=== PATIENT | female | born 1945 | race Caucasian/White ===

== ENCOUNTER → 2017-09-06 08:19 | Outpatient (CLI) | payer MEDICARE, SELFPAY ==
--- NOTE | 2017-09-06 08:24 | MM_ITS ---
MM Dig screening mamm BI w/CAD CAD Screening COMPARISON: Digital mammograms 05/04/2012 INDICATION: There is no personal or family history of breast cancer TECHNIQUE: Standard CC and MLO images were obtained. R2 CAD reviewed. FINDINGS: The breasts are of low density with minimal residual fibroglandular densities in the subareolar region of the right breast. There are few benign-appearing microcalcifications in each breast as noted previously. There is no suspicious lesion and there are no suspicious microcalcifications. IMPRESSION: Fatty type breast parenchyma with no suspicious lesion seen BI-RADS Category: 2 Benign Finding(s) RECOMMENDED FOLLOW-UP: 1YR - 1 YEAR FOLLOW-UP (A letter has been sent to the patient regarding results of the study.)
--- NOTE | 2017-09-06 08:25 | XR_ITS ---
XR DEXA axial skeleton HISTORY: ITS.REASON: OSTEOPENIA ORDERING PHYSICIAN: Yariel Fernández MD PATIENT AGE: 72 years COMPARISON: 11/27/2012 FINDINGS: The BMD measured at the lumbar spine is 1.299 g/centimeters squared with a T score of 1.0. This is considered normal according to the World Health Organization criteria. Fracture risk is low. Recommend follow-up exam August 2019. Hip density was not performed due to bilateral hip replacements. IMPRESSION: Normal bone density
== END ==
PROVIDERS: Family Provider Family Medicine; PCP Family Medicine; Visit Provider Family Medicine
DX: Z12.31 Encounter for screening mammogram for malignant neoplasm of breast (principal); M85.89 Other specified disorders of bone density and structure, multiple sites
CPT/HCPCS: 77067; 77080

== ENCOUNTER → 2017-11-03 10:33 | Outpatient (CLI) | payer MEDICARE, SELFPAY ==
--- NOTE | 2017-11-03 10:36 | US_ITS ---
US kidney retroperitoneal comp HISTORY: ITS.REASON: RENAL INSUFFICIENCY ORDERING PHYSICIAN: Yarile Fernández MD PATIENT AGE: 72 years FINDINGS: RIGHT KIDNEY:Unremarkable. Normal size and echogenicity. No hydronephrosis Right kidney measures 7 x 4 x 5 cm. There is mild cortical thinning LEFT KIDNEY:Unremarkable. No hydronephrosis. Normal size and echogenicity. The left kidney measures 10 x 4.6 x 4.6 cm with cortical thinning OTHER FINDINGS: No other pertinent findings IMPRESSION: No hydronephrosis or renal mass or perinephric fluid collection. Cortical thinning bilaterally
== END ==
PROVIDERS: Family Provider Family Medicine; PCP Family Medicine; Visit Provider Family Medicine
DX: N28.9 Disorder of kidney and ureter, unspecified (principal)
CPT/HCPCS: 76770

== ENCOUNTER → 2017-12-22 08:19 | Outpatient (CLI) | payer MEDICARE, SELFPAY ==
[2017-12-22 08:23] LABS: Microscopic, Urine URINE MICROSCOPIC (MICROSCOPIC)
[2017-12-22 08:43] LABS: Bilirubin,Urine Negative (Negative); Blood, Urine 2+ (Negative); Color,Urine YELLOW (Yellow); Glucose,Urine (UA) Negative (Negative); Ketones,Urine Negative (Negative); Leukocyte Esterase,Urine 1+ (Negative); Nitrate,Urine Negative (Negative); PH,Urine 5.5 (5.0-8.5); Protein,Urine Negative (Negative); Specific Gravity, Urine 1.025 (1.005-1.030); Urobilinogen,Urine 0.2 EU/dl (0.2)
[2017-12-22 08:47] LABS: Appearance,Urine Slightly Cloudy (Clear)
[2017-12-22 08:48] LABS: Basophils % 0.7 % (0.1-2.0); Eosinophils # 0.1 K/mm3 (0.0-0.4); Eosinophils % 1.7 % (0.1-12.0); Hematocrit 44.6 % (37.0-47.0); Hemoglobin 13.6 g/dL (12.2-16.2); Lymphocytes # 1.4 K/mm3 (0.7-4.5); Lymphocytes % 23.5 K/mm3 (10-50); Mean Corpuscular HGB Conc 30.6 g/dL (31.8-35.4); Mean Corpuscular Hemoglobin 29.5 pg (27.0-31.2); Mean Corpuscular Volume 96.5 fl (81-99); Mean Platelet Volume 8.9 fl (7.4-10.4); Monocytes # 0.5 K/mm3 (0.1-1.0); Monocytes % 8.4 % (1.7-9.3); Neutrophils # 3.9 K/mm3 (1.8-7.8); Neutrophils % 65.7 % (37.0-80.0); Platelet Count 159 K/mm3 (142-424); Red Blood Count 4.62 M/mm3 (4.20-5.40); Red Cell Distribution Width 13.7 % (11.5-17.5); White Blood Count 5.9 K/mm3 (4.8-10.8)
[2017-12-22 08:50] LABS: Bacteria,Urine 1+ /lpf
[2017-12-22 08:54] LABS: Creatinine,Urine Random 171 mg/dL (20-320)
[2017-12-22 09:08] LABS: Albumin Level 3.7 gm/dL (3.4-5.0); Anion Gap 13.2 mEq/L (5-15); Blood Urea Nitrogen 30 mg/dL (7-18); Calcium 8.9 mg/dL (8.5-10.1); Carbon Dioxide 27 mmol/L (21.0-32.0); Chloride 108 mmol/L (98-107); Creatinine,Serum 1.86 mg/dL (0.55-1.02); Estimated Glomerular Filt Rate 27 ml/min (>60); GFR (African American) 32 ML/MIN (>60); Glucose 97 mg/dL (74-106); Phosphorous 2.8 mg/dL (2.4-4.9); Potassium 4.2 mmoL/L (3.5-5.1); Sodium 144 mmol/L (136-145)
[2017-12-23 15:39] LABS: Parathyroid Hormone Intact 35 pg/mL (15-65); Vitamin D 25 Hydroxy 46.9 ng/mL (30.0-100.0)
== END ==
PROVIDERS: Visit Provider Internal Medicine Nephrology
DX: N18.4 Chronic kidney disease, stage 4 (severe) (principal); R82.90 Unspecified abnormal findings in urine
CPT/HCPCS: 36415; 80069; 81001; 82570; 82652; 83970; 84155; 85025; 87086

== ENCOUNTER → 2017-12-29 14:23 | Outpatient (POV) | payer MEDICARE, SELFPAY | PROVIDERS: Family Provider Family Medicine; PCP Family Medicine; Visit Provider Internal Medicine Nephrology | DX: Z00.00 Encounter for general adult medical examination without abnormal findings (principal) ==

== ENCOUNTER → 2018-06-22 07:49 | Outpatient (CLI) | payer MEDICARE, SELFPAY ==
[2018-06-22 07:53] LABS: Microscopic, Urine URINE MICROSCOPIC (MICROSCOPIC)
[2018-06-22 08:23] LABS: Creatinine,Urine Random 183 mg/dL (20-320); Total Protein,Urine Random 17.2 mg/dL (0.0-11.9)
[2018-06-22 08:27] LABS: Appearance,Urine SL CLOUDY (Clear); Bilirubin,Urine Negative (Negative); Blood, Urine 1+ (Negative); Color,Urine YELLOW (Yellow); Glucose,Urine (UA) Negative (Negative); Ketones,Urine Negative (Negative); Leukocyte Esterase,Urine 2+ (Negative); Nitrate,Urine Negative (Negative); Protein,Urine Negative (Negative); Urobilinogen,Urine 0.2 EU/dl (0.2)
[2018-06-22 08:30] LABS: Basophils % 0.7 % (0.1-2.0); Eosinophils # 0.1 K/mm3 (0.0-0.4); Eosinophils % 2.3 % (0.1-12.0); Hematocrit 43.2 % (37.0-47.0); Hemoglobin 13.8 g/dL (12.2-16.2); Lymphocytes % 35.9 % (10-50); Mean Corpuscular HGB Conc 31.9 g/dL (31.8-35.4); Mean Corpuscular Hemoglobin 31.1 pg (27.0-31.2); Mean Corpuscular Volume 97.5 fl (81-99); Mean Platelet Volume 8.6 fl (7.4-10.4); Monocytes # 0.5 K/mm3 (0.1-1.0); Monocytes % 9.2 % (1.7-9.3); Neutrophils # 2.8 K/mm3 (1.8-7.8); Neutrophils % 51.9 % (37.0-80.0); Platelet Count 181 K/mm3 (142-424); Red Blood Count 4.43 M/mm3 (4.20-5.40); Red Cell Distribution Width 13.9 % (11.5-17.5); White Blood Count 5.5 K/mm3 (4.8-10.8)
[2018-06-22 08:44] LABS: Bacteria,Urine 1+ /lpf; WBC,Urine 20-50 #/hpf (0-3)
[2018-06-22 09:28] LABS: Albumin Level 3.6 gm/dL (3.4-5.0); Blood Urea Nitrogen 29 mg/dL (7-18); Calcium 9.2 mg/dL (8.5-10.1); Carbon Dioxide 28 mmol/L (21.0-32.0); Chloride 104 mmol/L (98-107); Creatinine,Serum 1.94 mg/dL (0.55-1.02); Estimated Glomerular Filt Rate 25 ml/min (>60); GFR (African American) 31 ML/MIN (>60); Glucose 89 mg/dL (74-106); Phosphorous 2.7 mg/dL (2.4-4.9); Sodium 143 mmol/L (136-145)
== END ==
PROVIDERS: Visit Provider Internal Medicine Nephrology
DX: N18.4 Chronic kidney disease, stage 4 (severe) (principal); R82.90 Unspecified abnormal findings in urine
CPT/HCPCS: 36415; 80069; 81001; 82570; 84155; 85025; 87086

== ENCOUNTER → 2018-06-29 12:39 | Outpatient (POV) | payer MEDICARE, SELFPAY | PROVIDERS: Visit Provider Internal Medicine Nephrology | DX: Z00.00 Encounter for general adult medical examination without abnormal findings (principal) ==

== ENCOUNTER → 2018-09-08 08:59 | Outpatient (CLI) | payer MEDICARE, SELFPAY ==
--- NOTE | 2018-09-08 09:04 | MM_ITS ---
MM Dig screening mamm BI w/CAD ORDERING PHYSICIAN : Yariel Fernández MD PATIENT AGE: 73 years GENDER: Female COMPARISON: Bilateral mammogram August 2017, April 2012. INDICATION: Routine SCREENING mammogram. No hormones no new complaints noncontributory family history. TECHNIQUE: Standard CC and MLO images were obtained. R2 CAD reviewed. Additional MLO view for inframammary fold. Patient is somewhat difficult to position FINDINGS: Moderate residual fibroglandular elements in the retroareolar region on the right more so than left. Yields mild asymmetry. However overall there is diffuse fatty replacement of throughout the deep breast bilaterally. Overall patterns are similar to previous study RIGHT BREAST:Slight asymmetric fibroglandular elements more evident at the right retroareolar region appears stable. Areas of minor nodularity here on the MLO view, seen on studies dating back to 2011. Small grouping of benign calcifications towards the inferior central breast stable since 2012 as well. LEFT BREAST :There is a cluster of calcifications labeled X seen towards upper-outer quadrant of the left breast. Although actually fairly stable since last year there are perhaps a few additional small calcifications.-Also note there is some variability in shape & morphology including some slightly pleomorphic character on a several calcifications; thus suggest magnification views CC, 90 and MLO and this case. A may require additional attempted tangent view of the calcifications if the appear fairly superficial on these follow-up views. I tend to favor they are more likely within Breast rather than Skin, but do Appear to be superficial. No associated soft tissue density. There are some scattered small linear calcifications elsewhere IMPRESSION: 1. Additional magnification views left breast suggested to further evaluate clustered calcifications. More likely benign but warrant further investigation . These are Fairly superficial but I tend to favor breast rather than derrmal calcifications at this point Would benefit from magnification CC, 90 degree and MLO magnification spot views-might consider possibly attempting tangent view today if they appear superficial on these subsequent views. BI-RADS Category: 0 Need Additional Imaging Evaluation RECOMMENDED FOLLOW-UP: IMM - IMMEDIATE FOLLOW-UP RECOMMENDED Magnification spot views left breast as above (A letter has been sent to the patient regarding results of the study.)
== END ==
PROVIDERS: PCP Family Medicine; Visit Provider Family Medicine
DX: Z12.31 Encounter for screening mammogram for malignant neoplasm of breast (principal)
CPT/HCPCS: 77067

== ENCOUNTER → 2018-09-19 14:10 | Outpatient (CLI) | payer MEDICARE, SELFPAY ==
--- NOTE | 2018-09-19 14:12 | MM_ITS ---
MM Dig mamm DX unilat LT CAD INDICATION: Follow-up abnormal mammogram ORDERING PHYSICIAN: REBECCA Avery PATIENT AGE: 73 years COMPARISON: 09/08/2018, 09/06/2017, 05/04/2012 TECHNIQUE: Magnification views are performed along with rolled views and ML view FINDINGS: There is an indeterminate cluster of microcalcifications in the outer aspect of the left breast. Some of these calcifications appear somewhat pleomorphic. Stereotactic biopsy is suggested. There are other calcifications in the left breast which have more benign appearance within the in inferior aspect of the left breast. IMPRESSION: Magnification views of left breast calcifications at 2:00 are somewhat suspicious. Stereotactic biopsy is suggested BI-RADS Category: 4 Suspicious Abnormality-Biopsy Considered RECOMMENDED FOLLOW-UP: BIO - BIOPSY RECOMMENDED (A letter has been sent to the patient regarding results of the study.)
== END ==
PROVIDERS: PCP Physician Assistant; Visit Provider Physician Assistant
DX: R92.8 Other abnormal and inconclusive findings on diagnostic imaging of breast (principal)
CPT/HCPCS: 77065

== ENCOUNTER → 2018-10-11 09:28 | Outpatient (CLI) | payer MEDICARE, SELFPAY ==
--- NOTE | 2018-10-11 10:38 | MM_ITS ---
MM stereotactic loc LT, MM clip placement LT ORDERING PHYSICIAN: REBECCA Avery PATIENT AGE: 73 years Comparison: 09/08/2018, 09/19/2018 INDICATION for exam: Abnormal mammogram with suspicious calcifications of the left breast in the upper outer aspect of the left breast. PROCEDURE: The patient was given 1 mg of Xanax, Lortab 5 mg, and analgesia and minor sedation. The patient was placed on the stereotactic table and the abnormality was localized in the most appropriate projection. The breast was prepped in the routine manner, with sterile prep and the overlying skin anesthetized. A 3 to 4 mm skin incision was performed and the 9 gauge Dynamics Expertus vacuum-assisted core biopsy needle was advanced to the region of the calcification. Pre- and post fire images were obtained. After adequate positioning relative to the calcifications was ensured, multiple biopsies were obtained in the region of the calcifications specifically. The core biopsies obtained were sent for specimen mammography. After the calcifications were indeed identified on the specimen mammogram, the procedure was terminated. The patient tolerated the procedure well without complications. A tiny titanium nonferromagnetic MicroMark was positioned through the mammotome needle into the biopsy site. Postbiopsy mammogram: Postbiopsy changes are present in the upper outer aspect of the left breast anteriorly with biopsy clip in place. The suspicious calcifications are decreased in number. Pathology: Benign breast with proliferative fibrocystic changes and fibromatoid change. Microcalcifications noted. Negative for carcinoma or atypia. IMPRESSION: Successful stereotactic directed biopsy left breast calcification showing benign findings. No immediate complications. Recommend 6 month mammographic follow-up per routine protocol SPECIMEN RADIOGRAPH: The mammographically evident calcifications from the prior study are currently evident within the Patrick dish and within the specimens obtained during mammotome procedure. This is considered an adequate specimen and the procedure was terminated. IMPRESSION: Successful removal of described breast calcifications. Left BREAST MAMMOGRAM: Compared to the prior study, the previously noted calcification have been removed. A small MicroMark clip was inserted into the region of the calcifications. There is evidence of soft tissue changes in the region of the biopsy was soft tissue gas and edema. IMPRESSION: 1. Adequate placement of the MicroMark clip postbiopsy. 2. Postbiopsy changes within the upper Outer leftbreast.
== END ==
PROVIDERS: PCP Physician Assistant; Visit Provider Physician Assistant
DX: R92.8 Other abnormal and inconclusive findings on diagnostic imaging of breast (principal); N63.21 Unspecified lump in the left breast, upper outer quadrant
CPT/HCPCS: 19081; 77065; 88305

== ENCOUNTER → 2019-01-18 08:54 | Outpatient (CLI) | payer MEDICARE, SELFPAY ==
[2019-01-18 08:57] LABS: Microscopic, Urine URINE MICROSCOPIC (MICROSCOPIC)
[2019-01-18 09:24] LABS: Creatinine,Urine Random 35 mg/dL (20-320)
[2019-01-18 09:35] LABS: Basophils # 0.1 K/mm3 (0-0.2); Basophils % 1.1 % (0.1-2.0); Eosinophils # 0.1 K/mm3 (0.0-0.4); Eosinophils % 1.4 % (0.1-12.0); Hematocrit 42.1 % (37.0-47.0); Hemoglobin 13.1 g/dL (12.2-16.2); Lymphocytes # 1.4 K/mm3 (0.7-4.5); Lymphocytes % 32.3 % (10-50); Mean Corpuscular HGB Conc 31.1 g/dL (31.8-35.4); Mean Corpuscular Hemoglobin 29.5 pg (27.0-31.2); Mean Corpuscular Volume 94.8 fl (81-99); Mean Platelet Volume 9.4 fl (7.4-10.4); Monocytes # 0.5 K/mm3 (0.1-1.0); Monocytes % 10.7 % (1.7-9.3); Neutrophils # 2.3 K/mm3 (1.8-7.8); Neutrophils % 54.5 % (37.0-80.0); Platelet Count 176 K/mm3 (142-424); Red Blood Count 4.44 M/mm3 (4.20-5.40); Red Cell Distribution Width 13.4 % (11.5-17.5); White Blood Count 4.3 K/mm3 (4.8-10.8)
[2019-01-18 10:13] LABS: Appearance,Urine CLEAR (Clear); Bilirubin,Urine Negative (Negative); Blood, Urine TRACE-I (Negative); Color,Urine YELLOW (Yellow); Glucose,Urine (UA) Negative (Negative); Ketones,Urine Negative (Negative); Leukocyte Esterase,Urine 1+ (Negative); Nitrate,Urine Negative (Negative); PH,Urine 5.5 (5.0-8.5); Protein,Urine Negative (Negative); Specific Gravity, Urine <= 1.005 (1.005-1.030); Urobilinogen,Urine 0.2 EU/dl (0.2)
[2019-01-18 10:14] LABS: Albumin Level 3.5 gm/dL (3.4-5.0); Anion Gap 14.3 mEq/L (5-15); Blood Urea Nitrogen 31 mg/dL (7-18); Calcium 9.4 mg/dL (8.5-10.1); Carbon Dioxide 26 mmol/L (21.0-32.0); Chloride 103 mmol/L (98-107); Creatinine,Serum 1.88 mg/dL (0.55-1.02); Estimated Glomerular Filt Rate 26 ml/min (>60); GFR (African American) 32 ML/MIN (>60); Glucose 89 mg/dL (74-106); Phosphorous 2.9 mg/dL (2.4-4.9); Potassium 4.3 mmoL/L (3.5-5.1); Sodium 139 mmol/L (136-145); Uric Acid 6.3 mg/dL (2.6-7.2)
[2019-01-18 10:23] LABS: Total Protein,Urine Random < 6.0 mg/dL (0.0-11.9)
[2019-01-18 10:44] LABS: Bacteria,Urine Trace /lpf; RBC,Urine Occasional #/hpf (0-3)
[2019-01-19 14:10] LABS: Calcium, Ionized 5.2 mg/dL (4.5-5.6)
[2019-01-19 15:05] LABS: Parathyroid Hormone Intact 29 pg/mL (15-65); Vitamin D 25 Hydroxy 57.6 ng/mL (30.0-100.0)
== END ==
PROVIDERS: Visit Provider Internal Medicine Nephrology
DX: N18.4 Chronic kidney disease, stage 4 (severe) (principal); R82.90 Unspecified abnormal findings in urine
CPT/HCPCS: 36415; 80069; 81001; 82330; 82570; 82652; 83970; 84155; 84550; 85025; 87086

== ENCOUNTER → 2019-01-25 12:39 | Outpatient (POV) | payer MEDICARE, SELFPAY | PROVIDERS: Visit Provider Internal Medicine Nephrology | DX: Z00.00 Encounter for general adult medical examination without abnormal findings (principal) ==

== ENCOUNTER → 2019-04-13 12:48 | Outpatient (CLI) | payer MEDICARE, SELFPAY ==
--- NOTE | 2019-04-13 12:50 | MM_ITS ---
PROCEDURE: MM DIG MAMM DX UNILAT LT CAD CLINICAL INDICATION: 6 MO FU COMPARISON: [facility] MM Dig screening mamm BI w/CAD from 09/06/2017 [facility] MM Dig screening mamm BI w/CAD from 09/08/2018 [facility] MM Dig mamm DX unilat LT CAD from 09/19/2018 [facility] MM stereotactic loc LT from 10/11/2018 TECHNIQUE: Standard images performed along with Mag views or FINDINGS: Average fibroglandular tissue. Previously noted suspicious cluster of microcalcifications in the upper outer aspect of the left breast are less numerous when compared to the previous exam. Biopsy clip is present in this area. No new lesions. Stable microcalcifications are noted in the lower aspect of the left breast. IMPRESSION: Benign findings. Recommend resuming screening mammogram August 2019 BI-RAD Category: 2 Benign Finding(s) FOLLOW-UP: 6M 6Month Follow-up (A letter has been sent to the patient regarding results of the study.) Dictated by: Tom Gates MD 04/13/2019 14:05 Electronically signed by Tom Gates MD in [place] 04/13/2019 14:05
== END ==
PROVIDERS: Visit Provider Family Medicine
DX: R92.8 Other abnormal and inconclusive findings on diagnostic imaging of breast (principal)
CPT/HCPCS: 77065

== ENCOUNTER → 2019-11-22 09:02 | Outpatient (CLI) | payer MEDICARE, SELFPAY ==
[2019-11-22 09:08] LABS: Microscopic, Urine URINE MICROSCOPIC (MICROSCOPIC)
[2019-11-22 09:23] LABS: Basophils # 0.1 K/mm3 (0-0.2); Basophils % 1.2 % (0.1-2.0); Eosinophils # 0.1 K/mm3 (0.0-0.4); Eosinophils % 1.9 % (0.1-12.0); Hematocrit 40.9 % (37.0-47.0); Hemoglobin 13.4 g/dL (12.2-16.2); Lymphocytes # 1.4 K/mm3 (0.7-4.5); Lymphocytes % 26.9 % (10-50); Mean Corpuscular HGB Conc 32.8 g/dL (31.8-35.4); Mean Corpuscular Hemoglobin 31.9 pg (27.0-31.2); Mean Corpuscular Volume 97.4 fl (81-99); Mean Platelet Volume 9.6 fl (7.4-10.4); Monocytes # 0.4 K/mm3 (0.1-1.0); Monocytes % 6.6 % (1.7-9.3); Neutrophils # 3.3 K/mm3 (1.8-7.8); Neutrophils % 63.5 % (37.0-80.0); Platelet Count 141 K/mm3 (142-424); Red Cell Distribution Width 13.7 % (11.5-17.5); White Blood Count 5.3 K/mm3 (4.8-10.8)
[2019-11-22 10:28] LABS: Appearance,Urine CLEAR (Clear); Bilirubin,Urine Negative (Negative); Blood, Urine TRACE-I (Negative); Color,Urine YELLOW (Yellow); Glucose,Urine (UA) Negative (Negative); Ketones,Urine Negative (Negative); Leukocyte Esterase,Urine 2+ (Negative); Nitrate,Urine Negative (Negative); PH,Urine 5.5 (5.0-8.5); Protein,Urine Negative (Negative); Urobilinogen,Urine 0.2 EU/dl (0.2)
[2019-11-22 10:32] LABS: Chloride 109 mmol/L (98-107)
[2019-11-22 10:33] LABS: Albumin Level 3.9 g/dl (3.5-5.0); Potassium 5.2 mmoL/L (3.5-5.1); Sodium 140 mmol/L (136-145)
[2019-11-22 10:35] LABS: Blood Urea Nitrogen 32 mg/dl (7-17); Estimated Glomerular Filt Rate 32 ml/min (>60); GFR (African American) 38 ML/MIN (>60)
[2019-11-22 10:36] LABS: Anion Gap 13.2 mEq/L (5-15); Calcium 9.5 mg/dl (8.4-10.2); Carbon Dioxide 23 mmol/L (22.0-30.0); Glucose 82 mg/dl (74-100); Phosphorous 2.8 mg/dl (2.5-4.5)
[2019-11-22 10:40] LABS: Bacteria,Urine 1+ /lpf; Creatinine,Urine Random 64 mg/dL (Not Estab.); WBC,Urine 20-50 #/hpf (0-3)
== END ==
PROVIDERS: Visit Provider Internal Medicine Nephrology
DX: N18.4 Chronic kidney disease, stage 4 (severe) (principal); R82.90 Unspecified abnormal findings in urine
CPT/HCPCS: 36415; 80069; 81001; 82570; 84155; 85025; 87086

== ENCOUNTER → 2019-12-28 09:10 | Outpatient (CLI) | payer MEDICARE, SELFPAY ==
--- NOTE | 2019-12-28 09:15 | MM_ITS ---
PROCEDURE: MM DIG SCREENING MAMM BI W/CAD Digital Breast Tomosynthesis Included CLINICAL INDICATION: ROUTINE There is no personal or family history of breast cancer. There has been a previous biopsy left breast for benign disease. COMPARISON: [facility] MM Dig screening mamm BI w/CAD from 09/08/2018 [facility] MM Dig mamm DX unilat LT CAD from 09/19/2018 [facility] MM stereotactic loc LT from 10/11/2018 MM DIG MAMM DX UNILAT LT CAD from 04/13/2019 TECHNIQUE: Standard CC and MLO images and 3D Tomosynthesis was obtained. R2 CAD reviewed. FINDINGS: The breasts are composed primarily of fat with minimal scattered fibroglandular densities in each breast. Glandular elements are slightly more prominent in the subareolar region right breast than left. There is a biopsy clip subareolar region left breast. There are few scattered benign-appearing microcalcifications in each breast. There is no suspicious lesion and no suspicious microcalcifications. IMPRESSION: Fatty type breast parenchyma with no suspicious lesions seen BI-RAD Category: 2 Benign Finding(s) FOLLOW-UP: 1YR 1 Year Follow-up (A letter has been sent to the patient regarding results of the study.) Dictated by: Dr. Tano Shabazz MD 12/30/2019 16:[address] Tano Shabazz MD in [place] 12/30/2019 16:10
== END ==
PROVIDERS: PCP Family Medicine; Visit Provider Family Medicine
DX: Z12.31 Encounter for screening mammogram for malignant neoplasm of breast (principal)
CPT/HCPCS: 77063; 77067

== ENCOUNTER → 2020-01-09 09:02 | Outpatient (CLI) | payer MEDICARE, SELFPAY ==
--- NOTE | 2020-01-09 09:08 | XR_ITS ---
PROCEDURE: XR SHOULDER LT MIN 2V CLINICAL INDICATION: ACUTE PAIN OF L SHOULDER COMPARISON: No exams were available for comparison FINDINGS: No fracture or dislocation. No lytic or blastic change. There is normal mineralization. There are mild osteoarthritic changes of the acromioclavicular and glenohumeral joint. Other findings:Atelectasis or fibrosis in the left lung base IMPRESSION: Mild osteoarthritis Dictated by: Tom Gates MD 01/09/2020 09:28 Electronically signed by Tom Gates MD in [place] 01/09/2020 09:28
== END ==
PROVIDERS: PCP Family Medicine; Visit Provider Family Medicine
DX: M25.512 Pain in left shoulder (principal)
CPT/HCPCS: 73030

== ENCOUNTER → 2020-02-06 10:23 | Outpatient (CLI) | payer MEDICARE, SELFPAY ==
--- NOTE | 2020-02-06 10:26 | XR_ITS ---
PROCEDURE: XR DEXA AXIAL SKELETON CLINICAL HISTORY: POST-MENOPAUSAL COMPARISON: No exams were available for comparison FINDINGS: The left forearm BMD is 0.578 with a t-score of -1.9. The lumbar spine BMD is 1.097 with a t-score of 0.5. IMPRESSION: This patient is considered osteopenic according to the World Health Organization criteria. Bone density is between 10 and 25 percent below young normal . Fracture risk is moderate. Treatment is advised. Based on these results of follow-up exam is recommended in 2 years Dictated b Tom Gates MD 02/07/2020 23:25 Tom Gates MD in [place] 02/08/2020 08:51
== END ==
PROVIDERS: PCP Family Medicine; Visit Provider Physician Assistant
DX: Z78.0 Asymptomatic menopausal state (principal)
CPT/HCPCS: 77080

== ENCOUNTER 2020-02-13 08:00 | Outpatient (RCR) | payer MEDICARE, SELFPAY ==
--- NOTE | 2020-02-13 08:52 | HMH.RHREAS ---
Rehab Reassessment Rehab OP Re-assessment Start: 02/13/20 08:42 Freq: Status: Active Protocol: Document 02/13/20 08:44 HARSHANIRUDH (Rec: 02/13/20 08:51 ANGELATONIE [id number]) Electronically Signed By Jennifer Ye OT 02/13/20 08:44 Rehab Re-assessment Subjective Subjective My shoulder still hurts me at night. It makes me want to bang my head against the wall. Objective Objective Notes Instructed Patient on graded therapeutic act, graded therapeutic exer and modalities to improve AROM, strengthening and decrease pain levels in L shoulder. Assessment Progress Assessment Progressing as Expected Assessment Notes Patient continues to verbalize high pain levels at worst 9/ 10 at night when sleeping. Follow up with MD on 02/15/20 re: pain levels with pain managment strategies. Patient goals met AROM L UE shoulder flex: 140 AROM L UE shoulder ER: 90 L shoulder strength of 3 to 3+ /5 throughout Able to complete in 30mins of exer daily prior to RB Goals Not Met AROM of L UE ABD: 90 and AROM of L UE IR: 60. 9/10 pain in L shld at night Revised Goals AROM L UE shld flex: 150 AROM L UE ABD: 120 AROM L UE IR: 60 5/10 pain at worst Completing 40 mins of exer prior to RB Plan Plan Follow up with MD on 02/15/20 re: pain management with L shoulder. Patient AROM with flex, ER, strengthening and endurance has improved however continues to verbalize increase pain levels. Frequency of Therapy 2 Duration of therapy 4 Time and Billing Re-Eval Time 15 Re-Eval Billing Units 1 PHYSICIAN CERTIFICATION: I certify the specified therapy services for Aleida Saldivar are required, authorized, and reviewed every 30 days.
== END 2020-02-13 09:00 | disposition home or self-care (01) ==
LOC: OT 08:00
PROVIDERS: PCP Family Medicine; Visit Provider Physician Assistant
DX: M25.512 Pain in left shoulder (principal)
CPT/HCPCS: 97014; 97033; 97035; 97110; 97164; 97165; 97530; G0283

== ENCOUNTER → 2020-02-22 08:33 | Outpatient (CLI) | payer MEDICARE, SELFPAY ==
--- NOTE | 2020-02-22 08:37 | MR_ITS ---
PROCEDURE: MR SHOULDER LT WO CON CLINICAL INDICATION: ACUTE PAIN OF LEFT SHOULDER Pt c/o left shoulder pain with limited ROM, pt denies trauma or injury. Pt very kyphotic and images are best possible. COMPARISON: CR XR SHOULDER LT MIN 2V from 01/09/2020 TECHNIQUE: Routine multiplanar multi echo sequences are performed without gadolinium enhancement. FINDINGS: There are hypertrophic/arthritic changes the acromioclavicular joint causing some impingement upon musculotendinous junction of the supraspinatus tendon. There is tendinopathy/tendinosis of the infraspinatus tendon. A complete tear involves the supraspinatus tendon distally with mild retraction of the musculotendinous fibers. There is thickening of the infraspinatus tendon with increased T2 signal with at least a partial tear distally along the line under surface. There is tendinopathy/tendinosis of the subscapularis tendon. The posterior fibers of the subscapularis tendon have a more posterior coarse lateral to the glenoid suggesting at least a partial tear of the subscapularis tendon. Teres minor tendon is intact. The bicipital tendon appears in place Osteoarthritic changes are present at the glenohumeral joint with superior elevation of the humeral head. There is suspected tear of the anterior glenoid labrum at 3 o'clock position. Subchondral cystic changes are present involving the humeral head laterally at the greater tuberosity IMPRESSION: 1. Complete tear of the supraspinatus tendon with mild retraction of the musculotendinous fibers 2. Tendinopathy/tendinosis of the infraspinatus tendon with partial tear distally along the under surface 3. Suspect at least a partial tear of the subscapularis tendon 4. Nondisplaced anterior glenoid labral tear suspected at 3 o'clock. 5. Osteoarthritic change with superior location of the humeral head Dictated by: Tom Gates MD 02/24/2020 11:25 Tom Gates MD in [place] 02/24/2020 11:25
== END ==
PROVIDERS: PCP Family Medicine; Visit Provider Physician Assistant
DX: M25.512 Pain in left shoulder (principal)
CPT/HCPCS: 73221

== ENCOUNTER → 2020-03-06 16:28 | Outpatient (CLI) | payer MEDICARE, SELFPAY ==
--- NOTE | 2020-03-06 16:32 | XR_ITS ---
PROCEDURE: XR KNEE RT 4V CLINICAL INDICATION: right knee pain COMPARISON: No exams were available for comparison FINDINGS: Status post total knee replacement with good alignment. No fracture or dislocation. Along posterior patella there is an unusual density which has concentric ring like areas which may be part of the patellar prosthesis. Please correlate with patient's surgical history. Other findings:None. IMPRESSION: Good alignment status post total knee replacement. Please see above for detail Dictated by: Tom Gates MD 03/06/2020 17:14 Tom Gates MD in [place] 03/06/2020 17:14
--- NOTE | 2020-03-06 16:32 | XR_ITS ---
PROCEDURE: XR KNEE LT 4V CLINICAL INDICATION: left knee pain Follow-up knee replacement COMPARISON: No exams were available for comparison FINDINGS: Good alignment status post total knee replacement. The joint spaces are well-preserved. No significant degenerative/arthritic changes. No erosive changes evident. Other findings:There is a calcific density along the lateral aspect of the proximal tibia measuring 11 mm. No pre operative studies are available for review to determine if this is acute or chronic. IMPRESSION: Status post total knee replacement with good alignment as described Dictated by: Tom Gates MD 03/06/2020 17:15 Tom Gates MD in [place] 03/06/2020 17:15
== END ==
PROVIDERS: PCP Family Medicine; Visit Provider Orthopaedic Surgery
DX: M25.561 Pain in right knee (principal); M25.562 Pain in left knee
CPT/HCPCS: 73564

== ENCOUNTER → 2020-04-11 13:27 | Outpatient (CLI) | payer MEDICARE, SELFPAY ==
--- NOTE | 2020-04-11 13:27 | US_ITS ---
PROCEDURE: US TRANSVAGINAL CLINICAL INDICATION: US T/V- post menopausal bleeding Postmenopausal bleeding COMPARISON: No exams were available for comparison FINDINGS: The uterus is retroverted UTERUS: 7cm x 5cmx 4cm with a combined endometrial thickness of 13.5mm LEFT OVARY: Not identified RIGHT OVARY: [id number] with a volume of 26.9ml. No ovarian cyst identified. IMPRESSION: The endometrium is thickened at 13 mm. The uterus is retroverted. The right ovary is enlarged at 4.6 x 3.7 cm. Left ovary is not visualized. Dictated by: Tom Gates MD 04/11/2020 17:40 Tom Gates MD in [place] 04/11/2020 17:40
== END ==
PROVIDERS: PCP Family Medicine; Visit Provider Obstetrics & Gynecology
DX: N95.0 Postmenopausal bleeding (principal)
CPT/HCPCS: 76830

== ENCOUNTER → 2020-04-22 15:25 | Outpatient (CLI) | payer MEDICARE, SELFPAY ==
--- NOTE | 2020-04-22 15:34 | XR_ITS ---
PROCEDURE: XR CHEST 2V CLINICAL HISTORY: PREOP, HX OF HIGH BLOOD PRESSURE COMPARISON: CR CXR CHEST(2 VIEWS-NOT PORTABLE) from 07/05/2016 CR CXR CHEST(2 VIEWS-NOT PORTABLE) from 07/14/2016 CR XR CHEST 2V from 06/05/2019 FINDINGS: The cardiomediastinal silhouette and pulmonary vascularity are within normal limits. Atelectatic or fibrotic changes are present in the lower lobes. These findings are not significantly changed. There is kyphosis of the thoracic spine not significantly changed. IMPRESSION: No change bibasilar atelectatic or fibrotic changes and thoracic kyphosis Dictated by: Tom Gates MD 04/22/2020 16:05 Tom Gates MD in [place] 04/22/2020 16:05
--- NOTE | 2020-04-22 15:57 | ECG_ITS ---
APPROVED REPORT Exam: Resting ECG HR:95 bpm ECG Measurements Heart Rate 95 AXES OR 156 P 42 QRSd 90 QRS -7 QT 346 T 3 QTc 434 Conclusion Normal sinus rhythm NDST-T Changes Abnormal ECG Electronically signed by : Hector Lim, 04/25/2020 11:25:07
== END ==
PROVIDERS: PCP Family Medicine; Visit Provider Nurse Practitioner Family
DX: Z01.818 Encounter for other preprocedural examination (principal)
CPT/HCPCS: 71046; 93005

== ENCOUNTER 2020-04-24 08:44 | Outpatient (CLI) | payer MEDICARE, SELFPAY ==
[2020-04-24 08:47] VITALS: BMI 35.7
[2020-04-24 09:10] VITALS: BP 139/99; PULSE 80; RESP 20; TEMP 36.3; O2SAT 100
[2020-04-24 09:42] LABS: INR 1.61 (0.9-1.1); Prothrombin Time 17.1 seconds (9.4-11.8)
== END 2020-04-24 09:24 | disposition home or self-care (01) ==
LOC: INF 08:45
PROVIDERS: Visit Provider Nurse Practitioner Family
DX: Z51.81 Encounter for therapeutic drug level monitoring (principal); Z79.01 Long term (current) use of anticoagulants
CPT/HCPCS: 85610; 96372

== ENCOUNTER 2020-04-25 08:20 | Outpatient (CLI) | payer MEDICARE, SELFPAY ==
[2020-04-25 08:30] VITALS: BP 156/62; PULSE 69; RESP 18; TEMP 36.2; O2SAT 98
== END 2020-04-25 08:38 | disposition home or self-care (01) ==
LOC: INF 08:25
PROVIDERS: Visit Provider Nurse Practitioner Family
DX: D68.51 Activated protein C resistance (principal)
CPT/HCPCS: 96372

== ENCOUNTER → 2020-04-26 08:12 | Outpatient (CLI) | payer MEDICARE, SELFPAY ==
[2020-04-26 08:48] VITALS: BP 133/70; PULSE 80; RESP 22; TEMP 36.4; O2SAT 98
== END ==
PROVIDERS: PCP Nurse Practitioner Family; Visit Provider Nurse Practitioner Family
DX: D68.51 Activated protein C resistance (principal)
CPT/HCPCS: 96372; G0463

== ENCOUNTER → 2020-04-27 08:05 | Outpatient (CLI) | payer MEDICARE, SELFPAY ==
[2020-04-27 08:35] VITALS: BP 129/91; PULSE 72; RESP 20; TEMP 37; O2SAT 98
== END ==
PROVIDERS: PCP Family Medicine; Visit Provider Nurse Practitioner Family
DX: D68.51 Activated protein C resistance (principal)
CPT/HCPCS: 96372; G0463

== ENCOUNTER 2020-04-28 08:15 | Outpatient (CLI) | payer MEDICARE, SELFPAY ==
[2020-04-28 08:20] VITALS: BMI 35.7
[2020-04-28 08:36] VITALS: BP 164/77; PULSE 80; RESP 18; TEMP 36.4; O2SAT 96
[2020-04-28 09:05] LABS: INR 1.17 (0.9-1.1); Prothrombin Time 12.8 seconds (9.4-11.8)
== END 2020-04-28 08:36 | disposition home or self-care (01) ==
LOC: INF 08:15
PROVIDERS: Visit Provider Nurse Practitioner Family
DX: D68.51 Activated protein C resistance (principal); Z51.81 Encounter for therapeutic drug level monitoring
CPT/HCPCS: 85610; 96372

== ENCOUNTER 2020-04-29 08:15 | Outpatient (CLI) | payer MEDICARE, SELFPAY ==
[2020-04-29 08:17] VITALS: BP 142/71; PULSE 77; RESP 18; TEMP 36.1; O2SAT 97
== END 2020-04-29 08:17 | disposition home or self-care (01) ==
LOC: INF 08:15
PROVIDERS: Visit Provider Nurse Practitioner Family
DX: D68.51 Activated protein C resistance (principal)
CPT/HCPCS: 96372

== ENCOUNTER 2020-04-30 08:13 | Outpatient (CLI) | payer MEDICARE, SELFPAY ==
[2020-04-30 08:19] VITALS: BP 141/68; PULSE 75; RESP 18; TEMP 36.1; O2SAT 98
== END 2020-04-30 08:19 | disposition home or self-care (01) ==
LOC: INF 08:15
PROVIDERS: PCP Emergency Medicine; Visit Provider Nurse Practitioner Family
DX: D68.51 Activated protein C resistance (principal)
CPT/HCPCS: 96372

== ENCOUNTER 2020-05-01 08:14 | Outpatient (CLI) | payer MEDICARE, SELFPAY ==
[2020-05-01 08:25] VITALS: BP 131/61; PULSE 70; RESP 18; TEMP 36.6; O2SAT 96
== END 2020-05-01 08:40 | disposition home or self-care (01) ==
LOC: INF 08:14
PROVIDERS: Visit Provider Nurse Practitioner Family
DX: D68.51 Activated protein C resistance (principal)
CPT/HCPCS: 96372

== ENCOUNTER 2020-05-02 08:10 | Outpatient (CLI) | payer MEDICARE, SELFPAY ==
[2020-05-02 08:25] VITALS: BP 139/66; PULSE 71; RESP 18; TEMP 36.1; O2SAT 99
== END 2020-05-02 08:40 | disposition home or self-care (01) ==
LOC: INF 08:19
PROVIDERS: Visit Provider Nurse Practitioner Family
DX: D68.51 Activated protein C resistance (principal)
CPT/HCPCS: 96372

== ENCOUNTER 2020-05-03 08:15 | Outpatient (CLI) | payer MEDICARE, SELFPAY ==
[2020-05-03 08:50] VITALS: BP 143/78; PULSE 71; RESP 19; TEMP 36.4; O2SAT 98
== END 2020-05-03 09:38 | disposition home or self-care (01) ==
LOC: INF 08:16
PROVIDERS: PCP Nurse Practitioner Family; Visit Provider Nurse Practitioner Family
DX: D68.51 Activated protein C resistance (principal)
CPT/HCPCS: 96372

== ENCOUNTER 2020-05-04 08:12 | Outpatient (CLI) | payer MEDICARE, SELFPAY ==
[2020-05-04 08:14] VITALS: BP 134/68; PULSE 77; RESP 16; TEMP 36.2; O2SAT 98; BMI 35.7
== END 2020-05-04 08:40 | disposition home or self-care (01) ==
LOC: INF 08:12
PROVIDERS: PCP Nurse Practitioner Family; Visit Provider Nurse Practitioner Family
DX: D68.51 Activated protein C resistance (principal)
CPT/HCPCS: 96372; 96374

== ENCOUNTER 2020-05-05 08:17 | Outpatient (CLI) | payer MEDICARE, SELFPAY ==
[2020-05-05 08:20] VITALS: BP 159/82; PULSE 62; RESP 20; TEMP 36.4; O2SAT 98
== END 2020-05-05 08:20 | disposition home or self-care (01) ==
LOC: INF 08:17
PROVIDERS: Visit Provider Nurse Practitioner Family
DX: D68.51 Activated protein C resistance (principal)
CPT/HCPCS: 96372

== ENCOUNTER 2020-05-06 08:12 | Outpatient (CLI) | payer MEDICARE, SELFPAY ==
[2020-05-06 08:14] VITALS: BMI 35.7
[2020-05-06 08:32] LABS: Chloride 107 mmol/L (98-107); Potassium 4.9 mmoL/L (3.5-5.1); Sodium 139 mmol/L (136-145)
[2020-05-06 08:35] LABS: Anion Gap 11.9 mEq/L (5-15); Blood Urea Nitrogen 29 mg/dl (7-17); Carbon Dioxide 25 mmol/L (22.0-30.0); Creatinine Clearance Estimated 50 mL/min (50-200); Estimated Glomerular Filt Rate 29 ml/min (>60); GFR (African American) 36 ML/MIN (>60)
[2020-05-06 08:36] LABS: Calcium 10.4 mg/dl (8.4-10.2); Glucose 95 mg/dl (74-100)
[2020-05-06 09:03] LABS: Platelet Count 170 K/mm3 (142-424)
[2020-05-06 09:17] VITALS: BP 140/67; PULSE 66; RESP 18; TEMP 36.2; O2SAT 99
== END 2020-05-06 09:17 | disposition home or self-care (01) ==
LOC: INF 08:12
PROVIDERS: Visit Provider Nurse Practitioner Family
DX: D68.51 Activated protein C resistance (principal)
CPT/HCPCS: 80048; 85049; 96372

== ENCOUNTER 2020-05-07 08:08 | Outpatient (CLI) | payer MEDICARE, SELFPAY ==
[2020-05-07 08:16] VITALS: BP 157/71; PULSE 66; RESP 18; TEMP 36.4; O2SAT 98
== END 2020-05-07 08:16 | disposition home or self-care (01) ==
LOC: INF 08:11
PROVIDERS: Visit Provider Nurse Practitioner Family
DX: D68.51 Activated protein C resistance (principal)
CPT/HCPCS: 96372

== ENCOUNTER 2020-05-08 08:20 | Outpatient (CLI) | payer MEDICARE, SELFPAY ==
[2020-05-08 08:22] VITALS: BP 131/71; PULSE 78; RESP 18; TEMP 36.4; O2SAT 96
== END 2020-05-08 08:30 | disposition home or self-care (01) ==
LOC: INF 08:20
PROVIDERS: Visit Provider Nurse Practitioner Family
DX: D68.51 Activated protein C resistance (principal)
CPT/HCPCS: 96372

== ENCOUNTER 2020-05-09 08:19 | Outpatient (CLI) | payer MEDICARE, SELFPAY ==
[2020-05-09 08:30] VITALS: BP 146/71; PULSE 75; RESP 18; TEMP 36; O2SAT 98
== END 2020-05-09 08:30 | disposition home or self-care (01) ==
LOC: INF 08:19
PROVIDERS: Visit Provider Nurse Practitioner Family
DX: D68.51 Activated protein C resistance (principal)
CPT/HCPCS: 96372

== ENCOUNTER → 2020-05-10 07:50 | Outpatient (CLI) | payer MEDICARE, SELFPAY ==
[2020-05-10 08:36] VITALS: BP 126/66; PULSE 70; RESP 20; TEMP 36.5; O2SAT 97
== END ==
PROVIDERS: PCP Family Medicine; Visit Provider Nurse Practitioner Family
DX: D68.51 Activated protein C resistance (principal)
CPT/HCPCS: 96372; G0463

== ENCOUNTER → 2020-05-11 08:30 | Outpatient (CLI) | payer MEDICARE, SELFPAY ==
[2020-05-11 08:50] VITALS: BP 109/86; PULSE 80; RESP 16; TEMP 36.4; O2SAT 94
== END ==
PROVIDERS: PCP Family Medicine; Visit Provider Nurse Practitioner Family
DX: D68.51 Activated protein C resistance (principal)
CPT/HCPCS: 96372; G0463

== ENCOUNTER 2020-05-12 08:25 | Outpatient (CLI) | payer MEDICARE, SELFPAY ==
[2020-05-12 08:29] VITALS: BP 156/75; PULSE 66; RESP 18; TEMP 36.6; O2SAT 98
== END 2020-05-12 08:40 | disposition home or self-care (01) ==
LOC: INF 08:25
PROVIDERS: Visit Provider Nurse Practitioner Family
DX: D68.51 Activated protein C resistance (principal)
CPT/HCPCS: 96372

== ENCOUNTER 2020-05-13 08:13 | Outpatient (CLI) | payer MEDICARE, SELFPAY ==
[2020-05-13 08:16] VITALS: BP 156/88; PULSE 87; RESP 18; TEMP 35.9; O2SAT 98
== END 2020-05-13 08:16 | disposition home or self-care (01) ==
LOC: INF 08:13
PROVIDERS: Visit Provider Nurse Practitioner Family
DX: D68.51 Activated protein C resistance (principal)
CPT/HCPCS: 96372

== ENCOUNTER 2020-05-14 08:12 | Outpatient (CLI) | payer MEDICARE, SELFPAY ==
[2020-05-14 08:17] VITALS: BP 138/83; PULSE 76; RESP 18; TEMP 36.4; O2SAT 98
== END 2020-05-14 08:20 | disposition home or self-care (01) ==
LOC: INF 08:13
PROVIDERS: Visit Provider Nurse Practitioner Family
DX: D68.51 Activated protein C resistance (principal)
CPT/HCPCS: 96372

== ENCOUNTER 2020-05-15 08:23 | Outpatient (CLI) | payer MEDICARE, SELFPAY ==
[2020-05-15 08:25] VITALS: BP 132/69; PULSE 65; RESP 18; TEMP 36.5; O2SAT 99
== END 2020-05-15 08:40 | disposition home or self-care (01) ==
LOC: INF 08:23
PROVIDERS: Visit Provider Nurse Practitioner Family
DX: D68.51 Activated protein C resistance (principal)
CPT/HCPCS: 96372; 96523

== ENCOUNTER 2020-05-16 08:18 | Outpatient (CLI) | payer MEDICARE, SELFPAY ==
[2020-05-16 08:35] VITALS: BP 147/75; PULSE 68; RESP 20; TEMP 36.9; O2SAT 95
[2020-05-16 08:54] VITALS: BP 147/79; PULSE 69; RESP 20; TEMP 36.1; O2SAT 95
== END 2020-05-16 08:30 | disposition home or self-care (01) ==
LOC: INF 08:18
PROVIDERS: Visit Provider Nurse Practitioner Family
DX: D68.51 Activated protein C resistance (principal)
CPT/HCPCS: 96372

== ENCOUNTER → 2020-05-17 08:18 | Outpatient (CLI) | payer MEDICARE, SELFPAY ==
[2020-05-17 08:30] VITALS: BP 115/73; PULSE 78; RESP 16; TEMP 36.6; O2SAT 98
== END ==
PROVIDERS: PCP Nurse Practitioner Family; Visit Provider Nurse Practitioner Family
DX: D68.51 Activated protein C resistance (principal)
CPT/HCPCS: 96372; G0463

== ENCOUNTER → 2020-05-18 08:17 | Outpatient (CLI) | payer MEDICARE, SELFPAY ==
[2020-05-18 09:12] LABS: Basophils % 0.8 % (0.1-2.0); Eosinophils # 0.1 K/mm3 (0.0-0.4); Eosinophils % 2.2 % (0.1-12.0); Hematocrit 45.4 % (37.0-47.0); Hemoglobin 14.4 g/dL (12.2-16.2); Lymphocytes # 1.4 K/mm3 (0.7-4.5); Mean Corpuscular HGB Conc 31.8 g/dL (31.8-35.4); Mean Corpuscular Hemoglobin 31.3 pg (27.0-31.2); Mean Corpuscular Volume 98.3 fl (81-99); Mean Platelet Volume 8.8 fl (7.4-10.4); Monocytes # 0.5 K/mm3 (0.1-1.0); Monocytes % 8.7 % (1.7-9.3); Neutrophils # 3.3 K/mm3 (1.8-7.8); Neutrophils % 62.2 % (37.0-80.0); Platelet Count 202 K/mm3 (142-424); Red Blood Count 4.62 M/mm3 (4.20-5.40); White Blood Count 5.3 K/mm3 (4.8-10.8)
[2020-05-18 09:37] LABS: Coronavirus 19 IgG Antibody Positive (Negative); Coronavirus 19 IgM Antibody Negative (Negative)
[2020-05-18 09:52] LABS: Chloride 106 mmol/L (98-107); Potassium 4.6 mmoL/L (3.5-5.1); Sodium 139 mmol/L (136-145)
[2020-05-18 09:54] LABS: Alanine Aminotransferase 27 U/L (12-78); Aspartate Amino Transferase 37 U/L (14-36); Blood Urea Nitrogen 37 mg/dl (7-17); Estimated Glomerular Filt Rate 28 ml/min (>60); GFR (African American) 33 ML/MIN (>60)
[2020-05-18 09:55] LABS: Albumin Level 4.2 g/dl (3.5-5.0); Albumin/Globulin Ratio 1.3 (1.1-1.8); Alkaline Phosphatase 71 U/L (38-126); Anion Gap 11.6 mEq/L (5-15); Bilirubin,Total 0.6 mg/dl (0.2-1.3); Calcium 10.4 mg/dl (8.4-10.2); Carbon Dioxide 26 mmol/L (22.0-30.0); Globulin 3.3 g/dL (1.3-3.2); Glucose 93 mg/dl (74-100); Total Protein,Serum 7.5 g/dl (6.3-8.2)
[2020-05-18 10:04] LABS: HCG Qualitative, Serum Negative (Negative)
[2020-05-18 10:47] LABS: Activated Partial Thrombo Time 24.1 seconds (23.6-34.0); INR 1.04 (0.9-1.1); Prothrombin Time 11.5 seconds (9.4-11.8)
== END ==
PROVIDERS: Obstetrics & Gynecology; PCP Nurse Practitioner Family; Visit Provider Nurse Practitioner Family
DX: D68.51 Activated protein C resistance (principal)
CPT/HCPCS: 36415; 80053; 84703; 85025; 85610; 85730; 86328; 96372; G0463

== ENCOUNTER 2020-05-19 08:13 | Outpatient (CLI) | payer MEDICARE, SELFPAY ==
[2020-05-19 08:15] VITALS: BP 149/77; PULSE 93; RESP 18; TEMP 36.3; O2SAT 97
== END 2020-05-19 08:25 | disposition home or self-care (01) ==
LOC: INF 08:13
PROVIDERS: Visit Provider Nurse Practitioner Family
DX: D68.51 Activated protein C resistance (principal)
CPT/HCPCS: 96372

== ENCOUNTER 2020-05-20 06:08 | Day surgery (SDC) | payer MEDICARE, SELFPAY ==
[2020-05-14 14:30] VITALS: BMI 35.7
[2020-05-20] VITALS (12 sets, daily range): BP systolic 113–148; BP diastolic 54–85; PULSE 55–95; RESP 10–19; TEMP 36.2–36.7; O2SAT 95–99
--- NOTE | 2020-05-20 07:13 | P.PN_ITS ---
[facility] Anesthesia Checklist - Patient Identification Patient Identification: Arm Band, Verbal (Name & ) - Structural Data Admitted From: Home Planned Operative Procedure/s: Hysteroscopy, D&C, Myosure Consent for Planned Operative Procedure(s) Verified: Yes Verified Documents: Surgical Consent, History and Physical - NPO Status Verified Time NPO: 00:00 - Chart Verification Results Verified: CBC, BMP, PT, PTT, INR, HCG - Additional verifications Patient : No Anesthesia Reactions: No Hx Blood Transfusions: Yes Blood Transfusion Reaction: No - Airway Assessment C-Spine Mobility Assessed: Yes TMJ Mobility Assessed: Yes Dentition: Edentulous (Denture removed) - Neurological Assessment Level of Consciousness: Awake, Alert, Appropriate, Follows Commands Hx Seizures: No Numbness or tingling in extremities: No - Anesthesia Plan Anesthesia Risk discussed: Yes Anesthesia Plan: Verified ASA Class: III Anesthesia Type: General (LMA) [facility] History I have reviewed the patient's past medical history: Yes Medical History: Reports:: Anxiety, Deep Vein Thrombosis, Hypertension Denies:: Cancer, Diabetes Mellitus Type 1, Diabetes Mellitus Type 2, MRSA, Seizures *Have you ever received a pneumonia vaccine?: Yes *Have you received a flu vaccine this season?: Yes Other Medical History: Reports: Arthritis, Hypothyroidism, Other. Denies: Blood Transfusion Reaction Comment:: Obesity, Factor 5 deficiency Anesthesia experience/problems:: None Laterality Cases: Bilateral: Total Hip Replacement, Total Knee Replacement Other Surgeries: Yes: Cardiac Catheterization, Cholecystectomy, Dilation and Curettage Amputation: No Fractures: No - *Social History Smoking Status: Former smoker Alcohol Intake: never Substance Use Type: denies use *Occupational Status:: retired Housing: house Household Members: family *Travel in the last 8 weeks: None Family Hx:: Bleeding Disorder, Cancer, Coronary Artery Disease
--- NOTE | 2020-05-20 08:51 | P.PN_ITS ---
[facility] Anesthesia Record Part I Intake, IV Amount: 500 Estimated blood loss (mL): 5 Urine output (mL): 100 Blood Products used (#): none Blood Pressure: 115/70 SaO2: 96 Pulse Rate: 70 Respiratory Rate: 10 Temperature: 97.2 F Patient is:: Awake, Stable Stable to PACU at:: 08:48
--- NOTE | 2020-05-20 09:26 | P.OP_ITS ---
Date of procedure: 05/20/20 Pre-op Diagnosis:: 1. Post-menopausal bleeding 2. Thickened endometrium 3. Uterine prolapse 4. Chronic anticoagulation Post-op Diagnosis:: Same Procedure performed:: 1. D & C Hysteroscopy with Myosure 2. Pap smear Surgeon:: Jennifer Grijalva MD RIB TRIM SEPARATOR:: Marko Galeano Anesthesia: GETA Estimated blood loss (mL): 5 Operative findings:: Uterine prolapse to the level of vaginal introitus Grossly normal appearing cervix Uterine cavity masses Operative note:: The patient was taken to the OR and general anesthesia administered without difficulty. She was prepped/draped in lithotomy position. The cervix visible at the level of vaginal introitus and vaginal retractors were not needed for visualization or access. Cervical cytology specimen (pap smear) was obtained. The cervix was easily dilated and hysteroscopic evaluation performed. Multiple cavitary masses were visualized within the endometrial cavity, as well as glandular proliferation. The Myosure was used to excise these lesions and to sample endometrial tissue throughout the cavity. Once this was completed, all instruments were removed, she was taken out of lithotomy position, awakened from anesthesia and taken to the PACU in stable condition. All sponge, needle & instrument counts correct. EBL 5cc. Condition: stable Disposition: PACU Specimens:: 1. Endometrial curettings 2. Pap smear Complications:: None
--- NOTE | 2020-05-20 17:58 | P.PN_ITS ---
[facility] Anesthesia Record Part II Discharge Time: 09:18 Destination: Surgical Day Care (OP Surgery) PACU nurse assessment reviewed?: Yes Patient Condition:: Good Anesthesia Complications:: None Swallowing reflex intact?: Yes Cyanosis?: No Blood Pressure: 127/59 Pulse Rate: 56 Temperature: 97.9 F Mental Status: Alert & Oriented Pain level:: 0 Nausea and/or vomitting:: None Intake, IV Amount: 0
== END 2020-05-20 09:57 | disposition home or self-care (01) ==
LOC: OR 06:10
PROVIDERS: PCP Family Medicine; Visit Provider Obstetrics & Gynecology
PROC: (CPT 58563; principal; 2020-05-20 08:00)
DX: N81.2 Incomplete uterovaginal prolapse (principal); N85.8 Other specified noninflammatory disorders of uterus; N95.0 Postmenopausal bleeding; R93.89 Abnormal findings on diagnostic imaging of other specified body structures; Z79.01 Long term (current) use of anticoagulants; F41.9 Anxiety disorder, unspecified; I73.9 Peripheral vascular disease, unspecified; I10 Essential (primary) hypertension; M19.90 Unspecified osteoarthritis, unspecified site; E03.9 Hypothyroidism, unspecified
CPT/HCPCS: 58563; 88305; 96374; J2405

== ENCOUNTER 2020-05-21 08:22 | Outpatient (CLI) | payer MEDICARE, SELFPAY ==
[2020-05-21 08:24] VITALS: BP 144/69; PULSE 68; RESP 18; TEMP 36.4; O2SAT 98
== END 2020-05-21 08:30 | disposition home or self-care (01) ==
LOC: INF 08:22
PROVIDERS: Visit Provider Nurse Practitioner Family
DX: D68.51 Activated protein C resistance (principal)
CPT/HCPCS: 96372

== ENCOUNTER → 2020-05-22 08:16 | Outpatient (CLI) | payer MEDICARE, SELFPAY ==
[2020-05-22 08:26] VITALS: BP 156/88; PULSE 81; RESP 17; TEMP 36.6; O2SAT 98
== END ==
PROVIDERS: PCP Family Medicine; Visit Provider Nurse Practitioner Family
DX: D68.51 Activated protein C resistance (principal)
CPT/HCPCS: 96372; G0463

== ENCOUNTER 2020-05-23 08:18 | Outpatient (CLI) | payer MEDICARE, SELFPAY ==
[2020-05-23 08:20] VITALS: BMI 36.0
--- NOTE | 2020-05-23 08:24 | PC.NURSE ---
pt to have labs drawn to check pt/inr level post procedure prior to administering lovenox injection. pt is currently back taking her coumadin. contacted lab staff to draw level.
[2020-05-23 08:55] LABS: INR 1.13 (0.9-1.1); Prothrombin Time 12.4 seconds (9.4-11.8)
[2020-05-23 08:59] VITALS: BP 144/91; PULSE 76; RESP 18; TEMP 36.4; O2SAT 100
== END 2020-05-23 09:01 | disposition home or self-care (01) ==
LOC: INF 08:18
PROVIDERS: Visit Provider Nurse Practitioner Family
DX: D68.51 Activated protein C resistance (principal)
CPT/HCPCS: 36415; 85610; 96372

== ENCOUNTER → 2020-05-24 08:16 | Outpatient (CLI) | payer MEDICARE, SELFPAY ==
[2020-05-24 08:25] VITALS: BP 122/97; PULSE 88; RESP 17; TEMP 36.7; O2SAT 98
== END ==
PROVIDERS: PCP Family Medicine; Visit Provider Nurse Practitioner Family
DX: D68.51 Activated protein C resistance (principal)
CPT/HCPCS: 96372; G0463

== ENCOUNTER → 2020-05-25 08:18 | Outpatient (CLI) | payer MEDICARE, SELFPAY ==
[2020-05-25 08:59] VITALS: BP 115/78; PULSE 88; RESP 15; O2SAT 95
[2020-05-25 09:04] LABS: INR 1.68 (0.9-1.1); Prothrombin Time 17.8 seconds (9.4-11.8)
== END ==
PROVIDERS: PCP Family Medicine; Visit Provider Nurse Practitioner Family
DX: D68.51 Activated protein C resistance (principal)
CPT/HCPCS: 36415; 85610

== ENCOUNTER 2020-05-26 08:15 | Outpatient (CLI) | payer MEDICARE, SELFPAY ==
[2020-05-26 08:19] VITALS: BP 139/70; PULSE 94; RESP 18; TEMP 36.8; O2SAT 99
== END 2020-05-26 08:19 | disposition home or self-care (01) ==
LOC: INF 09:46
PROVIDERS: Visit Provider Nurse Practitioner Family
DX: D68.51 Activated protein C resistance (principal)
CPT/HCPCS: 96372

== ENCOUNTER 2020-05-27 08:34 | Outpatient (CLI) | payer MEDICARE, SELFPAY ==
[2020-05-27 08:37] VITALS: BMI 36.1
[2020-05-27 09:21] LABS: INR 3.07 (0.9-1.1); Prothrombin Time 30.8 seconds (9.4-11.8)
[2020-05-27 09:25] VITALS: BP 116/59; PULSE 81; RESP 18; TEMP 36.3; O2SAT 97
--- NOTE | 2020-05-27 13:19 | PC.NURSE ---
05/27/20 0920-results noted from labs (pt/inr). INR results noted at 3.07-pt noted within the therapeutic range that md has requested. pt is ok to discontinue lovenox injections at this time and continue her coumadin. pt has appt with pcp in 1 week and is instructed to f/u with pcp at that time for further instructions and care. pt verbalizes understanding of instructions given.
== END 2020-05-27 09:25 | disposition home or self-care (01) ==
LOC: INF 08:35
PROVIDERS: Visit Provider Nurse Practitioner Family
DX: D68.51 Activated protein C resistance (principal)
CPT/HCPCS: 36415; 85610

== ENCOUNTER 2020-06-25 08:42 | Outpatient (CLI) | payer MEDICARE, SELFPAY ==
[2020-06-25 12:21] LABS: PHA INR Fingerstick 2.5 (0.9-1.1)
== END 2020-06-25 13:26 | disposition home or self-care (01) ==
PROVIDERS: PCP Family Medicine; Visit Provider Physician Assistant
DX: Z51.81 Encounter for therapeutic drug level monitoring (principal); Z79.01 Long term (current) use of anticoagulants
CPT/HCPCS: 85610; 99211; G0463

== ENCOUNTER 2020-07-08 08:40 | Inpatient (IN) | payer MEDICARE, SELFPAY ==
[2020-07-08] VITALS (10 sets, daily range): BP systolic 102–132; BP diastolic 40–65; PULSE 73–93; RESP 16–22; TEMP 36.8–37.6; O2SAT 87–97; BMI 34.9; BMI 34.5
--- NOTE | 2020-07-08 08:58 | HMH.EDGENADL ---
ED Disposition Clinical Impression: MARIELY (acute kidney injury), Dehydration, Supratherapeutic INR, Pneumonia due to COVID-19 virus Bilateral pneumonia Qualifiers: Pneumonia type: due to unspecified organism Lung location: unspecified part of lung Qualified Code(s): J18.9 - Pneumonia, unspecified organism Diarrhea Qualifiers: Diarrhea type: unspecified type Qualified Code(s): R19.7 - Diarrhea, unspecified Respiratory failure with hypoxia Qualifiers: Chronicity: acute Qualified Code(s): J96.01 - Acute respiratory failure with hypoxia Disposition: Admitted As Inpatient Condition on Discharge: Serious Referrals: Yariel Fernández MD [Primary Care Provider] - - Critical Care Critical Care Time: Yes Attestation: On , the high probability of a clinically significant, sudden or life threatening deterioration of the following system(s) required my full and direct attention, intervention and personal management. The time I documented below is in addition to time spent performing reported procedures but includes the following listed in this critical care notation. Total Critical Care Time: 40 Vital system(s) involved:: Respiratory Failure, Renal Failure My critical care processes included: Assessment & monitoring of V/S, Initial and Re-exams, Data Review/Interpretation, Coordinating Care, Medication Orders and management, Documentation Medical Decision Making - Medical Records Medical records reviewed: Yes: I reviewed the patient's medical records. MR Comment: Most recent creatinine 1.8 on 05/18/2020. Positive COVID-19 IgG same date. - [place] Inquiry Pt receiving controlled substance: No Vital Signs: 07/08/20 08:41 07/08/20 12:03 Temperature 98.3 F Temperature Source Oral Pulse Rate [Right Radial] 93 H 80 Respiratory Rate 18 Blood Pressure [Right Arm] 106/59 L 102/45 L Blood Pressure Mean [Right Arm] 74 64 Blood Pressure Source [Right Arm] Automatic Cuff Automatic Cuff Blood Pressure Position [Right Arm] Sitting Sitting 02 Sat by Pulse Oximetry 87 L 92 L Oxygen Delivery Method Room Air Nasal Cannula Oxygen Flow Rate (LPM) 2 - Lab Data Lab results reviewed: Yes: I reviewed the patient's lab results. Lab Results 07/08/20 08:57: WBC 4.7 L, RBC 4.61, Hgb 14.3, Hct 43.8, MCV 94.9, MCH 30.9, MCHC 32.6, RDW 13.9, Plt Count 161, MPV 9.6, Neut % (Auto) 71.9, Lymph % (Auto) 18.7, Dixon % (Auto) 8.3, Eos % (Auto) 0.2, Baso % (Auto) 0.9, Neut # (Auto) 3.4, Lymph # (Auto) 0.9, [place] # (Auto) 0.4, Eos # (Auto) 0.0, Baso # (Auto) 0.0 07/08/20 08:57: Sodium 133 L, Potassium 4.3, Chloride 101, Carbon Dioxide 20 L, Anion Gap 16.3 H, BUN 50 H, Creatinine 2.60 H, Estimated Creat Clear 32, Estimated GFR 18 L*, Est GFR ( Amer) 22 L, Glucose 104 H, Calcium 9.4, Total Bilirubin 0.4, AST 64 H, ALT 33, Alkaline Phosphatase 78, Total Protein 7.9, Albumin 4.1, Globulin 3.8 H, Albumin/Globulin Ratio 1.1 07/08/20 08:57: Lactate 1.3 07/08/20 08:57: Chlamy pneumoniae PCR Not detected, Adenovirus (PCR) Not detected, B. pertussis DNA (PCR) Not detected, Coronavirus OC43 (PCR) Not detected, Coronavirus HKU1 (PCR) Not detected, Coronavirus 229E (PCR) Not detected, SARS-CoV-2 (PCR) Detected A, Coronavirus NL63 (PCR) Not detected, Human Metapneumovir PCR Not detected, Influenza A (H1) PCR Not detected, Influ A (H1N1/09) PCR Not detected, Influenza A (H3) PCR Not detected, Influenza Type A (PCR) Not detected, Influenza Type B (PCR) Not detected, M. pneumoniae (PCR) Not detected, Parainfluenza 1 (PCR) Not detected, Parainfluenza 2 (PCR) Not detected, Parainfluenza 3 (PCR) Not detected, Parainfluenza 4 (PCR) Not detected, RSV (PCR) Not detected, Entero/Rhino (PCR) Not detected 07/08/20 08:57: Troponin I 0.02, Lipase 277, TSH 0.16 L 07/08/20 08:57: PT 56.4 H, INR 5.98 H 07/08/20 08:57: SARS-CoV-2 IgG Ab (Rapid) Positive A, SARS-CoV-2 IgM Ab (Rapid) Positive A 07/08/20 08:57: Procalcitonin 0.359 07/08/20 10:12: Urine Color Yellow, Urine Appearance Clear, U
--- NOTE | 2020-07-08 09:03 | XR_ITS ---
PROCEDURE: XR CHEST PORTABLE CLINICAL HISTORY: low oxygen level, cough COMPARISON: CR CXR CHEST(2 VIEWS-NOT PORTABLE) from 07/14/2016 CR XR CHEST 2V from 06/05/2019 CR XR CHEST 2V from 04/22/2020 FINDINGS: The cardiomediastinal silhouette and pulmonary vascularity are within normal limits. Patchy density noted in the left lower lobe and right lower lobe consistent with bilateral pneumonia. Atelectatic or fibrotic changes are present also in the left lower lobe. No acute bony abnormalities. IMPRESSION: Bilateral pneumonia Dictated by: Tom Gates MD 07/08/2020 09:20 Tom Gates MD in [place] 07/08/2020 09:20
[2020-07-08 09:14] LABS: Basophils % 0.9 % (0.1-2.0); Eosinophils % 0.2 % (0.1-12.0); Hematocrit 43.8 % (37.0-47.0); Hemoglobin 14.3 g/dL (12.2-16.2); Lymphocytes # 0.9 K/mm3 (0.7-4.5); Lymphocytes % 18.7 % (10-50); Mean Corpuscular HGB Conc 32.6 g/dL (31.8-35.4); Mean Corpuscular Hemoglobin 30.9 pg (27.0-31.2); Mean Corpuscular Volume 94.9 fl (81-99); Mean Platelet Volume 9.6 fl (7.4-10.4); Monocytes # 0.4 K/mm3 (0.1-1.0); Monocytes % 8.3 % (1.7-9.3); Neutrophils # 3.4 K/mm3 (1.8-7.8); Neutrophils % 71.9 % (37.0-80.0); Platelet Count 161 K/mm3 (142-424); Red Blood Count 4.61 M/mm3 (4.20-5.40); Red Cell Distribution Width 13.9 % (11.5-17.5); White Blood Count 4.7 K/mm3 (4.8-10.8)
[2020-07-08 09:16] LABS: Alanine Aminotransferase 33 U/L (12-78); Albumin Level 4.1 g/dl (3.5-5.0); Albumin/Globulin Ratio 1.1 (1.1-1.8); Alkaline Phosphatase 78 U/L (38-126); Anion Gap 16.3 mEq/L (5-15); Aspartate Amino Transferase 64 U/L (14-36); Bilirubin,Total 0.4 mg/dl (0.2-1.3); Blood Urea Nitrogen 50 mg/dl (7-17); Calcium 9.4 mg/dl (8.4-10.2); Carbon Dioxide 20 mmol/L (22.0-30.0); Chloride 101 mmol/L (98-107); Creatinine Clearance Estimated 32 mL/min (50-200); Estimated Glomerular Filt Rate 18 ml/min (>60); GFR (African American) 22 ML/MIN (>60); Globulin 3.8 g/dL (1.3-3.2); Glucose 104 mg/dl (74-100); Potassium 4.3 mmoL/L (3.5-5.1); Sodium 133 mmol/L (136-145); Total Protein,Serum 7.9 g/dl (6.3-8.2)
[2020-07-08 09:17] LABS: Lactic Acid 1.3 mmol/L (0.7-2.1)
[2020-07-08 09:21] LABS: Adenovirus,PCR Not Detected (NotDetected); Bordetella Pertussis Not Detected (NotDetected); Chlamydophila Pneumoniae, PCR Not Detected (NotDetected); Coronavirus 229E Not Detected (NotDetected); Coronavirus NL63 Not Detected (NotDetected); Coronavirus OC43 Not Detected (NotDetected); Coronovirus HKU1,PCR Not Detected (NotDetected); Human Metapneumovirus Not Detected (NotDetected); Influenza A, PCR Not Detected (NotDetected); Influenza AH1, 2009 Not Detected (NotDetected); Influenza AH1, PCR Not Detected (NotDetected); Influenza AH3,PCR Not Detected (NotDetected); Influenza B, PCR Not Detected (NotDetected); Mycoplasma Pneumoniae, PCR Not Detected (NotDetected); Parainfluenza 1, PCR Not Detected (NotDetected); Parainfluenza 2, PCR Not Detected (NotDetected); Parainfluenza 3, PCR Not Detected (NotDetected); Parainfluenza 4, PCR Not Detected (NotDetected); Respiratory Syncytial Virus Not Detected (NotDetected); Rhinovirus/Enterovirus Not Detected (NotDetected)
--- NOTE | 2020-07-08 09:21 | CT_ITS ---
PROCEDURE: CT ABDOMEN PELVIS WO CON CLINICAL INDICATION: abdominal pain Generalized abdominal pain COMPARISON: No exams were available for comparison TECHNIQUE: Axial images obtained with sagittal and coronal reformats. All CT scans at the facility use one or more dose reduction, viz: automated exposure control, ma/kV adjustment per patient size (including targeted exams where dose is matched to indication, i.e. head), or iterative reconstruction technique. FINDINGS: LOWER THORAX: There is multifocal patchy areas of ground-glass attenuation in both lower lobes consistent with pneumonia which may be related to Covid19 ABDOMEN & PELVIS: Prior cholecystectomy. There is mild prominence of the right hepatic lobe. No focal liver lesions are evident. Multiple splenic granulomas are noted. The adrenal glands, pancreas, and kidneys have an unremarkable appearance other than atrophic changes of the right kidney.. There is a small hiatal hernia. No evidence of appendicitis. There is diffuse colonic diverticulosis involving the entire colon. No evidence of diverticulitis. There are few scattered air-fluid levels in both large and small bowel without evidence of distension. Possibly related to enterocolitis. Considerable artifact is present from bilateral hip replacement. No obvious pelvic mass or abnormal fluid collection. There are degenerative changes in the lumbar spine IMPRESSION: 1. Bilateral lower lobe pneumonia possibly related to Covid19 2. Sifuentes colonic diverticulosis. No evidence of diverticulitis 3. Nonspecific scattered air-fluid levels in large and small bowel without distention possibly related to enterocolitis Dictated by: Tom Gates MD 07/08/2020 10:20 Tom Gates MD in [facility] 07/08/2020 10:20
--- NOTE | 2020-07-08 09:35 | PC.NURSE ---
pt to CT
[2020-07-08 09:59] LABS: Lipase 277 U/L (23-300)
[2020-07-08 10:12] LABS: Troponin I 0.02 ng/ml (0.00-0.034)
--- NOTE | 2020-07-08 10:15 | ECG_ITS ---
APPROVED REPORT Exam: Resting ECG HR:78 bpm ECG Measurements Heart Rate 78 AXES AZ 144 P 50 QRSd 92 QRS -17 QT 380 T -16 QTc 433 Conclusion Normal sinus rhythm Normal ECG Electronically signed by : Kirk Becerra, 07/10/2020 19:33:06
[2020-07-08 10:16] LABS: INR 5.98 (0.9-1.1); Prothrombin Time 56.4 seconds (9.4-11.8)
--- NOTE | 2020-07-08 10:16 | PC.NURSE ---
NOMAN VAZQUEZ notified of critical pt/inr results
[2020-07-08 10:17] LABS: Microscopic, Urine URINE MICROSCOPIC (MICROSCOPIC)
[2020-07-08 10:26] LABS: Appearance,Urine CLEAR (Clear); Bilirubin,Urine 1+ (Negative); Blood, Urine 2+ (Negative); Color,Urine YELLOW (Yellow); Glucose,Urine (UA) Negative (Negative); Ketones,Urine TRACE (Negative); Leukocyte Esterase,Urine 2+ (Negative); Nitrate,Urine Negative (Negative); Protein,Urine 1+ (Negative); Specific Gravity, Urine 1.025 (1.005-1.030); Urobilinogen,Urine 0.2 EU/dl (0.2)
[2020-07-08 10:30] LABS: Bacteria,Urine 1+ /lpf
[2020-07-08 10:31] LABS: Thyroid Stimulating Hormone 0.16 uIU/mL (0.465-4.68)
[2020-07-08 10:57] LABS: Coronavirus 19, PCR Detected (NotDetected)
--- NOTE | 2020-07-08 10:58 | PC.NURSE ---
notified ER pt covid swab is positive
--- NOTE | 2020-07-08 11:15 | PC.NURSE ---
NOMAN VAZQUEZ speaking with Dr. Fernández
[2020-07-08 11:20] LABS: Procalcitonin 0.359 ng/mL (0.0-2.0)
[2020-07-08 11:26] LABS: Coronavirus 19 IgG Antibody Positive (Negative)
[2020-07-08 11:27] LABS: Coronavirus 19 IgM Antibody Positive (Negative)
--- NOTE | 2020-07-08 12:04 | PC.NURSE ---
VS have been intermittent due to pt being up and down to the restroom.
--- NOTE | 2020-07-08 12:32 | PC.NURSE ---
Dr. Fernández at bedside
--- NOTE | 2020-07-08 13:20 | HMH.HP ---
*Chief complaint: Cough and diarrhea *History of present illness: This 74-year-old white female is admitted via the emergency room. She gives a 6-day history of being ill. She has had some cough. She has had diarrhea. She has felt achy. She tested positive for COVID-19 in the emergency room. She has a history of hypertension, hypothyroidism, and a history of deep vein thrombosis for which she takes warfarin. The following is from the emergency room narrative: History obtained from patient and family. She has been sick since last Tuesday, 6 days. She has had diarrhea without blood. Body aches. Generalized weakness. Not eating. Not drinking much. Cough with clear sputum. Intermittent abdominal pain. Denies vomiting or fever. No exposure to COVID-19. States that she had positive antibody test for COVID-19 earlier in the year. [facility] History Medical History: Reports:: Anxiety, Deep Vein Thrombosis (Takes warfarin), Hypertension Denies:: Cancer, Diabetes Mellitus Type 1, Diabetes Mellitus Type 2, MRSA, Seizures *Have you ever received a pneumonia vaccine?: No *Have you received a flu vaccine this season?: No Other Medical History: Reports: Arthritis, Hypothyroidism, Other (Gout, treated with allopurinol). Denies: Blood Transfusion Reaction Laterality Cases: Bilateral: Total Hip Replacement, Total Knee Replacement Other Surgeries: Yes: Cardiac Catheterization, Cholecystectomy, Dilation and Curettage (Dr. Grijalva May 20, 2020 polyp removed), Tubal Ligation Amputation: No Fractures: No - *Social History Smoking Status: Former smoker (Quit smoking in 2002) Alcohol Intake: never Substance Use Type: denies use *Occupational Status:: retired Housing: house Household Members: family *Travel in the last 8 weeks: None - Psychiatric History Pschychiatric History:: Reports:: Anxiety Family Hx:: Bleeding Disorder, Cancer, Coronary Artery Disease, Other (Father at 71 years of age mother at 69 years of age. 2 brothers. 2 children) Review of Systems - Constitutional Reports body ache(s), Reports weakness, Denies fever(s), Denies headache(s) - Eyes Denies change in vision - ENT Denies abnormal hearing, Denies pain with swallowing - *Cardiovascular Denies chest pain - *Respiratory Reports chest congestion, Reports cough - *Gastrointestinal Denies abdominal pain - *Genitourinary Reports abnormal vaginal bleeding (Had D&C and polyp removal in April 2020) - *Musculoskeletal Reports limited joint movement, Reports muscle weakness - Integumentary/Breasts Denies bleeding lesions - *Neurologic Reports weakness, Denies dizziness Meds Home Medications Medication Instructions Recorded Confirmed Type allopurinol 100 mg tablet 100 mg PO DAILY 09/25/18 07/08/20 History lisinopril 10 mg tablet 10 mg PO DAILY 09/25/18 07/08/20 History levothyroxine 137 mcg tablet 137 mcg PO DAILY 05/16/20 07/08/20 History Warfarin Sodium 5 mg PO DAILY 05/20/20 07/08/20 History Allergies Allergy/AdvReac Type Severity Reaction Status Date / Time Penicillins Allergy Mild Hives Verified 05/20/20 06:23 Exam Vital signs and Labs for Last 24 Hours: Temp Pulse Resp BP Pulse Ox 98.3 F 79 18 102/46 L 96 07/08/20 08:41 07/08/20 13:02 07/08/20 08:41 07/08/20 13:02 07/08/20 13:02 Laboratory Results - last 24 hr 07/08/20 08:57: WBC 4.7 L, RBC 4.61, Hgb 14.3, Hct 43.8, MCV 94.9, MCH 30.9, MCHC 32.6, RDW 13.9, Plt Count 161, MPV 9.6, Neut % (Auto) 71.9, Lymph % (Auto) 18.7, [place] % (Auto) 8.3, Eos % (Auto) 0.2, Baso % (Auto) 0.9, Neut # (Auto) 3.4, Lymph # (Auto) 0.9, [place] # (Auto) 0.4, Eos # (Auto) 0.0, Baso # (Auto) 0.0 07/08/20 08:57: Sodium 133 L, Potassium 4.3, Chloride 101, Carbon Dioxide 20 L, Anion Gap 16.3 H, BUN 50 H, Creatinine 2.60 H, Estimated Creat Clear 32, Estimated GFR 18 L*, Est GFR ( Amer) 22 L, Glucose 104 H, Calcium 9.4, Total Bilirubin 0.4, AST 64 H, ALT 33, Alkaline Phosphatase 78, T
[2020-07-08 13:36] LABS: Troponin I 0.02 ng/ml (0.00-0.034)
--- NOTE | 2020-07-08 14:00 | PC.NURSE ---
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
--- NOTE | 2020-07-08 14:17 | P.CONPHA_ITS ---
[facility] Pharmacy VTE Monitoring - Patient Demographics Admission date: 07/08/20 Report Date: 07/08/20 Time: 14:17 Allergies/Adverse Reactions: Patient Allergies Penicillins Allergy (Mild, Verified 05/20/20 06:23) Hives Height: 1.73 m Weight: 104.326 kg Patient Problems: Current Active Problems Bilateral pneumonia (Acute) MARIELY (acute kidney injury) (Acute) Dehydration (Acute) Supratherapeutic INR (Acute) Diarrhea (Acute) Pneumonia due to COVID-19 virus (Acute) Respiratory failure with hypoxia (Acute) Anticoagulated on warfarin (Acute) - VTE Risk Labs: VTE Related Lab Results Hgb 14.3 g/dL (12.2-16.2) 07/08/20 08:57 Hct 43.8 % (37.0-47.0) 07/08/20 08:57 Plt Count 161 K/mm3 (142-424) 07/08/20 08:57 PT 56.4 seconds (9.4-11.8) H 07/08/20 08:57 INR 5.98 (0.9-1.1) H 07/08/20 08:57 BUN 50 mg/dl (7-17) H 07/08/20 08:57 Creatinine 2.60 mg/dl (0.52-1.04) H 07/08/20 08:57 Estimated Creat Clear 32 mL/min (50-200) 07/08/20 08:57 - Prophylaxis Types of VTE Prophylaxis: Pharmacological Pharmacologic Type: Warfarin (SUPRATHERAPEUTIC ON WARFARIN; INR 5.98 ON ADMISSION)
--- NOTE | 2020-07-08 14:46 | HMH.PHAINT ---
MEDICATION RECONCILIATION COMPLETED ON PATIENT USING EXTERNAL FILL HISTORY FROM PHARMACY AND LIST FROM [facility] OFFICE. -MURIEL SANCHEZD
--- NOTE | 2020-07-08 15:06 | PC.NURSE ---
spoke with judy on second floor, states she will be down to get report on pt.
--- NOTE | 2020-07-08 16:04 | PC.NURSE ---
report given to dante tony at this time.
--- NOTE | 2020-07-08 16:11 | PC.NURSE ---
pt arrived to the floor at this time.
[2020-07-08 16:28] LABS: Troponin I 0.02 ng/ml (0.00-0.034)
[2020-07-09] VITALS: BP 92/56; PULSE 58; O2SAT 90
[2020-07-09 04:00] VITALS: BP 99/54; PULSE 99; RESP 19; TEMP 36.6; O2SAT 96
--- NOTE | 2020-07-09 05:00 | PC.NURSE ---
Pt is A&O x4 and has slept well through the night. Pt has been on 2L NC with sats in the low 90s. Lung sounds are diminished with crackles in the bases. Pt has ambulated to [facility] and tolerated well. no c/o pain or difficulty breathing. bowel sounds positive x4, abd soft and nontender. VSS, call light in reach, no concerns at this time.
[2020-07-09 06:09] VITALS: BMI 34.2
[2020-07-09 06:54] LABS: Basophils % 0.3 % (0.1-2.0); Eosinophils % 0.2 % (0.1-12.0); Hematocrit 37.6 % (37.0-47.0); Lymphocytes # 0.3 K/mm3 (0.7-4.5); Lymphocytes % 15.8 % (10-50); Mean Corpuscular HGB Conc 32.2 g/dL (31.8-35.4); Mean Corpuscular Volume 99.3 fl (81-99); Mean Platelet Volume 9.7 fl (7.4-10.4); Monocytes # 0.2 K/mm3 (0.1-1.0); Monocytes % 7.7 % (1.7-9.3); Neutrophils # 1.5 K/mm3 (1.8-7.8); Platelet Count 114 K/mm3 (142-424); Red Blood Count 3.79 M/mm3 (4.20-5.40); Red Cell Distribution Width 13.9 % (11.5-17.5); White Blood Count 1.9 K/mm3 (4.8-10.8)
[2020-07-09 07:26] LABS: Alanine Aminotransferase 26 U/L (12-78); Albumin Level 3.1 g/dl (3.5-5.0); Alkaline Phosphatase 55 U/L (38-126); Aspartate Amino Transferase 56 U/L (14-36); Bilirubin,Total 0.3 mg/dl (0.2-1.3); Blood Urea Nitrogen 56 mg/dl (7-17); Carbon Dioxide 17 mmol/L (22.0-30.0); Chloride 107 mmol/L (98-107); Creatinine Clearance Estimated 39 mL/min (50-200); Estimated Glomerular Filt Rate 23 ml/min (>60); GFR (African American) 28 ML/MIN (>60); Globulin 3.2 g/dL (1.3-3.2); Glucose 118 mg/dl (74-100); Sodium 134 mmol/L (136-145); Total Protein,Serum 6.3 g/dl (6.3-8.2)
[2020-07-09 07:31] LABS: Calcium 8.3 mg/dl (8.4-10.2)
[2020-07-09 07:48] LABS: INR 5.86 (0.9-1.1); Prothrombin Time 55.4 seconds (9.4-11.8)
[2020-07-09 08:00] VITALS: BP 114/55; PULSE 59; RESP 18; TEMP 36.3; O2SAT 90
--- NOTE | 2020-07-09 08:00 | PC.NURSE ---
notified Yael about PT of 55.4 and INR of 5.86. She said she would notify Dr. Fernández.
[2020-07-09 08:14] LABS: Hemoglobin 12.1 g/dL (12.2-16.2)
--- NOTE | 2020-07-09 08:49 | HMH.ACPN2 ---
Internal Medicine - PN: Subj *Date: 07/09/20 *Time: 08:49 Interval history: Patient is feeling okay today. She does have a productive cough but denies any CP or SOA. She states she was able to rest last night and ate her breakfast this am. Exam Vital signs and Labs for Last 24 Hours: Temp Pulse Resp BP Pulse Ox 97.8 F 99 H 19 99/54 L 96 07/09/20 04:00 07/09/20 04:00 07/09/20 04:00 07/09/20 04:00 07/09/20 04:00 Laboratory Results - last 24 hr 07/08/20 08:57: WBC 4.7 L, RBC 4.61, Hgb 14.3, Hct 43.8, MCV 94.9, MCH 30.9, MCHC 32.6, RDW 13.9, Plt Count 161, MPV 9.6, Neut % (Auto) 71.9, Lymph % (Auto) 18.7, [place] % (Auto) 8.3, Eos % (Auto) 0.2, Baso % (Auto) 0.9, Neut # (Auto) 3.4, Lymph # (Auto) 0.9, [place] # (Auto) 0.4, Eos # (Auto) 0.0, Baso # (Auto) 0.0 07/08/20 08:57: Sodium 133 L, Potassium 4.3, Chloride 101, Carbon Dioxide 20 L, Anion Gap 16.3 H, BUN 50 H, Creatinine 2.60 H, Estimated Creat Clear 32, Estimated GFR 18 L*, Est GFR ( Amer) 22 L, Glucose 104 H, Calcium 9.4, Total Bilirubin 0.4, AST 64 H, ALT 33, Alkaline Phosphatase 78, Total Protein 7.9, Albumin 4.1, Globulin 3.8 H, Albumin/Globulin Ratio 1.1 07/08/20 08:57: Lactate 1.3 07/08/20 08:57: Chlamy pneumoniae PCR Not detected, Adenovirus (PCR) Not detected, B. pertussis DNA (PCR) Not detected, Coronavirus OC43 (PCR) Not detected, Coronavirus HKU1 (PCR) Not detected, Coronavirus 229E (PCR) Not detected, SARS-CoV-2 (PCR) Detected A, Coronavirus NL63 (PCR) Not detected, Human Metapneumovir PCR Not detected, Influenza A (H1) PCR Not detected, Influ A (H1N1/09) PCR Not detected, Influenza A (H3) PCR Not detected, Influenza Type A (PCR) Not detected, Influenza Type B (PCR) Not detected, M. pneumoniae (PCR) Not detected, Parainfluenza 1 (PCR) Not detected, Parainfluenza 2 (PCR) Not detected, Parainfluenza 3 (PCR) Not detected, Parainfluenza 4 (PCR) Not detected, RSV (PCR) Not detected, Entero/Rhino (PCR) Not detected 07/08/20 08:57: Troponin I 0.02, Lipase 277, TSH 0.16 L 07/08/20 08:57: PT 56.4 H, INR 5.98 H 07/08/20 08:57: SARS-CoV-2 IgG Ab (Rapid) Positive A, SARS-CoV-2 IgM Ab (Rapid) Positive A 07/08/20 08:57: Procalcitonin 0.359 07/08/20 10:12: Urine Color Yellow, Urine Appearance Clear, Urine pH 5.0, Ur Specific Pinson 1.025, Urine Protein 1+, Urine Glucose (UA) Negative, Urine Ketones Trace, Urine Blood 2+, Urine Nitrate Negative, Urine Bilirubin 1+ A, Urine Urobilinogen 0.2, Ur Leukocyte Esterase 2+ A, Urine RBC 5-10, Urine WBC 5-10, Ur Squamous Epith Cells 5-10, Urine Bacteria 1+ 07/08/20 12:58: Troponin I 0.02 07/08/20 15:50: Troponin I 0.02 07/09/20 06:04: WBC 1.9 L* D, RBC 3.79 L, Hgb 12.1 L D, Hct 37.6, MCV 99.3 H, MCH 32.0 H, MCHC 32.2, RDW 13.9, Plt Count 114 L D, MPV 9.7, Neut % (Auto) 76.0, Lymph % (Auto) 15.8, [place] % (Auto) 7.7, Eos % (Auto) 0.2, Baso % (Auto) 0.3, Neut # (Auto) 1.5 L, Lymph # (Auto) 0.3 L, [place] # (Auto) 0.2, Eos # (Auto) 0.0, Baso # (Auto) 0.0 07/09/20 06:04: Sodium 134 L, Potassium 5.0, Chloride 107, Carbon Dioxide 17 L, Anion Gap 15.0, BUN 56 H, Creatinine 2.10 H, Estimated Creat Clear 39, Estimated GFR 23 L, Est GFR ( Amer) 28 L D, Glucose 118 H, Calcium 8.3 L D, Total Bilirubin 0.3, AST 56 H, ALT 26, Alkaline Phosphatase 55, Total Protein 6.3, Albumin 3.1 L D, Globulin 3.2, Albumin/Globulin Ratio 1.0 L 07/09/20 06:04: PT 55.4 H, INR 5.86 H I & O for Last 24 hours: Intake & Output 07/06/20 07/07/20 07/08/20 07/09/20 11:59 11:59 11:59 11:59 Intake Total 1660 / 1660 Balance 1660 / 1660 Weight 230 lb 226 lb 2 oz - Constitutional no acute distress - *Routine Respiratory Exam Present: crackles (bibasilar) - *Routine Cardiovascular Exam Present: RRR - *Routine Abdominal Exam Present: soft, normoactive bowel sounds. Absent: tenderness - *Routine Extremities Exam Absent: cyanosis, clubbing, edema - *Routine Skin Exam Present: warm. Absent: rash - *Routine Neurological Exam Present: alert, oriented X
[2020-07-09 11:02] VITALS: BMI 34.4
[2020-07-09 12:00] VITALS: BP 114/62; PULSE 60; RESP 18; TEMP 36.2; O2SAT 95
--- NOTE | 2020-07-09 12:02 | HMH.PULMCON ---
*Admission Date: 07/08/20 *Reason for consult:: Acute hypoxic respiratory failure, COVID-19 pneumonia *History of present illness: Ms. Saldivar 74-year-old female prior smoker last month 40 years ago no baseline respiratory complaints not on any inhalers at baseline presented to the ED complain worsening hypoxic respiratory along with abdominal's including including diarrhea. Patient admits decreased oral intake for the last couple of days owing to abdominal discomfort and diarrhea. On presentation patient found to be in hypoxic respiratory failure needing oxygen supplementation and was admitted for further management. Pulmonary was called [facility] History Medical History: Reports:: Anxiety, Deep Vein Thrombosis (Takes warfarin), Hypertension Denies:: Cancer, Diabetes Mellitus Type 1, Diabetes Mellitus Type 2, MRSA, Seizures *Have you ever received a pneumonia vaccine?: Yes *Have you received a flu vaccine this season?: Yes Other Medical History: Reports: Arthritis, Hypothyroidism, Other (Gout, treated with allopurinol). Denies: Blood Transfusion Reaction Laterality Cases: Bilateral: Total Hip Replacement, Total Knee Replacement Other Surgeries: Yes: Cardiac Catheterization, Cholecystectomy, Dilation and Curettage (Dr. Grijalva May 20, 2020 polyp removed), Tubal Ligation Amputation: No Fractures: No - *Social History Last grade of school completed: High school graduate Smoking Status: Never smoker Alcohol Intake: never Substance Use Type: denies use *Occupational Status:: retired Housing: house Household Members: family *Travel in the last 8 weeks: Inside the [place] - Psychiatric History Pschychiatric History:: Reports:: Anxiety Family Hx:: Bleeding Disorder, Cancer, Coronary Artery Disease, Other (Father at 71 years of age mother at 69 years of age. 2 brothers. 2 children) ROS - Cons Reports body ache(s), Reports chills - Card Reports shortness of breath, Reports shortness of breath with activity - Resp Respiratory: Reports chest congestion, Reports cough, Reports excessive phlegm production, Denies pain with cough - GI Gastrointestingal: Reports: diarrhea Meds Home Medications Medication Instructions Recorded Confirmed Type allopurinol 100 mg tablet 100 mg PO DAILY 09/25/18 07/08/20 History lisinopril 10 mg tablet 10 mg PO DAILY 09/25/18 07/08/20 History levothyroxine 137 mcg tablet 137 mcg PO DAILY 05/16/20 07/08/20 History Warfarin Sodium 5 mg PO DAILY 05/20/20 07/08/20 History Calcium Phosphate Dibas/Vit D3 1 each PO DAILY 07/08/20 07/08/20 History [Vitamin U5-[id number] Tablet] Hydrocodone/Acetaminophen 1 each PO BIDP PRN 07/08/20 07/08/20 History [Hydrocodone-Acetamin 5-325 mg] Multivitamin [Multivitamins] 1 each PO DAILY 07/08/20 07/08/20 History Allergies Allergy/AdvReac Type Severity Reaction Status Date / Time Penicillins Allergy Mild Hives Verified 05/20/20 06:23 Exam - Constitutional Constitutional:: no acute distress, comfortable - HENMT Exam HENMT: normocephalic, atraumatic - Eye Exam Eyes:: normal conjunctiva - Neck Exam Neck:: thyroid normal, no lymphadenopathy - Respiratory Exam Respiratory:: able to speak in complete sentences Comments: Bilateral clear except for coarse breath sounds in lower lobe lung black - Cardiovascular Exam Cardiac:: S1, S2 - GI Exam GI:: soft, no hepatosplenomegaly - Skin Exam Skin: warm, no rash - Neurological Exam Neurological: alert, awake, normal cognition - Extremities Exam Extremities: no cyanosis, no clubbing, no edema Internal Medicine - CN: Reslt - Labs CBC & Chem 7: 07/09/20 06:04 07/09/20 06:04 Labs: Short CBC 07/09/20 Range/Units 06:04 WBC 1.9 L* D (4.8-10.8) K/mm3 Hgb 12.1 L D (12.2-16.2) g/dL Hct 37.6 (37.0-47.0) % Plt Count 114 L D (142-424) K/mm3 [facility] 07/09/20 06:04 Sodium 134 L Potassium 5.0 Chloride 107 Carbon Dioxide 17 L BUN 56 H Crea
[2020-07-09 16:00] VITALS: BP 146/74; PULSE 71; RESP 18; TEMP 36.3; O2SAT 96
--- NOTE | 2020-07-09 18:13 | PC.NURSE ---
A&OX4. PT HAS TOLERATED 2L NC WELL THROUGHOUT SHIFT. RESPIRATIONS REGULAR AND UNLABORED. DIMINISHED LUNG SOUNDS NOTED THROUGHOUT. HAND JUKE BOX SERVICER EQUAL. +2 PULSES NOTED THROUGHOUT. NO EDEMA NOTED. ACTIVE BOWEL SOUNDS HEARD IN ALL 4 QUADRANTS. SOFT AND NONTENDER ABDOMEN. NO BM THUS FAR. PT VOIDS PER BSC INDEPENDENTLY. PT HAS RECEIVED SEVERAL ANTIBIOTICS THIS SHIFT AND TOLERATED ALL WELL. NO REPORTS OF PAIN OR SOB THUS FAR. PT HAS REMAINED AFEBRILE. PT IS CURRENTLY SITTING IN BED WITH CALL LIGHT WITHIN REACH. BED IN LOWEST POSITION. VSS. WILL CONTINUE TO MONITOR.
[2020-07-09 20:00] VITALS: BP 127/59; PULSE 59; RESP 18; TEMP 36.4; O2SAT 93
[2020-07-10] VITALS (7 sets, daily range): BP systolic 116–141; BP diastolic 58–82; PULSE 66–97; RESP 18–22; TEMP 36.4–36.8; O2SAT 91–96; BMI 34.5
--- NOTE | 2020-07-10 05:22 | PC.NURSE ---
Pt has been pleasant and cooperative this shift. A&O X4. No complaints of pain or SOA. Pt is receiving O2 via NC @ 2 LPM with sats. >90%. Lungs CTA. No edema noted. Pt ambulates independently in the room and uses the BSC to void clear, yellow urine without issue. No BM this shift. 20 G peripheral IV in the LT AC is patent and infusing NS @ 100 ML/HR. VSS. Call light within reach. Will continue to monitor.
[2020-07-10 07:30] LABS: Basophils % 0.6 % (0.1-2.0); Hematocrit 42.6 % (37.0-47.0); Hemoglobin 13.8 g/dL (12.2-16.2); Lymphocytes # 0.4 K/mm3 (0.7-4.5); Lymphocytes % 8.2 % (10-50); Mean Corpuscular HGB Conc 32.3 g/dL (31.8-35.4); Mean Corpuscular Hemoglobin 30.6 pg (27.0-31.2); Mean Corpuscular Volume 94.6 fl (81-99); Mean Platelet Volume 9.6 fl (7.4-10.4); Monocytes # 0.4 K/mm3 (0.1-1.0); Monocytes % 7.9 % (1.7-9.3); Neutrophils # 4.2 K/mm3 (1.8-7.8); Neutrophils % 83.2 % (37.0-80.0); Platelet Count 164 K/mm3 (142-424); Red Cell Distribution Width 13.6 % (11.5-17.5)
[2020-07-10 07:40] LABS: Alanine Aminotransferase 26 U/L (12-78); Albumin Level 3.2 g/dl (3.5-5.0); Alkaline Phosphatase 68 U/L (38-126); Anion Gap 12.6 mEq/L (5-15); Aspartate Amino Transferase 46 U/L (14-36); Bilirubin,Total 0.3 mg/dl (0.2-1.3); Blood Urea Nitrogen 49 mg/dl (7-17); Calcium 8.6 mg/dl (8.4-10.2); Carbon Dioxide 18 mmol/L (22.0-30.0); Chloride 115 mmol/L (98-107); Creatinine Clearance Estimated 55 mL/min (50-200); Estimated Glomerular Filt Rate 34 ml/min (>60); GFR (African American) 41 ML/MIN (>60); Globulin 3.3 g/dL (1.3-3.2); Glucose 131 mg/dl (74-100); Potassium 4.6 mmoL/L (3.5-5.1); Sodium 141 mmol/L (136-145); Total Protein,Serum 6.5 g/dl (6.3-8.2)
--- NOTE | 2020-07-10 08:17 | HMH.ACPN2 ---
Internal Medicine - PN: Subj *Date: 07/10/20 *Time: 08:17 Interval history: Patient states she is feeling a little bit better today. She still has shortness of breath and cough. She did not rest well last night due to coughing and urinating all night long. She is requesting her IV fluids to be turned off and she is eating and drinking much better. She denies any chest pain. Exam Vital signs and Labs for Last 24 Hours: Temp Pulse Resp BP Pulse Ox 97.6 F 69 18 126/65 92 L 07/10/20 04:00 07/10/20 04:00 07/10/20 04:00 07/10/20 04:00 07/10/20 04:00 Laboratory Results - last 24 hr 07/08/20 10:12: Urine Color Yellow, Urine Appearance Clear, Urine pH 5.0, Ur Specific [place] 1.025, Urine Protein 1+, Urine Glucose (UA) Negative, Urine Ketones Trace, Urine Blood 2+, Urine Nitrate Negative, Urine Bilirubin 1+ A, Urine Urobilinogen 0.2, Ur Leukocyte Esterase 2+ A, Urine RBC 5-10, Urine WBC 5-10, Ur Squamous Epith Cells 5-10, Urine Bacteria 1+ 07/10/20 07:00: WBC 5.0 D, RBC 4.50, Hgb 13.8, Hct 42.6, MCV 94.6, MCH 30.6, MCHC 32.3, RDW 13.6, Plt Count 164 D, MPV 9.6, Neut % (Auto) 83.2 H, Lymph % (Auto) 8.2 L, [place] % (Auto) 7.9, Eos % (Auto) 0.0 L, Baso % (Auto) 0.6, Neut # (Auto) 4.2, Lymph # (Auto) 0.4 L, [place] # (Auto) 0.4, Eos # (Auto) 0.0, Baso # (Auto) 0.0 07/10/20 07:00: Sodium 141, Potassium 4.6, Chloride 115 H, Carbon Dioxide 18 L, Anion Gap 12.6, BUN 49 H, Creatinine 1.50 H D, Estimated Creat Clear 55, Estimated GFR 34 L, Est GFR ( Amer) 41 L D, Glucose 131 H, Calcium 8.6, Total Bilirubin 0.3, AST 46 H, ALT 26, Alkaline Phosphatase 68, Total Protein 6.5, Albumin 3.2 L, Globulin 3.3 H, Albumin/Globulin Ratio 1.0 L I & O for Last 24 hours: Intake & Output 07/07/20 07/08/20 07/09/20 07/10/20 11:59 11:59 11:59 11:59 Intake Total 2140 / 2140 1952 / 1952 Output Total 500 / 500 Balance 2139 / 0 1453 / 1453 Weight 230 lb 227 lb 1.218 oz 228 lb 2 oz Microbiology Reports for the Last 24 Hours: Microbiology 07/08/20 10:12 Urine,Clean Catch Urine Culture - Final Escherichia coli - Constitutional no acute distress - *Routine Respiratory Exam Present: rales (bibasilar but good air movement) - *Routine Cardiovascular Exam Present: RRR - *Routine Abdominal Exam Present: soft, normoactive bowel sounds. Absent: tenderness - *Routine Extremities Exam Absent: cyanosis, clubbing, edema - *Routine Skin Exam Present: warm. Absent: rash - *Routine Neurological Exam Present: alert, oriented X3 Assessment and Plan (1) Pneumonia due to COVID-19 virus Status: Acute Category: Medical Code(s): U07.1 - COVID-19; J12.82 - Pneumonia due to coronavirus disease 2019 (2) Bilateral pneumonia Status: Acute Qualifiers: Pneumonia type: due to unspecified organism Lung location: unspecified part of lung Qualified Code(s): J18.9 - Pneumonia, unspecified organism Category: Medical Code(s): J18.9 - Pneumonia, unspecified organism (3) Dehydration Status: Acute Category: Medical Code(s): E86.0 - Dehydration (4) Diarrhea Status: Acute Qualifiers: Diarrhea type: unspecified type Qualified Code(s): R19.7 - Diarrhea, unspecified Category: Medical Code(s): R19.7 - Diarrhea, unspecified (5) MARIELY (acute kidney injury) Status: Acute Category: Medical Code(s): N17.9 - Acute kidney failure, unspecified (6) Supratherapeutic INR Status: Acute Category: Medical Code(s): R79.1 - Abnormal coagulation profile (7) Anticoagulated on warfarin Status: Acute Category: Medical Code(s): 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 coli UTI Status: Acute Category: Medical Code(s): N39.0 - Urinary tract infection, site not specified; B96.20 - Unspecified Escherichia coli [E. coli] as the cause of diseases classified elsewhere - Assessment and plan all Dx Assessment and Plan for all problems::
[2020-07-10 09:37] LABS: Prothrombin Time 44.9 seconds (9.4-11.8)
[2020-07-10 09:38] LABS: INR 4.65 (0.9-1.1)
--- NOTE | 2020-07-10 16:32 | P.PN_ITS ---
Internal Medicine - PN: Subj *Date: 07/10/20 *Time: 16:32 Interval history: No acute respite events overnight. Patient respiratory status remained stable on 2 L nasal cannula. Exam - Constitutional Constitutional:: no acute distress, comfortable, cooperative - HENMT Exam HENMT: normocephalic, atraumatic - Eye Exam Eyes:: eyelids normal, normal conjunctiva - Neck Exam Neck:: thyroid normal, no lymphadenopathy - Respiratory Exam Respiratory:: able to speak in complete sentences, bibailar crackels heard - Cardiovascular Exam Cardiac:: regular rhythm, S1, S2 - GI Exam GI:: soft, obese - Skin Exam Skin: warm, no rash - Neurological Exam Neurological: alert, awake, normal cognition - Extremities Exam Extremities: no cyanosis, no clubbing, edema - Psychiatric Exam Psychiatric: normal affect Assessment and Plan (1) Pneumonia due to COVID-19 virus Status: Acute Category: Medical Code(s): U07.1 - COVID-19; J12.82 - Pneumonia due to coronavirus disease 2019 (2) Bilateral pneumonia Status: Acute Qualifiers: Pneumonia type: due to unspecified organism Lung location: unspecified part of lung Qualified Code(s): J18.9 - Pneumonia, unspecified organism Category: Medical Code(s): J18.9 - Pneumonia, unspecified organism (3) Dehydration Status: Acute Category: Medical Code(s): E86.0 - Dehydration (4) Diarrhea Status: Acute Qualifiers: Diarrhea type: unspecified type Qualified Code(s): R19.7 - Diarrhea, unspecified Category: Medical Code(s): R19.7 - Diarrhea, unspecified (5) MARIELY (acute kidney injury) Status: Acute Category: Medical Code(s): N17.9 - Acute kidney failure, unspecified (6) Supratherapeutic INR Status: Acute Category: Medical Code(s): R79.1 - Abnormal coagulation profile (7) Anticoagulated on warfarin Status: Acute Category: Medical Code(s): 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 coli UTI Status: Acute Category: Medical Code(s): N39.0 - Urinary tract infection, site not specified; B96.20 - Unspecified Escherichia coli [E. coli] as the cause of diseases classified elsewhere - Assessment and plan all Dx Assessment and Plan for all problems:: #Acute hypoxic respiratory failure: #COVID-19 pneumonia: 74-year-old prior intermittent smoker smoker last smoked 40 years, admits using albuterol occasionally for severe worsening respiratory abdominal tenderness with multiple COVID-19. Chest x-ray on admission showed bilateral lower lobe infiltrate/atelectasis. Patient needing 2 L nasal-supplement to maintain O2 sats 94 and above. On warfarin for prior history of DVT, supratherapeutic INR. WBC went increased from 1.9-5.0 today. Renal function improved. More dynamically stable. Plan:- Continue ceftriaxone and azithromycin for community-acquired pneumonia Sputum Gram stain cultures Oxygen supplementation via NC to maintain saturations around 88 to 92% Continue dexamethasone on remdesivir for COVID-19 pneumonia DuoNebs every 6 hours as needed #Thank you for involving pulmonary in this patient care. We will continue to follow.
--- NOTE | 2020-07-10 21:03 | PC.NURSE ---
PATIENT A&O X4, LUNGS CLEAR, PULSES EQUAL. PATIENT UP TO CHAIR, TOLERATED WELL. PATIENT ATE MEALS AND TOLERATED WELL. NO NEW CONCERNS AT THIS TIME.
[2020-07-11] VITALS: BP 135/80; PULSE 57; RESP 20; TEMP 36.5; O2SAT 92
[2020-07-11 04:00] VITALS: BP 143/68; PULSE 59; RESP 20; TEMP 36.5; O2SAT 92
--- NOTE | 2020-07-11 04:12 | PC.NURSE ---
Pt has done well this shift. Pt has ambulated independently w/ no trouble to BSC. Gait and balance both satisfactory. Pt is urinating clear, yellow urine. Lung sounds are CTA. Pt continues to tolerate 2L NC appropriately w/ o2 sats between 92-94%. No cough noted this shift. No other acute changes or complaints at this time.
[2020-07-11 05:22] VITALS: BMI 34.9
[2020-07-11 06:27] LABS: Basophils % 0.6 % (0.1-2.0); Hematocrit 36.5 % (37.0-47.0); Lymphocytes # 0.5 K/mm3 (0.7-4.5); Lymphocytes % 9.8 % (10-50); Mean Corpuscular HGB Conc 33.9 g/dL (31.8-35.4); Mean Corpuscular Hemoglobin 31.9 pg (27.0-31.2); Mean Corpuscular Volume 94.1 fl (81-99); Mean Platelet Volume 9.3 fl (7.4-10.4); Monocytes # 0.4 K/mm3 (0.1-1.0); Monocytes % 7.4 % (1.7-9.3); Neutrophils # 4.1 K/mm3 (1.8-7.8); Neutrophils % 82.1 % (37.0-80.0); Platelet Count 172 K/mm3 (142-424); Red Blood Count 3.88 M/mm3 (4.20-5.40); Red Cell Distribution Width 13.8 % (11.5-17.5)
[2020-07-11 06:35] LABS: Alanine Aminotransferase 26 U/L (12-78); Albumin Level 2.9 g/dl (3.5-5.0); Albumin/Globulin Ratio 0.9 (1.1-1.8); Alkaline Phosphatase 59 U/L (38-126); Anion Gap 10.5 mEq/L (5-15); Aspartate Amino Transferase 43 U/L (14-36); Bilirubin,Total 0.3 mg/dl (0.2-1.3); Blood Urea Nitrogen 45 mg/dl (7-17); Calcium 8.5 mg/dl (8.4-10.2); Carbon Dioxide 18 mmol/L (22.0-30.0); Chloride 116 mmol/L (98-107); Creatinine Clearance Estimated 64 mL/min (50-200); Estimated Glomerular Filt Rate 40 ml/min (>60); GFR (African American) 49 ML/MIN (>60); Globulin 3.3 g/dL (1.3-3.2); Glucose 122 mg/dl (74-100); Potassium 4.5 mmoL/L (3.5-5.1); Sodium 140 mmol/L (136-145); Total Protein,Serum 6.2 g/dl (6.3-8.2)
--- NOTE | 2020-07-11 06:43 | XR_ITS ---
PROCEDURE: XR CHEST PORTABLE CLINICAL HISTORY: pneumonia COMPARISON: CR XR CHEST 2V from 06/05/2019 CR XR CHEST 2V from 04/22/2020 CR XR CHEST PORTABLE from 07/08/2020 FINDINGS: The cardiomediastinal silhouette and pulmonary vascularity are within normal limits. COPD. Patchy areas of infiltrate are present in right lower lobe and left mid and lower lung zones. The pneumonia may be slightly worse in the right lower lobe. No acute bony abnormalities. IMPRESSION: Bilateral pneumonia slightly worse in the right lung base Dictated by: Tom Gates MD 07/11/2020 08:38 Tom Gates MD in [facility] 07/11/2020 08:38
[2020-07-11 07:24] LABS: Hemoglobin 12.5 g/dL (12.2-16.2)
[2020-07-11 08:00] VITALS: BP 142/76; PULSE 70; RESP 18; TEMP 36.3; O2SAT 91
--- NOTE | 2020-07-11 08:31 | HMH.ACPN2 ---
Internal Medicine - PN: Subj *Date: 07/11/20 *Time: 08:31 Interval history: Patient states she is feeling well today. She still has a cough but is not as short of breath. She slept better last night and ate her breakfast this morning. She wants to go home today. Exam Vital signs and Labs for Last 24 Hours: Temp Pulse Resp BP Pulse Ox 97.7 F 59 L 20 143/68 H 92 L 07/11/20 04:00 07/11/20 04:00 07/11/20 04:00 07/11/20 04:00 07/11/20 04:00 Laboratory Results - last 24 hr 07/10/20 09:10: PT 44.9 H, INR 4.65 H 07/11/20 05:23: WBC 5.0, RBC 3.88 L, Hgb 12.5, Hct 36.5 L, MCV 94.1, MCH 31.9 H, MCHC 33.9, RDW 13.8, Plt Count 172, MPV 9.3, Neut % (Auto) 82.1 H, Lymph % (Auto) 9.8 L, [place] % (Auto) 7.4, Eos % (Auto) 0.0 L, Baso % (Auto) 0.6, Neut # (Auto) 4.1, Lymph # (Auto) 0.5 L, [place] # (Auto) 0.4, Eos # (Auto) 0.0, Baso # (Auto) 0.0 07/11/20 05:23: Sodium 140, Potassium 4.5, Chloride 116 H, Carbon Dioxide 18 L, Anion Gap 10.5, BUN 45 H, Creatinine 1.30 H, Estimated Creat Clear 64, Estimated GFR 40 L, Est GFR ( Amer) 49 L, Glucose 122 H, Calcium 8.5, Total Bilirubin 0.3, AST 43 H, ALT 26, Alkaline Phosphatase 59, Total Protein 6.2 L, Albumin 2.9 L, Globulin 3.3 H, Albumin/Globulin Ratio 0.9 L I & O for Last 24 hours: Intake & Output 07/08/20 07/09/20 07/10/20 07/11/20 11:59 11:59 11:59 11:59 Intake Total 2140 / 2140 2433 / 2433 600 / 600 Output Total 500 / 500 Balance 2140 / 2140 1933 / 1933 600 / 600 Weight 230 lb 227 lb 1.218 oz 228 lb 2 oz 230 lb 6 oz Microbiology Reports for the Last 24 Hours: Microbiology 07/08/20 20:04 Anus CRE Surveillance Culture - Final Negative 07/08/20 08:57 Blood Blood Culture - Preliminary NO GROWTH AFTER 48 HOURS 07/08/20 08:57 Blood Blood Culture - Preliminary NO GROWTH AFTER 48 HOURS 07/08/20 10:12 Urine,Clean Catch Urine Culture - Final Escherichia coli - Constitutional no acute distress - *Routine Respiratory Exam Present: crackles (faint in the bases - good air movement) - *Routine Cardiovascular Exam Present: RRR - *Routine Abdominal Exam Present: soft, normoactive bowel sounds. Absent: tenderness - *Routine Extremities Exam Absent: cyanosis, clubbing, edema - *Routine Skin Exam Present: warm. Absent: rash - *Routine Neurological Exam Present: alert, oriented X3 Assessment and Plan (1) Pneumonia due to COVID-19 virus Status: Acute Category: Medical Code(s): U07.1 - COVID-19; J12.82 - Pneumonia due to coronavirus disease 2019 (2) Bilateral pneumonia Status: Acute Qualifiers: Pneumonia type: due to unspecified organism Lung location: unspecified part of lung Qualified Code(s): J18.9 - Pneumonia, unspecified organism Category: Medical Code(s): J18.9 - Pneumonia, unspecified organism (3) Dehydration Status: Acute Category: Medical Code(s): E86.0 - Dehydration (4) Diarrhea Status: Acute Qualifiers: Diarrhea type: unspecified type Qualified Code(s): R19.7 - Diarrhea, unspecified Category: Medical Code(s): R19.7 - Diarrhea, unspecified (5) MARIELY (acute kidney injury) Status: Acute Category: Medical Code(s): N17.9 - Acute kidney failure, unspecified (6) Supratherapeutic INR Status: Acute Category: Medical Code(s): R79.1 - Abnormal coagulation profile (7) Anticoagulated on warfarin Status: Acute Category: Medical Code(s): 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 coli UTI Status: Acute Category: Medical Code(s): N39.0 - Urinary tract infection, site not specified; B96.20 - Unspecified Escherichia coli [E. coli] as the cause of diseases classified elsewhere - Assessment and plan all Dx Assessment and Plan for all problems:: Patient can likely be discharged home today as she is doing well. We will need to check an oxygen
--- NOTE | 2020-07-11 10:32 | SW/DCPLANNER ---
Addendum entered by Tatiana Raines 07/11/20 10:52: Adelia with [employer] has confirmed patient information/order has been reviewed and O2 will be delivered to [facility] today. Original Note: Patient information and order for home O2 + portable tank has been faxed to [facility]. I will follow up with [employer] once patient information is reviewed.
[2020-07-11 12:00] VITALS: BP 154/88; PULSE 61; RESP 18; TEMP 36.4; O2SAT 96
--- NOTE | 2020-07-11 13:16 | P.PN_ITS ---
Internal Medicine - PN: Subj *Date: 07/11/20 *Time: 13:16 Interval history: Patient respiratory status remained stable. On 2 L nasal cannula this morning, saturating 96%. Exam - Constitutional Constitutional:: no acute distress, comfortable - HENMT Exam HENMT: normocephalic, atraumatic - Eye Exam Eyes:: eyelids normal, normal conjunctiva - Neck Exam Neck:: thyroid normal, no lymphadenopathy - Respiratory Exam Respiratory:: able to speak in complete sentences Comments: Bilateral mild coarse breath sounds, significantly improved from yesterday - Cardiovascular Exam Cardiac:: S1, S2 - GI Exam GI:: soft - Skin Exam Skin: warm, no rash - Neurological Exam Neurological: alert, awake, normal cognition - Extremities Exam Extremities: no cyanosis, no clubbing, no edema - Psychiatric Exam Psychiatric: normal affect Assessment and Plan (1) Pneumonia due to COVID-19 virus Status: Acute Category: Medical Code(s): U07.1 - COVID-19; J12.82 - Pneumonia due to coronavirus disease 2019 (2) Bilateral pneumonia Status: Acute Qualifiers: Pneumonia type: due to unspecified organism Lung location: unspecified part of lung Qualified Code(s): J18.9 - Pneumonia, unspecified organism Category: Medical Code(s): J18.9 - Pneumonia, unspecified organism (3) Dehydration Status: Acute Category: Medical Code(s): E86.0 - Dehydration (4) Diarrhea Status: Acute Qualifiers: Diarrhea type: unspecified type Qualified Code(s): R19.7 - Diarrhea, unspecified Category: Medical Code(s): R19.7 - Diarrhea, unspecified (5) MARIELY (acute kidney injury) Status: Acute Category: Medical Code(s): N17.9 - Acute kidney failure, unspecified (6) Supratherapeutic INR Status: Acute Category: Medical Code(s): R79.1 - Abnormal coagulation profile (7) Anticoagulated on warfarin Status: Acute Category: Medical Code(s): Z79.01 - halfway (current) use of anticoagulants (8) E. coli UTI Status: Acute Category: Medical Code(s): N39.0 - Urinary tract infection, site not specified; B96.20 - Unspecified Escherichia coli [E. coli] as the cause of diseases classified elsewhere - Assessment and plan all Dx Assessment and Plan for all problems:: #Acute hypoxic respiratory failure: #COVID-19 pneumonia: 74-year-old prior intermittent smoker smoker last smoked 40 years, admits using albuterol occasionally for severe worsening respiratory abdominal tenderness with multiple COVID-19. Chest x-ray on admission showed bilateral lower lobe infiltrate/atelectasis. On warfarin for prior history of DVT, supratherapeutic INR. On 2L NC, resp status significantly improved from admission. Plan:- - Continue ceftriaxone and azithromycin for community-acquired pneumonia, can be discharged on Levoflaxacin for a total of 5 days - Oxygen supplementation via NC to maintain saturations around 88 to 92%, Can be discharged on Home O2 - Continue dexamethasone on remdesivir for COVID-19 pneumonia, Can be discontinued on discharge - DuoNebs every 6 hours as needed, can be discharged on Albuterol PRN # Will follow in clinic in 4 weeks with 6-minute walk testing to determine the further need for oxygen. #Thank you for involving pulmonary in this patient care.
--- NOTE | 2020-07-11 17:43 | PC.NURSE ---
THIS RN PLACE PATIENT ON ROOM AIR, ASSESSED O2 LEVEL ON RA WHILE SITTING, PATIENT STATS WERE 92%. THIS RN HAD PATIENT AMBULATING IN ROOM, CHECKED O2 AND PATIENT WAS 87% AFTER AMBULATING AND FEELING SHORTNESS OF AIR. THIS RN PROVIDED PATIENT WITH DISCHARGE INSTRUCTIONS, PATIENT VERBALIZED AN UNDERSTANDING. THIS RN EDUCATED PATIENT ON HOW TO USE O2 AND TO NOTIFY SORELL WHEN PATIENT ARRIVES AT HOME FOR O2 SET UP. PATIENT VERBALIZED AN UNDERSTANDING.
--- NOTE | 2020-07-14 11:32 | HMH.DCSUM ---
General - General Admission date:: 07/08/20 Discharge date: 07/11/20 HPI HPI: This 74-year-old white female is admitted via the emergency room. She gives a 6-day history of being ill. She has had some cough. She has had diarrhea. She has felt achy. She tested positive for COVID-19 in the emergency room. She has a history of hypertension, hypothyroidism, and a history of deep vein thrombosis for which she takes warfarin. The following is from the emergency room narrative: History obtained from patient and family. She has been sick since last Tuesday, 6 days. She has had diarrhea without blood. Body aches. Generalized weakness. Not eating. Not drinking much. Cough with clear sputum. Intermittent abdominal pain. Denies vomiting or fever. No exposure to COVID-19. States that she had positive antibody test for COVID-19 earlier in the year. Hospital Course Hospital Course: The patient's chest x-ray showed bilateral pneumonia. She had an abdominal/pelvic CT showing bilateral lower lobe pneumonia related to COVID-19 as well as pancolonic diverticulosis. She was admitted due to her COVID-19 pneumonia and started on Covid protocol. She continued with a productive cough but denied any chest pain or shortness of air. She was able to rest and eat. Her INR was initially elevated, but did decrease. Her white blood cell count was low, but improved. Pulmonology was consulted and recommended continuing antibiotics for her pneumonia and dexamethasone and remdesivir for her COVID-19. The patient remained relatively stable throughout her admission. Her renal function and electrolytes improved. Her urine culture came back positive for E. coli which was sensitive to Rocephin. She had a repeat chest x-ray on 07/11/2020 showing bilateral pneumonia slightly worse in the right lung base. By 07/11/2020, the patient still had a cough, but denied any shortness of breath. She wanted to go home. Her blood cultures showed no growth. It was felt she was stable to be discharged on home oxygen along with dexamethasone, zinc, and cefdinir. She will follow up with Dr. Fernández via telehealth. Objective Vital signs: Temp Pulse Resp BP Pulse Ox 97.5 F L 61 18 154/88 H 96 07/11/20 12:00 07/11/20 12:00 07/11/20 12:00 07/11/20 12:00 07/11/20 12:00 Narrative: - Constitutional mild distress - *Routine HEENT Exam Head: Present: normocephalic Eye: Present: PERRL ENT: Present: mucous membranes moist - *Routine Neck Exam Present: supple - *Routine Respiratory Exam Present: rales (Bibasilar rales but moving air well). Absent: respiratory distress - *Routine Cardiovascular Exam Present: RRR - *Routine Abdominal Exam Present: soft, normoactive bowel sounds, obese. Absent: tenderness - *Routine Extremities Exam Present: edema (Trace. Surgical scars of knees.) - Routine Back/Spine/Pelvis Exam Back/Spine: Present: kyphosis - *Routine Neurological Exam Present: alert, oriented X3 DS: Diagnosis - Discharge Diagnosis (1) Pneumonia due to COVID-19 virus Status: Acute (2) Bilateral pneumonia Status: Acute (3) Dehydration Status: Acute (4) Diarrhea Status: Acute (5) MARIELY (acute kidney injury) Status: Acute (6) Supratherapeutic INR Status: Acute (7) Anticoagulated on warfarin Status: Acute (8) E. coli UTI Status: Acute Discharge Plan - Patient Discharge Instructions ACTIVITY: Limited activity DIET: advance to your usual diet Patient Instructions: Pneumonia-Adult, Diarrhea, Dehydration, Escherichia coli Infection, High-Calorie, High-Protein Diet, DI for Dehydration -- Adult, DI for Pneumonia -- Adult, DI for Warfarin Therapy, DI for COVID-19 (Suspected or Confirmed ), How to Care for Someone with COVID-19 - Follow up Plan Follow up with: Yariel Fernández MD [Primary Care Provider] - 07/15/20 1:30 pm (TeleHealth visit) Disposition: Home, Self-[facility]
== END 2020-07-11 11:50 | disposition home or self-care (01) | DRG 177 ==
LOC: ER 11:08 → 2ND 12:40
PROVIDERS: Physician Assistant; Admitting Provider Family Medicine; Emergency Provider Emergency Medicine; PCP Family Medicine; Visit Provider Family Medicine
DX: U07.1 COVID-19 (principal); J12.82 Pneumonia due to coronavirus disease 2019; J96.01 Acute respiratory failure with hypoxia; N17.9 Acute kidney failure, unspecified; N39.0 Urinary tract infection, site not specified; I10 Essential (primary) hypertension; E86.0 Dehydration; B96.20 Unspecified Escherichia coli [E. coli] as the cause of diseases classified elsewhere; R79.1 Abnormal coagulation profile; E03.9 Hypothyroidism, unspecified; Z79.01 Long term (current) use of anticoagulants; Z79.899 Other long term (current) drug therapy
CPT/HCPCS: 36415; 71045; 74176; 80053; 81001; 83605; 83690; 84145; 84443; 84484; 85025; 85610; 86328; 87040; 87081; 87086; 87088; 87186; 87581; 87633; 87798; 93005; 94761; 96365; 96367; 96375; 99285; J0456; J2405; U0003

== ENCOUNTER 2020-07-23 08:37 | Outpatient (CLI) | payer MEDICARE, SELFPAY ==
[2020-07-23 16:46] LABS: PHA INR Fingerstick 2.1 (0.9-1.1)
== END 2020-07-23 16:48 | disposition home or self-care (01) ==
LOC: ACC 08:39
PROVIDERS: PCP Family Medicine; Visit Provider Physician Assistant
DX: Z51.81 Encounter for therapeutic drug level monitoring (principal); Z79.01 Long term (current) use of anticoagulants; R79.1 Abnormal coagulation profile
CPT/HCPCS: 85610; 99211; G0463

== ENCOUNTER 2020-08-18 08:25 | Outpatient (CLI) | payer MEDICARE, SELFPAY ==
[2020-08-18 08:35] VITALS: BP 125/69; PULSE 86; RESP 18; TEMP 36.2; O2SAT 97
[2020-08-18 10:33] LABS: PHA INR Fingerstick 2.2 (0.9-1.1)
== END 2020-08-18 08:50 | disposition home or self-care (01) ==
PROVIDERS: PCP Physician Assistant; Visit Provider Physician Assistant
DX: Z51.81 Encounter for therapeutic drug level monitoring (principal); Z79.01 Long term (current) use of anticoagulants; M85.80 Other specified disorders of bone density and structure, unspecified site
CPT/HCPCS: 85610; 96372; 99211; G0463; J0897

== ENCOUNTER → 2020-08-25 09:18 | Outpatient (CLI) | payer MEDICARE, SELFPAY ==
[2020-08-25 09:28] LABS: Microscopic, Urine URINE MICROSCOPIC (MICROSCOPIC)
[2020-08-25 09:49] LABS: Basophils # 0.1 K/mm3 (0-0.2); Basophils % 0.7 % (0.1-2.0); Eosinophils # 0.2 K/mm3 (0.0-0.4); Eosinophils % 1.7 % (0.1-12.0); Hematocrit 44.5 % (37.0-47.0); Hemoglobin 14.2 g/dL (12.2-16.2); Lymphocytes % 19.8 % (10-50); Mean Corpuscular HGB Conc 31.8 g/dL (31.8-35.4); Mean Corpuscular Hemoglobin 30.8 pg (27.0-31.2); Mean Corpuscular Volume 96.8 fl (81-99); Mean Platelet Volume 8.9 fl (7.4-10.4); Monocytes # 0.6 K/mm3 (0.1-1.0); Monocytes % 6.2 % (1.7-9.3); Neutrophils # 7.2 K/mm3 (1.8-7.8); Neutrophils % 71.7 % (37.0-80.0); Platelet Count 212 K/mm3 (142-424); White Blood Count 10.1 K/mm3 (4.8-10.8)
[2020-08-25 09:50] LABS: Appearance,Urine CLEAR (Clear); Bilirubin,Urine Negative (Negative); Blood, Urine TRACE-I (Negative); Color,Urine YELLOW (Yellow); Glucose,Urine (UA) Negative (Negative); Ketones,Urine Negative (Negative); Leukocyte Esterase,Urine 1+ (Negative); Nitrate,Urine Negative (Negative); PH,Urine 5.5 (5.0-8.5); Protein,Urine Negative (Negative); Specific Gravity, Urine 1.025 (1.005-1.030); Urobilinogen,Urine 0.2 EU/dl (0.2)
[2020-08-25 10:00] LABS: Creatinine,Urine Random 150 mg/dL (Not Estab.)
[2020-08-25 10:21] LABS: Bacteria,Urine 1+ /lpf
[2020-08-25 10:44] LABS: Albumin Level 4.4 g/dl (3.5-5.0); Anion Gap 16.6 mEq/L (5-15); Blood Urea Nitrogen 28 mg/dl (7-17); Calcium 11.1 mg/dl (8.4-10.2); Carbon Dioxide 20 mmol/L (22.0-30.0); Chloride 107 mmol/L (98-107); Estimated Glomerular Filt Rate 32 ml/min (>60); GFR (African American) 38 ML/MIN (>60); Glucose 133 mg/dl (74-100); Phosphorous 3.4 mg/dl (2.5-4.5); Potassium 4.6 mmoL/L (3.5-5.1); Sodium 139 mmol/L (136-145)
[2020-08-25 10:57] LABS: Intact Parathyroid Hormone 62.6 pg/mL (7.5-53.5)
[2020-08-25 11:01] LABS: 25-OH Vitamin D, Total 87.9 ng/mL (30-100)
[2020-08-27 14:52] LABS: Calcium, Ionized 5.8 mg/dL (4.5-5.6)
== END ==
PROVIDERS: Visit Provider Internal Medicine Nephrology
DX: N18.30 Chronic kidney disease, stage 3 unspecified (principal); R82.90 Unspecified abnormal findings in urine
CPT/HCPCS: 36415; 80069; 81001; 82306; 82330; 82570; 83970; 84155; 85025; 87086

== ENCOUNTER → 2020-09-10 11:29 | Outpatient (CLI) | payer MEDICARE, SELFPAY ==
--- NOTE | 2020-09-10 11:35 | XR_ITS ---
PROCEDURE: XR CHEST 2V CLINICAL HISTORY: COUGH Cough and difficulty breathing COMPARISON: CR XR CHEST 2V from 04/22/2020 CR XR CHEST PORTABLE from 07/08/2020 CR XR CHEST PORTABLE from 07/11/2020 FINDINGS: The cardiomediastinal silhouette and pulmonary vascularity are within normal limits. There are multiple small areas of slight increased density in both upper and lower lobes. This may be related to multi focal pneumonia. This is not significantly change in the lung bases. There is a area of increased density in the right upper lobe overlying the 2nd rib and may be due to an area infiltrate which has developed in the interval. Chest CT may provide further evaluation for the above mentioned abnormalities. IMPRESSION: Patchy bilateral parenchymal opacities which may be due to areas of atelectasis and/or infiltrate unchanged in the lung bases but has developed in the right upper lobe. Developing nodules are not excluded. Chest CT may provide further evaluation Dictated by: Tom Gates MD 09/10/2020 12:51 Tom Gates MD in [facility] 09/10/2020 12:51
[2020-09-10 12:19] LABS: Basophils # 0.1 K/mm3 (0-0.2); Basophils % 0.6 % (0.1-2.0); Eosinophils # 0.2 K/mm3 (0.0-0.4); Eosinophils % 2.5 % (0.1-12.0); Hematocrit 38.4 % (37.0-47.0); Hemoglobin 12.5 g/dL (12.2-16.2); Lymphocytes # 1.8 K/mm3 (0.7-4.5); Mean Corpuscular HGB Conc 32.5 g/dL (31.8-35.4); Mean Corpuscular Hemoglobin 30.7 pg (27.0-31.2); Mean Corpuscular Volume 94.5 fl (81-99); Mean Platelet Volume 9.2 fl (7.4-10.4); Monocytes # 0.6 K/mm3 (0.1-1.0); Monocytes % 6.5 % (1.7-9.3); Neutrophils # 7.1 K/mm3 (1.8-7.8); Neutrophils % 72.4 % (37.0-80.0); Platelet Count 297 K/mm3 (142-424); Red Blood Count 4.06 M/mm3 (4.20-5.40); Red Cell Distribution Width 14.3 % (11.5-17.5); White Blood Count 9.8 K/mm3 (4.8-10.8)
== END ==
PROVIDERS: PCP Physician Assistant; Visit Provider Family Medicine
DX: R05 Cough (principal)
CPT/HCPCS: 36415; 71046; 85025

== ENCOUNTER 2020-09-15 08:59 | Outpatient (CLI) | payer MEDICARE, SELFPAY ==
[2020-09-15 12:02] LABS: PHA INR Fingerstick 3.1 (0.9-1.1)
== END 2020-09-15 12:04 | disposition home or self-care (01) ==
LOC: ACC 09:00
PROVIDERS: PCP Physician Assistant; Visit Provider Physician Assistant
DX: Z51.81 Encounter for therapeutic drug level monitoring (principal); Z79.01 Long term (current) use of anticoagulants
CPT/HCPCS: 85610; 99211; G0463

== ENCOUNTER → 2020-09-22 08:08 | Outpatient (CLI) | payer MEDICARE, SELFPAY ==
--- NOTE | 2020-09-22 08:13 | XR_ITS ---
PROCEDURE: XR CHEST 2V CLINICAL HISTORY: PNEUMONIA COMPARISON: September 10, 2020 FINDINGS: Bilateral mid and lower zone hazy infiltrates are noted, demonstrate no significant interval change compared to prior study. Atelectasis is noted in bilateral lower lobes. Background of chronic interstitial changes are noted. The cardiac size and central pulmonary vasculature are within normal limits. Degenerative changes with kyphotic angulation of the thoracic spine noted. IMPRESSION: Bilateral mid and and lower zone hazy infiltrates versus atelectasis. No lobar consolidation or pleural effusions. Continued close follow-up is recommended. Dictated by: Samira Mazariegos 09/22/2020 14:55 Samira Mazariegos in [facility] 09/22/2020 14:55
== END ==
PROVIDERS: PCP Physician Assistant; Visit Provider Physician Assistant
DX: J18.9 Pneumonia, unspecified organism (principal)
CPT/HCPCS: 71046

== ENCOUNTER → 2020-09-26 08:16 | Outpatient (CLI) | payer MEDICARE, SELFPAY ==
[2020-09-26 09:26] LABS: Blood Urea Nitrogen 33 mg/dl (7-17); Estimated Glomerular Filt Rate 16 ml/min (>60); GFR (African American) 19 ML/MIN (>60)
== END ==
PROVIDERS: Visit Provider Physician Assistant
DX: R93.89 Abnormal findings on diagnostic imaging of other specified body structures (principal)
CPT/HCPCS: 36415; 82565; 84520; 87070; 87077; 87205

== ENCOUNTER 2020-09-29 08:52 | Outpatient (CLI) | payer MEDICARE, SELFPAY ==
[2020-09-29 11:17] LABS: PHA INR Fingerstick 3.9 (0.9-1.1)
== END 2020-09-29 11:18 | disposition home or self-care (01) ==
LOC: ACC 08:54
PROVIDERS: PCP Physician Assistant; Visit Provider Physician Assistant
DX: Z51.81 Encounter for therapeutic drug level monitoring (principal); Z79.01 Long term (current) use of anticoagulants
CPT/HCPCS: 85610; 99211; G0463

== ENCOUNTER → 2020-10-01 13:13 | Outpatient (CLI) | payer MEDICARE, SELFPAY ==
--- NOTE | 2020-10-01 13:16 | CT_ITS ---
PROCEDURE: CT CHEST WO CON CLINICAL INDICATION: ABN CXR Recent pneumonia No contrast due to labs COMPARISON: CR XR CHEST 2V from 09/22/2020 TECHNIQUE: Axial images obtained with sagittal and coronal reformats. All CT scans at the facility use one or more dose reduction, viz: automated exposure control, ma/kV adjustment per patient size (including targeted exams where dose is matched to indication, i.e. head), or iterative reconstruction technique. FINDINGS: HEART AND MEDIASTINAL STRUCTURES: There is scattered small mediastinal lymph nodes. Calcified nodes are present as well. There is some calcification of the tracheobronchial tree. LUNGS AND PLEURAL SPACES: There are bilateral lower lobe atelectatic changes with associated faint patchy bilateral areas of ground-glass attenuation in the upper and lower lobes somewhat streaky in nature.. Atelectasis noted in the right middle lobe. No dense areas of consolidation are evident. There is a 9 x 4 mm nodular opacity in the right apex and may be due to an area of scarring. No central obstructing lesions are evident. BONY STRUCTURES: There is moderate to severe upper thoracic kyphosis. No acute thoracic fracture however is evident. No lytic or blastic change. UPPER ABDOMEN: Unremarkable. ADDITIONAL FINDINGS: No other significant abnormalities. IMPRESSION: Moderate to severe thoracic kyphosis with atelectatic change and bilateral patchy areas ground-glass infiltrate in the upper and lower lobes. Atypical/viral pneumonia is a consideration. Suggest follow-up to confirm stability or resolution. Dictated by: Tom Gates MD 10/02/2020 11:23 Tom Gates MD in [facility] 10/02/2020 11:23
== END ==
PROVIDERS: PCP Physician Assistant; Visit Provider Physician Assistant
DX: R93.89 Abnormal findings on diagnostic imaging of other specified body structures (principal)
CPT/HCPCS: 71250

== ENCOUNTER 2020-10-03 09:22 | Outpatient (CLI) | payer MEDICARE, SELFPAY ==
[2020-10-03 11:36] LABS: PHA INR Fingerstick 3.9 (0.9-1.1)
== END 2020-10-03 11:48 | disposition home or self-care (01) ==
LOC: ACC 09:23
PROVIDERS: PCP Physician Assistant; Visit Provider Physician Assistant
DX: Z51.81 Encounter for therapeutic drug level monitoring (principal); Z79.01 Long term (current) use of anticoagulants
CPT/HCPCS: 85610; 99211; G0463

== ENCOUNTER → 2020-10-09 10:46 | Outpatient (CLI) | payer MEDICARE, SELFPAY ==
[2020-10-09 12:42] LABS: Chloride 95 mmol/L (98-107); Sodium 136 mmol/L (136-145)
[2020-10-09 12:45] LABS: Blood Urea Nitrogen 60 mg/dl (7-17); Carbon Dioxide 27 mmol/L (22.0-30.0); Estimated Glomerular Filt Rate 5 ml/min (>60); GFR (African American) 6 ML/MIN (>60); Glucose 99 mg/dl (74-100)
[2020-10-09 13:04] LABS: Calcium 14.1 mg/dl (8.4-10.2)
== END ==
PROVIDERS: Visit Provider Physician Assistant
DX: J98.4 Other disorders of lung (principal)
CPT/HCPCS: 36415; 80048

== ENCOUNTER 2020-10-09 15:51 | Inpatient (IN) | payer MEDICARE, SELFPAY ==
--- NOTE | 2020-10-09 16:16 | PC.NURSE ---
Pt arrived to the floor at this time
--- NOTE | 2020-10-09 16:27 | HMH.HP ---
*Admission Date: 10/09/20 <Yael Farooq - 10/09/20 16:36> *Chief complaint: Renal Failure <Yael Farooq - 10/09/20 16:36> *History of present illness: Ms. Saldivar is a 75-year-old female with a history of hypertension, factor V Leiden mutation with history of DVT, hypothyroidism, and chronic kidney disease who has been feeling poorly since the beginning of August. She had Covid back in June and was hospitalized with a Covid pneumonia. She had no complications at the time but on 09/05/2020 she had a telehealth appointment due to cough, sore throat, nasal congestion, and headache. She was started on some medication for cough and congestion and continued to feel poorly. A CBC and chest x-ray were ordered and her chest x-ray showed a basilar pneumonia and a new right upper lobe infiltrate. She was started on Levaquin and her Coumadin dose was decreased in half. She was also started on a Medrol Dosepak. She finished her antibiotics and still felt poorly. She had a repeat chest x-ray which showed no change in her pneumonia. A CT of the chest was ordered as was a sputum culture. Another round of Levaquin was ordered. Her chest CT showed groundglass attenuation in both lungs but no consolidation. Her sputum culture grew out Rhizobium radiobacter with no sensitivities. An appointment was made for her with pulmonology and she was seen in their office today. At the time of her CT, her renal function was elevated. Her BUN was 33 and her creatinine was 2.9. This was rechecked today and her creatinine has now elevated to 7.9. Her calcium is also elevated. She was contacted for direct admission for renal failure. Of note, she has seen Dr. Lopez in the past for renal failure but it has been quite a while since she has been to his office. She states the cnc manager wanted to start her on duonebs and also have her see cardiology. <Yael Farooq - 10/09/20 17:05> [facility] History I have reviewed the patient's past medical history: Yes <Yael Farooq - 10/09/20 16:36> Medical History: Reports:: Anxiety, Deep Vein Thrombosis, Hypertension Denies:: Cancer, Diabetes Mellitus Type 1, Diabetes Mellitus Type 2, MRSA, Seizures <Yael Farooq 10/09/20 16:36> *Have you ever received a pneumonia vaccine?: Yes <Yael Farooq 10/09/20 16:36> *Have you received a flu vaccine this season?: No <Yael Farooq 10/09/20 16:36> Other Medical History: Reports: Arthritis, Hypothyroidism, Other (Covid pneumonia). Denies: Blood Transfusion Reaction <Yael Farooq 10/09/20 16:36> Laterality Cases: Bilateral: Total Hip Replacement <Yael Farooq 10/09/20 16:36> Other Surgeries: Yes: Cardiac Catheterization, Cholecystectomy, Dilation and Curettage, Tubal Ligation <Yael Farooq 10/09/20 16:36> Amputation: No <Yael Farooq 10/09/20 16:36> Fractures: No <Yael Farooq 10/09/20 16:36> - *Social History Smoking Status: Former smoker <Yael Farooq 10/09/20 16:36> Alcohol Intake: never <Yael Farooq 10/09/20 16:36> Substance Use Type: denies use <Yael Farooq 10/09/20 16:36> *Occupational Status:: retired <Yael Farooq 10/09/20 16:36> Housing: house <Yael Farooq 10/09/20 16:36> Household Members: family <Yael Farooq 10/09/20 16:36> *Travel in the last 8 weeks: None <Yael Farooq 10/09/20 16:36> - Psychiatric History Pschychiatric History:: Reports:: Anxiety <Yael Farooq 10/09/20 16:36> Family Hx:: Bleeding Disorder, Cancer, Coronary Artery Disease, Other <Yael Farooq 10/09/20 16:36> Review of Systems - Constitutional Reports weakness, Reports weight loss, Denies fever(s), Denies headache(s) <Yael Farooq 10/09/20 17:05> - Eyes Reports blurry vision, Denies double vision <Yael Farooq 10/09/20 17:05> - ENT Denies nasal congestion, Denies sore throat <Yael Farooq - 10/09/20 17:05> - *Cardiovascular Reports shortness of breath, Denies chest pain, Denies leg swelling, Denies rapid, poundi
[2020-10-09 16:46] VITALS: BP 82/49; PULSE 98; RESP 18; TEMP 36.7; O2SAT 90; BMI 31.9
[2020-10-09 17:42] LABS: Basophils % 0.3 % (0.1-2.0); Eosinophils # 0.1 K/mm3 (0.0-0.4); Eosinophils % 0.7 % (0.1-12.0); Hematocrit 36.1 % (37.0-47.0); Hemoglobin 11.7 g/dL (12.2-16.2); Lymphocytes # 0.8 K/mm3 (0.7-4.5); Lymphocytes % 9.3 % (10-50); Mean Corpuscular HGB Conc 32.3 g/dL (31.8-35.4); Mean Corpuscular Hemoglobin 30.2 pg (27.0-31.2); Mean Corpuscular Volume 93.5 fl (81-99); Mean Platelet Volume 10.3 fl (7.4-10.4); Monocytes # 0.5 K/mm3 (0.1-1.0); Monocytes % 6.7 % (1.7-9.3); Neutrophils # 6.8 K/mm3 (1.8-7.8); Platelet Count 166 K/mm3 (142-424); Red Blood Count 3.86 M/mm3 (4.20-5.40); Red Cell Distribution Width 14.4 % (11.5-17.5); White Blood Count 8.1 K/mm3 (4.8-10.8)
[2020-10-09 17:52] LABS: Lactic Acid 1.1 mmol/L (0.7-2.1)
[2020-10-09 17:53] LABS: Alanine Aminotransferase 11 U/L (12-78); Albumin Level 3.3 g/dl (3.5-5.0); Albumin/Globulin Ratio 0.9 (1.1-1.8); Alkaline Phosphatase 79 U/L (38-126); Anion Gap 13.8 mEq/L (5-15); Aspartate Amino Transferase 18 U/L (14-36); Bilirubin,Total 0.4 mg/dl (0.2-1.3); Blood Urea Nitrogen 58 mg/dl (7-17); Carbon Dioxide 25 mmol/L (22.0-30.0); Chloride 98 mmol/L (98-107); Creatinine Clearance Estimated 9 mL/min (50-200); Estimated Glomerular Filt Rate 5 ml/min (>60); GFR (African American) 6 ML/MIN (>60); Globulin 3.5 g/dL (1.3-3.2); Glucose 114 mg/dl (74-100); Potassium 3.8 mmoL/L (3.5-5.1); Sodium 133 mmol/L (136-145); Total Protein,Serum 6.8 g/dl (6.3-8.2)
[2020-10-09 17:57] LABS: Calcium 13.5 mg/dl (8.4-10.2)
[2020-10-09 17:58] LABS: INR 1.49 (0.9-1.1); Prothrombin Time 17.1 seconds (10.1-12.5)
[2020-10-09 18:23] LABS: Thyroid Stimulating Hormone 4.62 uIU/mL (0.465-4.68)
[2020-10-09 20:00] VITALS: BP 107/57; PULSE 84; RESP 18; TEMP 36.4; O2SAT 92
[2020-10-10] VITALS (7 sets, daily range): BP systolic 92–116; BP diastolic 48–62; PULSE 70–100; RESP 16–24; TEMP 36.4–36.9; O2SAT 86–95; BMI 32.7
--- NOTE | 2020-10-10 06:27 | PC.NURSE ---
patient had an uneventful night with no c/o of pain or discomfort; call light within reach, bed at lowest level for safety, will continue to monitor.
--- NOTE | 2020-10-10 07:26 | P.CONPHA_ITS ---
[facility] Pharmacy VTE Monitoring - Patient Demographics Admission date: 10/09/20 Report Date: 10/10/20 Time: 07:26 Allergies/Adverse Reactions: Patient Allergies Penicillins Allergy (Mild, Verified 10/09/20 12:50) Hives Height: 1.73 m Weight: 98.033 kg Patient Problems: Current Active Problems Bilateral pneumonia (Acute) Renal failure (Acute) Reactive airway disease (Acute) Exertional dyspnea (Acute) Interstitial lung disease (Chronic) History of COVID-19 (Chronic) Hypotension due to hypovolemia (Acute) Hypothyroidism (Acute) Acute on chronic renal failure (Acute) Hypercalcemia (Acute) Anticoagulated on warfarin (Chronic) - VTE Risk Labs: VTE Related Lab Results Hgb 11.7 g/dL (12.2-16.2) L 10/09/20 17:28 Hct 36.1 % (37.0-47.0) L 10/09/20 17:28 Plt Count 166 K/mm3 (142-424) 10/09/20 17:28 PT 17.1 seconds (10.1-12.5) H 10/09/20 17:28 INR 1.49 (0.9-1.1) H 10/09/20 17:28 BUN 58 mg/dl (7-17) H 10/09/20 17:28 Creatinine 8.10 mg/dl (0.52-1.04) H 10/09/20 17:28 Estimated Creat Clear 9 mL/min (50-200) 10/09/20 17:28 VTE Risk Level: Very Low Risk - Prophylaxis VTE Prophylaxis Ordered?: Yes Types of VTE Prophylaxis: TEDS Knee High Location of Applied Device: Bilateral Lower Extremeties
--- NOTE | 2020-10-10 07:34 | US_ITS ---
PROCEDURE: US KIDNEY CLINICAL INDICATION: renal failure COMPARISON: US RETROPCM US kidney retroperitoneal comp from 11/03/2017 FINDINGS: The right kidney is [id number]. Moderate cortical thinning. No hydronephrosis The left kidney is [id number]. Moderate cortical thinning. No hydronephrosis IMPRESSION: Bilateral renal cortical thinning. No hydronephrosis mass or other significant anomaly. Dictated by: Tom Gates MD 10/10/2020 11:49 Tom Gates MD in [place] 10/10/2020 11:49
[2020-10-10 07:59] LABS: Basophils % 0.5 % (0.1-2.0); Eosinophils # 0.3 K/mm3 (0.0-0.4); Eosinophils % 4.4 % (0.1-12.0); Hematocrit 35.1 % (37.0-47.0); Lymphocytes # 1.2 K/mm3 (0.7-4.5); Lymphocytes % 16.7 % (10-50); Mean Corpuscular HGB Conc 31.4 g/dL (31.8-35.4); Mean Corpuscular Hemoglobin 29.8 pg (27.0-31.2); Mean Corpuscular Volume 94.7 fl (81-99); Mean Platelet Volume 9.4 fl (7.4-10.4); Monocytes # 0.5 K/mm3 (0.1-1.0); Monocytes % 6.6 % (1.7-9.3); Neutrophils # 5.2 K/mm3 (1.8-7.8); Neutrophils % 71.8 % (37.0-80.0); Platelet Count 149 K/mm3 (142-424); Red Blood Count 3.71 M/mm3 (4.20-5.40); Red Cell Distribution Width 14.3 % (11.5-17.5); White Blood Count 7.3 K/mm3 (4.8-10.8)
[2020-10-10 08:02] LABS: Chloride 101 mmol/L (98-107); Sodium 134 mmol/L (136-145)
[2020-10-10 08:03] LABS: Potassium 3.4 mmoL/L (3.5-5.1)
[2020-10-10 08:05] LABS: Alanine Aminotransferase 10 U/L (12-78); Albumin Level 2.7 g/dl (3.5-5.0); Albumin/Globulin Ratio 0.9 (1.1-1.8); Alkaline Phosphatase 80 U/L (38-126); Anion Gap 11.4 mEq/L (5-15); Aspartate Amino Transferase 18 U/L (14-36); Bilirubin,Total 0.6 mg/dl (0.2-1.3); Blood Urea Nitrogen 58 mg/dl (7-17); Carbon Dioxide 25 mmol/L (22.0-30.0); Creatinine Clearance Estimated 10 mL/min (50-200); Estimated Glomerular Filt Rate 5 ml/min (>60); GFR (African American) 7 ML/MIN (>60); Globulin 3.1 g/dL (1.3-3.2); Glucose 86 mg/dl (74-100); Total Protein,Serum 5.8 g/dl (6.3-8.2)
[2020-10-10 08:25] LABS: Calcium 12.3 mg/dl (8.4-10.2)
--- NOTE | 2020-10-10 08:28 | HMH.ACPN2 ---
Internal Medicine - PN: Subj *Date: 10/10/20 *Time: 08:28 Interval history: Patient states she feels a little bit better this morning. She had IV fluids throughout the night and has been drinking. She denies any pain. She states she slept off and on throughout the night. Exam Vital signs and Labs for Last 24 Hours: Temp Pulse Resp BP Pulse Ox 97.5 F L 74 16 92/56 L 86 L 10/10/20 04:00 10/10/20 06:55 10/10/20 04:00 10/10/20 04:00 10/10/20 06:55 Laboratory Results - last 24 hr 10/09/20 17:28: WBC 8.1, RBC 3.86 L, Hgb 11.7 L, Hct 36.1 L, MCV 93.5, MCH 30.2, MCHC 32.3, RDW 14.4, Plt Count 166, MPV 10.3, Neut % (Auto) 83.0 H, Lymph % (Auto) 9.3 L, [place] % (Auto) 6.7, Eos % (Auto) 0.7, Baso % (Auto) 0.3, Neut # (Auto) 6.8, Lymph # (Auto) 0.8, [place] # (Auto) 0.5, Eos # (Auto) 0.1, Baso # (Auto) 0.0 10/09/20 17:28: PT 17.1 H, INR 1.49 H 10/09/20 17:28: Sodium 133 L, Potassium 3.8, Chloride 98, Carbon Dioxide 25, Anion Gap 13.8, BUN 58 H, Creatinine 8.10 H, Estimated Creat Clear 9, Estimated GFR 5 L*, Est GFR ( Amer) 6 L*, Glucose 114 H, Calcium 13.5 H*, Total Bilirubin 0.4, AST 18, ALT 11 L, Alkaline Phosphatase 79, Total Protein 6.8, Albumin 3.3 L, Globulin 3.5 H, Albumin/Globulin Ratio 0.9 L 10/09/20 17:28: Lactate 1.1 10/09/20 17:28: PTH Intact 40.0 10/09/20 17:28: Uric Acid 11.0 H, TSH 4.62 10/10/20 07:07: WBC 7.3, RBC 3.71 L, Hgb 11.0 L, Hct 35.1 L, MCV 94.7, MCH 29.8, MCHC 31.4 L, RDW 14.3, Plt Count 149, MPV 9.4, Neut % (Auto) 71.8, Lymph % (Auto) 16.7, [place] % (Auto) 6.6, Eos % (Auto) 4.4, Baso % (Auto) 0.5, Neut # (Auto) 5.2, Lymph # (Auto) 1.2, [place] # (Auto) 0.5, Eos # (Auto) 0.3, Baso # (Auto) 0.0 10/10/20 07:07: Sodium 134 L, Potassium 3.4 L, Chloride 101, Carbon Dioxide 25, Anion Gap 11.4, BUN 58 H, Creatinine 7.30 H, Estimated Creat Clear 10, Estimated GFR 5 L*, Est GFR ( Amer) 7 L*, Glucose 86 D, Calcium 12.3 H*, Total Bilirubin 0.6, AST 18, ALT 10 L, Alkaline Phosphatase 80, Total Protein 5.8 L, Albumin 2.7 L D, Globulin 3.1, Albumin/Globulin Ratio 0.9 L I & O for Last 24 hours: Intake & Output 10/07/20 10/08/20 10/09/20 10/10/20 11:59 11:59 11:59 11:59 Intake Total 360 / 360 Balance 360 / 360 Weight 216 lb 2 oz Microbiology Reports for the Last 24 Hours: Microbiology 10/09/20 17:20 Nasopharyngeal Coronavirus COVID-19 PCR - Final - Constitutional no acute distress - *Routine Respiratory Exam Present: decreased breath sounds, rales (bibasilar) - *Routine Cardiovascular Exam Present: RRR - *Routine Abdominal Exam Present: soft, normoactive bowel sounds. Absent: tenderness - *Routine Extremities Exam Absent: cyanosis, clubbing, edema - *Routine Skin Exam Present: warm. Absent: rash - *Routine Neurological Exam Present: alert, oriented X3 Assessment and Plan (1) Acute on chronic renal failure Status: Acute Category: Medical Code(s): N17.9 - Acute kidney failure, unspecified; N18.9 - Chronic kidney disease, unspecified (2) Hypercalcemia Status: Acute Category: Medical Code(s): E83.52 - Hypercalcemia (3) Hypotension due to hypovolemia Status: Acute Category: Medical Code(s): I95.89 - Other hypotension; E86.1 - Hypovolemia (4) Renal failure Status: Acute Category: Medical Code(s): N19 - Unspecified kidney failure (5) Bilateral pneumonia Status: Acute Qualifiers: Pneumonia type: due to unspecified organism Lung location: unspecified part of lung Qualified Code(s): J18.9 - Pneumonia, unspecified organism Category: Medical Code(s): J18.9 - Pneumonia, unspecified organism (6) Reactive airway disease Status: Acute Category: Medical Code(s): J45.909 - Unspecified asthma, uncomplicated (7) Exertional dyspnea Status: Acute Category: Medical Code(s): R06.00 - Dyspnea, unspecified (8) Anticoagulated on warfarin Status: Chronic Category: Medical Code(s): Z79.01 - intermediate (current) use of
--- NOTE | 2020-10-10 09:51 | CA_ITS ---
APPROVED REPORT EXAM: Comprehensive 2D, Doppler, and color-flow Echocardiogram Swimmer: Joanie Al RT(R) Ht: 5 ft 8 in Wt: 210lbs BSA: 2.09 BP: 82/49 mmHg Indications: Renal failure, ex smoker, COVID 06/2020, SOB, obesity, HTN, hx DVT with clotting disorder 2D Dimensions LVOT 2.16 cm (M/F) 1.5-2.5 LVEF (Hernandez's) 63.90 % F: 54 - 74 LV Volume 80.80 mL F: 46 - 106 LV Volume Index 38.84 mL/m2 F: 29 - 61 M-Mode Dimensions RVDd 2.82 cm (0.9-2.6) LA Diam 4.52 cm (1.9-4.0) LVDd 4.43 cm (3.5-5.7) Ao Diam 3.11 cm (2.0-3.7) LVDs 3.38 cm (3.5-5.7) IVSd 1.09 cm (0.6-1.1) PWd 1.13 cm (0.6-1.1) EF (Teich) 47.50% FS 23.70% EDV (Teich) 89.10 mL TAPSE 1.94 (<1.7) ESV (Teich) 46.80 mL LV Diastology E Decel Time 173.00 (160-240 msec) E/A Ratio 0.7 MED E' 7.60 (< 7 cm/sec) E'/MED E' Ratio 7.95 (>14) LAT E' 10.30 (<10 cm/sec) E/LAT E' Ratio 5.86 (>14) Mitral Valve MV E Max Manuel. 60.00 (40-130 cm/s) MV A Velocity 88.00 (40-130 cm/s) E/A Ratio 0.68 MV Decel. Time 173.00 (160-240 ms) MV PHT 51.00 ms Tricuspid Valve TR P. Velocity 210.00 cm/s RAP Estimate 15.00 mmHg RVSP 32.60 mmHg Left Ventricle Left atrium is mildly enlarged, left ventricle is normal size, mild concentric left ventricular hypertrophy, visually estimated ejection fraction 55% with no regional wall motion abnormality, grade 1 diastolic dysfunction seen without tissue Doppler evidence of raise left atrial pressure. Right Ventricle Right atrium and right ventricle are mildly enlarged with normal contractility. Aortic Valve Aortic valve is minimally thickened and fibrosed, there is no aortic stenosis or aortic insufficiency. Mitral Valve Mitral valve is grossly normal, there is trace mitral regurgitation. Tricuspid Valve Tricuspid grossly normal, there is trace tricuspid regurgitation, tricuspid regurgitation jet velocity is inadequate for calculation of the right ventricular systolic pressure. Pulmonic Valve Pulmonic valve is poorly visualized. Great Vessels Aortic root is normal size. Pericardium No significant pericardial effusion noted. Conclusion 1. Mild biatrial enlargement, normal left ventricular size, mild concentric left ventricular hypertrophy, visually estimated ejection fraction 55% with no regional wall motion abnormality, grade 1 diastolic dysfunction seen without tissue Doppler evidence of raise left atrial pressure. 2. Thickened and calcified aortic valve without aortic stenosis or aortic insufficiency 3. Trace mitral and tricuspid regurgitation. 4. No significant pericardial effusion noted. Electronically signed by : Rajinder Pickett, 10/10/2020 14:42:02
--- NOTE | 2020-10-10 10:03 | HMH.PHAINT ---
MEDICATION RECONCILIATION COMPLETED USING PHYSICIAN OFFICE NOTE. NO RECENT EXTERNAL FILL HISTORY FOR ANY LISTED MEDICATIONS
--- NOTE | 2020-10-10 10:06 | HMH.CNCARD ---
History of Present Illness Consult date: 10/10/20 Requesting physician: Yariel Fernández Consult reason: shortness of breath Chief complaint: dyspnea History of present illness: 75-year-old female admitted to [facility] with exertional dyspnea. Patient states for the past few weeks she has been having increasing exertional dyspnea with minimal exertion. Patient states post Covid a few months ago, and has not felt the same since. Patient denies chest pain, tightness or pressure. Patient does complain of exertional dyspnea. Patient states the dyspnea is improving. Patient is currently on 2 L of O2 by nasal cannula. Patient denies dizziness or palpitations. Patient does have slight swelling of the lower extremities. Patient has history of chronic renal failure. Patient states she has seen Dr. Lopez in the past but has not seen him for a few years. Patient does have history of factor V Leiden mutation. History of DVT after knee surgery. Patient is currently on Coumadin for anticoagulation. This is regulated here at [facility]. Patient denies any history of coronary artery disease. States she did have a heart catheterization in [place] many years ago. Patient states at that time she was told her coronary arteries looked good. History of hypertension which is controlled. Denies diabetes. CT scan of the chest revealed groundglass attenuation with no consolidation. There is question whether patient has pulmonary fibrosis postop Covid. Creatinine on admission was 8.10 it is now trending down to 7.30 with a BUN of 58. Patient also noted to have hypercalcemia at 12.3. Albumin was noted at 3.3 downtrending to 2.7. monitor worker reveals sinus rhythm with no ectopy. Vital signs are stable. Discussed plan of care with Dr. Anthony. Will obtain echocardiogram to assess LV function and valve status. No further cardiac testing is indicated at this time due to elevated creatinine. Due to the elevated creatinine and hypercalcemia, patient may need to have work-up for multiple myeloma. This will be deferred to PCP. PCP is to notify chief hospital administrator for elevated creatinine level. Pending the results of the echocardiogram, medication and treatment therapies may be recommended. We will order a Speckpep, Upep, bone scan and PTH level to rule out multiple myeloma. Thank you for allowing cardiology to participate in the care of this patient. [facility] History I have reviewed the patient's past medical history: Yes Medical History: Reports:: Anxiety, Deep Vein Thrombosis, Hypertension Denies:: Cancer, Diabetes Mellitus Type 1, Diabetes Mellitus Type 2, MRSA, Seizures *Have you ever received a pneumonia vaccine?: Yes *Have you received a flu vaccine this season?: Yes Other Medical History: Reports: Arthritis, Hypothyroidism, Thyroid Disease, Other (Covid pneumonia). Denies: Blood Transfusion Reaction Laterality Cases: Bilateral: Total Hip Replacement Other Surgeries: Yes: Cardiac Catheterization, Cholecystectomy, Dilation and Curettage, Tubal Ligation Amputation: No Fractures: No - *Social History Last grade of school completed: High school graduate Smoking Status: Former smoker Alcohol Intake: never Substance Use Type: denies use *Occupational Status:: retired Housing: house Household Members: family *Travel in the last 8 weeks: None - Psychiatric History Pschychiatric History:: Reports:: Anxiety Family Hx:: No significant family history Meds Home Medications Medication Instructions Recorded Confirmed Type allopurinol 100 mg tablet 100 mg PO DAILY 09/25/18 10/10/20 History Warfarin Sodium 5 mg PO DAILY 05/20/20 10/10/20 History Calcium Phosphate Dibas/Vit D3 1 each PO DAILY 07/08/20 10/10/20 History [Vitamin N9-Mtxvacw-Rjcu Tablet] Multivitamin [Multivitamins] 1 each PO DAILY 07/08/20 10/10/20 History Levothyroxine Sodium [Synthroid 125 mcg PO DAILY 08/18/20 10/10/20 History 125mcg (0.125mg) tablet] albuterol
--- NOTE | 2020-10-10 11:04 | NM_ITS ---
PROCEDURE: NM BONE SCAN WHOLE BODY The CLINICAL INDICATION: possible mets COMPARISON: CR XR KNEE LT 4V from 03/06/[address] ABDOMEN PELVIS WO CON from 07/08/[address] CHEST WO CON from 10/01/2020 FINDINGS: Dose: 26.4 mCi technetium MDP There is mild thoracic scoliosis convex right. Photopenic areas are present in the hips and knees consistent with bilateral hip and knee replacement. There is some increased activity in the ankle and feet. The forearms and elbows were not able to be included on the image due to patient's body size. Increased activity present at the sternoclavicular joints and within the shoulders suggesting arthritic changes. IMPRESSION: Nonspecific findings with arthritic changes suspected in the sternoclavicular joints shoulders and ankles in feet. Photopenic areas within the hips and knees consistent with joint replacement. No evidence of metastatic disease. Dictated by: Tom Gates MD 10/10/2020 16:23 Tom Gates MD in [place] 10/10/2020 16:23
[2020-10-10 11:37] LABS: Intact Parathyroid Hormone 37.8 pg/mL (7.5-53.5)
--- NOTE | 2020-10-10 12:28 | XR_ITS ---
PROCEDURE: XR SKULL <4V CLINICAL INDICATION: Possible METS COMPARISON: No exams were available for comparison FINDINGS: No bony destructive process. No lytic or blastic lesion apparent. No fracture or dislocation. IMPRESSION: Negative skull Dictated by: Tom Gates MD 10/10/2020 17:15 Tom Gates MD in [place] 10/10/2020 17:15
--- NOTE | 2020-10-10 14:15 | HMH.PULMCON ---
*Admission Date: 10/09/20 *Reason for consult:: Chronic hypoxic respiratory failure *History of present illness: Ms. Covarrubias is a 75-year-old female no significant smoking history, history of seasonal allergies no prior respiratory complaints, factor V Leyden deficiency on chronic anticoagulation with Coumadin recently admitted to [facility]-19 pneumonia was discharged home on 2 L oxygen therapy was readmitted to the hospital for worsening renal function. Patient CT scan showed bilateral lower lobe interstitial changes and pulmonary was called for further management. [facility] History Medical History: Reports:: Anxiety, Deep Vein Thrombosis, Hypertension Denies:: Cancer, Diabetes Mellitus Type 1, Diabetes Mellitus Type 2, MRSA, Seizures *Have you ever received a pneumonia vaccine?: Yes *Have you received a flu vaccine this season?: Yes Other Medical History: Reports: Arthritis, Hypothyroidism, Thyroid Disease, Other (Covid pneumonia). Denies: Blood Transfusion Reaction Laterality Cases: Bilateral: Total Hip Replacement Other Surgeries: Yes: Cardiac Catheterization, Cholecystectomy, Dilation and Curettage, Tubal Ligation Amputation: No Fractures: No - *Social History Last grade of school completed: High school graduate Smoking Status: Former smoker Alcohol Intake: never Substance Use Type: denies use *Occupational Status:: retired Housing: house Household Members: family *Travel in the last 8 weeks: None - Psychiatric History Pschychiatric History:: Reports:: Anxiety Family Hx:: No significant family history ROS - Cons Reports body ache(s), Reports fatigue, Reports weakness - Card Reports shortness of breath, Reports shortness of breath with activity, Reports generalized swelling, Reports leg swelling - Resp Respiratory: Reports chest congestion, Reports cough, Reports dyspnea on exertion, Denies coughing up blood, Denies pain on inspiration, Denies pain with cough, Reports cough with sputum production, Denies wheezing - GI Gastrointestingal: Reports: nausea Meds Home Medications Medication Instructions Recorded Confirmed Type allopurinol 100 mg tablet 100 mg PO DAILY 09/25/18 10/10/20 History Warfarin Sodium 5 mg PO DAILY 05/20/20 10/10/20 History Calcium Phosphate Dibas/Vit D3 1 each PO DAILY 07/08/20 10/10/20 History [Vitamin Y0-Warwebs-Bnyr Tablet] Multivitamin [Multivitamins] 1 each PO DAILY 07/08/20 10/10/20 History Levothyroxine Sodium [Synthroid 125 mcg PO DAILY 08/18/20 10/10/20 History 125mcg (0.125mg) tablet] albuterol sulfate 90 mcg/actuation 1 inh INHALATION QID PRN #8.5 g 10/09/20 10/10/20 Rx aerosol inhaler ipratropium 0.5 mg-albuterol 3 mg 3 ml INHALATION Q6H PRN #720 ml 10/09/20 10/10/20 Rx (2.5 mg base)/3 mL nebulization soln Budesonide 0.25 mg INHALATION BID 10/10/20 10/10/20 History Denosumab [Denosumab 60mg/mL 1 inj SQ DIRECTED 10/10/20 10/10/20 History syringe] lisinopriL [Lisinopril] 10 mg PO DAILY 10/10/20 10/10/20 History Allergies Allergy/AdvReac Type Severity Reaction Status Date / Time Penicillins Allergy Mild Hives Verified 10/09/20 12:50 Exam - Constitutional Constitutional:: Present: no acute distress, comfortable - HENMT Exam HENMT: Present: normocephalic, atraumatic - Eye Exam Eyes:: Present: normal appearance both eyes and related structures - Neck Exam Neck:: Present: normal visual inspection - Respiratory Exam Respiratory:: Present: able to speak in complete sentences, no respiratory distress, normal respiratory effort, crackles, rales. Absent: accessory muscle use, wheezing - Cardiovascular Exam Cardiac:: Present: S1, S2 - GI Exam GI:: Present: soft - Skin Exam Skin: Present: warm, no rash - Neurological Exam Neurological: Present: alert, awake, normal cognition - Extremities Exam Extremities: Present: no cyanosis, no clubbing, edema Internal Medicine - CN: Reslt - Labs CBC & Chem 7: 10/10/20 07:07 10/10/20 07:07
[2020-10-10 15:19] LABS: C-Reactive Protein 44.7 mg/L (0-4)
--- NOTE | 2020-10-10 15:20 | HMH.PHAINT ---
BILATERAL PNEUMONIA LISTED ON PATIENT'S CURRENT HISTORY AND PROBLEMS LIST. CALLED [facility] TO ASK IF PATIENT WILL BE STARTED ON ANY ANTIBIOTICS OR IF PNA NEEDS TO BE TAKEN OFF OF PROBLEM LIST. PNA WILL REMAIN ON LIST AND NO ANTIBIOTICS WILL BE STARTED BY DR JETER/KARINA AT THIS TIME. DR CUEVAS HAS BEEN CONSULTED.
--- NOTE | 2020-10-10 15:34 | PC.NURSE ---
Pt down for nuclear med scan @ [id number]
--- NOTE | 2020-10-10 19:21 | PC.NURSE ---
No acute changes. Pt remains on 2 L O2 per nasal cannula, SPO2 ranging 92-94%. Pt has been a standby assist x1 to [facility]. Family @ bedside this shift. No complaints voiced. Call condon w/in reach.
--- NOTE | 2020-10-10 19:50 | PC.NURSE ---
RA SATS WERE 89%. RETURNED PT ON 2L NC
[2020-10-10 20:53] LABS: Appearance,Urine CLEAR (Clear); Bilirubin,Urine Negative (Negative); Blood, Urine 1+ (Negative); Color,Urine YELLOW (Yellow); Glucose,Urine (UA) Negative (Negative); Ketones,Urine Negative (Negative); Leukocyte Esterase,Urine Negative (Negative); Microscopic, Urine URINE MICROSCOPIC (MICROSCOPIC); Nitrate,Urine Negative (Negative); Protein,Urine Negative (Negative); Specific Gravity, Urine <= 1.005 (1.005-1.030); Urobilinogen,Urine 0.2 EU/dl (0.2)
[2020-10-10 21:11] LABS: Bacteria,Urine Trace /lpf; RBC,Urine Occasional #/hpf (0-3); Squamous Epithelial Cell,Urine 20-50 #/hpf (0-5)
[2020-10-11] VITALS (10 sets, daily range): BP systolic 107–135; BP diastolic 53–73; PULSE 71–120; RESP 16–21; TEMP 36.3–36.4; O2SAT 89–95; BMI 32.4
--- NOTE | 2020-10-11 05:10 | PC.NURSE ---
Pt resting comfortably with eyes closed and in no acute distress. Pt did not require pain medication, MD ordered Coumadin 7.5 mg PO X 1 and pt will get PT/INR Q day to determine efficacy. Will continue to monitor for any acute changes.
[2020-10-11 07:19] LABS: Basophils % 0.7 % (0.1-2.0); Eosinophils # 0.2 K/mm3 (0.0-0.4); Eosinophils % 4.1 % (0.1-12.0); Hematocrit 34.9 % (37.0-47.0); Lymphocytes # 1.1 K/mm3 (0.7-4.5); Lymphocytes % 19.1 % (10-50); Mean Corpuscular HGB Conc 31.6 g/dL (31.8-35.4); Mean Platelet Volume 9.2 fl (7.4-10.4); Monocytes # 0.5 K/mm3 (0.1-1.0); Monocytes % 8.6 % (1.7-9.3); Neutrophils # 3.9 K/mm3 (1.8-7.8); Neutrophils % 67.6 % (37.0-80.0); Platelet Count 135 K/mm3 (142-424); Red Blood Count 3.67 M/mm3 (4.20-5.40); Red Cell Distribution Width 14.2 % (11.5-17.5); White Blood Count 5.8 K/mm3 (4.8-10.8)
[2020-10-11 07:27] LABS: Chloride 105 mmol/L (98-107); Potassium 3.6 mmoL/L (3.5-5.1); Sodium 134 mmol/L (136-145)
[2020-10-11 07:30] LABS: Anion Gap 10.6 mEq/L (5-15); Blood Urea Nitrogen 48 mg/dl (7-17); Calcium 11.5 mg/dl (8.4-10.2); Carbon Dioxide 22 mmol/L (22.0-30.0); Creatinine Clearance Estimated 11 mL/min (50-200); Estimated Glomerular Filt Rate 6 ml/min (>60); GFR (African American) 7 ML/MIN (>60); Glucose 84 mg/dl (74-100)
[2020-10-11 07:44] LABS: Prothrombin Time 16.1 seconds (10.1-12.5)
--- NOTE | 2020-10-11 08:59 | HMH.ACPN2 ---
Internal Medicine - PN: Subj *Date: 10/11/20 *Time: 08:59 Interval history: Patient states she continues to feel weak, otherwise no new complaints. Exam Vital signs and Labs for Last 24 Hours: Temp Pulse Resp BP Pulse Ox 97.4 F L 86 16 116/59 L 89 L 10/11/20 04:00 10/11/20 06:34 10/11/20 04:00 10/11/20 04:00 10/11/20 06:34 Laboratory Results - last 24 hr 10/10/20 07:07: PTH Intact 37.8 10/10/20 14:57: C-Reactive Protein 44.7 H 10/10/20 17:15: Urine Color Yellow, Urine Appearance Clear, Urine pH 6.0, Ur Specific [place] <= 1.005, Urine Protein Negative, Urine Glucose (UA) Negative, Urine Ketones Negative, Urine Blood 1+, Urine Nitrate Negative, Urine Bilirubin Negative, Urine Urobilinogen 0.2, Ur Leukocyte Esterase Negative, Urine RBC Occasional, Urine WBC 3-5, Ur Squamous Epith Cells 20-50, Urine Bacteria Trace 10/11/20 06:48: WBC 5.8, RBC 3.67 L, Hgb 11.0 L, Hct 34.9 L, MCV 95.0, MCH 30.0, MCHC 31.6 L, RDW 14.2, Plt Count 135 L, MPV 9.2, Neut % (Auto) 67.6, Lymph % (Auto) 19.1, [place] % (Auto) 8.6, Eos % (Auto) 4.1, Baso % (Auto) 0.7, Neut # (Auto) 3.9, Lymph # (Auto) 1.1, [place] # (Auto) 0.5, Eos # (Auto) 0.2, Baso # (Auto) 0.0 10/11/20 06:48: Sodium 134 L, Potassium 3.6, Chloride 105, Carbon Dioxide 22, Anion Gap 10.6, BUN 48 H, Creatinine 6.60 H, Estimated Creat Clear 11, Estimated GFR 6 L*, Est GFR ( Amer) 7 L*, Glucose 84, Calcium 11.5 H 10/11/20 06:48: PT 16.1 H, INR 1.40 H Vital Signs - 24 hr 10/10/20 10:50 10/10/20 16:00 10/10/20 19:49 Temperature 98.5 F Pulse Rate 90 100 H 86 Pulse Rate [Left Radial] 96 H Respiratory Rate 17 Blood Pressure [Right Arm] 112/62 02 Sat by Pulse Oximetry 91 L 91 L 95 10/10/20 20:00 10/11/20 00:00 10/11/20 04:00 Temperature 97.6 F 97.4 F L Pulse Rate 70 120 H 80 Pulse Rate [Left Radial] 88 83 Respiratory Rate 24 16 Blood Pressure [Right Arm] 102/48 L 116/59 L 02 Sat by Pulse Oximetry 92 L 90 L 10/11/20 06:34 Temperature Pulse Rate 86 Pulse Rate [Left Radial] Respiratory Rate Blood Pressure [Right Arm] 02 Sat by Pulse Oximetry 89 L I & O for Last 24 hours: Intake & Output 10/08/20 10/09/20 10/10/20 10/11/20 23:59 23:59 23:59 23:59 Intake Total 360 / 360 5096 / 5196 925 / 925 Output Total 1100 / 1700 1200 / 1200 Balance 360 / 360 3996 / 3496 -275 / -275 Weight 210 lb 4 oz 216 lb 0.848 oz 214 lb 3 oz - Constitutional no acute distress - *Routine Respiratory Exam Present: crackles. Absent: wheezes - *Routine Cardiovascular Exam Present: RRR Assessment and Plan (1) Acute on chronic renal failure Status: Acute Category: Medical Code(s): N17.9 - Acute kidney failure, unspecified; N18.9 - Chronic kidney disease, unspecified (2) Hypercalcemia Status: Acute Category: Medical Code(s): E83.52 - Hypercalcemia (3) Hypotension due to hypovolemia Status: Acute Category: Medical Code(s): I95.89 - Other hypotension; E86.1 - Hypovolemia (4) Renal failure Status: Acute Category: Medical Code(s): N19 - Unspecified kidney failure (5) Bilateral pneumonia Status: Acute Qualifiers: Pneumonia type: due to unspecified organism Lung location: unspecified part of lung Qualified Code(s): J18.9 - Pneumonia, unspecified organism Category: Medical Code(s): J18.9 - Pneumonia, unspecified organism (6) Reactive airway disease Status: Acute Category: Medical Code(s): J45.909 - Unspecified asthma, uncomplicated (7) Exertional dyspnea Status: Acute Category: Medical Code(s): R06.00 - Dyspnea, unspecified (8) Anticoagulated on warfarin Status: Chronic Category: Medical Code(s): Z79.01 - lobsterman (current) use of anticoagulants (9) Interstitial lung disease Status: Chronic Category: Medical Code(s): J84.9 - Interstitial pulmonary disease, unspecified (10) History of COVID-19 Status: Chronic Category: Medical Code(s): Z86.16 - Personal history of COVID-19
--- NOTE | 2020-10-11 17:24 | PC.NURSE ---
PT HAS DONE WELL TODAY. SHE HAS BEEN UP TO THE BSC WITH STANDBY ASSIST BY STAFF. SHE DOES GET SOB, O2 IN PLACE AND RECOVERS QUICKLY. SHE C/O LEG PAIN, PAGED DR. GAINES AND HE ORDERED TYLENOL 500MG PO Q4HR PRN. PT RECEIVED ONE DOSE AND HAS NOT C/O PAIN SINCE. CALL LIGHT WITHIN REACH. VSS. WILL CONT. TO MONITOR.
[2020-10-12] VITALS (12 sets, daily range): BP systolic 121–131; BP diastolic 55–74; PULSE 76–107; RESP 18–28; TEMP 36.6–36.8; O2SAT 90–94; BMI 32.9
--- NOTE | 2020-10-12 05:46 | PC.NURSE ---
Pt currently admitted for Renal Failure and Bilateral PNA. PT wears 2 L O2 via n/c. No reports of pain or discomfort. Pt VSS. Will continue to monitor for any acute changes.
--- NOTE | 2020-10-12 08:41 | HMH.ACPN2 ---
Internal Medicine - PN: Subj *Date: 10/12/20 *Time: 08:41 Interval history: Patient with no new complaints today, slept well last night, urinating frequently. Exam Vital signs and Labs for Last 24 Hours: Temp Pulse Resp BP Pulse Ox 97.9 F 99 H 19 127/68 92 L 10/12/20 08:00 10/12/20 08:00 10/12/20 08:00 10/12/20 08:00 10/12/20 08:00 Laboratory Results - last 24 hr 10/11/20 06:48: Sodium 134 L, Potassium 3.6, Chloride 105, Carbon Dioxide 22, Anion Gap 10.6, BUN 48 H, Creatinine 6.60 H, Estimated Creat Clear 11, Estimated GFR 6 L*, Est GFR ( Amer) 7 L*, Glucose 84, Calcium 11.5 H Vital Signs - 24 hr 10/11/20 12:00 10/11/20 12:02 10/11/20 15:53 Temperature 97.5 F L 97.5 F L Pulse Rate 80 Pulse Rate [Apical] Pulse Rate [Left Radial] 95 H 100 H Respiratory Rate 20 21 Blood Pressure [Right Arm] 107/65 L 114/57 L 02 Sat by Pulse Oximetry 95 91 L 10/11/20 16:00 10/11/20 20:00 10/11/20 20:27 Temperature 97.6 F Pulse Rate 90 80 73 Pulse Rate [Apical] Pulse Rate [Left Radial] 87 Respiratory Rate 20 Blood Pressure [Right Arm] 135/73 02 Sat by Pulse Oximetry 92 L 10/12/20 00:00 10/12/20 04:00 10/12/20 06:50 Temperature 97.9 F 98.1 F Pulse Rate 100 H 80 98 H Pulse Rate [Apical] Pulse Rate [Left Radial] 107 H 89 Respiratory Rate 28 H 24 Blood Pressure [Right Arm] 131/74 124/67 02 Sat by Pulse Oximetry 90 L 92 L 10/12/20 08:00 Temperature 97.9 F Pulse Rate Pulse Rate [Apical] 99 H Pulse Rate [Left Radial] 99 H Respiratory Rate 19 Blood Pressure [Right Arm] 127/68 02 Sat by Pulse Oximetry 92 L I & O for Last 24 hours: Intake & Output 10/09/20 10/10/20 10/11/20 10/12/20 23:59 23:59 23:59 23:59 Intake Total 360 / 360 5096 / 5196 7588 / 8477 2233 / 2233 Output Total 1100 / 1700 1800 / 2200 400 / 400 Balance 360 / 360 3996 / 3496 5788 / 6277 1833 / 1833 Weight 210 lb 4 oz 216 lb 0.848 oz 214 lb 3 oz 217 lb 4 oz Microbiology Reports for the Last 24 Hours: Microbiology 10/09/20 18:26 Rectum CRE Surveillance Culture - Final Negative 10/09/20 17:28 Blood Blood Culture - Preliminary NO GROWTH AFTER 48 HOURS 10/09/20 17:28 Blood Blood Culture - Preliminary NO GROWTH AFTER 48 HOURS - Constitutional no acute distress - *Routine HEENT Exam Head: Present: normocephalic Eye: Present: EOMI ENT: Present: mucous membranes moist - *Routine Neck Exam Present: supple. Absent: lymphadenopathy - *Routine Respiratory Exam Present: crackles (bilateral). Absent: rhonchi, wheezes - *Routine Cardiovascular Exam Present: RRR - *Routine Abdominal Exam Present: soft, normoactive bowel sounds. Absent: tenderness - *Routine Extremities Exam Present: edema (both legs). Absent: cyanosis, clubbing - *Routine Skin Exam Present: warm - *Routine Neurological Exam Present: alert, oriented X3 Assessment and Plan (1) Acute on chronic renal failure Status: Acute Category: Medical Code(s): N17.9 - Acute kidney failure, unspecified; N18.9 - Chronic kidney disease, unspecified (2) Hypercalcemia Status: Acute Category: Medical Code(s): E83.52 - Hypercalcemia (3) Hypotension due to hypovolemia Status: Acute Category: Medical Code(s): I95.89 - Other hypotension; E86.1 - Hypovolemia (4) Renal failure Status: Acute Category: Medical Code(s): N19 - Unspecified kidney failure (5) Bilateral pneumonia Status: Acute Qualifiers: Pneumonia type: due to unspecified organism Lung location: unspecified part of lung Qualified Code(s): J18.9 - Pneumonia, unspecified organism Category: Medical Code(s): J18.9 - Pneumonia, unspecified organism (6) Reactive airway disease Status: Acute Category: Medical Code(s): J45.909 - Unspecified asthma, uncomplicated (7) Exertional dyspnea Status: Acute Category: Medical
[2020-10-12 09:06] LABS: Calcium, Ionized 8.2 mg/dL (4.5-5.6)
--- NOTE | 2020-10-12 16:31 | PC.NURSE ---
Pt has been pleasant and cooperative this shift. A&O X4. Pt has complained of pain X1 and received Tylenol per MAR with favorable results. Pt is currently receiving O2 via NC @ 2 LPM with sats. >90%. Lungs CTA. 1+ pitting edema noted to BLE. Skin is C/D/I. Pt ambulates independently in the room and uses the BSC to void clear, yellow urine without issue. 1 large, soft, brown BM this shift. Pt sat up in the recliner for a couple of hours this AM. 20 G peripheral IV in the LT forearm is patent and infusing NS @ 100 ML/HR. VSS. Call light within reach. Will continue to monitor.
[2020-10-13] VITALS (11 sets, daily range): BP systolic 103–142; BP diastolic 58–82; PULSE 80–104; RESP 16–24; TEMP 36.4–36.9; O2SAT 90–95; BMI 33.4
--- NOTE | 2020-10-13 05:09 | PC.NURSE ---
patient rested throughout shift with no complaints noted. Call light within reach, bed at lowest level for safety; will continue to monitor.
[2020-10-13 06:36] LABS: Basophils % 0.5 % (0.1-2.0); Eosinophils # 0.3 K/mm3 (0.0-0.4); Eosinophils % 5.3 % (0.1-12.0); Hematocrit 33.1 % (37.0-47.0); Hemoglobin 10.5 g/dL (12.2-16.2); Lymphocytes # 1.1 K/mm3 (0.7-4.5); Lymphocytes % 18.5 % (10-50); Mean Corpuscular HGB Conc 31.7 g/dL (31.8-35.4); Mean Corpuscular Hemoglobin 30.4 pg (27.0-31.2); Mean Corpuscular Volume 95.9 fl (81-99); Mean Platelet Volume 10.7 fl (7.4-10.4); Monocytes # 0.5 K/mm3 (0.1-1.0); Monocytes % 8.5 % (1.7-9.3); Neutrophils # 4.1 K/mm3 (1.8-7.8); Neutrophils % 67.2 % (37.0-80.0); Platelet Count 137 K/mm3 (142-424); Red Blood Count 3.45 M/mm3 (4.20-5.40); Red Cell Distribution Width 14.7 % (11.5-17.5); White Blood Count 6.2 K/mm3 (4.8-10.8)
[2020-10-13 07:01] LABS: Chloride 115 mmol/L (98-107)
[2020-10-13 07:02] LABS: Potassium 4.7 mmoL/L (3.5-5.1); Sodium 139 mmol/L (136-145)
[2020-10-13 07:05] LABS: Anion Gap 11.7 mEq/L (5-15); Blood Urea Nitrogen 37 mg/dl (7-17); Calcium 10.4 mg/dl (8.4-10.2); Carbon Dioxide 17 mmol/L (22.0-30.0); Creatinine Clearance Estimated 15 mL/min (50-200); Estimated Glomerular Filt Rate 8 ml/min (>60); GFR (African American) 10 ML/MIN (>60); Glucose 75 mg/dl (74-100)
[2020-10-13 07:08] LABS: INR 3.61 (0.9-1.1); Prothrombin Time 38.1 seconds (10.1-12.5)
--- NOTE | 2020-10-13 09:29 | HMH.ACPN2 ---
Internal Medicine - PN: Subj *Date: 10/13/20 *Time: 09:29 Interval history: Patient states she is slowly beginning to feel better. She denies chest pain. She has some shortness of breath. She denies any abdominal discomfort. She is eating without problems. She set up in a chair yesterday. CBC this morning shows a hemoglobin of 10.5 and hematocrit of 33.1. White blood cell count is 6200. Blood chemistries reveal sodium 139 and potassium of 4.7. BUN is 37 and creatinine has decreased to 5.2 with a GFR of 8. Calcium is decreased to 10.4. Exam Vital signs and Labs for Last 24 Hours: Temp Pulse Resp BP Pulse Ox 98.4 F 88 24 103/58 L 90 L 10/13/20 04:00 10/13/20 06:30 10/13/20 04:00 10/13/20 04:00 10/13/20 06:30 Laboratory Results - last 24 hr 10/13/20 06:25: WBC 6.2, RBC 3.45 L, Hgb 10.5 L, Hct 33.1 L, MCV 95.9, MCH 30.4, MCHC 31.7 L, RDW 14.7, Plt Count 137 L, MPV 10.7 H, Neut % (Auto) 67.2, Lymph % (Auto) 18.5, [place] % (Auto) 8.5, Eos % (Auto) 5.3, Baso % (Auto) 0.5, Neut # (Auto) 4.1, Lymph # (Auto) 1.1, [place] # (Auto) 0.5, Eos # (Auto) 0.3, Baso # (Auto) 0.0 10/13/20 06:25: PT 38.1 H, INR 3.61 H 10/13/20 06:25: Sodium 139, Potassium 4.7 D, Chloride 115 H, Carbon Dioxide 17 L D, Anion Gap 11.7, BUN 37 H, Creatinine 5.20 H D, Estimated Creat Clear 15, Estimated GFR 8 L*, Est GFR ( Amer) 10 L* D, Glucose 75, Calcium 10.4 H I & O for Last 24 hours: Intake & Output 10/10/20 10/11/20 10/12/20 10/13/20 11:59 11:59 11:59 11:59 Intake Total 360 / 360 6501 / 6501 8416 / 8416 2360 / 2360 Output Total 2300 / 2300 1000 / 1000 Balance 360 / 360 4201 / 4201 7416 / 7416 2360 / 2360 Weight 216 lb 2 oz 214 lb 3 oz 217 lb 4 oz 220 lb 6 oz Microbiology Reports for the Last 24 Hours: Microbiology 10/09/20 18:26 Rectum CRE Surveillance Culture - Final Negative - Constitutional no acute distress Comments: Sitting up in the bed and appears comfortable - *Routine Respiratory Exam Present: crackles Comments: Bilateral fibrotic crackles. - *Routine Cardiovascular Exam Present: RRR - *Routine Abdominal Exam Present: soft, normoactive bowel sounds. Absent: tenderness, distended - *Routine Extremities Exam Absent: edema, calf tenderness - *Routine Neurological Exam Present: alert, oriented X3 Assessment and Plan (1) Acute on chronic renal failure Status: Acute Category: Medical Code(s): N17.9 - Acute kidney failure, unspecified; N18.9 - Chronic kidney disease, unspecified (2) Hypercalcemia Status: Acute Category: Medical Code(s): E83.52 - Hypercalcemia (3) Hypotension due to hypovolemia Status: Acute Category: Medical Code(s): I95.89 - Other hypotension; E86.1 - Hypovolemia (4) Renal failure Status: Acute Category: Medical Code(s): N19 - Unspecified kidney failure (5) Bilateral pneumonia Status: Acute Qualifiers: Pneumonia type: due to unspecified organism Lung location: unspecified part of lung Qualified Code(s): J18.9 - Pneumonia, unspecified organism Category: Medical Code(s): J18.9 - Pneumonia, unspecified organism (6) Reactive airway disease Status: Acute Category: Medical Code(s): J45.909 - Unspecified asthma, uncomplicated (7) Exertional dyspnea Status: Acute Category: Medical Code(s): R06.00 - Dyspnea, unspecified (8) Anticoagulated on warfarin Status: Chronic Category: Medical Code(s): Z79.01 - jail (current) use of anticoagulants (9) Interstitial lung disease Status: Chronic Category: Medical Code(s): J84.9 - Interstitial pulmonary disease, unspecified (10) History of COVID-19 Status: Chronic Category: Medical Code(s): Z86.16 - Personal history of COVID-19 (11) Hypothyroidism Status: Acute Category: Medical Code(s): E03.9 - Hypothyroidism, unspecified - Assessment and plan all Dx Assessment and Plan for all problems:: Continue wi
--- NOTE | 2020-10-13 10:06 | DIET.NUTRFU ---
PO intakes 75%, weight stable. Pt with no nutritional complaints/concerns, continuing to monitor.
--- NOTE | 2020-10-13 11:09 | PC.NURSE ---
Notified Dr Fernández's nurse Mesha that Dr Lopez would not be consulting on pt today, as he cancelled his clinic.[id number]
--- NOTE | 2020-10-13 13:12 | HMH.PULMPN ---
Internal Medicine - PN: Subj *Date: 10/13/20 *Time: 13:12 Interval history: Patient respiratory status remained stable since admission. Exam - Constitutional Constitutional:: Present: no acute distress, comfortable - HENMT Exam HENMT: Present: normocephalic, atraumatic - Eye Exam Eyes:: Present: eyelids normal - Neck Exam Neck:: Present: normal visual inspection - Respiratory Exam Respiratory:: Present: able to speak in complete sentences, no respiratory distress, crackles Comments: Bilateral basilar coarse crackles heard. - Cardiovascular Exam Cardiac:: Present: S1, S2 - GI Exam GI:: Present: soft - Skin Exam Skin: Present: warm, no rash - Extremities Exam Extremities: Present: no cyanosis, no clubbing, edema - Psychiatric Exam Psychiatric: Present: normal affect Assessment and Plan (1) Acute on chronic renal failure Status: Acute Category: Medical Code(s): N17.9 - Acute kidney failure, unspecified; N18.9 - Chronic kidney disease, unspecified (2) Hypercalcemia Status: Acute Category: Medical Code(s): E83.52 - Hypercalcemia (3) Hypotension due to hypovolemia Status: Acute Category: Medical Code(s): I95.89 - Other hypotension; E86.1 - Hypovolemia (4) Renal failure Status: Acute Category: Medical Code(s): N19 - Unspecified kidney failure (5) Bilateral pneumonia Status: Acute Qualifiers: Pneumonia type: due to unspecified organism Lung location: unspecified part of lung Qualified Code(s): J18.9 - Pneumonia, unspecified organism Category: Medical Code(s): J18.9 - Pneumonia, unspecified organism (6) Reactive airway disease Status: Acute Category: Medical Code(s): J45.909 - Unspecified asthma, uncomplicated (7) Exertional dyspnea Status: Acute Category: Medical Code(s): R06.00 - Dyspnea, unspecified (8) Anticoagulated on warfarin Status: Chronic Category: Medical Code(s): Z79.01 - salvage determiner (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 No significant smoking history. No personal history or family of autoimmune disorders. ILD review of systems negative. Denies any aspiration or choking events. Positive for personal history of allergies, however denies any personal or family history of asthma Patient's recent CT chest revealed bilateral lower lobe interstitial lung disease with mild bronchiectasis and upon reviewing her chest x-rays this appears to be chronic from before with no acute change. It appears this patient is having underlying chronic lung disease and this along with a recent COVID-19 pneumonia significantly worsened respiratory status. Patient also complains of significant fatigue and weakness which might also be contributing to her symptoms. Patient does not appear to have any pulmonary infectious process at this point of time. Renal function continued to improve. Blood cultures no growth 48 hours Plan: -Continue oxygen therapy to maintain O2 saturation goal of 88 to 92% -Continue DuoNebs every 6 hours scheduled, patient can be discharged on Symbicort BID and Albuterol Q6 hrs PRN -Follow basic autoimmune work-up including JUAN, ANCA, RF, CCP and CRP - Modified Barium Swallow -Follow with cardiology recommendations #Thank you for involving pulmonary inpatient care. We will follow the patient in clinic as previously scheduled with pulmonary function testing. Will foll
[2020-10-13 14:13] LABS: Albumin 2.5 g/dL (2.9-4.4); Alpha-1-Globulin 0.3 g/dL (0.0-0.4); Alpha-2-Globulin 0.8 g/dL (0.4-1.0); Gamma Globulin 1.4 g/dL (0.4-1.8); Protein, Total 5.8 g/dL (6.0-8.5)
[2020-10-13 17:09] LABS: Cytoplasmic (C-ANCA) <1:20 titer (Neg:<1:20)
--- NOTE | 2020-10-13 20:53 | PC.NURSE ---
RA SATS WERE 89%. PLACED PT BACK ON 2L NC
--- NOTE | 2020-10-13 21:18 | HMH.ACPN2 ---
Internal Medicine - PN: Subj *Date: 10/13/20 *Time: 21:18 Interval history: Dr. Fernández spoke with Dr. Nadir Lopez, Nephrology at 12:28 PM relating the current status of Ms. Saldivar. With her gradual progress in her renal functions and her apparent clinical stability, Dr. Lopez felt that he would plan to see her in his [place] office this . Exam Vital signs and Labs for Last 24 Hours: Temp Pulse Resp BP Pulse Ox 97.5 F L 99 H 18 124/82 92 L 10/13/20 19:50 10/13/20 20:38 10/13/20 16:00 10/13/20 19:50 10/13/20 20:38 Laboratory Results - last 24 hr 10/13/20 06:25: WBC 6.2, RBC 3.45 L, Hgb 10.5 L, Hct 33.1 L, MCV 95.9, MCH 30.4, MCHC 31.7 L, RDW 14.7, Plt Count 137 L, MPV 10.7 H, Neut % (Auto) 67.2, Lymph % (Auto) 18.5, [place] % (Auto) 8.5, Eos % (Auto) 5.3, Baso % (Auto) 0.5, Neut # (Auto) 4.1, Lymph # (Auto) 1.1, [place] # (Auto) 0.5, Eos # (Auto) 0.3, Baso # (Auto) 0.0 10/13/20 06:25: PT 38.1 H, INR 3.61 H 10/13/20 06:25: Sodium 139, Potassium 4.7 D, Chloride 115 H, Carbon Dioxide 17 L D, Anion Gap 11.7, BUN 37 H, Creatinine 5.20 H D, Estimated Creat Clear 15, Estimated GFR 8 L*, Est GFR ( Amer) 10 L* D, Glucose 75, Calcium 10.4 H I & O for Last 24 hours: Intake & Output 10/11/20 10/12/20 10/13/20 10/14/20 11:59 11:59 11:59 11:59 Intake Total 6501 / 6501 8416 / 8416 2360 / 2360 600 / 600 Output Total 2300 / 2300 1000 / 1000 Balance 4201 / 4201 7416 / 7416 2360 / 2360 600 / 600 Weight 214 lb 3 oz 217 lb 4 oz 220 lb 6 oz Assessment and Plan (1) Acute on chronic renal failure Status: Acute Category: Medical Code(s): N17.9 - Acute kidney failure, unspecified; N18.9 - Chronic kidney disease, unspecified (2) Hypercalcemia Status: Acute Category: Medical Code(s): E83.52 - Hypercalcemia (3) Hypotension due to hypovolemia Status: Acute Category: Medical Code(s): I95.89 - Other hypotension; E86.1 - Hypovolemia (4) Renal failure Status: Acute Category: Medical Code(s): N19 - Unspecified kidney failure (5) Bilateral pneumonia Status: Acute Qualifiers: Pneumonia type: due to unspecified organism Lung location: unspecified part of lung Qualified Code(s): J18.9 - Pneumonia, unspecified organism Category: Medical Code(s): J18.9 - Pneumonia, unspecified organism (6) Reactive airway disease Status: Acute Category: Medical Code(s): J45.909 - Unspecified asthma, uncomplicated (7) Exertional dyspnea Status: Acute Category: Medical Code(s): R06.00 - Dyspnea, unspecified (8) Anticoagulated on warfarin Status: Chronic Category: Medical Code(s): 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
[2020-10-14] VITALS (10 sets, daily range): BP systolic 133–145; BP diastolic 61–77; PULSE 87–110; RESP 18–26; TEMP 36.4–36.8; O2SAT 87–92; BMI 33.5
--- NOTE | 2020-10-14 04:05 | PC.NURSE ---
pt has 2LNC on at this time. pt has had a cough throughout the night. ultrasound iv in place and patent and infusing per order. pt uses BSC. vss. call light in reach. will continue to monitor pt condition.
[2020-10-14 06:27] LABS: Basophils % 0.5 % (0.1-2.0); Eosinophils # 0.4 K/mm3 (0.0-0.4); Hematocrit 35.8 % (37.0-47.0); Hemoglobin 11.2 g/dL (12.2-16.2); Lymphocytes # 1.1 K/mm3 (0.7-4.5); Lymphocytes % 15.3 % (10-50); Mean Corpuscular HGB Conc 31.2 g/dL (31.8-35.4); Mean Corpuscular Hemoglobin 30.5 pg (27.0-31.2); Mean Corpuscular Volume 97.9 fl (81-99); Mean Platelet Volume 10.4 fl (7.4-10.4); Monocytes # 0.4 K/mm3 (0.1-1.0); Monocytes % 6.1 % (1.7-9.3); Neutrophils # 5.1 K/mm3 (1.8-7.8); Platelet Count 146 K/mm3 (142-424); Red Blood Count 3.65 M/mm3 (4.20-5.40); Red Cell Distribution Width 14.5 % (11.5-17.5)
[2020-10-14 06:32] LABS: Chloride 116 mmol/L (98-107); Sodium 139 mmol/L (136-145)
[2020-10-14 06:35] LABS: Blood Urea Nitrogen 31 mg/dl (7-17); Calcium 10.4 mg/dl (8.4-10.2); Carbon Dioxide 16 mmol/L (22.0-30.0); Creatinine Clearance Estimated 16 mL/min (50-200); Estimated Glomerular Filt Rate 8 ml/min (>60); GFR (African American) 10 ML/MIN (>60); Glucose 74 mg/dl (74-100)
[2020-10-14 06:43] LABS: INR 3.72 (0.9-1.1); Prothrombin Time 39.8 seconds (10.1-12.5)
--- NOTE | 2020-10-14 08:00 | FL_ITS ---
PROCEDURE: FL BARIUM SWALLOW MODIFIED CLINICAL INDICATION: Dysphagia COMPARISON: No exams were available for comparison TECHNIQUE: Patient administered varying consistencies of barium contrast, while viewed in lateral position under real-time fluoroscopy with cine recording. FLUOROSCOPY TIME:1 minutes and 49 seconds The study was performed in conjunction with speech pathologist. Please see that report & recommendations. FINDINGS: Patient was given varying consistencies of barium. No evidence of a stable penetration or tracheal aspiration. There was some residual with the patient swallowing a pill requiring 5 swallows to move the bolus from the vallecula a. IMPRESSION: No aspiration or this tibial early penetration Please see speech pathologist report and recommendations. Dictated by: Tom Gates MD 10/18/2020 09:29 Tom Gates MD in [place] 10/18/2020 09:29
--- NOTE | 2020-10-14 08:13 | HMH.ACPN2 ---
Internal Medicine - PN: Subj *Date: 10/14/20 *Time: 08:13 Interval history: Patient did sleep some during the night. She has some left leg discomfort. She denies chest pain. She has had some mild shortness of breath. She did get out of bed and sit in a chair yesterday. Her daughter said she did very well with rapid movements without difficulty. She is eating without problems. Bowels are moving daily. This a.m. labs with a CBC showing hemoglobin of 11.2 hematocrit of 35.8. White blood cell count is 7000. INR is 3.72. Blood chemistries show sodium of 139 potassium of 5 BUN has improved to 31 with a creatinine of 5 and a GFR of 8. Calcium is 10.4. To note patient is IV infiltrated yesterday and she was out without fluids from about 10 AM to [address] Lopez was canceled. Exam Vital signs and Labs for Last 24 Hours: Temp Pulse Resp BP Pulse Ox 97.6 F 99 H 26 H 134/77 91 L 10/14/20 03:53 10/14/20 06:20 10/14/20 03:53 10/14/20 03:53 10/14/20 06:20 Laboratory Results - last 24 hr 10/14/20 06:10: WBC 7.0, RBC 3.65 L, Hgb 11.2 L, Hct 35.8 L, MCV 97.9, MCH 30.5, MCHC 31.2 L, RDW 14.5, Plt Count 146, MPV 10.4, Neut % (Auto) 73.0, Lymph % (Auto) 15.3, Henry % (Auto) 6.1, Eos % (Auto) 5.0, Baso % (Auto) 0.5, Neut # (Auto) 5.1, Lymph # (Auto) 1.1, Henry # (Auto) 0.4, Eos # (Auto) 0.4, Baso # (Auto) 0.0 10/14/20 06:10: PT 39.8 H, INR 3.72 H 10/14/20 06:10: Sodium 139, Potassium 5.0, Chloride 116 H, Carbon Dioxide 16 L, Anion Gap 12.0, BUN 31 H, Creatinine 5.00 H, Estimated Creat Clear 16, Estimated GFR 8 L*, Est GFR ( Amer) 10 L*, Glucose 74, Calcium 10.4 H I & O for Last 24 hours: Intake & Output 10/11/20 10/12/20 10/13/20 10/14/20 11:59 11:59 11:59 11:59 Intake Total 6501 / 6501 8416 / 8416 2360 / 2360 1821 / 1821 Output Total 2300 / 2300 1000 / 1000 1200 / 1200 Balance 4201 / 4201 7416 / 7416 2360 / 2360 621 / 621 Weight 214 lb 3 oz 217 lb 4 oz 220 lb 6 oz 221 lb 4 oz Microbiology Reports for the Last 24 Hours: Microbiology 10/13/20 20:20 Sputum - Expectorated Sputum Gram Stain - Final - Constitutional no acute distress Comments: Sitting up in the bed awaiting breakfast - *Routine Respiratory Exam Present: crackles (Bibasilar crackles) - *Routine Cardiovascular Exam Present: RRR - *Routine Abdominal Exam Present: soft, normoactive bowel sounds. Absent: tenderness - *Routine Extremities Exam Present: edema (Left lower extremity). Absent: calf tenderness, palpable cord - *Routine Neurological Exam Present: alert, oriented X3 Assessment and Plan (1) Acute on chronic renal failure Status: Acute Category: Medical Code(s): N17.9 - Acute kidney failure, unspecified; N18.9 - Chronic kidney disease, unspecified (2) Hypercalcemia Status: Acute Category: Medical Code(s): E83.52 - Hypercalcemia (3) Hypotension due to hypovolemia Status: Acute Category: Medical Code(s): I95.89 - Other hypotension; E86.1 - Hypovolemia (4) Renal failure Status: Acute Category: Medical Code(s): N19 - Unspecified kidney failure (5) Bilateral pneumonia Status: Acute Qualifiers: Pneumonia type: due to unspecified organism Lung location: unspecified part of lung Qualified Code(s): J18.9 - Pneumonia, unspecified organism Category: Medical Code(s): J18.9 - Pneumonia, unspecified organism (6) Reactive airway disease Status: Acute Category: Medical Code(s): J45.909 - Unspecified asthma, uncomplicated (7) Exertional dyspnea Status: Acute Category: Medical Code(s): R06.00 - Dyspnea, unspecified (8) Anticoagulated on warfarin Status: Chronic Category: Medical Code(s): Z79.01 - prison (current) use of anticoagulants (9) Interstitial lung disease Status: Chronic Category: Medical Code(s): J84.9 - Interstitial pulmonary disease, unspecified (10) History of COVID-19 Status: Chronic Category: Medical
--- NOTE | 2020-10-14 10:02 | HMH.PULMPN ---
Internal Medicine - PN: Subj *Date: 10/14/20 *Time: 10:02 Interval history: No acute respiratory events overnight. Patient remains on 2 L nasal cannula saturating 92% without any respiratory distress. Exam - Constitutional Constitutional:: Present: no acute distress, comfortable - HENMT Exam HENMT: Present: normocephalic, atraumatic - Eye Exam Eyes:: Present: eyelids normal - Neck Exam Neck:: Present: thyroid normal - Respiratory Exam Respiratory:: Present: able to speak in complete sentences, crackles, rales - Cardiovascular Exam Cardiac:: Present: S1, S2 - GI Exam GI:: Present: soft - Skin Exam Skin: Present: warm, no rash - Neurological Exam Neurological: Present: alert, awake, normal cognition - Extremities Exam Extremities: Present: no cyanosis, no clubbing, edema - Psychiatric Exam Psychiatric: Present: normal affect Assessment and Plan (1) Hypotension due to hypovolemia Status: Acute Category: Medical Code(s): I95.89 - Other hypotension; E86.1 - Hypovolemia (2) Bilateral pneumonia Status: Acute Qualifiers: Pneumonia type: due to unspecified organism Lung location: unspecified part of lung Qualified Code(s): J18.9 - Pneumonia, unspecified organism Category: Medical Code(s): J18.9 - Pneumonia, unspecified organism (3) Reactive airway disease Status: Acute Category: Medical Code(s): J45.909 - Unspecified asthma, uncomplicated (4) Exertional dyspnea Status: Acute Category: Medical Code(s): R06.00 - Dyspnea, unspecified (5) Interstitial lung disease Status: Chronic Category: Medical Code(s): J84.9 - Interstitial pulmonary disease, unspecified (6) History of COVID-19 Status: Chronic Category: Medical Code(s): Z86.16 - Personal history of COVID-19 - Assessment and plan all Dx Assessment and Plan for all problems:: # Exertional dyspnea: # History of COVID-19 pneumonia: # Interstitial lung disease: #Seasonal Allergies # Kyphosis No prior respiratory complaints before Covid. No significant smoking history. No personal history or family of autoimmune disorders. ILD review of systems negative. Denies any aspiration or choking events. Positive for personal history of allergies, however denies any personal or family history of asthma Patient's recent CT chest revealed bilateral lower lobe interstitial lung disease with mild bronchiectasis and upon reviewing her chest x-rays this appears to be chronic from before with no acute change. It appears this patient is having underlying chronic lung disease and this along with a recent COVID-19 pneumonia significantly worsened respiratory status. Patient also complains of significant fatigue and weakness which might also be contributing to her symptoms. Patient does not appear to have any pulmonary infectious process at this point of time. Renal function continued to improve. Blood cultures no growth 48 hours. Patient respiratory status has been relatively stable since admission, this morning on 2 L nasal cannula saturating 92% without any respiratory distress auscultation of bilateral basilar coarse crackles heard. C-reactive protein is slightly elevated at 44.7 in the setting of MARIELY on CKD. We will closely monitor awaiting autoimmune work-up Plan: - Incentive spirometry - Continue oxygen therapy to maintain O2 saturation goal of 88 to 92% - Continue DuoNebs every 6 hours scheduled, patient can be discharged on Symbicort BID and Albuterol Q6 hrs PRN - Follow basic autoimmune work-up including JUAN, ANCA, RF, CCP - Modified Barium Swallow - scheduled for today -Follow with cardiology recommendations #Thank you for involving pulmonary inpatient care. We will follow the patient in clinic as previously scheduled with pulmonary function testing. Will follow with autoimmune work-up ordered.
[2020-10-14 12:35] LABS: Perinuclear (P-ANCA) <1:20 titer (Neg:<1:20)
[2020-10-14 12:36] LABS: Anti-Cyclic Citrullinated Pept 2 units (0-19)
--- NOTE | 2020-10-14 13:12 | SW/DCPLANNER ---
SET UP HOME 02 FOR THIS PATIENT WHO IS DISCHARGING HOME TODAY...
[2020-10-14 14:12] LABS: Albumin, U 12.7 % (.); Alpha-1-Globulin, U 3.8 % (.); Alpha-2-Globulin, U 22.3 % (.); Gamma Globulin, U 28.3 % (.)
--- NOTE | 2020-10-14 14:59 | HMH.SLMBS2 ---
Speech & Language Evaluation Speech/Language Mod Barium Swallow Start: 10/13/20 13:16 Freq: ONCE Status: Complete Protocol: Document 10/14/20 14:31 MARCO ANTONIO (Rec: 10/14/20 14:59 MARCO ANTONIO [id number]) General Information General Current Food Consistancy Regular,Chopped Meats,Thin Liquids Dentition Good Dentition Oxygen Status Nasal Cannula Facial Symmetry Symmetrical Patient Orientation Person,Place,Time,Situation Ability to Follow Directions Excellent Communication Ability No Impairment MBS Recommendations Diet Dietary Recommendations Mechanical Soft,Chopped Meats, Thin Liquids Treatment/Strategies Treatment Recommendation Compens. Strategy Educat., Vocal Cord Adduction Exer Strategy/Precaution Recommend Chin Tuck,Small Bites and Sips ,Alternate Liquids/Solids Mod Barium Swallow Impressions Summary and Impressions Oral Phase Impression No Impairment (WFL) Oral Phase Summary Ms. Saldivar was given the following consistencies: thins via straw and open cup, pudding, mechanical soft, regular, and pill with thin wash. No oral phase impairments noted. Pharyngeal Phase Impression Mild Impairment Pharyngeal Phase Summary Flash penetration with thin liquids via straw and open cup . Chin tuck did not improve swallow. Vallecular residue with pill; required 5 swallows to move bolus from valleculae . Speech/Language MBS Assessment/Goals/Plan Assessment Date of Evaluation: 10/14/20 Evaluation Type Initial Certification Assessment/Problems Dysphagia Does Patient Qualify for Service Yes Qualify/Failure Comment Patient is currently being discharged today and it is recommended that she be seen in outpatient clinic. Recommendations PHYSICIAN CERTIFICATION: The specified therapy services are required, authorized, and reviewed every 30 days. Diet Recommendations Mechanical Soft Liquid Type Recommendations Normal/Thin SL Swallow Guidelines Standard Aspiration Prec. Crush Meds Small OK/Crush large pill Dysphagia Swallow Precautions/Strategies Sitting Upright (90 deg),Chin Tuck,Small Bites and Sips, Alternate Liquids/Solids Plan Pt/Guardian v
[2020-10-14 17:06] LABS: M-Spike, % Comment: % (Not Observed)
--- NOTE | 2020-10-15 15:46 | HMH.DCSUM ---
General - General Admission date:: 10/09/20 Discharge date: 10/14/20 HPI HPI: Ms. Saldivar is a 75-year-old female with a history of hypertension, factor V Leiden mutation with history of DVT, hypothyroidism, and chronic kidney disease who has been feeling poorly since the beginning of August. She had Covid back in June and was hospitalized with a Covid pneumonia. She had no complications at the time but on 09/05/2020 she had a telehealth appointment due to cough, sore throat, nasal congestion, and headache. She was started on some medication for cough and congestion and continued to feel poorly. A CBC and chest x-ray were ordered and her chest x-ray showed a basilar pneumonia and a new right upper lobe infiltrate. She was started on Levaquin and her Coumadin dose was decreased in half. She was also started on a Medrol Dosepak. She finished her antibiotics and still felt poorly. She had a repeat chest x-ray which showed no change in her pneumonia. A CT of the chest was ordered as was a sputum culture. Another round of Levaquin was ordered. Her chest CT showed groundglass attenuation in both lungs but no consolidation. Her sputum culture grew out Rhizobium radiobacter with no sensitivities. An appointment was made for her with pulmonology and she was seen in their office today. At the time of her CT, her renal function was elevated. Her BUN was 33 and her creatinine was 2.9. This was rechecked today and her creatinine has now elevated to 7.9. Her calcium is also elevated. She was contacted for direct admission for renal failure. Of note, she has seen Dr. Lopez in the past for renal failure but it has been quite a while since she has been to his office. She states the perennial house manager wanted to start her on duonebs and also have her see cardiology. Hospital Course Hospital Course: The patient was admitted and started on IV fluids for renal failure and dehydration. She was also started on DuoNeb's and pulmonology and cardiology were both consulted. She was hypotensive on arrival to the floor and was given a 500 mL bolus of fluids. Repeat labs were ordered as her calcium and LFTs were elevated as well. A renal ultrasound was also ordered and showed bilateral renal cortical thinning but no hydronephrosis or mass. Her renal functions improved slightly with IV fluid rehydration. She began to feel a bit better. Her calcium improved as well. Dr. Fernández discussed the patient's chest x-ray with Dr. 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 She was seen in consultation by cardiology due to her exertional dyspnea and as per recommendation by pulmonology. They ordered an echo which showed an EF of 55% with grade 1 diastolic dysfunction. A bone scan was ordered due to her elevated calcium which showed no evidence of metastatic disease. A skull x-ray was ordered as well showing nothing acute. Pulmonology saw the patient and he felt she had chronic lung disease and that, along with the recent COVID-19 pneumonia, had worsened her respiratory status. He recommended continuing oxygen therapy and duo nebs and also getting an autoimmune work-up. He felt she would also benefit from pulmonary rehab on discharge. The patient continued to feel weak. Her renal functions improved only slightly with hydration. Dr. Fernández spoke with Dr. Lopez and with her gradual progress in her renal functions and apparent clinical stability, Dr. Lopez felt he would plan to see her in his [place] office on 10/16/2020. She had a modified barium swallow showing no aspiration. Her renal function continued to improve slightly. Her blood cultures showed no growth. Incentive spirometry was added by pulmonology and the patient was stable to be discharged home and will follow up with Dr. Lopez, pulmonology, and cardiology. Objective Vital signs: Temp Pulse Resp BP Pulse Ox 98.2 F 98 H 18 145/61 H 92 L 04
[2020-10-16 18:14] LABS: Antinuclear Antibodies (ANA) NEGATIVE
== END 2020-10-14 15:45 | disposition home or self-care (01) | DRG 682 ==
PROVIDERS: Family Medicine; Internal Medicine Pulmonary Disease; Nurse Practitioner Family; Physician Assistant; Urology; Admitting Provider Family Medicine; PCP Family Medicine; Visit Provider Family Medicine
DX: N17.9 Acute kidney failure, unspecified (principal); J18.9 Pneumonia, unspecified organism; D68.51 Activated protein C resistance; J96.11 Chronic respiratory failure with hypoxia; N18.9 Chronic kidney disease, unspecified; Z79.01 Long term (current) use of anticoagulants; E86.0 Dehydration; Z87.891 Personal history of nicotine dependence; Z86.718 Personal history of other venous thrombosis and embolism; Z96.643 Presence of artificial hip joint, bilateral; F41.9 Anxiety disorder, unspecified; I95.9 Hypotension, unspecified; E86.1 Hypovolemia; E03.9 Hypothyroidism, unspecified; I12.9 Hypertensive chronic kidney disease with stage 1 through stage 4 chronic kidney disease, or unspecified chronic kidney disease; M19.90 Unspecified osteoarthritis, unspecified site; J45.909 Unspecified asthma, uncomplicated; Z99.81 Dependence on supplemental oxygen; E83.52 Hypercalcemia; B94.8 Sequelae of other specified infectious and parasitic diseases; Z88.0 Allergy status to penicillin
CPT/HCPCS: 36415; 70250; 70371; 76770; 78306; 80048; 80053; 81001; 82330; 83605; 83970; 84155; 84156; 84165; 84166; 84443; 84550; 85025; 85610; 86038; 86140; 86200; 86225; 86235; 86256; 86431; 87040; 87070; 87081; 87205; 92611; 93306; 94640; 94761; U0003

== ENCOUNTER → 2020-10-21 11:29 | Outpatient (CLI) | payer MEDICARE, SELFPAY ==
--- NOTE | 2020-10-21 | ECG_ITS ---
APPROVED REPORT Exam: Resting ECG HR:106 bpm ECG Measurements Heart Rate 106 AXES AR 134 P 51 QRSd 90 QRS -40 QT 336 T -25 QTc 446 Conclusion Sinus tachycardia with premature atrial complexes Left axis deviation Minimal voltage criteria for LVH, may be normal variant Nonspecific T wave abnormality Abnormal ECG Electronically signed by : Kirk Becerra, 10/23/2020 21:24:48
== END ==
PROVIDERS: PCP Family Medicine; Visit Provider Family Medicine
DX: I49.9 Cardiac arrhythmia, unspecified (principal)
CPT/HCPCS: 93005

== ENCOUNTER → 2020-10-24 09:31 | Outpatient (CLI) | payer MEDICARE, SELFPAY ==
[2020-10-24 10:43] LABS: Albumin Level 3.2 g/dl (3.5-5.0); Chloride 104 mmol/L (98-107); Potassium 3.6 mmoL/L (3.5-5.1); Sodium 140 mmol/L (136-145)
[2020-10-24 10:43] LABS: Uric Acid 8.1 mg/dl (2.5-6.2)
[2020-10-24 10:45] LABS: Blood Urea Nitrogen 20 mg/dl (7-17); Estimated Glomerular Filt Rate 23 ml/min (>60); GFR (African American) 28 ML/MIN (>60)
[2020-10-24 10:46] LABS: Anion Gap 13.6 mEq/L (5-15); Calcium 9.6 mg/dl (8.4-10.2); Carbon Dioxide 26 mmol/L (22.0-30.0); Glucose 89 mg/dl (74-100); Phosphorous 2.8 mg/dl (2.5-4.5)
[2020-10-24 10:48] LABS: C-Reactive Protein 79.6 mg/L (0-4)
[2020-10-24 12:04] LABS: Basophils % 0.5 % (0.1-2.0); Eosinophils # 0.2 K/mm3 (0.0-0.4); Eosinophils % 3.6 % (0.1-12.0); Hematocrit 35.3 % (37.0-47.0); Hemoglobin 11.2 g/dL (12.2-16.2); Lymphocytes # 0.9 K/mm3 (0.7-4.5); Lymphocytes % 15.3 % (10-50); Mean Corpuscular HGB Conc 31.6 g/dL (31.8-35.4); Mean Corpuscular Volume 94.7 fl (81-99); Mean Platelet Volume 10.2 fl (7.4-10.4); Monocytes # 0.5 K/mm3 (0.1-1.0); Monocytes % 7.5 % (1.7-9.3); Neutrophils # 4.4 K/mm3 (1.8-7.8); Neutrophils % 73.2 % (37.0-80.0); Platelet Count 170 K/mm3 (142-424); Red Blood Count 3.72 M/mm3 (4.20-5.40); Red Cell Distribution Width 14.4 % (11.5-17.5)
[2020-10-24 12:30] LABS: Erythrocyte Sedimentation Rate > 140 mm/hr (0-30)
[2020-10-26 06:34] LABS: RA Latex Turbid. <10.0 IU/mL (0.0-13.9)
[2020-10-27 18:35] LABS: Cytoplasmic (C-ANCA) <1:20 titer (Neg:<1:20)
[2020-10-27 23:42] LABS: Perinuclear (P-ANCA) <1:20 titer (Neg:<1:20)
[2020-10-30 12:43] LABS: Anti-Cyclic Citrullinated Pept 3 units (0-19); Antinuclear Antibodies, IFA Negative (.)
[2020-11-03 20:37] LABS: Antinuclear Antibodies (ANA) NEGATIVE
== END ==
PROVIDERS: Internal Medicine Pulmonary Disease; Visit Provider Internal Medicine Nephrology
DX: J84.9 Interstitial pulmonary disease, unspecified (principal); R06.00 Dyspnea, unspecified; J98.4 Other disorders of lung
CPT/HCPCS: 36415; 80069; 84550; 85025; 85651; 86038; 86140; 86200; 86225; 86235; 86256; 86431

== ENCOUNTER → 2020-10-29 11:08 | Outpatient (POV) | payer MEDICARE, SELFPAY | PROVIDERS: Visit Provider Internal Medicine Nephrology | DX: Z00.00 Encounter for general adult medical examination without abnormal findings (principal) ==

== ENCOUNTER → 2020-10-29 12:02 | Outpatient (CLI) | payer MEDICARE, SELFPAY | PROVIDERS: PCP Family Medicine; Visit Provider Internal Medicine Pulmonary Disease | DX: R06.09 Other forms of dyspnea (principal); J45.40 Moderate persistent asthma, uncomplicated; J84.9 Interstitial pulmonary disease, unspecified; J30.2 Other seasonal allergic rhinitis; Z86.16 Personal history of COVID-19; Z87.891 Personal history of nicotine dependence | CPT/HCPCS: 94060; 94726; 94729 ==

== ENCOUNTER → 2020-10-31 12:39 | Outpatient (CLI) | payer MEDICARE, SELFPAY ==
[2020-11-01 11:34] LABS: Alpha-1-Antitrypsin 205 mg/dL (101-187)
[2020-11-02 09:08] LABS: Actin (Smooth Muscle) Antibody 14 Units (0-19)
[2020-11-02 13:07] LABS: Antiribosomal P Antibodies <0.2 AI (0.0-0.9); Antiscleroderma-70 Antibodies <0.2 AI (0.0-0.9); RNP Antibodies 0.2 AI (0.0-0.9); Sjogren's Anti-SS-A <0.2 AI (0.0-0.9); Sjogren's Anti-SS-B <0.2 AI (0.0-0.9)
[2020-11-02 15:42] LABS: Anti-Centromere B Antibodies <0.2 AI (0.0-0.9); Anti-DNA (DS) Ab Qn 1 IU/mL (0-9)
[2020-11-02 18:08] LABS: Myeloperoxidase Antibody <9.0 U/mL (0.0-9.0)
[2020-11-03 20:25] LABS: Antiproteinase 3 (PR-3) Abs <3.5 U/mL (0.0-3.5)
[2020-11-03 20:28] LABS: Aldolase 4.9 U/L (3.3-10.3)
[2020-11-04 20:30] LABS: Strongyloides IgG Antibody Negative (Negative)
[2020-11-05 11:39] LABS: Aspergillus fumigatus IgG Negative (Negative)
[2020-11-05 14:15] LABS: Pigeon Serum Abs Negative (Negative)
[2020-11-07 12:10] LABS: D001-IgE D pteronyssinus 0.48 kU/L (Class I); D002-IgE D farinae 0.11 kU/L (Class 0/I); E001-IgE Cat Dander <0.10 kU/L (Class 0); E005-IgE Dog Dander <0.10 kU/L (Class 0); G002-IgE Bermuda Grass <0.10 kU/L (Class 0); G006-IgE Timothy Grass <0.10 kU/L (Class 0); I006-IgE Cockroach, German <0.10 kU/L (Class 0); Immunoglobulin E, Total 26 IU/mL (6-495); M001-IgE Penicillium chrysogen <0.10 kU/L (Class 0); M002-IgE Cladosporium herbarum <0.10 kU/L (Class 0); M003-IgE Aspergillus fumigatus <0.10 kU/L (Class 0); M006-IgE Alternaria alternata <0.10 kU/L (Class 0); T001-IgE Maple/Box Elder <0.10 kU/L (Class 0); T003-IgE Common Silver Birch <0.10 kU/L (Class 0); T006-IgE Cedar, Mountain <0.10 kU/L (Class 0); T007-IgE Oak, White <0.10 kU/L (Class 0); T008-IgE Elm, American <0.10 kU/L (Class 0); T010-IgE Walnut <0.10 kU/L (Class 0); T011-IgE Maple Leaf Sycamore <0.10 kU/L (Class 0); T014-IgE Cottonwood <0.10 kU/L (Class 0); T015-IgE Ash, White <0.10 kU/L (Class 0); T022-IgE Pecan, Hickory <0.10 kU/L (Class 0); T070-IgE White Mulberry <0.10 kU/L (Class 0); W001-IgE Ragweed, Short <0.10 kU/L (Class 0); W011-IgE Thistle, Russian <0.10 kU/L (Class 0); W014-IgE Pigweed, Common <0.10 kU/L (Class 0); W018-IgE Sheep Sorrel <0.10 kU/L (Class 0)
[2020-11-08 19:53] LABS: Aspergillus flavus Negative (Neg:<1:1); Aspergillus fumigatus Negative (Neg:<1:1); Aspergillus niger Negative (Neg:<1:1)
[2020-11-09 10:27] LABS: E072-IgE Mouse Urine <0.10 kU/L (Class 0)
[2020-11-09 10:37] LABS: Blastomyces Antibody Negative (Neg:<1:1)
== END ==
PROVIDERS: Visit Provider Internal Medicine Pulmonary Disease
DX: R06.00 Dyspnea, unspecified; J84.9 Interstitial pulmonary disease, unspecified; D72.19 Other eosinophilia; J84.10 Pulmonary fibrosis, unspecified; Z86.16 Personal history of COVID-19; Z87.891 Personal history of nicotine dependence; J45.909 Unspecified asthma, uncomplicated
CPT/HCPCS: 36415; 82085; 82103; 82785; 83516; 83520; 86003; 86140; 86225; 86235; 86255; 86331; 86602; 86606; 86609; 86612; 86682

== ENCOUNTER 2020-11-19 14:46 | Outpatient (RCR) | payer MEDICARE, SELFPAY | END 2021-02-09 10:47 | disposition home or self-care (01) | LOC: PT 14:46 | PROVIDERS: Visit Provider Internal Medicine Pulmonary Disease | DX: Z86.16 Personal history of COVID-19 (principal); J84.9 Interstitial pulmonary disease, unspecified | CPT/HCPCS: G0237; G0238; G0239; G0424 ==

== ENCOUNTER → 2020-11-20 14:48 | Outpatient (CLI) | payer MEDICARE, SELFPAY ==
--- NOTE | 2020-11-20 14:48 | CT_ITS ---
PROCEDURE: CT HIGH RESOLUTION CHEST CLINICAL HISTORY: Pt states a hx of covid Pneumonia in 2020 Evaluate for damage Pt denies smoking hx Prior chest CT 10/01/20 COMPARISON: CT CT CHEST WO CON from 10/01/2020 TECHNIQUE: Axial images obtained with sagittal and coronal reformats. All CT scans at the facility use one or more dose reduction, viz: automated exposure control, ma/kV adjustment per patient size (including targeted exams where dose is matched to indication, i.e. head), or iterative reconstruction technique. FINDINGS: No mediastinal or hilar or adenopathy. Calcified nodes are present in the right hilum and in the subcarinal region. There is some calcification main bronchi negro. Calcified granuloma is present in the right lower lobe. There is mild bronchial thickening in the lower lobes posteriorly on both sides. Previously noted irregular opacity in the right apex medially is once again noted and appears slightly more prominent measuring approximately 11 mm by 4 mm. At least 2 other small irregular opacities are present in the right apex probably unchanged. There is mosaic attenuation present in both lungs in the upper lobes with interval improvement in the ground-glass opacification and bandlike densities. High-resolution images demonstrates mild diffuse bronchial thickening in the lower lobes with linear densities in the lower lobes posteriorly and within the inferior aspect of the lingula as well as right middle lobe inferiorly worrisome for developing pulmonary fibrotic change with some mild traction bronchiectasis in the lower lobes. No effusions are evident. No areas of consolidation. There is kyphosis of thoracic spine. Upper abdominal images are unremarkable.. IMPRESSION: There has been overall improvement in the appearance of the chest compared to 10/01/2020. However, there is residual mosaic attenuation of both lungs with linear opacities in the lower lobes, lingula, and right middle lobe inferiorly with some mild traction bronchiectasis worrisome for post Covid19 pulmonary fibrotic change. Continued follow-up suggested. There are 3 small nodular opacities in the right apex 1 which appears slightly larger. This however could be related to the technique. Continued follow-up is suggested. Dictated by: Tom Gates MD 11/26/2020 06:41 Tom Gates MD in [place] 11/26/2020 06:41
== END ==
PROVIDERS: PCP Family Medicine; Visit Provider Internal Medicine Pulmonary Disease
DX: J84.9 Interstitial pulmonary disease, unspecified (principal)
CPT/HCPCS: 71250

== ENCOUNTER 2020-11-26 08:50 | Outpatient (CLI) | payer MEDICARE, SELFPAY ==
[2020-11-26 10:47] LABS: PHA INR Fingerstick 1.8 (0.9-1.1)
== END 2020-11-26 11:27 | disposition home or self-care (01) ==
LOC: ACC 08:52
PROVIDERS: PCP Family Medicine; Visit Provider Physician Assistant
DX: Z51.81 Encounter for therapeutic drug level monitoring (principal); Z79.01 Long term (current) use of anticoagulants
CPT/HCPCS: 85610; 99211; G0463

== ENCOUNTER 2020-12-10 08:48 | Outpatient (CLI) | payer MEDICARE, SELFPAY ==
[2020-12-10 14:52] LABS: PHA INR Fingerstick 2.2 (0.9-1.1)
== END 2020-12-10 15:06 | disposition home or self-care (01) ==
LOC: ACC 08:49
PROVIDERS: PCP Family Medicine; Visit Provider Physician Assistant
DX: Z51.81 Encounter for therapeutic drug level monitoring (principal); Z79.01 Long term (current) use of anticoagulants
CPT/HCPCS: 85610; 99211; G0463

== ENCOUNTER → 2020-12-11 11:34 | Outpatient (CLI) | payer MEDICARE, SELFPAY ==
[2020-12-11 12:08] LABS: Basophils # 0.1 K/mm3 (0-0.2); Basophils % 0.8 % (0.1-2.0); Eosinophils # 0.2 K/mm3 (0.0-0.4); Eosinophils % 2.2 % (0.1-12.0); Hematocrit 38.2 % (37.0-47.0); Hemoglobin 11.5 g/dL (12.2-16.2); Lymphocytes # 2.6 K/mm3 (0.7-4.5); Mean Corpuscular HGB Conc 30.1 g/dL (31.8-35.4); Mean Corpuscular Hemoglobin 28.4 pg (27.0-31.2); Mean Corpuscular Volume 94.5 fl (81-99); Mean Platelet Volume 8.2 fl (7.4-10.4); Monocytes # 0.6 K/mm3 (0.1-1.0); Monocytes % 8.1 % (1.7-9.3); Neutrophils # 4.1 K/mm3 (1.8-7.8); Neutrophils % 54.9 % (37.0-80.0); Platelet Count 229 K/mm3 (142-424); Red Blood Count 4.04 M/mm3 (4.20-5.40); Red Cell Distribution Width 14.1 % (11.5-17.5); White Blood Count 7.5 K/mm3 (4.8-10.8)
[2020-12-11 12:54] LABS: Anion Gap 9.9 mEq/L (5-15); Blood Urea Nitrogen 24 mg/dl (7-17); Calcium 8.9 mg/dl (8.4-10.2); Carbon Dioxide 25 mmol/L (22.0-30.0); Chloride 107 mmol/L (98-107); Estimated Glomerular Filt Rate 37 ml/min (>60); GFR (African American) 44 ML/MIN (>60); Glucose 89 mg/dl (74-100); Potassium 3.9 mmoL/L (3.5-5.1); Sodium 138 mmol/L (136-145)
== END ==
PROVIDERS: Visit Provider Internal Medicine Pulmonary Disease
DX: R06.00 Dyspnea, unspecified (principal); J45.909 Unspecified asthma, uncomplicated
CPT/HCPCS: 36415; 80048; 85025; 86140

== ENCOUNTER → 2020-12-31 08:42 | Outpatient (CLI) | payer MEDICARE, SELFPAY ==
--- NOTE | 2020-12-31 08:46 | MM_ITS ---
PROCEDURE INFORMATION: Exam: MG Screening 3D Mammography Exam date and time: 12/31/2020 8:46 AM Age: 75 years old Clinical indication: Encounter for screening mammogram for malignant neoplasm of breast TECHNIQUE: Imaging protocol: Screening tomosynthesis and 2D mammography including computer-aided detection (CAD) when performed. COMPARISON: 1. MG MM DIG SCREENING MAMM BI W/CAD 12/28/2019 9:30 AM 2. MG MM DIG MAMM DX UNILAT LT CAD 04/13/2019 1:12 PM FINDINGS: MAMMOGRAPHY: Breast composition: The breast tissue is composed of scattered areas of fibroglandular density. Mass: None. Architectural distortion: None. Calcifications: No suspicious calcifications. Asymmetric density: None. Skin thickening: None. Axillary adenopathy: None. IMPRESSION: No mammographic evidence of malignancy. Annual screening is recommended unless otherwise clinically indicated. ASSESSMENT: BI-RADS Category 1: Negative
== END ==
PROVIDERS: PCP Family Medicine; Visit Provider Family Medicine
DX: Z12.31 Encounter for screening mammogram for malignant neoplasm of breast (principal)
CPT/HCPCS: 77063; 77067

== ENCOUNTER 2021-01-07 09:20 | Outpatient (CLI) | payer MEDICARE, SELFPAY ==
[2021-01-07 13:10] LABS: PHA INR Fingerstick 1.9 (0.9-1.1)
== END 2021-01-07 13:07 | disposition home or self-care (01) ==
LOC: ACC 09:21
PROVIDERS: PCP Family Medicine; Visit Provider Physician Assistant
DX: Z51.81 Encounter for therapeutic drug level monitoring (principal); Z79.01 Long term (current) use of anticoagulants
CPT/HCPCS: 85610; 99211; G0463

== ENCOUNTER → 2021-01-28 08:30 | Outpatient (CLI) | payer MEDICARE, SELFPAY ==
[2021-01-28 10:19] LABS: C-Reactive Protein 2.1 mg/L (0-4)
== END ==
PROVIDERS: Visit Provider Internal Medicine Pulmonary Disease
DX: R06.00 Dyspnea, unspecified (principal)
CPT/HCPCS: 36415; 86140

== ENCOUNTER 2021-02-16 08:34 | Outpatient (CLI) | payer MEDICARE, SELFPAY ==
[2021-02-16 08:56] VITALS: BP 151/65; PULSE 79; RESP 18; TEMP 36.6; O2SAT 96
[2021-02-16 10:15] VITALS: PULSE 83
[2021-02-16 10:34] LABS: PHA INR Fingerstick 1.6 (0.9-1.1)
== END 2021-02-16 10:41 | disposition home or self-care (01) ==
PROVIDERS: Physician Assistant; PCP Family Medicine; Visit Provider Internal Medicine Pulmonary Disease
DX: M85.80 Other specified disorders of bone density and structure, unspecified site (principal); Z51.81 Encounter for therapeutic drug level monitoring; Z79.01 Long term (current) use of anticoagulants; R06.00 Dyspnea, unspecified
CPT/HCPCS: 85610; 94060; 94618; 94640; 94726; 94729; 96372; 99211; G0463; J0897

== ENCOUNTER 2021-03-16 08:51 | Outpatient (CLI) | payer MEDICARE, SELFPAY ==
[2021-03-16 16:22] LABS: PHA INR Fingerstick 1.6 (0.9-1.1)
== END 2021-03-16 16:24 | disposition home or self-care (01) ==
LOC: ACC 08:53
PROVIDERS: PCP Family Medicine; Visit Provider Physician Assistant
DX: Z51.81 Encounter for therapeutic drug level monitoring (principal); Z79.01 Long term (current) use of anticoagulants
CPT/HCPCS: 85610; 99211; G0463

== ENCOUNTER 2021-04-01 08:21 | Outpatient (CLI) | payer MEDICARE, SELFPAY ==
[2021-04-01 08:43] LABS: PHA INR Fingerstick 1.9 (0.9-1.1)
== END 2021-04-01 08:45 | disposition home or self-care (01) ==
LOC: ACC 08:22
PROVIDERS: PCP Family Medicine; Visit Provider Family Medicine
DX: Z51.81 Encounter for therapeutic drug level monitoring (principal); Z79.01 Long term (current) use of anticoagulants
CPT/HCPCS: 85610; 99211; G0463

== ENCOUNTER → 2021-04-06 08:21 | Outpatient (CLI) | payer MEDICARE, SELFPAY | PROVIDERS: Visit Provider Ophthalmology | DX: Z01.812 Encounter for preprocedural laboratory examination (principal); Z11.52 Encounter for screening for COVID-19 | CPT/HCPCS: C9803; U0003; U0005 ==

== ENCOUNTER 2021-04-07 08:25 | Day surgery (SDC) | payer MEDICARE, SELFPAY ==
[2021-04-07] VITALS (7 sets, daily range): BP systolic 151–183; BP diastolic 70–89; PULSE 61–76; RESP 16–18; TEMP 36.1–36.4; O2SAT 95–100; BMI 33.4
== END 2021-04-07 11:34 | disposition home or self-care (01) ==
LOC: OR 08:26
PROVIDERS: PCP Family Medicine; Visit Provider Ophthalmology
DX: H25.813 Combined forms of age-related cataract, bilateral (principal); H02.831 Dermatochalasis of right upper eyelid; H02.834 Dermatochalasis of left upper eyelid; F41.9 Anxiety disorder, unspecified; M19.90 Unspecified osteoarthritis, unspecified site; J45.909 Unspecified asthma, uncomplicated; E03.9 Hypothyroidism, unspecified; Z88.0 Allergy status to penicillin; Z79.01 Long term (current) use of anticoagulants; Z79.899 Other long term (current) drug therapy
CPT/HCPCS: 66984; V2632

== ENCOUNTER 2021-04-15 08:51 | Outpatient (CLI) | payer MEDICARE, SELFPAY | END 2021-04-15 16:18 | disposition home or self-care (01) | LOC: ACC 08:51 | PROVIDERS: PCP Family Medicine; Visit Provider Physician Assistant | DX: Z51.81 Encounter for therapeutic drug level monitoring (principal); Z79.01 Long term (current) use of anticoagulants | CPT/HCPCS: 85610; 99211; G0463 ==

== ENCOUNTER → 2021-04-20 07:53 | Outpatient (CLI) | payer MEDICARE, SELFPAY | PROVIDERS: Visit Provider Ophthalmology | DX: Z01.812 Encounter for preprocedural laboratory examination (principal); Z11.52 Encounter for screening for COVID-19 | CPT/HCPCS: C9803; U0003; U0005 ==

== ENCOUNTER 2021-04-21 08:01 | Day surgery (SDC) | payer MEDICARE, SELFPAY ==
[2021-04-17 13:20] VITALS: BMI 33.4
[2021-04-21] VITALS (7 sets, daily range): BP systolic 156–219; BP diastolic 65–110; PULSE 67–81; RESP 18; TEMP 36.1–36.3; O2SAT 96–100
== END 2021-04-21 10:00 | disposition home or self-care (01) ==
LOC: OR 08:03
PROVIDERS: PCP Family Medicine; Visit Provider Ophthalmology
DX: H25.813 Combined forms of age-related cataract, bilateral (principal); H53.149 Visual discomfort, unspecified; H02.831 Dermatochalasis of right upper eyelid; H02.834 Dermatochalasis of left upper eyelid; F41.9 Anxiety disorder, unspecified; M19.90 Unspecified osteoarthritis, unspecified site; J45.909 Unspecified asthma, uncomplicated; E05.90 Thyrotoxicosis, unspecified without thyrotoxic crisis or storm; H91.90 Unspecified hearing loss, unspecified ear; Z88.0 Allergy status to penicillin; Z79.899 Other long term (current) drug therapy
CPT/HCPCS: 66984; V2632

== ENCOUNTER → 2021-05-07 09:04 | Outpatient (CLI) | payer MEDICARE, SELFPAY ==
[2021-05-07 10:38] LABS: Albumin Level 4.1 g/dl (3.5-5.0); Anion Gap 13.4 mEq/L (5-15); Blood Urea Nitrogen 20 mg/dl (7-17); Calcium 8.1 mg/dl (8.4-10.2); Carbon Dioxide 23 mmol/L (22.0-30.0); Chloride 110 mmol/L (98-107); Estimated Glomerular Filt Rate 44 ml/min (>60); GFR (African American) 53 ML/MIN (>60); Glucose 85 mg/dl (74-100); Phosphorous 2.3 mg/dl (2.5-4.5); Potassium 4.4 mmoL/L (3.5-5.1); Sodium 142 mmol/L (136-145)
[2021-05-07 10:54] LABS: 25-OH Vitamin D, Total 60.6 ng/mL (30-100)
[2021-05-07 14:47] LABS: Creatinine,Urine Random 121 mg/dL (Not Estab.); Microalbumin/Creatinine Ratio 29.5
== END ==
PROVIDERS: Visit Provider Internal Medicine Nephrology
DX: N18.30 Chronic kidney disease, stage 3 unspecified (principal)
CPT/HCPCS: 36415; 80069; 82043; 82306; 82570

== ENCOUNTER → 2021-05-11 13:06 | Outpatient (POV) | payer MEDICARE, SELFPAY | PROVIDERS: Visit Provider Internal Medicine Nephrology | DX: Z00.00 Encounter for general adult medical examination without abnormal findings (principal) ==

== ENCOUNTER → 2021-05-13 15:20 | Outpatient (CLI) | payer MEDICARE, SELFPAY ==
[2021-05-13 16:06] LABS: Adenovirus,PCR Not Detected (NotDetected); Bordetella Pertussis Not Detected (NotDetected); Chlamydophila Pneumoniae, PCR Not Detected (NotDetected); Coronavirus 19, PCR Not Detected (NotDetected); Coronavirus 229E Not Detected (NotDetected); Coronavirus NL63 Not Detected (NotDetected); Coronavirus OC43 Not Detected (NotDetected); Coronovirus HKU1,PCR Not Detected (NotDetected); Human Metapneumovirus Not Detected (NotDetected); Influenza A, PCR Not Detected (NotDetected); Influenza AH1, 2009 Not Detected (NotDetected); Influenza AH1, PCR Not Detected (NotDetected); Influenza AH3,PCR Not Detected (NotDetected); Influenza B, PCR Not Detected (NotDetected); Mycoplasma Pneumoniae, PCR Not Detected (NotDetected); Parainfluenza 1, PCR Not Detected (NotDetected); Parainfluenza 2, PCR Not Detected (NotDetected); Parainfluenza 3, PCR Not Detected (NotDetected); Parainfluenza 4, PCR Not Detected (NotDetected); Respiratory Syncytial Virus Not Detected (NotDetected); Rhinovirus/Enterovirus Not Detected (NotDetected)
[2021-05-13 16:12] LABS: Basophils # 0.1 K/mm3 (0-0.2); Basophils % 1.1 % (0.1-2.0); Eosinophils # 0.2 K/mm3 (0.0-0.4); Eosinophils % 2.5 % (0.1-12.0); Hemoglobin 13.6 g/dL (12.2-16.2); Lymphocytes % 28.7 % (10-50); Mean Corpuscular HGB Conc 32.5 g/dL (31.8-35.4); Mean Corpuscular Volume 92.4 fl (81-99); Mean Platelet Volume 9.1 fl (7.4-10.4); Monocytes # 0.5 K/mm3 (0.1-1.0); Monocytes % 7.1 % (1.7-9.3); Neutrophils # 4.2 K/mm3 (1.8-7.8); Neutrophils % 60.7 % (37.0-80.0); Platelet Count 203 K/mm3 (142-424); Red Blood Count 4.54 M/mm3 (4.20-5.40); Red Cell Distribution Width 14.1 % (11.5-17.5); White Blood Count 6.9 K/mm3 (4.8-10.8)
== END ==
PROVIDERS: PCP Physician Assistant; Visit Provider Physician Assistant
DX: Z20.822 Contact with and (suspected) exposure to COVID-19 (principal); R06.09 Other forms of dyspnea; Z86.16 Personal history of COVID-19
CPT/HCPCS: 36415; 85025; 87581; 87632; 87798; C9803; U0003; U0005

== ENCOUNTER 2021-06-02 10:47 | Outpatient (CLI) | payer MEDICARE, SELFPAY ==
[2021-06-02 14:13] LABS: PHA INR Fingerstick 3.1 (0.9-1.1)
== END 2021-06-02 15:22 | disposition home or self-care (01) ==
PROVIDERS: PCP Family Medicine; Visit Provider Physician Assistant
DX: Z79.01 Long term (current) use of anticoagulants (principal); Z51.81 Encounter for therapeutic drug level monitoring
CPT/HCPCS: 85610; 99211; G0463

== ENCOUNTER 2021-06-25 08:44 | Outpatient (CLI) | payer MEDICARE, SELFPAY ==
[2021-06-25 10:11] LABS: PHA INR Fingerstick 2.5 (0.9-1.1)
== END 2021-06-25 10:14 | disposition home or self-care (01) ==
LOC: ACC 08:46
PROVIDERS: PCP Family Medicine; Visit Provider Physician Assistant
DX: Z51.81 Encounter for therapeutic drug level monitoring (principal); Z79.01 Long term (current) use of anticoagulants
CPT/HCPCS: 85610; 99211; G0463

== ENCOUNTER 2021-08-06 08:51 | Outpatient (CLI) | payer MEDICARE, SELFPAY ==
[2021-08-06 15:59] LABS: PHA INR Fingerstick 1.3 (0.9-1.1)
== END 2021-08-06 16:28 | disposition home or self-care (01) ==
PROVIDERS: PCP Family Medicine; Visit Provider Physician Assistant
DX: Z51.81 Encounter for therapeutic drug level monitoring (principal); Z79.01 Long term (current) use of anticoagulants
CPT/HCPCS: 85610; 99211; G0463

== ENCOUNTER 2021-08-20 08:49 | Outpatient (CLI) | payer MEDICARE, SELFPAY ==
[2021-08-20 14:09] LABS: PHA INR Fingerstick 2.1 (0.9-1.1)
== END 2021-08-20 14:20 | disposition home or self-care (01) ==
LOC: ACC 08:50
PROVIDERS: PCP Family Medicine; Visit Provider Physician Assistant
DX: Z51.81 Encounter for therapeutic drug level monitoring (principal); Z79.01 Long term (current) use of anticoagulants
CPT/HCPCS: 85610; 99211; G0463

== ENCOUNTER 2021-08-24 07:59 | Outpatient (CLI) | payer MEDICARE, SELFPAY | END 2021-08-24 08:27 | disposition home or self-care (01) | LOC: INF 08:00 | PROVIDERS: PCP Family Medicine; Visit Provider Family Medicine | DX: M85.89 Other specified disorders of bone density and structure, multiple sites (principal) | CPT/HCPCS: 96372; J0897 ==

== ENCOUNTER 2021-09-30 08:43 | Outpatient (CLI) | payer MEDICARE, SELFPAY ==
[2021-09-30 13:47] LABS: PHA INR Fingerstick 1.7 (0.9-1.1)
== END 2021-09-30 13:48 | disposition home or self-care (01) ==
LOC: ACC 08:44
PROVIDERS: PCP Family Medicine; Visit Provider Physician Assistant
DX: Z79.01 Long term (current) use of anticoagulants (principal)
CPT/HCPCS: 85610; 99211; G0463

== ENCOUNTER 2021-10-21 08:43 | Outpatient (CLI) | payer MEDICARE, SELFPAY ==
[2021-10-21 14:33] LABS: PHA INR Fingerstick 2.1 (0.9-1.1)
== END 2021-10-21 14:34 | disposition home or self-care (01) ==
LOC: ACC 08:45
PROVIDERS: PCP Family Medicine; Visit Provider Physician Assistant
DX: Z51.81 Encounter for therapeutic drug level monitoring (principal); Z79.01 Long term (current) use of anticoagulants
CPT/HCPCS: 85610; 99211; G0463

== ENCOUNTER → 2021-11-23 09:22 | Outpatient (CLI) | payer MEDICARE, SELFPAY ==
[2021-11-23 10:20] LABS: Albumin Level 4.3 g/dl (3.5-5.0); Blood Urea Nitrogen 41 mg/dl (7-17); Calcium 9.8 mg/dl (8.4-10.2); Carbon Dioxide 30 mmol/L (22.0-30.0); Chloride 101 mmol/L (98-107); Estimated Glomerular Filt Rate 37 ml/min (>60); GFR (African American) 44 ML/MIN (>60); Glucose 99 mg/dl (74-100); Phosphorous 3.1 mg/dl (2.5-4.5); Sodium 140 mmol/L (136-145)
[2021-11-25 23:15] LABS: Tandem-R Ostase 13.5 ug/L (.)
[2021-11-27 23:11] LABS: C-Telopeptide Serum 220 pg/mL (.)
== END ==
PROVIDERS: PCP Family Medicine; Visit Provider Internal Medicine Nephrology
DX: N18.31 Chronic kidney disease, stage 3a (principal); M81.0 Age-related osteoporosis without current pathological fracture; N25.0 Renal osteodystrophy
CPT/HCPCS: 36415; 80069; 82523; 84080

== ENCOUNTER → 2021-11-30 12:01 | Outpatient (POV) | payer MEDICARE, SELFPAY | PROVIDERS: Visit Provider Internal Medicine Nephrology | DX: Z00.00 Encounter for general adult medical examination without abnormal findings (principal) ==

== ENCOUNTER 2021-12-02 08:46 | Outpatient (CLI) | payer MEDICARE, SELFPAY ==
[2021-12-02 14:22] LABS: PHA INR Fingerstick 1.7 (0.9-1.1)
== END 2021-12-02 14:42 | disposition home or self-care (01) ==
LOC: ACC 08:48
PROVIDERS: PCP Family Medicine; Visit Provider Physician Assistant
DX: Z51.81 Encounter for therapeutic drug level monitoring (principal); Z79.01 Long term (current) use of anticoagulants
CPT/HCPCS: 85610; 99211; G0463

== ENCOUNTER → 2021-12-31 07:51 | Outpatient (CLI) | payer MEDICARE, SELFPAY ==
--- NOTE | 2021-12-31 07:54 | MM_ITS ---
PROCEDURE INFORMATION: Exam: MG Bilateral Screening 3D Mammography Exam date and time: 12/31/2021 8:07 AM Age: 76 years old Clinical indication: Screening examination TECHNIQUE: Imaging protocol: Bilateral Screening tomosynthesis and 2D mammography including computer-aided detection (CAD) when performed. COMPARISON: 1. MG MM DIG SCREENING MAMM BI W/CAD 12/31/2020 8:53 AM 2. MG MM DIG SCREENING MAMM BI W/CAD 12/28/2019 9:30 AM 3. MG MM DIG MAMM DX UNILAT LT CAD 04/13/2019 1:12 PM 4. MG STLT MM stereotactic loc LT 10/11/2018 11:26 AM FINDINGS: MAMMOGRAPHY: Breast composition: There are scattered areas of fibroglandular density. Mass: None. Architectural distortion: No new or suspicious architectural distortion. Calcifications: Stable benign-appearing calcifications are present. No new or suspicious cluster of microcalcifications have developed. Asymmetric density: No new or suspicious asymmetric density is present Skin thickening: None. Axillary adenopathy: None. IMPRESSION: No mammographic evidence of malignancy. Recommend annual screening mammography unless otherwise clinically indicated. ASSESSMENT: BI-RADS category 2: Benign
== END ==
PROVIDERS: PCP Family Medicine; Visit Provider Family Medicine
DX: Z12.31 Encounter for screening mammogram for malignant neoplasm of breast (principal)
CPT/HCPCS: 77063; 77067

== ENCOUNTER 2022-01-06 08:43 | Outpatient (CLI) | payer MEDICARE, SELFPAY ==
[2022-01-06 15:50] LABS: PHA INR Fingerstick 1.8 (0.9-1.1)
== END 2022-01-06 15:53 | disposition home or self-care (01) ==
LOC: ACC 08:44
PROVIDERS: PCP Family Medicine; Visit Provider Physician Assistant
DX: Z51.81 Encounter for therapeutic drug level monitoring (principal); Z79.01 Long term (current) use of anticoagulants
CPT/HCPCS: 85610; 99211; G0463

== ENCOUNTER → 2022-01-25 07:48 | Outpatient (CLI) | payer MEDICARE, SELFPAY ==
[2022-01-25 08:30] VITALS: PULSE 67; PULSE 70
== END ==
PROVIDERS: PCP Family Medicine; Visit Provider Internal Medicine Pulmonary Disease
DX: R06.00 Dyspnea, unspecified (principal)
CPT/HCPCS: 94060; 94618; 94640; 94727; 94729

== ENCOUNTER 2022-02-02 08:45 | Outpatient (CLI) | payer MEDICARE, SELFPAY ==
[2022-02-02 13:25] LABS: PHA INR Fingerstick 1.9 (0.9-1.1)
== END 2022-02-02 13:49 | disposition home or self-care (01) ==
LOC: ACC 08:46
PROVIDERS: PCP Family Medicine; Visit Provider Physician Assistant
DX: Z51.81 Encounter for therapeutic drug level monitoring (principal); Z79.01 Long term (current) use of anticoagulants
CPT/HCPCS: 85610; 99211; G0463

== ENCOUNTER 2022-02-23 08:41 | Outpatient (CLI) | payer MEDICARE, SELFPAY ==
[2022-02-23 11:13] LABS: PHA INR Fingerstick 2.6 (0.9-1.1)
== END 2022-02-23 11:17 | disposition home or self-care (01) ==
LOC: ACC 08:42
PROVIDERS: PCP Family Medicine; Visit Provider Physician Assistant
DX: Z51.81 Encounter for therapeutic drug level monitoring (principal); Z79.01 Long term (current) use of anticoagulants
CPT/HCPCS: 85610; 99211; G0463

== ENCOUNTER 2022-03-02 08:08 | Outpatient (CLI) | payer MEDICARE, SELFPAY ==
[2022-03-02 08:13] VITALS: BP 144/75; PULSE 64; RESP 18; O2SAT 98
== END 2022-03-02 08:31 | disposition home or self-care (01) ==
LOC: INF 08:09
PROVIDERS: PCP Family Medicine; Visit Provider Family Medicine
DX: M85.89 Other specified disorders of bone density and structure, multiple sites (principal)
CPT/HCPCS: 96372; J0897

== ENCOUNTER 2022-04-06 08:38 | Outpatient (CLI) | payer MEDICARE, SELFPAY ==
[2022-04-06 12:00] LABS: PHA INR Fingerstick 1.9 (0.9-1.1)
== END 2022-04-06 13:12 ==
LOC: ACC 08:39
PROVIDERS: PCP Family Medicine; Visit Provider Physician Assistant
DX: Z51.81 Encounter for therapeutic drug level monitoring (principal); Z79.01 Long term (current) use of anticoagulants
CPT/HCPCS: 85610; 99211; G0463

== ENCOUNTER → 2022-05-07 10:05 | Outpatient (CLI) | payer MEDICARE, SELFPAY | PROVIDERS: PCP Family Medicine; Visit Provider Internal Medicine Pulmonary Disease | DX: R06.09 Other forms of dyspnea (principal); J84.89 Other specified interstitial pulmonary diseases | CPT/HCPCS: 94060 ==

== ENCOUNTER 2022-05-14 09:31 | Outpatient (CLI) | payer MEDICARE, SELFPAY ==
[2022-05-14 14:05] LABS: PHA INR Fingerstick 2.5 (0.9-1.1)
== END 2022-05-14 15:00 ==
LOC: ACC 09:32
PROVIDERS: Physician Assistant; PCP Family Medicine; Visit Provider Family Medicine
DX: Z51.81 Encounter for therapeutic drug level monitoring (principal); Z79.01 Long term (current) use of anticoagulants; D68.2 Hereditary deficiency of other clotting factors
CPT/HCPCS: 85610; 99211; G0463

== ENCOUNTER → 2022-06-18 09:50 | Outpatient (CLI) | payer MEDICARE, SELFPAY ==
[2022-06-18 10:24] LABS: INR 2.02 (0.9-1.1)
== END ==
PROVIDERS: PCP Family Medicine; Visit Provider Physician Assistant
DX: Z51.81 Encounter for therapeutic drug level monitoring (principal); Z79.01 Long term (current) use of anticoagulants; Z86.718 Personal history of other venous thrombosis and embolism; Z86.2 Personal history of diseases of the blood and blood-forming organs and certain disorders involving the immune mechanism
CPT/HCPCS: 36415; 85610

== ENCOUNTER 2022-06-24 08:22 | Outpatient (CLI) | payer MEDICARE, SELFPAY ==
[2022-06-24 12:26] LABS: PHA INR Fingerstick 2.9 (0.9-1.1)
== END 2022-06-24 12:28 | disposition home or self-care (01) ==
LOC: ACC 08:24
PROVIDERS: PCP Family Medicine; Visit Provider Family Medicine
DX: Z51.81 Encounter for therapeutic drug level monitoring (principal); Z79.01 Long term (current) use of anticoagulants; D68.51 Activated protein C resistance
CPT/HCPCS: 85610; 99211; G0463

== ENCOUNTER 2022-07-22 08:33 | Outpatient (CLI) | payer MEDICARE, SELFPAY ==
[2022-07-22 09:53] LABS: PHA INR Fingerstick 3.7 (0.9-1.1)
== END 2022-07-22 14:30 ==
LOC: ACC 08:34
PROVIDERS: PCP Family Medicine; Visit Provider Physician Assistant
DX: Z51.81 Encounter for therapeutic drug level monitoring (principal); Z79.01 Long term (current) use of anticoagulants
CPT/HCPCS: 85610; 99211; G0463

== ENCOUNTER → 2022-07-27 12:49 | Outpatient (CLI) | payer MEDICARE, SELFPAY ==
--- NOTE | 2022-07-27 13:15 | PC.NURSE ---
PFT completed without incident. Albuterol 0.083% given via HHN, per protocol, Pt tolerated tx well.
--- NOTE | 2022-07-27 13:29 | CT_ITS ---
FINAL REPORT TECHNIQUE: Thin section axial supine CT using high resolution technique. Routine imaging was also supplemented with the high-resolution images. Axial images were obtained from the lung apex to the mid abdomen by computed tomography. Coronal reformatted images were obtained. This study was performed with techniques to keep radiation doses as low as reasonably achievable, (ALARA). Individualized dose reduction techniques using automated exposure control or adjustment of mA and/or kV according to the patient's size were employed. CLINICAL HISTORY: Shortness of breath COMPARISON: 11/20/2020 FINDINGS: There is no axillary adenopathy. There is no hilar or mediastinal adenopathy. Heart size is normal. There is no pericardial or pleural effusion. Limited images of the upper abdomen are unremarkable. There is mild scarring in the lung bases. The mild ground-glass opacity seen on the prior study have improved. There is no evidence of bronchiectasis or emphysema. No significant interstitial fibrosis. There is moderate diffuse thoracic kyphosis with degenerative changes. IMPRESSION: Mild bibasilar scarring with no significant interstitial fibrosis. Improved ground-glass opacities. Reviewed, Interpreted and Dictated by Wayne Morales III, MD Transcribed by Danielle Lopez Authenticated and [facility]
== END ==
PROVIDERS: PCP Family Medicine; Visit Provider Internal Medicine Pulmonary Disease
DX: J84.9 Interstitial pulmonary disease, unspecified (principal)
CPT/HCPCS: 71250; 94060; 94726; 94729

== ENCOUNTER 2022-08-12 08:32 | Outpatient (CLI) | payer MEDICARE, SELFPAY ==
[2022-08-12 09:57] LABS: PHA INR Fingerstick 1.8 (0.9-1.1)
== END 2022-08-12 09:59 ==
LOC: ACC 08:33
PROVIDERS: PCP Family Medicine; Visit Provider Physician Assistant
DX: Z51.81 Encounter for therapeutic drug level monitoring (principal); Z79.01 Long term (current) use of anticoagulants; D68.51 Activated protein C resistance
CPT/HCPCS: 85610; 99211; G0463

== ENCOUNTER 2022-08-30 07:58 | Outpatient (CLI) | payer MEDICARE, SELFPAY ==
[2022-08-30 08:16] VITALS: BP 128/66; PULSE 74; RESP 18; O2SAT 98
== END 2022-08-30 08:16 | disposition home or self-care (01) ==
LOC: INF 07:58
PROVIDERS: PCP Family Medicine; Visit Provider Family Medicine
DX: M85.89 Other specified disorders of bone density and structure, multiple sites (principal)
CPT/HCPCS: 96372; J0897

== ENCOUNTER 2022-09-09 08:41 | Outpatient (CLI) | payer MEDICARE, SELFPAY | END 2022-09-09 10:23 | PROVIDERS: PCP Family Medicine; Visit Provider Physician Assistant | DX: Z51.81 Encounter for therapeutic drug level monitoring (principal); Z79.01 Long term (current) use of anticoagulants | CPT/HCPCS: 85610; 99211; G0463 ==

== ENCOUNTER 2022-10-21 08:46 | Outpatient (CLI) | payer MEDICARE, SELFPAY ==
[2022-10-21 11:59] LABS: PHA INR Fingerstick 2.3 (0.9-1.1)
== END 2022-10-21 12:03 ==
LOC: ACC 08:46
PROVIDERS: PCP Family Medicine; Visit Provider Physician Assistant
DX: Z51.81 Encounter for therapeutic drug level monitoring (principal); Z79.01 Long term (current) use of anticoagulants
CPT/HCPCS: 85610; 99211; G0463

== ENCOUNTER 2022-12-02 08:40 | Outpatient (CLI) | payer MEDICARE, SELFPAY ==
[2022-12-02 11:41] LABS: PHA INR Fingerstick 1.5 (0.9-1.1)
== END 2022-12-02 11:46 ==
LOC: ACC 08:41
PROVIDERS: PCP Family Medicine; Visit Provider Physician Assistant
DX: Z51.81 Encounter for therapeutic drug level monitoring (principal); Z79.01 Long term (current) use of anticoagulants
CPT/HCPCS: 85610; 99211; G0463

== ENCOUNTER 2022-12-30 08:33 | Outpatient (CLI) | payer MEDICARE, SELFPAY ==
[2022-12-30 11:37] LABS: PHA INR Fingerstick 2.4 (0.9-1.1)
== END 2022-12-30 12:08 ==
LOC: ACC 08:34
PROVIDERS: PCP Family Medicine; Visit Provider Physician Assistant
DX: Z79.01 Long term (current) use of anticoagulants (principal); Z51.81 Encounter for therapeutic drug level monitoring
CPT/HCPCS: 85610; 99211; G0463

== ENCOUNTER → 2023-01-25 08:09 | Outpatient (CLI) | payer MEDICARE, SELFPAY ==
--- NOTE | 2023-01-25 08:11 | XR_ITS ---
FINAL REPORT TECHNIQUE: Bone densitometry calculations of the lumbar spine and left hip were obtained. CLINICAL HISTORY: . post menopausal screening FINDINGS: Using L1-4, the bone mineral density of the spine is 1.161 g/cm2, corresponding to T-score of 1.0. Using the 1/3 radius, the bone mineral density of the radius is 0.644 g/cm2, corresponding to a T-score of -0.8. NOTE: T-score: Standard deviation compared with peak bone mass of young adult mean. *Following the recommendations of the International Society of Bone densitometry, classification of hip BMD is based on the lower of two T-scores; total hip or femoral neck. IMPRESSION: Normal bone mineral density of the lumbar spine and radius. Reviewed, Interpreted and Dictated by Wayne Morales III, MD Transcribed by Darlene Delvalle Authenticated and [facility]
--- NOTE | 2023-01-25 08:12 | MM_ITS ---
PROCEDURE INFORMATION: Exam: MG Bilateral Screening 3D Mammography Exam date and time: 01/25/2023 8:13 AM Age: 77 years old Clinical indication: Screening examination; Family history of breast cancer in daughter; Daughter's age: 45 years TECHNIQUE: Imaging protocol: Bilateral Screening tomosynthesis and 2D mammography including computer-aided detection (CAD) when performed. Limited positioning related to mobility impairment, exam performed with patient in chair. COMPARISON: 1. MG MM DIG SCREENING MAMM BI W/CAD 12/31/2021 8:07 AM 2. MG MM DIG SCREENING MAMM BI W/CAD 12/31/2020 8:53 AM 3. MG MM DIG SCREENING MAMM BI W/CAD 12/28/2019 9:30 AM 4. MG MM DIG MAMM DX UNILAT LT CAD 04/13/2019 1:12 PM FINDINGS: MAMMOGRAPHY: Breast composition: There are scattered areas of fibroglandular density. Mass: None. Architectural distortion: None. Calcifications: No suspicious calcifications. Asymmetric density: Questionable irregular asymmetry in the left outer breast middle 3rd, CC projection. Skin thickening: None. Axillary adenopathy: None. Other: Left biopsy clip. IMPRESSION: Patient will be recalled for left diagnostic mammography with spot compression in the CC projection and full field lateral as well as left sonography for further evaluation of questionable left breast irregular asymmetry. ASSESSMENT: BI-RADS Category 0: Incomplete- Need Additional Imaging Evaluation and/or Prior Mammograms for Comparison
== END ==
PROVIDERS: PCP Family Medicine; Visit Provider Physician Assistant
DX: Z78.0 Asymptomatic menopausal state (principal); Z12.31 Encounter for screening mammogram for malignant neoplasm of breast
CPT/HCPCS: 77063; 77067; 77080

== ENCOUNTER 2023-02-10 08:27 | Outpatient (CLI) | payer MEDICARE, SELFPAY ==
[2023-02-10 11:03] LABS: PHA INR Fingerstick 2.6 (0.9-1.1)
== END 2023-02-10 11:25 ==
LOC: ACC 08:28
PROVIDERS: PCP Family Medicine; Visit Provider Physician Assistant
DX: Z79.01 Long term (current) use of anticoagulants (principal); Z51.81 Encounter for therapeutic drug level monitoring
CPT/HCPCS: 85610; 99211; G0463

== ENCOUNTER → 2023-02-15 13:25 | Outpatient (CLI) | payer MEDICARE, SELFPAY ==
--- NOTE | 2023-02-15 13:28 | MM_ITS ---
PROCEDURE INFORMATION: Exam: US Left Breast, Complete MG Left Diagnostic Breast Tomosynthesis Exam date and time: 02/15/2023 2:39 PM Age: 77 years old Clinical indication: Patient recalled on the basis of a screening mammogram for further evaluation; Left breast; asymmetry TECHNIQUE: Imaging protocol: Complete ultrasound of all four quadrants of the left breast and the retroareolar regions, including ultrasound of the axilla when performed. Left Diagnostic tomosynthesis and 2D mammography including computer-aided detection (CAD) when performed. Unilateral or bilateral exam. COMPARISON: MG MM DIG MAMM DX UNILAT LT CAD 02/15/2023 1:50 PM FINDINGS: MAMMOGRAPHY: Digital diagnostic spot compression view of the left breast and 90 degree lateral view of the left breast demonstrate normal overlapping fibroglandular structures . No definite persistent mass or asymmetry identified in 2 orthogonal projections. ULTRASOUND: Sonographic images of the left breast including the retroareolar region, all 4 quadrants and the axilla do not demonstrate any solid or cystic masses. No architectural distortion or acoustical shadowing. No skin thickening or axillary adenopathy. IMPRESSION: No definite persistent asymmetry in the left breast. A precautionary six-month follow-up diagnostic left mammogram is recommended to ensure stability of the pattern identified ASSESSMENT: BI-RADS Category 3: Probably benign
== END ==
PROVIDERS: PCP Family Medicine; Visit Provider Physician Assistant
DX: R92.8 Other abnormal and inconclusive findings on diagnostic imaging of breast (principal)
CPT/HCPCS: 76641; 77061; 77065; G0279

== ENCOUNTER 2023-03-02 07:44 | Outpatient (CLI) | payer MEDICARE, SELFPAY ==
[2023-03-02 08:12] VITALS: BP 143/85; PULSE 88; RESP 18; TEMP 36.8; O2SAT 96
== END 2023-03-02 08:32 | disposition home or self-care (01) ==
LOC: INF 07:45
PROVIDERS: PCP Family Medicine; Visit Provider Family Medicine
DX: M85.89 Other specified disorders of bone density and structure, multiple sites (principal)
CPT/HCPCS: 96372; J0897

== ENCOUNTER 2023-03-24 08:35 | Outpatient (CLI) | payer MEDICARE, SELFPAY ==
[2023-03-24 09:04] LABS: PHA INR Fingerstick 2.5 (0.9-1.1)
== END 2023-03-24 09:08 ==
LOC: ACC 08:36
PROVIDERS: PCP Family Medicine; Visit Provider Physician Assistant
DX: Z79.01 Long term (current) use of anticoagulants (principal); Z51.81 Encounter for therapeutic drug level monitoring
CPT/HCPCS: 85610; 99211; G0463

== ENCOUNTER → 2023-03-30 09:07 | Outpatient (CLI) | payer MEDICARE, SELFPAY ==
--- NOTE | 2023-03-30 10:09 | PC.NURSE ---
PFT completed without incident. Albuterol 0.083% given via HHN, per written protocol, Pt tolerated tx well. 6 Minute Walk test refused by Pt.
== END ==
PROVIDERS: PCP Family Medicine; Visit Provider Internal Medicine Pulmonary Disease
DX: R06.09 Other forms of dyspnea (principal)
CPT/HCPCS: 94060; 94726; 94729

== ENCOUNTER 2023-05-05 08:06 | Outpatient (CLI) | payer MEDICARE, SELFPAY ==
[2023-05-05 14:58] LABS: PHA INR Fingerstick 2.3 (0.9-1.1)
== END 2023-05-05 15:15 ==
LOC: ACC 08:08
PROVIDERS: PCP Family Medicine; Visit Provider Physician Assistant
DX: Z79.01 Long term (current) use of anticoagulants (principal); Z51.81 Encounter for therapeutic drug level monitoring
CPT/HCPCS: 85610; 99211; G0463

== ENCOUNTER 2023-06-30 09:24 | Outpatient (CLI) | payer MEDICARE, SELFPAY ==
[2023-06-30 16:10] LABS: PHA INR Fingerstick 3.3 (0.9-1.1)
== END 2023-06-30 16:12 ==
PROVIDERS: PCP Physician Assistant; Visit Provider Physician Assistant
DX: Z79.01 Long term (current) use of anticoagulants (principal); Z51.81 Encounter for therapeutic drug level monitoring; D68.51 Activated protein C resistance
CPT/HCPCS: 85610; 99211; G0463

== ENCOUNTER 2023-07-28 08:28 | Outpatient (CLI) | payer MEDICARE, SELFPAY ==
[2023-07-28 10:58] LABS: PHA INR Fingerstick 2.5 (0.9-1.1)
== END 2023-07-28 11:03 ==
LOC: ACC 08:29
PROVIDERS: PCP Family Medicine; Visit Provider Physician Assistant
DX: Z79.01 Long term (current) use of anticoagulants (principal); Z51.81 Encounter for therapeutic drug level monitoring
CPT/HCPCS: 85610; 99211; G0463

== ENCOUNTER 2023-08-29 09:54 | Outpatient (CLI) | payer MEDICARE, SELFPAY ==
--- NOTE | 2023-08-29 09:58 | MM_ITS ---
PROCEDURE INFORMATION: Exam: MG Bilateral Screening 3D Mammography Exam date and time: 08/29/2023 9:58 AM Age: 78 years old Clinical indication: Screening examination . Family history of premenopausal breast carcinoma. History of benign left breast biopsy. TECHNIQUE: Imaging protocol: Bilateral Screening tomosynthesis and 2D mammography including computer-aided detection (CAD) when performed. COMPARISON: 1. MG MM DIG MAMM DX UNILAT LT CAD 02/15/2023 1:50 PM 2. MG MM DIG SCREENING MAMM BI W/CAD 01/25/2023 8:13 AM 3. MG MM DIG SCREENING MAMM BI W/CAD 12/31/2021 8:07 AM FINDINGS: MAMMOGRAPHY: Breast composition: There are scattered areas of fibroglandular density. Mass: No suspicious masses. Architectural distortion: No suspicious distortion. Calcifications: No suspicious calcifications. Asymmetric density: None. Skin thickening: None. Axillary adenopathy: None. IMPRESSION: 1. No mammographic evidence of malignancy. Annual screening is recommended unless otherwise clinically indicated. 2. Given the reported risk factors for this patient, a breast cancer risk assessment may prove useful for further evaluation. ASSESSMENT: BI-RADS Category 1: Negative
== END 2023-08-29 23:59 ==
PROVIDERS: PCP Family Medicine; Visit Provider Family Medicine
DX: Z12.31 Encounter for screening mammogram for malignant neoplasm of breast (principal)
CPT/HCPCS: 77063; 77067

== ENCOUNTER 2023-08-31 07:54 | Outpatient (CLI) | payer MEDICARE, SELFPAY ==
[2023-08-31] MEDS: DENOSUMAB 60 MG/ML SYRINGE SQ (08:24)
[2023-08-31 08:27] VITALS: BP 132/72; PULSE 86; RESP 18; O2SAT 96
== END 2023-08-31 08:27 | disposition home or self-care (01) ==
LOC: INF 07:55
PROVIDERS: PCP Family Medicine; Visit Provider Family Medicine
DX: M85.89 Other specified disorders of bone density and structure, multiple sites (principal)
CPT/HCPCS: 96372; J0897

== ENCOUNTER 2023-09-15 08:35 | Outpatient (CLI) | payer MEDICARE, SELFPAY ==
[2023-09-15 10:07] LABS: PHA INR Fingerstick 3.5 (0.9-1.1)
== END 2023-09-15 10:09 ==
LOC: ACC 08:35
PROVIDERS: PCP Family Medicine; Visit Provider Physician Assistant
DX: Z79.01 Long term (current) use of anticoagulants (principal); Z51.81 Encounter for therapeutic drug level monitoring; Z86.711 Personal history of pulmonary embolism
CPT/HCPCS: 85610; 99211; G0463

== ENCOUNTER 2023-10-20 08:13 | Outpatient (CLI) | payer MEDICARE, SELFPAY ==
[2023-10-20 09:47] LABS: PHA INR Fingerstick 3.6 (0.9-1.1)
== END 2023-10-20 09:49 ==
LOC: ACC 08:14
PROVIDERS: PCP Family Medicine; Visit Provider Physician Assistant
DX: Z79.01 Long term (current) use of anticoagulants (principal); Z51.81 Encounter for therapeutic drug level monitoring; Z86.718 Personal history of other venous thrombosis and embolism
CPT/HCPCS: 85610; 99211; G0463

== ENCOUNTER 2023-11-10 08:25 | Outpatient (CLI) | payer MEDICARE, SELFPAY | END 2023-11-10 14:06 | LOC: ACC 08:26 | PROVIDERS: PCP Family Medicine; Visit Provider Physician Assistant | DX: Z79.01 Long term (current) use of anticoagulants (principal); Z51.81 Encounter for therapeutic drug level monitoring; Z86.718 Personal history of other venous thrombosis and embolism | CPT/HCPCS: 85610; 99211; G0463 ==

== ENCOUNTER 2023-12-22 08:42 | Outpatient (CLI) | payer MEDICARE, SELFPAY ==
[2023-12-22 10:18] LABS: PHA INR Fingerstick 2.7 (0.9-1.1)
== END 2023-12-22 10:57 ==
LOC: ACC 08:44
PROVIDERS: PCP Family Medicine; Visit Provider Physician Assistant
DX: D68.51 Activated protein C resistance (principal); Z79.01 Long term (current) use of anticoagulants; Z86.718 Personal history of other venous thrombosis and embolism
CPT/HCPCS: 85610; 99211; G0463

== ENCOUNTER 2024-02-02 08:44 | Outpatient (CLI) | payer MEDICARE, SELFPAY ==
[2024-02-02 09:41] LABS: PHA INR Fingerstick 2.1 (0.9-1.1)
== END 2024-02-02 09:42 ==
LOC: ACC 08:45
PROVIDERS: PCP Family Medicine; Visit Provider Physician Assistant
DX: Z79.01 Long term (current) use of anticoagulants (principal); Z86.718 Personal history of other venous thrombosis and embolism; D68.51 Activated protein C resistance
CPT/HCPCS: 85610; 99211; G0463

== ENCOUNTER 2024-03-02 07:58 | Outpatient (CLI) | payer MEDICARE, SELFPAY ==
[2024-03-02 08:15] VITALS: BP 130/76; PULSE 108; RESP 16; O2SAT 96
[2024-03-02] MEDS: DENOSUMAB 60 MG/ML SYRINGE SQ (08:15)
== END 2024-03-02 08:30 | disposition home or self-care (01) ==
LOC: INF 07:59
PROVIDERS: PCP Psychiatry & Neurology Sleep Medicine; Visit Provider Family Medicine
DX: M85.80 Other specified disorders of bone density and structure, unspecified site (principal)
CPT/HCPCS: 96372; J0897

== ENCOUNTER 2024-03-15 08:56 | Outpatient (CLI) | payer MEDICARE, SELFPAY ==
[2024-03-15 14:00] LABS: PHA INR Fingerstick 2.9 (0.9-1.1)
== END 2024-03-15 14:16 ==
LOC: ACC 08:58
PROVIDERS: PCP Psychiatry & Neurology Sleep Medicine; Visit Provider Physician Assistant
DX: Z79.01 Long term (current) use of anticoagulants (principal); D68.51 Activated protein C resistance
CPT/HCPCS: 85610; 99211; G0463

== ENCOUNTER 2024-04-23 17:00 | Outpatient (CLI) | payer MEDICARE, SELFPAY ==
--- OUTSIDE RECORDS SUMMARY | 2024-04-23 17:03 | XMS_ITS ---
Author Organization [facility] Address [address] [facility] 36 [facility] [address] [place] [id number] Care Team Providers Care Parts Cataloguer Name Role Phone Domi Fernández Primary Care Provider Bryan Cornelius [phone] REASON FOR VISIT Controlled Rx MEDICATIONS Medication SIG (Take, Route, Frequency, Duration) Notes Start Date End Date Status HYDROcodone-Acetaminophen 5-325 MG 1 tab(s) orally Two times a day as needed 03/15/2024 Active Encounters Encounter Location Date Provider Diagnosis [facility] [address] [place] [id number] 03/15/2024 Bryan Cornelius Other chronic pain G89.29 ASSESSMENTS Encounter Date Diagnosis Assessment Notes Treatment Notes Treatment Clinical Notes 03/15/2024 Other chronic pain (ICD-10 - G89.29) PLAN OF TREATMENT Medication Medication Name Sig Start Date Stop Date Notes HYDROcodone-Acetaminophen 5- 325 MG 1 tab(s) orally Two times a day as needed 03/15/2024 Next Appt Details Provider Name:Domi Watters er, 07/23/2024 10:45:00 AM, [address] [place], [facility] [address], [place], [phone],
--- OUTSIDE RECORDS SUMMARY | 2024-04-23 17:03 | XMS_ITS ---
Author Organization [facility] Address [address] [facility] [address] [phone] Care Team Providers Care Ecommerce Project Manager Name Role Phone Domi Fernández Primary Care Provider ALLERGIES Allergen (clinical drug ingredient) Drug/Non Drug Allergy documented on EMR Reaction Allergy Type Onset Date Status Penicillin hives Drug Allergy Active REASON FOR VISIT checkup, Needs labs, colon cancer screening, & flu vaccine MEDICATIONS Medication SIG (Take, Route, Frequency, Duration) Notes Start Date End Date Status Albuterol Sulfate HFA 108 (90 Base) MCG/ACT 2 puff(s) inhaled every 6 hours for 30 day(s) 10/14/2020 Active LORazepam 0.5 MG 1 tab orally 2 times a day as needed for 30 days 02/10/2023 Active Claritin 10 MG 1 tablet Orally Once a day for 30 day(s) 07/11/2023 Active Fluticasone Propionate 50 MCG/ACT 1 spray(s) in each nostril once a day Active Prolia 60 MG/ML as directed subcutaneously every 6 months 06/11/2020 Active ADVAIR 100/50 1 INHALATION BID *Please review for potential replacement for e-prescription and drug interaction check* Active Multivitamin 1 TAB ONCE A DAY *Please review and pick correct strength-formula tion from [employer] options. If intended option is not shown, discontinue and re-order from Quick Search* Active Levothyroxine Sodium 125 MCG 1 tab(s) orally once a day for 90 days Active Zithromax Z-Blane 250 MG 2 pills first day then one daily for 4 days orally as directed for 5 days 06/10/2021 Not-Taking Mucinex DM 30-600 MG 1 tab(s) orally every 12 hours 06/10/2021 Not-Taking traZODone HCl 150 MG TAKE 1 TABLET BY MOUTH ONCE DAILY AT BEDTIME for 90 Active Sertraline HCl 50 MG Take 1 tablet by mouth once daily for 90 days Active metOLazone 2.5 MG 1 tab(s) orally every other day prn for 30 day(s) Not-Taking predniSONE 20 MG 1 tab(s) orally once a day as directed Not-Taking Benzonatate 100 MG 1 cap(s) orally 3 times a day 05/13/2021 Not-Taking Warfarin Sodium 5 MG Take 1 tablet by mouth once daily for 90 Active HYDROcodone-Acetami nophen 5-325 MG 1 tab(s) orally Two times a day as needed 04/23/2024 Active Allopurinol 100 MG 1 tab(s) orally once a day for 90 days Active amLODIPine Besylate 5 MG 1 tab(s) orally once a day for 90 days Active VITAL SIGNS Weight 230.6 lbs 04/23/2024 Blood pressure systolic 122 mm Hg 04/23/20 24 Blood pressure diastolic 70 mm Hg 024 Heart Rate 62 /min 04/23/2024 Height 00 in 04/23/2024 Encounters Encounter Location Date [facility] [address] [place] [address] [id number] 04/23/2024 Domi Fernández Cardiac dysrhythmia, unspecified I49.9 ; Primary hypertension I10 ; Interstitial lung disease J84.9 ; Renal insufficiency N28.9 ; Acquired hypothyroidism E03.9 ; History of DVT (deep vein thrombosis) Z86.718 ; History of factor V Leiden mutation Z86.2 ; FDC (current) use of anticoagulants Z79.01 ; Hyperuricemia E79.0 and Other chronic pain G89.29 ASSESSMENTS Encounter Date Diagnosis Assessment Notes Treatment Notes Treatment Clinical Notes 04/23/2024 Cardiac dysrhythmia, unspecified (ICD-10 - I49.9) 04/23/2024 Primary hypertension (ICD-10 - I10) 04/23/2024 Interstitial lung disease (ICD-10 - J84.9) 04/23/2024 Renal insufficiency (ICD-10 - N28.9) 04/23/2024 Acquired hypothyroidism (ICD-10 - E03.9) 04/23/2024 History of DVT (deep vein thrombosis) (ICD-10 - Z86.718) 04/23/2024 History of factor V Leiden mutation (ICD-10 - Z86.2) 04/23/2024 bed bug exterminator (current) use of anticoagulants (ICD-10 - Z79.01) 04/23/2024 Hyperuricemia (ICD-1 0 - E79.0) 04/23/2024 Other chronic pain (ICD-10 - G89.29) PLAN OF TREATMENT Medication Medication Name Sig Start Date Stop Date Notes Levothyroxine Sodium 125 MCG 1 tab(s) or ally once a day for 90 days HYDROcodone-Acetaminophen 5- 325 MG 1 tab(s) orally Two times a day as needed 04/23/2024 Allopurinol 100 MG 1 tab(s) orally once a day for 90 days Pending Test Test Name Order Date EKG 04/23/2024 P-CBC with Diff plus Absolute Counts P-Comprehensive Metabolic Panel (CMP) P-TSH 04/23/2024 Next Appt Details Follow Up: 3 Months, Reason: Provider Name:Domi sanchez, 07/23/2024 10:45:00 AM, [address] [facility], [address], [place], [place], [phone], Progress Notes * Examination Category Sub-Category Detail Notes General Examination HEENT: unremarkable Heart: irregular rhythm [...] erythema Chest: normal shape and exp ansion History and Physical Notes * HPI (History of Present Illness) Category Sub-Category Detail Notes Cardiology Short of Breath Chest Pain Palpitations Dizziness
--- OUTSIDE RECORDS SUMMARY | 2024-04-23 17:04 | XMS_ITS ---
Author Organization [facility] Address [address] [facility] [address] [facility] [address] [place] [phone] Care Team Providers Care Application Support Engineer Name Role Phone Domi Fernández Primary Care Provider REASON FOR VISIT Controlled Rx MEDICATIONS Medication SIG (Take, Route, Frequency, Duration) Notes Start Date End Date Status HYDROcodone-Acetaminophen 5-325 MG 1 tab(s) orally Two times a day as needed 12/29/2023 Active Encounters Encounter Location Date Provider Diagnosis [place] [address] [facility] [address] [facility] [address] [place] [phone] 12/28/2023 Domi Fernández Other chronic pain G89.29 ASSESSMENTS Encounter Date Diagnosis Assessment Notes Treatment Notes Treatment Clinical Notes 12/28/2023 Other chronic pain (ICD-10 - G89.29) PLAN OF TREATMENT Medication Medication Name Sig Start Date Stop Date Notes HYDROcodone-Acetaminophen 5- 325 MG 1 tab(s) orally Two times a day as needed 12/29/2023 Next Appt Details Provider Name:Domi Watters er, 07/23/2024 10:45:00 AM, [address] [facility], [address], [place], [phone],
--- OUTSIDE RECORDS SUMMARY | 2024-04-23 17:04 | XMS_ITS | Patient Health Record ---
[facility] [address] [place] [id number] Care Team Providers Care Scientific Programmer Analyst Name Role Phone Domi Fernández Primary Care Provider [phone] Bryan Cornelius Unavailable [phone] Tracy Cano Unavailable [phone] ALLERGIES Allergen (clinical drug ingredient) Drug/Non Drug Allergy documented on EMR Reaction Allergy Type Onset Date Status Penicillin hives Drug Allergy Active RESULTS Component Value Reference Range Notes Opiates, Urine, Quantitative Reviewed date:06/21/2023 08:48:26 AM Interpretation:Hydrocodone, Urn Quant 511.8, Hydromorphone Urn Quant 362.2, Nohydrocodone Urn Quant >1000 Performing Lab: Notes/Report: Test performed by [facility] [address] [place] [address] , [address], [place] [address] Russell Hahn MD, Locker Operator CLIA: [id number] 6-acetylmorphine, Urn, Quant <10 <10 ng/mL This test was developed and its performance characteristics were determined by [facility]. It has not been cleared or approved by the FDA. The laboratory is regulated under CLIA as qualified to perform high-complexity testing. This test is used for clinical purposes and should not be regarded as investigational or for research. Methodology: Quantitative Liquid Chromatography-MS/MS Codeine, Urn, Quant <50 <50 ng/mL This test was developed and its performance characteristics were determined by [facility]. It has not been cleared or approved by the FDA. The laboratory is regulated under CLIA as qualified to perform high-complexity testing. This test is used for clinical purposes and should not be regarded as investigational or for research. Methodology: Quantitative Liquid Chromatography-MS/MS Hydrocodone, Urn, Quant 511.8 <50 ng/mL Consistent with use of a drug containing hydrocodone. Hydrocodone presence may also reflect codeine metabolism. Low concentrations may reflect impurity of another drug such as oxycodone or hydromorphone. This test was developed and its performance characteristics were determined by [facility]. It has not been cleared or approved by the FDA. The laboratory is regulated under CLIA as qualified to perform high-complexity testing. This test is used for clinical purposes and should not be regarded as investigational or for research. Methodology: Quantitative Liquid Chromatography-MS/MS Hydromorphone, Urn, Quant 362.2 <100 ng/mL Presence of hydromorphone may reflect metabolism of hydrocodone and/or morphine and may also represent independent use of a drug containing hydromorphone. Low concentrations may reflect impurity of another drug such as oxymorphone. This test was developed and its performance characteristics were determined by [facility]. It has not been cleared or approved by the FDA. The laboratory is regulated under CLIA as qualified to perform high-complexity testing. This test is used for clinical purposes and should not be regarded as investigational or for research. Methodology: Quantitative Liquid Chromatography-MS/MS Morphine, Urn, Quant <50 <50 ng/mL This test was developed and its performance characteristics were determined by [facility]. It has not been cleared or approved by the FDA. The laboratory is regulated under CLIA as qualified to perform high-complexity testing. This test is used for clinical purposes and should not be regarded as investigational or for research. Methodology: Quantitative Liquid Chromatography-MS/MS Norhydrocodone, Urn, Quant >1000 <50 ng/mL Norhydrocodone is a metabolite of hydrocodone; consistent with use of a drug containing or metabolized to hydrocodone. Hydrocodone may also be a metabolite of codeine, or an impurity of oxycodone. This test was developed and its performance characteristics were determined by [facility]. It has not been cleared or approved by the FDA. The laboratory is regulated under CLIA as qualified to perform high-complexity testing. This test is used for clinical purposes and should not be regarded as investigational or for research. Methodology: Quantitative Liquid Chromatography-MS/MS Noroxycodone, Urn, Quant <50 <50 ng/mL This test was developed and its performance characteristics were determined by [facility]. It has not been cleared or approved by the FDA. The laboratory is regulated under CLIA as qualified to perform high-complexity testing. This test is used for clinical purposes and should not be regarded as investigational or for research. Methodology: Quantitative Liquid Chromatography-MS/MS Oxycodone, Urn, Quant <50 <50 ng/mL This test was developed and its performance characteristics were determined by [facility]. It has not been cleared or approved by the FDA. The laboratory is regulated under CLIA as qualified to perform high-complexity testing. This test is used for clinical purposes and should not be regarded as investigational or for research. Methodology: Quantitative Liquid Chromatography-MS/MS Oxymorphone, Urn, Quant <100 <100 ng/mL For medical purposes only; not valid for forensic use. Identification of specific drug(s) taken by specimen donor is problematic due to common metabolites, some of which are prescription drugs themselves. The absence of expected drug(s) and/or drug metabolite(s) may indicate non-compliance, inappropriate timing of specimen collection relative to drug administration, poor drug absorption, diluted/adulterated urine, or limitations of testing. All drug analytes covered are in the non-glucuronidated (free) forms. A positive result is only reported when the drug/metabolite concentration is greater than or equal to the cutoff. A small amount of an unexpected drug analyte in the presence of a large amount of an expected drug analyte may reflect pharmaceutical impurity. Interpretive questions should be directed to the laboratory. This test was developed and its performance characteristics were determined by [facility]. It has not been cleared or approved by the FDA. The laboratory is regulated under CLIA as qualified to perform high-complexity testing. This test is used for clinical purposes and should not be regarded as investigational or for research. Methodology: Quantitative Liquid Chromatography-MS/MS P-Urine Drug Screen with Ref maxine to Confirmation Reviewed date:06/21/2023 08:48:26 AM Interpretation:Opiates Positive A Performing Lab: Notes/Report: Test performed by [facility], [facility] [address] [place] [address] , [address], [place] [address] Russell Hahn MD, Locker Operator CLIA: [id number] Amphetamines, Urine NEGATIVE NEGATIVE Barbiturates, Urine NEGATIVE NEGATIVE Benzodiazepines, Urine NEGATIVE NEGATIVE Cocaine Metabolites, Urine NEGATIVE NEGATIVE Methadone, Urine NEGATIVE NEGATIVE Opiates, Urine POSITIVE NEGATIVE Oxycodone, Urine Qualitative NEGATIVE NEGATIVE Phencyclidine, Urine NEGATIVE NEGATIVE Cannabinoids, Urine NEGATIVE NEGATIVE Propoxyphene, Urine NEGATIVE NEGATIVE Immunoassay Drug Screen Davis Values See Below AMPHETAMINES 300 ng/ml BARBITURATES 200 ng/ml BENZODIAZEPINES 200 ng/ml COCAINE 150 ng/ml METHADONE 150 ng/ml OPIATES 300 ng/ml OXYCODONE 100 ng/ml PHENCYCLIDINE 25 ng/ml THC 20 ng/ml PROPOXYPHENE 300 ng/ml Urine drug screen results are for medical decision making and are not to be used for medical/legal evaluation. Urine drug screen is not without cross-reactivities and requires GC-MS or LC-MS/MS analysis for definitive confirmation. H-INR Reviewed date:07/28/2023 01:36:46 PM Interpretation: Performing Lab: Notes/Report: POCINRFS 2.5 0.9-1.1 Results sent to: Yael Farooq Pharmacist recommendation for Warfarin therapy is: PATIENT INR 2.5 TODAY VIA FINGERSTICK. RECOMMENDED PATIENT CONTINUE WITH WARFARIN 5 MG DAILY AT THIS TIME. FOR DETAILED INFORMATION-PLEASE REVIEW PROGRESS NOTE IN THE ASSESSMENTS AND ANTICOAGULATION CLINIC SECTION ANTICOAGULATION CLINIC IN PCI/CLINICAL REVIEW INDICATION INR RANGE THERAPY FOR DVT, PE, ATRIAL FIB; 2.0 - 3.0 PROPHYLAXIS FOR VTE THERAPY FOR MECHANICAL HEART 2.5 - 3.5 VALVE; PREVENTION OF SYSTEMIC EMBOLISM SECONDARY TO AMI CBC Venipuncture (in house) Reviewed date:06/14/2023 08:54:32 AM Interpretation: Performing Lab: Notes/Report: wbc 5.5 3.5 - 10 lymph 37.7% 15 - 50 mid 7.4% 2 - 15 gran 54.9% 35 - 80 rbc 4.76 3.5 - 5.5 hgb 14.3 11.5 - 16.5 hct 44.4 35 - 55 mcv 93.2 75 - 100 mch 30.1 25 - 35 mchc 32.3 31 - 38 platlet 212 100 - 400 H-INR Reviewed date:05/05/2023 03:23:55 PM Interpretation: Performing Lab: Notes/Report: POCINRFS 2.3 0.9-1.1 Results sent to: Yael Farooq Pharmacist recommendation for Warfarin therapy is: PATIENT INR 2.3 TODAY VIA FINGERSTICK. RECOMMENDED PATIENT CONTINUE WITH WARFARIN 5 MG DAILY. FOR DETAILED INFORMATION-PLEASE REVIEW PROGRESS NOTE IN THE ASSESSMENTS AND ANTICOAGULATION CLINIC SECTION ANTICOAGULATION CLINIC IN PCI/CLINICAL REVIEW INDICATION INR RANGE THERAPY FOR DVT, PE, ATRIAL FIB; 2.0 - 3.0 PROPHYLAXIS FOR VTE THERAPY FOR MECHANICAL HEART 2.5 - 3.5 VALVE; PREVENTION OF SYSTEMIC EMBOLISM SECONDARY TO AMI DON Reviewed date:05/13/2023 02:31:07 PM Interpretation: Performing Lab: Notes/Report: Mammogram Reviewed date:08/31/2023 01:58:33 PM Interpretation:negative annual f/u Performing Lab: Notes/Report: negative annual f/u result H-INR Reviewed date:10/20/2023 09:51:33 AM Interpretation: Performing Lab: Notes/Report: POCINRFS 3.6 0.9-1.1 Results sent to: Yael Farooq Pharmacist recommendation for Warfarin therapy is: PATIENT INR 3.6 TODAY VIA FINGERSTICK. INR REMAINS ELEVATED FROM LAST VISIT WITH INR OF 3.5 AND A DOSE REDUCTION. DISCUSSED WITH PATIENT. PATIENT INDICATED SHE HAS LOST 14 LBS OVER THE LAST 6 MONTHS. SUSPECT DIETARY INTAKE IS DOWN WELL VITAMIN K INTAKE. HAVING PATIENT TAKE WARFARIN 2.5 MG X3 DAYS, THEN FURTHER REDUCE WEEKLY DOSE BY 2.5 MG TO 2.5 MG ON MON/FRI; 5 MG ON TUE/TUE/TUE/TUE/SAT. FOR DETAILED INFORMATION-PLEASE REVIEW PROGRESS NOTE IN THE ASSESSMENTS AND ANTICOAGULATION CLINIC SECTION ANTICOAGULATION CLINIC IN PCI/CLINICAL REVIEW INDICATION INR RANGE THERAPY FOR DVT, PE, ATRIAL FIB; 2.0 - 3.0 PROPHYLAXIS FOR VTE THERAPY FOR MECHANICAL HEART 2.5 - 3.5 VALVE; PREVENTION OF SYSTEMIC EMBOLISM SECONDARY TO AMI H-INR Reviewed date:07/04/2023 08:45:50 AM Interpretation: Performing Lab: Notes/Report: POCINRFS 3.3 0.9-1.1 Results sent to: Yael Farooq Pharmacist recommendation for Warfarin therapy is: PATIENT INR 3.3 TODAY VIA FINGERSTICK. RECOMMENDED PATIENT TAKE 2.5 MG X2 DAYS THEN RESUME 5 MG DAILY THEREAFTER. FOR DETAILED INFORMATION-PLEASE REVIEW PROGRESS NOTE IN THE ASSESSMENTS AND ANTICOAGULATION CLINIC SECTION ANTICOAGULATION CLINIC IN PCI/CLINICAL REVIEW INDICATION INR RANGE THERAPY FOR DVT, PE, ATRIAL FIB; 2.0 - 3.0 PROPHYLAXIS FOR VTE THERAPY FOR MECHANICAL HEART 2.5 - 3.5 VALVE; PREVENTION OF SYSTEMIC EMBOLISM SECONDARY TO AMI H-INR Reviewed date:09/15/2023 04:53:25 PM Interpretation: Performing Lab: Notes/Report: POCINRFS 3.5 0.9-1.1 Results sent to: Yael Farooq Pharmacist recommendation for Warfarin therapy is: PATIENT INR 3.5 TODAY VIA FINGERSTICK. RECOMMENDED PATIENT TAKE WARFARIN 2.5 MG X2 DAYS, THEN REDUCE WEEKLY DOSE BY 2.5 MG TO WARFARIN 2.5 MG ON MON; 5 MG ON TUE/TUE/TUE/TUE/TUE/SAT. PATIENT INDICATED SHE HAS NOT BEEN EATING MUCH LATELY. FOR DETAILED INFORMATION-PLEASE REVIEW PROGRESS NOTE IN THE ASSESSMENTS AND ANTICOAGULATION CLINIC SECTION ANTICOAGULATION CLINIC IN PCI/CLINICAL REVIEW INDICATION INR RANGE THERAPY FOR DVT, PE, ATRIAL FIB; 2.0 - 3.0 PROPHYLAXIS FOR VTE THERAPY FOR MECHANICAL HEART 2.5 - 3.5 VALVE; PREVENTION OF SYSTEMIC EMBOLISM SECONDARY TO AMI H-INR Reviewed date:11/11/2023 09:56:34 AM Interpretation: Performing Lab: Notes/Report: POCINRFS 3.0 0.9-1.1 Results sent to: Yael Farooq Pharmacist recommendation for Warfarin therapy is: PATIENT INR WAS 3.0 TODAY VIA FINGERSTICK. RECOMMENDED PATIENT CONTINUE WITH WARFARIN 2.5 MG ON MON/FRI; 5 MG ON TUE/TUE/TUE/CARMEN/SAT. FOR DETAILED INFORMATION-PLEASE REVIEW PROGRESS NOTE IN THE ASSESSMENTS AND ANTICOAGULATION CLINIC SECTION ANTICOAGULATION CLINIC IN PCI/CLINICAL REVIEW INDICATION INR RANGE THERAPY FOR DVT, PE, ATRIAL FIB; 2.0 - 3.0 PROPHYLAXIS FOR VTE THERAPY FOR MECHANICAL HEART 2.5 - 3.5 VALVE; PREVENTION OF SYSTEMIC EMBOLISM SECONDARY TO AMI H-INR Reviewed date:12/22/2023 04:32:52 PM Interpretation: Performing Lab: Notes/Report: POCINRFS 2.7 0.9-1.1 Results sent to: Yael Farooq Pharmacist recommendation for Warfarin therapy is: [] FOR DETAILED INFORMATION-PLEASE REVIEW PROGRESS NOTE IN THE ASSESSMENTS AND ANTICOAGULATION CLINIC SECTION ANTICOAGULATION CLINIC IN PCI/CLINICAL REVIEW INDICATION INR RANGE THERAPY FOR DVT, PE, ATRIAL FIB; 2.0 - 3.0 PROPHYLAXIS FOR VTE THERAPY FOR MECHANICAL HEART 2.5 - 3.5 VALVE; PREVENTION OF SYSTEMIC EMBOLISM SECONDARY TO AMI H-INR Reviewed date:02/03/2024 09:31:33 AM Interpretation: Performing Lab: Notes/Report: POCINRFS 2.1 0.9-1.1 Results sent to: Yael Farooq Pharmacist recommendation for Warfarin therapy is: PATIENT INR 2.1 TODAY VIA FINGERSTICK. RECOMMENDED PATIENT CONTINUE WITH WARFARIN 2.5 MG ON MON/FRI; 5 MG ON SUN/TUE/TUE/CARMEN/SAT. FOR DETAILED INFORMATION-PLEASE REVIEW PROGRESS NOTE IN THE ASSESSMENTS AND ANTICOAGULATION CLINIC SECTION ANTICOAGULATION CLINIC IN PCI/CLINICAL REVIEW INDICATION INR RANGE THERAPY FOR DVT, PE, ATRIAL FIB; 2.0 - 3.0 PROPHYLAXIS FOR VTE THERAPY FOR MECHANICAL HEART 2.5 - 3.5 VALVE; PREVENTION OF SYSTEMIC EMBOLISM SECONDARY TO AMI H-INR Reviewed date:03/16/2024 12:21:39 AM Interpretation: Performing Lab: Notes/Report: POCINRFS 2.9 0.9-1.1 Results sent to: Yael Farooq Pharmacist recommendation for Warfarin therapy is: PATIENT INR 2.9 TODAY VIA FINGERSTICK. RECOMMENDED PATIENT CONTINUE WITH WARFARIN 2.5 MG ON MON/FRI; 5 MG ON SUN/TUE/TUE/CARMEN/SAT. FOR DETAILED INFORMATION-PLEASE REVIEW PROGRESS NOTE IN THE ASSESSMENTS AND ANTICOAGULATION CLINIC SECTION ANTICOAGULATION CLINIC IN PCI/CLINICAL REVIEW INDICATION INR RANGE THERAPY FOR DVT, PE, ATRIAL FIB; 2.0 - 3.0 PROPHYLAXIS FOR VTE THERAPY FOR MECHANICAL HEART 2.5 - 3.5 VALVE; PREVENTION OF SYSTEMIC EMBOLISM SECONDARY TO AMI MEDICATIONS Medication SIG (Take, Route, Frequency, Duration) Notes Start Date End Date Status HYDROcodone-Acetami nophen 5-325 MG 1 tab(s) orally Two times a day as needed 04/23/2024 Active Allopurinol 100 MG 1 tab(s) orally once a day for 90 days Active ADVAIR 100/50 1 INHALATION BID *Please review for potential replacement for e-prescription and drug interaction check* Active Multivitamin 1 TAB ONCE A DAY *Please review and pick correct strength-formula tion from [facility] options. If intended option is not shown, discontinue and re-order from Quick Search* Active traZODone HCl 150 MG TAKE 1 TABLET BY MOUTH ONCE DAILY AT BEDTIME for 90 Active Levothyroxine Sodium 125 MCG 1 tab(s) orally once a day for 90 days Active Albuterol Sulfate HFA 108 (90 Base) MCG/ACT 2 puff(s) inhaled every 6 hours for 30 day(s) 10/14/2020 Active Sertraline HCl 50 MG Take 1 tablet by mouth once daily for 90 days Active LORazepam 0.5 MG 1 tab orally 2 times a day as needed for 30 days 02/10/2023 Active metOLazone 2.5 MG 1 tab(s) orally every other day prn for 30 day(s) Not-Taking Claritin 10 MG 1 tablet Orally Once a day for 30 day(s) 07/11/2023 Active predniSONE 20 MG 1 tab(s) orally once a day as directed Not-Taking Fluticasone Propionate 50 MCG/ACT 1 spray(s) in each nostril once a day Active Benzonatate 100 MG 1 cap(s) orally 3 times a day 05/13/2021 Not-Taking Prolia 60 MG/ML as directed subcutaneously every 6 months 06/11/2020 Active Zithromax Z-Blane 250 MG 2 pills first day then one daily for 4 days orally as directed for 5 days 06/10/2021 Not-Taking Mucinex DM 30-600 MG 1 tab(s) orally every 12 hours 06/10/2021 Not-Taking amLODIPine Besylate 5 MG 1 tab(s) orally once a day for 90 days Active Warfarin Sodium 5 MG Take 1 tablet by mouth once daily for 90 Active IMMUNIZATIONS Vaccine Route Administration Date Status Comme nts COVID 19 Moderna Unknown 11/03/2020 Administered COVID 19 Moderna Unknown 12/01/2020 Administered COVID 19 Moderna Unknown 06/08/2021 Administered Fluzone High Dose (65yr and older) IM Intramuscular 03/21/2013 Administered Fluzone High Dose (65yr and older) IM Intramuscular 03/15/2014 Administered Fluzone High Dose (65yr and older) IM Intramuscular 03/28/2015 Administered Fluzone High Dose (65yr and older) IM Intramuscular 03/09/2016 Administered Fluzone High Dose (65yr and older) IM Intramuscular 02/16/2017 Administered Fluzone High Dose (65yr and older) IM Intramuscular 04/19/2018 Administered Fluzone High Dose (65yr and older) IM Intramuscular 03/20/2019 Administered Fluzone High Dose (65yr and older) IM Intramuscular 03/04/2020 Administered Fluzone High Dose (65yr and older) IM Intramuscular 03/25/2021 Administered Fluzone High Dose (65yr and older) IM Intramuscular 03/10/2022 Administered Fluzone High Dose (65yr and older) IM Intramuscular 04/05/2023 Administered PNEUMOVAX 23 VACCINE IM Intramuscular 09/27/2016 Administe red Prevnar (PCV13) IM Intramuscular 09/04/2014 Administered Prevnar (PCV20) IM Intramuscular 06/16/2022 Administered Tetanus Tdap-Adacel (over 7yrs) IM Intramuscular 08/24/2017 Administered xFlu shot-36 months and older IM Intramuscular 05/13/2011 Administered vFnzeohy-ireeatszj-xiisybl e pts. IM Intramuscular 03/31/2012 Administered SOCIAL HISTORY Sex Assigned At : Social History Observation Description Sex Assigned At Unknown PROBLEMS Problem Type ICD Code Onset Dates Problem Status W/U Status Risk SNOMED Code Notes Problem Vitamin D deficiency (E55.9) Active confirmed 56007181 Problem History of DVT (deep vein thrombosis) (Z86.718) Active confirmed History of DVT (deep vein thrombosis) (671621105) Problem Essential hypertension (I10) Active confirmed 47557082 Problem Hyperuricemia (E79.0) Active confirmed 64697677 Problem Chronic kidney disease, stage 3 (N18.3) Active confirmed 593871873 Problem Generalized anxiety disorder (F41.1) Active confirmed 78078721 Problem Other chronic pain (G89.29) Active confirmed 73953518 Problem Other secondary kyphosis, 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) Active confirmed 557263099 Problem [facility] (current) use of anticoagulants (Z79.01) Active confirmed 905686424 Problem Acquired hypothyroidism (E03.9) Active confirmed 713324867 Problem Renal insufficiency (N28.9) Active confirmed Renal insufficiency (219940126) Problem Depression (F32.9) Active confirmed Dep ression (258064652) Problem Allergic rhinitis (J30.9) Active confirmed Allergic rhinitis (51538359) Problem Vaginal bleeding (N93.9) Active confirmed Vaginal bleedin g (997057937) Problem BMI 37.0-37.9, adult (Z68.37) Active confirmed Obese class I I (019428593530646 ) Problem Cardiac dysrhythmia, unspecified (I49.9) Active confirmed 152711801 Problem Interstitial lung disease (J84.9) Active confirmed Interstitial lung disease (723465429) Problem History of factor V Leiden mutation (Z86.2) Active confirmed Factor V Leiden mutation (disorder) (573801625) Problem Non-seasonal allergic rhinitis, unspecified allergic rhinitis trigger (J30.89) Active confirmed 42500130 Problem Seasonal allergic rhinitis, unspecified trigger (J30.2) Active confirmed 626407170 Problem Abnormal CXR (R93.89) Active confirmed Problem 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) Active confirmed 0541812538 Problem Primary hypertension (I10) Active confirmed 30676904 VITAL SIGNS Heart Rate 62 /min 04/23/2024 Blood pressure diastolic 70 mm Hg 04/23/2024 Height 00 in 04/23/2024 Blood pressure systolic 122 mm Hg 04/23/2024 Weight 230.6 lbs 04/23/2024 Encounters Encounter Location Date Provider Diagnosis [facility] [facility] [address] [place] [id number] 06/13/2023 Domi Fernández [facility] current us e of opiate analgesic Z79.891 ; Generalized anxiety disorder F41.1 ; Acquired hypothyroidism E03.9 ; 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 (current) use of anticoagulants Z79.01 ; Depression, unspecified depression type F32.A ; Other chronic pain G89.29 and Renal insufficiency N28.9 [facility] [facility] [address] [place], [place] [id number] 07/11/2023 Tracyray Cano Allergic rhinitis J3 0.9 ; History of DVT (deep vein thrombosis) Z86.718 ; Generalized anxiety disorder F41.1 ; Essential hypertension I10 ; Depression F32.9 and Sleep disorder 780.50 [facility] [address] [place], [place] [id number] 04/23/2024 Domi Fernández Cardiac dysrhythmia, unspecified I49.9 ; Primary hypertension I10 ; Interstitial lung disease J84.9 ; Renal insufficiency N28.9 ; Acquired hypothyroidism E03.9 ; History of DVT (deep vein thrombosis) Z86.718 ; History of factor V Leiden mutation Z86.2 ; [facility] (current) use of anticoagulants Z79.01 ; Hyperuricemia E79.0 and Other chronic pain G89.29 [facility] [address] [place], [place] [id number] 05/03/2023 Domi Fernández Other chronic pain G89.29 [facility] [address] [place], [place] [id number] 05/11/2023 Domi Fernández [facility] [address] [place] [id number] 06/21/2023 Domi Fernández [facility] [address] [place], [place] [id number] 07/19/2023 Domi Fernández Other chronic pain G89.29 [facility] [address] [place], [place] [id number] 08/24/2023 Domi Fernández Osteopenia, unspecif ied location M85.80 [facility] [address] [place] [id number] 08/26/2023 Domi Fernández Other chronic pain G89.29 [facility] [address] [place] [id number] 09/29/2023 Domi Fernández Other chronic pain G89.29 [facility] [address] [place], [place] [id number] 11/02/2023 Domi Fernández Other chronic pain G89.29 [facility] [address] [place], [place] [id number] 12/28/2023 Domi Fernández Other chronic pain G89.29 [facility] [address] [place], [place] [id number] 03/15/2024 Bryan Sukhwinder Cornelius Other chronic pain G89.29 ASSESSMENTS Encounter Date Diagnosis Assessment Notes Treatment Notes Treatment Clinical Notes 07/11/2023 History of DVT (deep vein thrombosis) (ICD-10 - Z86.718) 07/11/2023 Allergic rhinitis (ICD-10 - J30.9) reviewed how to administer nasal spray 07/19/2023 Other chronic pain (ICD-10 - G89.29) 08/24/2023 Osteopenia, unspecified location (ICD-10 - M85.80) 08/26/2023 Other chronic pain (ICD-10 - G89.29) 11/02/2023 Other chronic pain (ICD-10 - G89.29) 03/15/2024 Other chronic pain (ICD-10 - G89.29) 04/23/2024 Cardiac dysrhythmia, unspecified (ICD-10 - I49.9) 04/23/2024 Primary hypertension (ICD-10 - I10) 09/29/2023 Other chronic pain (ICD-10 - G89.29) 12/28/2023 Other chronic pain (ICD-10 - G89.29) 06/13/2023 Generalized anxiety disorder (ICD-10 - F41.1) 06/13/2023 [facility] current us e of opiate analgesic (ICD-10 - Z79.891) 05/03/2023 Other chronic pain (ICD-10 - G89.29) 06/13/2023 Acquired hypothyroidism (ICD-10 - E03.9) 04/23/2024 Interstitial lung disease (ICD-10 - J84.9) 07/11/2023 Generalized anxiety disorder (ICD-10 - F41.1) 07/11/2023 Essential hypertension (ICD-10 - I10) 04/23/2024 Renal insufficiency (ICD-10 - N28.9) 06/13/2023 [facility] (current) use of anticoagulants (ICD-10 - Z79.01) 06/13/2023 Depression, unspecified depression type (ICD-10 - F32.A) 04/23/2024 Acquired hypothyroidism (ICD-10 - E03.9) 07/11/2023 Depression (ICD-10 - F32.9) 07/11/2023 Sleep disorder (ICD-10 - 780.50) will increase Trazodone to 150mg from 100mg; reviewed sleep hygiene 04/23/2024 History of DVT (deep vein thrombosis) (ICD-10 - Z86.718) 06/13/2023 Other chronic pain (ICD-10 - G89.29) 06/13/2023 Renal insufficiency (ICD-10 - N28.9) 04/23/2024 History of factor V Leiden mutation (ICD-10 - Z86.2) 04/23/2024 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 (current) use of anticoagulants (ICD-10 - Z79.01) 04/23/2024 Hyperuricemia (ICD-1 0 - E79.0) 04/23/2024 Other chronic pain (ICD-10 - G89.29) PLAN OF TREATMENT Pending Test Test Name Order Date EKG 04/23/2024 Cologuard 01/13/2023 P-CBC with Diff plus Absolute Counts P-Comprehensive Metabolic Panel (CMP) P-TSH 04/23/2024 Next Appt Details Provider Name:Domi Tylerjohnson Watters er, 07/23/2024 10:45:00 AM, [address], [address], [place], [place], [id number], Insurance Providers Payer Name Payer Address Payer Phone Subscriber Number Group Number Insured Name Patient Relationship to Insured Coverage Start Date Coverage End Date MEDICARE PART B [address] [address] [place] [id number] KRISTOPHER PAYAN Self - patient is the insured MEDICATIONS ADMINISTERED Medication Instructions Date of Administration Dosage Notes celestone 12/04/2007 1 cm3 Depo- Medrol 40 mg/ml 10/26/2008 1.5 mL Dexamethasone 11/15/2006 1 cm3 MEDICAL (GENERAL) HISTORY Medical History History ICD Code HBP Hypothyroidism Fibrous SGV DVT Anemia O.A. Gout back pain Anxiety disorder Leiden F5 disorder normal mammogram and PAP 04/2012 Covid - Jul 08, 2020 - Covid Pneumonia Moderna Covid Vaccine x1 Flu and COVID 19 Booster February 2024 Surgical History Surgery Date(Month/Year) bilateral knee replacement 2001 left hip replacement 2003 tubal ligation hip replacement 2006 Gallbladder removed 12/27/11 D&C, Dr. Grijalva, polyp removal May 20 Hospitalization History Reason Date(Month/Year) hip replacement 2006 [facility] Diverticulitis 12-04-11 [facility] ER-dehydration, pneumonia 12/28/11 [facility] ER-pneumonia 07/05-07/16/16 [facility] - Covid Pneumonia Jun 2020 [facility] - Hypotension with Hyovolemia, Pneum onia 10/09-
--- NOTE | 2024-04-23 17:11 | ECG_ITS ---
APPROVED REPORT Exam: Resting ECG HR:104 bpm ECG Measurements Heart Rate 104 AXES QRSd 117 QRS -2 QT 369 T -5 QTc 430 Conclusion ATRIAL FIBRILLATION WITH RAPID VENTRICULAR RESPONSE POSSIBLE LATERAL MYOCARDIAL INFARCTION , PROBABLY OLD [30 ms Q WAVE IN I/aVL/V5/V6] ABNORMAL RHYTHM ECG UNCONFIRMED REPORT Electronically signed by : Kirk Becerra MD 04/24/2024 15:53:23
== END 2024-04-23 23:59 | disposition home or self-care (01) ==
LOC: RT 17:02
PROVIDERS: PCP Family Medicine; Visit Provider Family Medicine
DX: I49.9 Cardiac arrhythmia, unspecified (principal)
CPT/HCPCS: 93005

== ENCOUNTER 2024-04-26 08:57 | Outpatient (CLI) | payer MEDICARE, SELFPAY ==
[2024-04-26 14:28] LABS: PHA INR Fingerstick 2.7 (0.9-1.1)
== END 2024-04-26 14:31 ==
LOC: ACC 08:58
PROVIDERS: PCP Family Medicine; Visit Provider Physician Assistant
DX: Z79.01 Long term (current) use of anticoagulants (principal); I48.91 Unspecified atrial fibrillation
CPT/HCPCS: 85610; 99211; G0463

== ENCOUNTER 2024-05-10 06:42 | Outpatient (CLI) | payer MEDICARE, SELFPAY ==
[2024-05-10] MEDS: REGADENOSON 0.4MG/5ML SYRINGE 0.4 MG IV (09:30)
[2024-05-10] MEDS: ISOTOPE MYOVIEW (PER STUDY) 1 DOSE IV (09:30)
[2024-05-10] MEDS: SODIUM CHLORIDE 0.9% 10ML SYR (RAD ONLY) 10 ML IV ×2 (09:30)
== END 2024-05-10 23:59 | disposition home or self-care (01) ==
LOC: RAD 06:43
PROVIDERS: PCP Family Medicine; Visit Provider Nurse Practitioner Family
DX: R94.31 Abnormal electrocardiogram [ECG] [EKG] (principal); R06.00 Dyspnea, unspecified; I48.91 Unspecified atrial fibrillation
CPT/HCPCS: 78452; 93017; 93018; 93306; A9502; J2785

== ENCOUNTER 2024-05-22 10:43 | Outpatient (CLI) | payer MEDICARE, SELFPAY ==
[2024-05-22 11:18] LABS: Basophils % 0.5 % (0.1-2.0); Eosinophils # 0.1 K/mm3 (0.0-0.4); Eosinophils % 1.2 % (0.1-12.0); Hematocrit 39.5 % (37.0-47.0); Hemoglobin 13.3 g/dL (12.2-16.2); Lymphocytes # 1.7 K/mm3 (0.7-4.5); Lymphocytes % 23.9 % (10-50); Mean Corpuscular HGB Conc 33.7 g/dL (31.8-35.4); Mean Corpuscular Hemoglobin 31.5 pg (27.0-31.2); Mean Corpuscular Volume 93.5 fl (81-99); Mean Platelet Volume 8.7 fl (7.4-10.4); Monocytes # 0.6 K/mm3 (0.1-1.0); Monocytes % 8.5 % (1.7-9.3); Neutrophils # 4.6 K/mm3 (1.8-7.8); Neutrophils % 65.8 % (37.0-80.0); Platelet Count 186 K/mm3 (142-424); Red Blood Count 4.22 M/mm3 (4.20-5.40); Red Cell Distribution Width 14.6 % (11.5-17.5)
[2024-05-22 11:44] LABS: Alanine Aminotransferase 12 U/L (12-78); Albumin Level 3.8 g/dl (3.5-5.0); Alkaline Phosphatase 62 U/L (38-126); Anion Gap 11.5 mEq/L (5-15); Aspartate Amino Transferase 19 U/L (14-36); Bilirubin,Direct 0.4 mg/dl (0.0-0.4); Bilirubin,Indirect 0.3 mg/dL (0.0-0.9); Bilirubin,Total 0.7 mg/dl (0.2-1.3); Bilirubin,Unconjugated 0.3 mg/dL (0.0-1.1); Blood Urea Nitrogen 27 mg/dl (7-17); Calcium 9.4 mg/dl (8.4-10.2); Carbon Dioxide 28 mmol/L (22.0-30.0); Chloride 105 mmol/L (98-107); Chol/HDL Ratio 3.5 (1-3.5); Cholesterol 185 mg/dl (140-200); Estimated Glomerular Filt Rate 26 ml/min (>60); GFR (African American) 31 ML/MIN (>60); Glucose 92 mg/dl (74-100); HDL Cholesterol 53 mg/dl (40-60); Potassium 4.5 mmoL/L (3.5-5.1); Sodium 140 mmol/L (136-145); Total Protein,Serum 6.3 g/dl (6.3-8.2); Triglycerides 91 mg/dl (30-150); VLDL Cholesterol 18 mg/dL (0-40)
[2024-05-22 11:56] LABS: Direct LDL Cholesterol 95.05 mg/dL (100-129)
[2024-05-22 12:14] LABS: Thyroid Stimulating Hormone < 0.02 uIU/mL (0.465-4.68)
== END 2024-05-22 23:59 | disposition home or self-care (01) ==
LOC: LAB 10:45
PROVIDERS: PCP Family Medicine; Visit Provider Nurse Practitioner Family
DX: I10 Essential (primary) hypertension (principal); R94.39 Abnormal result of other cardiovascular function study; R53.83 Other fatigue; R94.31 Abnormal electrocardiogram [ECG] [EKG]; E03.9 Hypothyroidism, unspecified; R06.00 Dyspnea, unspecified
CPT/HCPCS: 36415; 80048; 80061; 80076; 84439; 84443; 85025

== ENCOUNTER 2024-05-28 08:06 | Day surgery (SDC) | payer MEDICARE, SELFPAY ==
[2024-05-28] VITALS (10 sets, daily range): BP systolic 121–158; BP diastolic 63–90; PULSE 65–107; RESP 16–20; O2SAT 91–97; BMI 35.4
--- NOTE | 2024-05-28 07:20 | IR_ITS ---
APPROVED REPORT Patient Location: Outpatient Medical Lab Tech Instructor: Mil Acosta, RT (R) PROCEDURES Left heart catheterization Selective coronary angiogram INDICATION Abnormal Myoview Informed consent was obtained prior to the procedure. COMPLICATIONS NONE Estimated Blood Loss: LESS THAN 10 ML TECHNIQUE One percent lidocaine used to anesthetize the right anterior aspect of the wrist. The right radial artery was accessed via the Seldinger technique. A 6 Lebanese sheath was placed in the right radial artery. 2.5 mg of Verapamil, 800 mcg of nitroglycerin, 1mg Lidocaine and 5000 U Heparin were given through the arterial sheath. The 6 Lebanese JL 3 catheter was also used to perform left heart catheterization and selective coronary angiogram. At the end of the procedure the sheath was removed good hemostasis was achieved using Traclet band, patient was transferred to the postop holding area in stable condition. ANGIOGRAPHIC RESULTS The left main artery Normal The left anterior descending artery Normal The circumflex artery Dominant normal The right coronary artery Vestigial normal The DRISCOLL ventriculogram reveals Not performed due to renal failure The left ventricular end-diastolic pressure 22 mmHg IMPRESSION Normal coronary arteries Elevated LVEDP Renal dysfunction PLAN 1. Consider cardiac MRI looking for other etiologies of cardiac abnormalities such as amyloidosis Electronically signed by : Ramakrishna Anhtony MD 05/28/2024 10:41:08
[2024-05-28 08:47] LABS: Basophils # 0.1 K/mm3 (0-0.2); Basophils % 1.2 % (0.1-2.0); Eosinophils # 0.1 K/mm3 (0.0-0.4); Eosinophils % 0.9 % (0.1-12.0); Hematocrit 43.2 % (37.0-47.0); Hemoglobin 14.3 g/dL (12.2-16.2); Lymphocytes # 1.9 K/mm3 (0.7-4.5); Lymphocytes % 31.9 % (10-50); Mean Corpuscular HGB Conc 33.1 g/dL (31.8-35.4); Mean Corpuscular Hemoglobin 31.3 pg (27.0-31.2); Mean Corpuscular Volume 94.4 fl (81-99); Mean Platelet Volume 9.3 fl (7.4-10.4); Monocytes # 0.4 K/mm3 (0.1-1.0); Monocytes % 6.4 % (1.7-9.3); Neutrophils # 3.6 K/mm3 (1.8-7.8); Neutrophils % 59.7 % (37.0-80.0); Platelet Count 205 K/mm3 (142-424); Red Blood Count 4.58 M/mm3 (4.20-5.40); Red Cell Distribution Width 14.6 % (11.5-17.5); White Blood Count 6.1 K/mm3 (4.8-10.8)
[2024-05-28 08:49] LABS: Chloride 107 mmol/L (98-107)
[2024-05-28 08:50] LABS: Potassium 3.5 mmoL/L (3.5-5.1); Sodium 141 mmol/L (136-145)
[2024-05-28 08:52] LABS: Blood Urea Nitrogen 26 mg/dl (7-17); Creatinine Clearance Estimated 41 mL/min (50-200); Estimated Glomerular Filt Rate 26 ml/min (>60); GFR (African American) 31 ML/MIN (>60)
[2024-05-28 08:53] LABS: Anion Gap 12.5 mEq/L (5-15); Calcium 8.8 mg/dl (8.4-10.2); Carbon Dioxide 25 mmol/L (22.0-30.0); Glucose 95 mg/dl (74-100); INR 1.74 (0.9-1.1); Prothrombin Time 18.4 seconds (10.1-12.5)
[2024-05-28] MEDS: VERAPAMIL 2.5MG/ML 2ML VIAL 2.5 MG IV (10:07)
[2024-05-28] MEDS: NITROGLYCERIN 800MCG/8ML SYR (CATH LAB) 800 MCG IA (10:07)
[2024-05-28] MEDS: diphenhydrAMINE 50MG/ML VIAL 50 MG IV (10:07)
[2024-05-28] MEDS: HEPARIN 1,000 UNITS/ML 10ML VIAL (CATH LAB) 10000 UNIT IV (10:07)
[2024-05-28] MEDS: MIDAZOLAM HCL 1MG/ML 5ML VIAL 1 MG IV (10:08)
[2024-05-28] MEDS: HEPARIN 1,000 UNITS/500ML NS (CATH LAB) 3000 UNIT IV (10:08)
[2024-05-28] MEDS: 0.9 % SODIUM CHLORIDE 500 ML 25 ML IV (10:08)
[2024-05-28] MEDS: FENTANYL 100MCG/2ML VIAL 50 MCG IV (10:08)
== END 2024-05-28 13:22 | disposition home or self-care (01) ==
PROVIDERS: PCP Family Medicine; Visit Provider Internal Medicine
DX: I20.89 Other forms of angina pectoris (principal); I10 Essential (primary) hypertension; R94.39 Abnormal result of other cardiovascular function study; I48.91 Unspecified atrial fibrillation; R53.83 Other fatigue; R94.31 Abnormal electrocardiogram [ECG] [EKG]; E03.9 Hypothyroidism, unspecified; R06.00 Dyspnea, unspecified; Z79.899 Other long term (current) drug therapy; Z79.01 Long term (current) use of anticoagulants; Z86.718 Personal history of other venous thrombosis and embolism
CPT/HCPCS: 80048; 85025; 85610; 93458; 99152; C1725; C1769; J1200; J1644; J2250; J3010

== ENCOUNTER 2024-06-05 09:44 | Outpatient (CLI) | payer MEDICARE, SELFPAY ==
[2024-06-05 10:30] VITALS: PULSE 72; PULSE 76
[2024-06-05] MEDS: ALBUTEROL 0.083% 2.5 MG/3 ML NEB IH (10:30)
== END 2024-06-05 23:59 | disposition home or self-care (01) ==
LOC: RT 09:45
PROVIDERS: PCP Family Medicine; Visit Provider Internal Medicine Pulmonary Disease
DX: R06.09 Other forms of dyspnea (principal); J44.9 Chronic obstructive pulmonary disease, unspecified
CPT/HCPCS: 94060; 94640; 94726; 94729; J7613

== ENCOUNTER 2024-06-07 08:42 | Outpatient (CLI) | payer MEDICARE, SELFPAY ==
[2024-06-07 12:44] LABS: PHA INR Fingerstick 3.3 (0.9-1.1)
== END 2024-06-07 12:47 ==
LOC: ACC 08:43
PROVIDERS: PCP Family Medicine; Visit Provider Physician Assistant
DX: Z79.01 Long term (current) use of anticoagulants (principal); Z86.718 Personal history of other venous thrombosis and embolism; D68.51 Activated protein C resistance
CPT/HCPCS: 85610; 99211; G0463

== ENCOUNTER 2024-07-05 08:35 | Outpatient (CLI) | payer MEDICARE, SELFPAY ==
[2024-07-05 08:53] LABS: Microscopic, Urine URINE MICROSCOPIC (MICROSCOPIC)
[2024-07-05 09:19] LABS: Hematocrit 40.2 % (37.0-47.0); Hemoglobin 13.1 g/dL (12.2-16.2); Mean Corpuscular HGB Conc 32.6 g/dL (31.8-35.4); Mean Corpuscular Hemoglobin 30.5 pg (27.0-31.2); Mean Corpuscular Volume 93.7 fl (81-99); Platelet Count 153 K/mm3 (142-424); Red Blood Count 4.29 M/mm3 (4.20-5.40); White Blood Count 6.4 K/mm3 (4.8-10.8)
[2024-07-05 10:15] LABS: Albumin Level 4.2 g/dl (3.5-5.0); Anion Gap 13.5 mEq/L (5-15); Blood Urea Nitrogen 30 mg/dl (7-17); Calcium 9.6 mg/dl (8.4-10.2); Carbon Dioxide 25 mmol/L (22.0-30.0); Chloride 105 mmol/L (98-107); Estimated Glomerular Filt Rate 27 ml/min (>60); GFR (African American) 33 ML/MIN (>60); Glucose 90 mg/dl (74-100); Phosphorous 2.7 mg/dl (2.5-4.5); Potassium 4.5 mmoL/L (3.5-5.1); Sodium 139 mmol/L (136-145)
[2024-07-05 10:28] LABS: Intact Parathyroid Hormone 46.2 pg/mL (7.5-53.5)
[2024-07-05 10:32] LABS: 25-OH Vitamin D, Total 60.4 ng/mL (30-100)
[2024-07-05 11:45] LABS: Appearance,Urine CLEAR (Clear); Bilirubin,Urine Negative (Negative); Blood, Urine 2+ (Negative); Color,Urine YELLOW (Yellow); Glucose,Urine (UA) Negative (Negative); Ketones,Urine Negative (Negative); Leukocyte Esterase,Urine 2+ (Negative); Nitrate,Urine Negative (Negative); Protein,Urine TRACE (Negative); Specific Gravity, Urine 1.025 (1.005-1.030); Urobilinogen,Urine 0.2 EU/dl (0.2)
[2024-07-05 11:50] LABS: PHA INR Fingerstick 1.8 (0.9-1.1)
[2024-07-05 12:07] LABS: Creatinine,Urine Random 123 mg/dL (Not Estab.)
[2024-07-05 12:31] LABS: Bacteria,Urine 3+ /lpf
[2024-07-10 19:23] LABS: Osteocalcin 5.8 ng/mL (5.0-29.5)
[2024-07-12 17:47] LABS: C-Telopeptide Serum 126 pg/mL (.)
== END 2024-07-05 12:09 ==
LOC: ACC 08:36
PROVIDERS: Nurse Practitioner; PCP Family Medicine; Visit Provider Physician Assistant
DX: N18.32 Chronic kidney disease, stage 3b (principal); M81.0 Age-related osteoporosis without current pathological fracture; Z79.01 Long term (current) use of anticoagulants; Z86.718 Personal history of other venous thrombosis and embolism
CPT/HCPCS: 36415; 80069; 81001; 82306; 82523; 82570; 83937; 83970; 84156; 85027; 85610; 87086; 87088; 87186; 99211; G0463

== ENCOUNTER 2024-08-23 08:22 | Outpatient (CLI) | payer MEDICARE, SELFPAY ==
[2024-08-23 11:56] LABS: PHA INR Fingerstick 1.5 (0.9-1.1)
== END 2024-08-23 12:03 ==
LOC: ACC 08:23
PROVIDERS: PCP Family Medicine; Visit Provider Physician Assistant
DX: Z79.01 Long term (current) use of anticoagulants (principal); I48.91 Unspecified atrial fibrillation
CPT/HCPCS: 85610; 99211; G0463

== ENCOUNTER 2024-08-30 12:32 | Outpatient (CLI) | payer MEDICARE, SELFPAY ==
[2024-08-30] MEDS: ALBUTEROL 0.083% 2.5 MG/3 ML NEB IH (13:03)
== END 2024-08-30 23:59 | disposition home or self-care (01) ==
LOC: RT 12:32
PROVIDERS: PCP Family Medicine; Visit Provider Internal Medicine Pulmonary Disease
DX: R06.09 Other forms of dyspnea (principal); J98.4 Other disorders of lung; J45.40 Moderate persistent asthma, uncomplicated; J84.9 Interstitial pulmonary disease, unspecified; T17.908S Unspecified foreign body in respiratory tract, part unspecified causing other injury, sequela
CPT/HCPCS: 94010; 94618; J7613

== ENCOUNTER 2024-09-20 08:45 | Outpatient (CLI) | payer MEDICARE, SELFPAY | END 2024-09-20 13:18 | LOC: ACC 08:46 | PROVIDERS: PCP Family Medicine; Visit Provider Physician Assistant | DX: Z79.01 Long term (current) use of anticoagulants (principal); Z86.718 Personal history of other venous thrombosis and embolism | CPT/HCPCS: 85610; 99211; G0463 ==

== ENCOUNTER 2024-11-08 08:41 | Outpatient (CLI) | payer MEDICARE, SELFPAY ==
--- OUTSIDE RECORDS SUMMARY | 2024-11-08 08:44 | XMS_ITS ---
Author Organization Unknown [facility]MENT [facility] Start Date Provider Encounter for Check-up [id number] [facility]
[2024-11-08 09:04] LABS: PHA INR Fingerstick 2.8 (0.9-1.1)
== END 2024-11-08 09:06 ==
LOC: ACC 08:42
PROVIDERS: PCP Family Medicine; Visit Provider Physician Assistant
DX: Z79.01 Long term (current) use of anticoagulants (principal); Z86.718 Personal history of other venous thrombosis and embolism
CPT/HCPCS: 85610; 99211; G0463

== ENCOUNTER 2024-12-14 08:52 | Outpatient (CLI) | payer MEDICARE, SELFPAY ==
--- OUTSIDE RECORDS SUMMARY | 2024-07-23 06:45 | XMS_ITS ---
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 Name Role Phone Domi Fernández Primary Care [...] orally once a day for 90 days Not-Taking traZODone HCl 150 MG TAKE 1 TABLET BY MOUTH ONCE DAILY AT BEDTIME for 90 Active predniSONE 20 MG 1 tab(s) orally once a day as directed Not-Taking metOLazone 2.5 MG 1 tab(s) orally every other day prn for 30 day(s) Not-Taking Warfarin Sodium 5 MG Take 1 tablet by mouth once daily for 90 2.5 Mon and Fri.5 mg aod Active Allopurinol 100 MG 1 tab(s) orally once a day for 90 days Active Sertraline HCl 50 MG Take 1 tablet by mouth once daily for 90 days Active HYDROcodone-Acetamin ophen 5-325 MG 1 tab(s) orally Two times a day as needed 07/09/2024 Active Levothyroxine Sodium 100 MCG 1 tab(s) Orally once a day for 30 day(s) Active Fluticasone Propionate 50 MCG/ACT 1 spray(s) in each nostril once a day Active Multivitamin 1 TAB ONCE A DAY *Please review and pick correct strength-formulat ion from [employer] options. If intended option is not shown, discontinue and re-order from Quick Search* Active ADVAIR 100/50 1 INHALATION BID *Please review for potential replacement for e-prescription and drug interaction check* Active Claritin 10 MG 1 tablet Orally Once a day for 30 day(s) 07/11/2023 Active Albuterol Sulfate HFA 108 (90 Base) MCG/ACT 2 puff(s) inhaled every 6 hours for 30 day(s) 10/14/2020 Active Vitamin D3 25 MCG (1000 UT) 1 capsule Orally Once a day for 30 day(s) Active Cartia XT 240 MG 1 capsule Orally Once a day for 30 day(s) Active Fish Oil 1000 MG 1 capsule Orally once a day Active Problems Problem Type SNOMED Code ICD Code Onset Dates Problem Status W/U Status Risk Notes Problem [id number] Chronic atrial fibrillation (I48.20) Active confirmed Problem [id number] Chronic kidney disease, unspecified CKD stage (N18.9) Active confirmed Vital Signs Blood pressure systolic 130 mm Hg 07/23/19 25 Blood pressure diastolic 76 mm Hg 025 Heart Rate 63 /min 07/23/2024 Height 00 in 07/23/2024 Weight 225.2 lbs 07/23/2024 Encounters Encounter Location Date Provider Diagnosis [facility] [address] [facility] [address] [place], [place] [id number] 07/23/2024 Domi Fernández Atrial fibrillation, unspecified type [...] 3 Months, Reason: Provider Name:Domi Watters er, 12/17/2024 10:45:00 AM, [address] [facility], [address] , [place], [place], [id number], Progress Notes * HILDA PAYANEDOB: [birth year] (79 yo F)Acc No.[id number]:07/23/2024 Progress Notes Patient: KRISTOPHER GONZALES Provider: Domi Fernández M.D. :1945 A ge:78 Y S ex:Female Date:07/23/2024 Address:[address] [place] [id number] Subjective: * Chief Complaints: * 1 . [...] Diagno stic Procedure: h ip replacement 2006, [facility] ER Diverticulitis 12-04-11, [facility] ER-dehydration, pneumonia 12/28/11, [facility] ER-pneumonia 07/05-07/16/16, [facility] ER - Covid Pneumonia Jun 2020, [facility] - Hypotension with Hyovolemia, Pneumonia [...] *Please review and pick correct strength-formulation from [employer] options. If intended option is [...] weight loss over past year (was 260#). HEENT: u nremarkable. Oral cavity: n o lesions, mucosa moist and WNL, no erythema. Neck: s upple, no lymphadenopathy. Chest: n ormal shape and expansion. Heart: i rregular rhythm, rate 96. Lungs: c lear to auscultation. Abdomen: obese, soft and nontender, no organomegaly or masses. Neurologic Exam: N o change in exam, walks using cane. Skin: n ormal, no rash. Extremities: M inimal leg edema. Assessment: * Assessment: [...] G 2211 Complex e/[place] [address] CBC WITH AUTO DIFF, 08839 VENIPUNCT, ROUTINE* * Follow Up: 3 Months * Billing Information: * Visit Code: 89705 Office Visit, Est Pt., Level 4. * Procedure Codes: G2211 Complex e/[place]. [address] CBC WITH AUTO DIFF. 58428 VENIPUNCT, ROUTINE*. * Electronic signature of Domi Fernández MD on 12/14/2024 at 08:56 AM EDT Sign off status: Pending * Provider: Domi Fernández M.D. Date: 0 07/23/2024 Generated for Sravan venegas/Anel/Lissetteitting on: 0 12/14/2024 08:56 AM EDT History and Physical Notes [...]
--- OUTSIDE RECORDS SUMMARY | 2024-10-22 07:45 | XMS_ITS ---
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 Name Role Phone Domi Fernández Primary Care Provider [phone] Allergies Allergen (clinical drug ingredient) Drug/Non Drug Allergy documented on EMR Reaction Allergy Type Onset Date Status Penicillin hives Drug Allergy Active Results Component Value Reference Range Notes P-Comprehensive Metabolic Pa federico (CMP) Reviewed date:10/31/2024 08:09:43 AM Interpretation:gluc 100, bun 28, Cr 1.99, gfr 25 Performing Lab: Notes/Report: Test performed by [email or web address] [address] [place] [address] , [address], [place] [address] Russell Hahn MD, Perch Machine Inspector CLIA: [id number] Sodium 142 135-145 mmol/L Potassium 4.0 3.5-5.3 [...] Interpretation:21.4 Performing Lab: Notes/Report: Test performed by [facility] [address] [place] [address] , [address], [place] [address] Russell Hahn MD, Perch Machine Inspector CLIA: [id number] TSH 21.40 0.43-5.25 mU/L REASON FOR VISIT 3 month ckup, Needs labs & mammogram Medications Medication SIG (Take, Route, Frequency, Duration) Notes Start Date End Date Status amLODIPine Besylate 5 MG 1 tab(s) orally once a day for 90 days Not-Taking Warfarin Sodium 5 MG Take 1 tablet by mouth once daily for 90 Active predniSONE 20 MG 1 tab(s) orally once a day as directed Not-Taking metOLazone 2.5 MG 1 tab(s) orally every other day prn for 30 day(s) Not-Taking HYDROcodone-Acetamin ophen 5-325 MG 1 tab(s) orally three times a day as needed for 30 days 10/22/2024 Active Sertraline HCl 50 MG Take 1 tablet by mouth once daily for 90 Active Fluticasone Propionate 50 MCG/ACT 1 spray(s) in each nostril once a day Active Levothyroxine Sodium 100 MCG Take 1 tablet by mouth once daily for 30 Active Allopurinol 100 MG Take 1 tablet by mouth once daily for 90 Active traZODone HCl 150 MG TAKE 1 TABLET BY MOUTH ONCE DAILY AT BEDTIME FOR 90 DAYS for 90 Active ADVAIR 100/50 1 INHALATION BID *Please review for potential replacement for e-prescription and drug interaction check* Active Cartia XT 240 MG 1 capsule Orally Once a day for 30 day(s) Active Albuterol Sulfate HFA 108 (90 Base) MCG/ACT 2 puff(s) inhaled every 6 hours for 30 day(s) 10/14/2020 Active Multivitamin 1 TAB ONCE A DAY *Please review and pick correct strength-formulat ion from [employer] options. If intended option is not shown, discontinue and re-order from Quick Search* Active Claritin 10 MG 1 tablet Orally Once a day for 30 day(s) 07/11/2023 Active Vitamin D3 25 MCG (1000 UT) 1 capsule Orally Once a day for 30 day(s) Active Fish Oil 1000 MG 1 capsule Orally once a day Active Problems Problem Type SNOMED Code ICD Code Onset Dates Problem Status W/U Status Risk Notes Problem [id number] Chronic pain syndrome (G89.4) Active confirmed Vital Signs Blood pressure systolic 110 mm Hg 10/23/19 25 Blood pressure diastolic 70 mm Hg 025 Heart Rate 106 /min 10/22/2024 Height 00 in 10/22/2024 Weight 220.0 lbs 10/22/2024 Encounters Encounter Location Date Provider Diagnosis [facility] [address] [facility] 36 [facility] [address] [place] [id number] 10/22/2024 Domi Fernández Acquired hypothyroid ism E03.9 ; half-way (current) use of anticoagulants Z79.01 ; Essential hypertension I10 ; Chronic atrial fibrillation I48.20 ; Chronic kidney disease, unspecified CKD stage N18.9 and Chronic pain syndrome G89.4 Assessments Encounter Date Diagnosis (ICD Code) Assessment Notes Treatment Notes Treatment Clinical Notes Section Notes 10/22/2024 Acquired hypothyroidism (ICD-10 - E03.9) 10/22/2024 half-way (current) use of anticoagulants (ICD-10 - Z79.01) 10/22/2024 Essential hypertension (ICD-10 - I10) 10/22/2024 Chronic atrial fibrillation (ICD-10 - I48.20) 10/22/2024 Chronic kidney disease, unspecified CKD stage (ICD-10 - N18.9) 10/22/2024 Chronic pain syndrome (ICD-10 - G89.4) Plan Of Treatment Medication Medication Name Sig Start Date Stop Date Notes HYDROcodone-Acetaminophen 5- 325 MG 1 tab(s) orally three times a day as needed for 30 days 10/22/2024 Next Appt Details Follow Up: 2 Months, Reason: Provider Name:Domi Watters er, 12/17/2024 10:45:00 AM, [address] [facility] 36 [facility], [address], [place], [id number], Progress Notes * JAVI PAYANOB: [birth year] (79 yo F)Acc No.[id number]:10/22/2024 Progress Notes Patient: S KRISTOPHER GRULLON Provider: Domi Fernández M.D. :1945 A ge:79 Y S ex:Female Date:10/22/2024 Address:[address] [place], [place] [id number] Subjective: * Chief Complaints: * 3 month ckupNeeds labs & mammogram * HPI: L ower back: The pt is here for a [...] Hospitalization/Major Diagno stic Procedure: h ip replacement 2006[facility] ER Diverticulitis 12-03-[facility] ER-dehydration, pneumonia 12/28/11[facility] ER-pneumonia 07/05-07/16/16[facility] ER - Covid Pneumonia Jun 2020[facility] - Hypotension with Hyovolemia, Pneumonia 10/09- * [...] *Please review and pick correct strength-formulation from [employer] options. If intended option is not shown, [...] *Please review and pick correct strength-formulation from [employer] options. If intended option is not shown, [...] Codes: G 2211 Complex e/m visit add [id number] SYST BP LT 130 MM [id number] DIAST BP < 80 MM HG * Follow Up: 2 Months * Images: Billing Information: * Visit Code: 92578 Office Visit, Est Pt., Level 3. * Procedure Codes: G2211 Complex e/m visit add on. 3074F SYST BP LT 130 MM HG. 3078F DIAST BP < 80 MM HG. * Sign off status: Completed Addendum: * true * Provider: Domi Fernández M.D. Date: 0 10/22/2024 Generated for Printi ng/Facristig/eTransmitting on: 0 12/14/2024 08:56 AM EDT History [...]
--- OUTSIDE RECORDS SUMMARY | 2024-12-14 08:56 | XMS_ITS | Clinical Summary ---
Author Organization [facility] Address [address] [place] [address] Care Team Providers Care Signal Tester Name Role Phone Fareed Fernández MD Primary Care Provider [phone] Allergies Active Allergy Reactions Criticality Noted Date Comments Penicillins Hives Medium 12/22/2017 Medications IPRATROPIUM BROMIDE IN 1 Active albuterol (2.5 MG/3ML) 0.083% nebulizer solution 1 Active levothyroxine (Synthroid, Levoxyl) 137 MCG tablet Take 100 mcg by mouth 1 (one) time each day. 8 Active denosumab (Prolia) 60 MG/ML injection 1 Active LORazepam (Ativan) 0.5 MG tablet TAKE TABLET PRN 1 Active allopurinol (Zyloprim) 100 MG tablet Take 1 tablet (100 mg) by mouth 1 (one) time each day. 2 Active HYDROcodone-mayte taminophen (Winlock) 5-325 MG tablet Take 1 tablet (5 mg of hydrocodone) by mouth 2 (two) times a day if needed. 2 Active loratadine (Claritin) 10 MG tablet 1 tablet (10 mg). 4 Active sertraline (Zoloft) 50 MG tablet 1 tablet (50 mg). 4 Active traZODone (Desyrel) 150 MG tablet 1 tablet (150 mg). 4 Active warfarin (Coumadin) 5 MG tablet Take 1 tablet (5 mg) by mouth 1 (one) time each day. Take as directed per After Visit Summary. Active Fluticasone Furoate-Vilante rol (Breo Ellipta) 100-25 MCG/ACT aerosol powder Inhale 1 puff 1 (one) time each day. Active dilTIAZem HCl ER 240 MG tablet sustained-relea se 24 hour Take 240 mg by mouth 1 (one) time each day. Active azelastine (Astelin) 0.1 % nasal spray Administer 1 spray into each nostril 2 (two) times a day. Use in each nostril as directed Active Active Problems Problem Noted Date Diagnosed Date MARIELY (acute kidney injury) 10/16/2020 Hypercalcemia 09/01/2020 CKD (chronic kidney disease) stage 3, GFR 30-59 ml/min 01/31/2018 Gout 01/31/2018 Hypertension 12/22/2017 Immunizations Immunization Administration Dates Next Due Influenza, High-dose, Split Virus, Trivalent, Injectable, preservative free 03/15/2024,03/04/2020,03/20/2019,04/19,02/16/2017 Influenza, high-dose, quadrivalent 03/10/2022, Pneumococcal 20-javi Conj Vaccine 06/16/2022 Pneumococcal Polysaccharide PPV23 09/27/2016 Tdap 08/24/2017 Family History Medical History Relation Name Comments Cardiac disorder Father Osteoporosis Father Diabetes Mother Osteoporosis Mother Relation Name Status Comments Father Mother Social History Tobacco Use Types Packs/Day Years Used Date Smoking Tobacco: Former Smokeless Tobacco: Never Tobacco Cessation:Counseling Given: Not Answered Alcohol Use Standard Drinks/Week Comments Yes 0 (1 standard drink = 0.6 oz pure alcohol) Alcoholic Drinks/day: Occasional alcohol use Comments Unknown Sex and Gender Information Value Date Recorded Sex Assigned at Not on file Legal Sex Female 6:52 PM EDT Gender Identity Not on file Sexual Orientation Not on file Last Filed Vital Signs Vital Sign Reading Time Taken Comments Blood Pressure 147/81 07/20/2024 11:01 AM EST Pulse 88 07/20/2024 11:01 AM EST Temperature - - Respiratory Rate 18 07/20/2024 11:01 AM EST Oxygen Saturation 96% 07/20/2024 11:01 AM EST Inhaled Oxygen Concentration - - Weight 102 kg (225 lb) 07/20/2024 11:01 AM EST Height 172.7 cm (5' 8 ) 07/20/2024 11:01 AM EST Body Mass Index 34.21 07/20/2024 11:01 AM EST Plan of Treatment Upcoming Encounters Date Type Department Care Team (Late st Contact Info) Description 12/21/2024 12:00 PM EDT Office Visit [facility] [address] [place] [id number] Lynn Harrington, VISCOSE CELLAR WORKER [address] [address] Health Maintenance Due Date Last Done Comments [facility]-Bone Density Scan 1945 [facility]-Depression Screening 1945 [facility]-Medicare Annual Wellness (AWV) 1945 [facility]-/Child/Adol SDOH Screenings 1945 [facility]- SDOH Screenings 1964 [facility]-Adult SDOH Screenings 1964 [facility]-Zoster Vaccines (1 of 2) 1996 [facility]-RSV Vaccine: 60+ Years or (1 - 1-dose 75+ series) 2021 [id number] Vaccine (2023- season) 2024 03/15/2024, 05/03/2023, 06/02/2022, Additional history exists [facility]-DTaP,Tdap,and Td Vaccines (2 - Td or Tdap) 08/24/2027 08/24/2017 [facility]-Hepatitis C Screening Completed 10/16/2020 [facility]-Pneumococcal Vaccine: 50+ Years Completed 06/16/2022, 09/27/2016 [facility]-Influenza Vaccine Completed 03/15/2024 , 03/10/2022, 03/25/2021, Additional history exists [facility]-Obesity Intervention Completed 07/20/2024 HPV Vaccines Aged Out No longer eligi ble based on patient's age to complete this topic [facility]-HIB Vaccines Aged Out No longer e ligible based on patient's age to complete this topic [facility]-Hepatitis A Vaccines Aged Out No longer eligible based on patient's age to complete this topic [facility]-IPV Vaccines Aged Out No longer e ligible based on patient's age to complete this topic [facility]-Rotavirus Vaccines Aged Out No lo nger eligible based on patient's age to complete this topic Procedures Procedure Name Priority Date/Time Associated Diagnosis Comments ACUTE HEPATITIS PANEL Routine 10/16/2020 11:35 AM EDT from Last 3 Months or Most Recently Relevant to Health Maintenance Results * Acute Hepatitis Panel (10/16/2020 11:35 AM EDT) Hepatitis B Surf Antigen NEGATIVE Reference Value: Negative [facility] Hepatitis C Antibody NEGATIVE Reference Range: Negative [facility] Hepatitis A Antibody IgM NEGATIVE Reference Value: Negative [facility] External Hepatitis B Core IgM (HBCM) NEGATIVE Reference Value: Negative [facility] 10/16/2020 11:3 5 AM EDT 10/16/2020 2:38 PM EDT us Nadir Lopez MD LAB BLOOD ORDERABLES Final Re sult [facility]QUEST from Last 3 Months or Most Recently Relevant to Health Maintenance Insurance MEDICARE Care Teams Signal Tester Relationship Specialty Start Date End Date Fareed Fernández MD [address] [place] [address] PCP - General 11/07/20
--- OUTSIDE RECORDS SUMMARY | 2024-12-14 08:56 | XMS_ITS | Patient Health Record ---
[facility] Address [address] [place] [id number] Care Team Providers Care Inclusion Specialist Name Role Phone Domi Fernández Primary Care Provider [phone] Bryan Cornelius [phone] Allergies Allergen (clinical drug ingredient) Drug/Non Drug Allergy documented on EMR Reaction Allergy Type Onset Date Status Penicillin hives Drug Allergy Active Results Component Value Reference Range Notes H-INR Reviewed date:06/07/2024 04:31:39 PM Interpretation: Performing Lab: Notes/Report: POCINRFS 3.3 0.9-1.1 Results sent to: Yael Farooq Pharmacist recommendation for Warfarin therapy is: PATIENT INR 3.3 TODAY VIA FINGERSTICK. RECOMMENDED PATIENT TAKE WARFARIN 2.5 MG X2 DAYS, THEN REDUCED WEEKLY DOSE BY 2.5 MG TO WARFARIN 2.5 MG ON MON/WED/TUE; 5 MG ON TUE/TUE/TUE/TUE. FOR DETAILED INFORMATION-PLEASE REVIEW PROGRESS NOTE IN THE ASSESSMENTS AND ANTICOAGULATION CLINIC SECTION ANTICOAGULATION CLINIC IN PCI/CLINICAL REVIEW INDICATION INR RANGE THERAPY FOR DVT, PE, ATRIAL FIB; 2.0 - 3.0 PROPHYLAXIS FOR VTE THERAPY FOR MECHANICAL HEART 2.5 - 3.5 VALVE; PREVENTION OF SYSTEMIC EMBOLISM SECONDARY TO AMI CBC Venipuncture (in house) Reviewed date:07/23/2024 12:07:33 [...] - 38 platlet 218 100 - 400 H-INR Reviewed date:11/09/2024 12:45:05 PM Interpretation: Performing Lab: Notes/Report: POCINRFS 2.8 0.9-1.1 ANTICOAGULATION CLINIC IN PCI/CLINICAL REVIEW INDICATION INR RANGE THERAPY FOR DVT, PE, ATRIAL FIB; 2.0 - 3.0 PROPHYLAXIS FOR VTE THERAPY FOR MECHANICAL HEART 2.5 - 3.5 VALVE; PREVENTION OF SYSTEMIC EMBOLISM SECONDARY TO AMI Results sent to: Yael Farooq Pharmacist recommendation for Warfarin therapy is: INR TODAY VIA FINGERSTICK IS 2.8. RECOMMEND PATIENT CONTINUE WEEKLY DOSE OF WARFARIN AT 2.5MG TUESDAY/TUESDAY AND 5MG ALL OTHER DAYS. PATIENT WILL F/U IN 6 WEEKS. FOR DETAILED INFORMATION-PLEASE REVIEW PROGRESS NOTE IN THE ASSESSMENTS AND ANTICOAGULATION CLINIC SECTION P-Comprehensive Metabolic Pa federico (CMP) Reviewed date:10/31/2024 08:09:43 AM Interpretation:gluc 100, bun 28, Cr 1.99, gfr 25 Performing Lab: Notes/Report: Test performed by [facility] [address] [place] [address] , [address], [place] [address] Russell Hahn MD, Tile Grinder CLIA: [id number] Sodium 142 135-145 mmol/L Potassium 4.0 3.5-5.3 [...] Interpretation:21.4 Performing Lab: Notes/Report: Test performed by [facility] [address] [place] [address] , [address], [place] [address] Russell Hahn MD, Tile Grinder CLIA: [id number] TSH 21.40 0.43-5.25 mU/L P-TSH Reviewed date:04/26/2024 10:19:34 AM Interpretation:Normal Performing Lab: Notes/Report: Test performed by [facility] [address] [place] [address] , [address], [place] [address] Russell Hahn MD, Tile Grinder CLIA: [id number] TSH 0.84 0.43-5.25 mU/L P-Comprehensive Metabolic Pa federico (CMP) Reviewed date:04/26/2024 10:19:34 AM Interpretation:co2- 20, bun 33, Cr 2.01, gfr 25 Performing Lab: Notes/Report: Test performed by [facility] [address] [place] [address] , [address], [place] [address] Russell Hahn MD, Tile Grinder CLIA: [id number] Sodium 142 135-145 mmol/L Potassium 4.3 3.5-5.3 [...] 0.3 <0.2-1.2 mg/dL A/G Ratio 1.7 1.1-2.5 P-CBC with Diff plus Absolut e Counts Reviewed date:04/26/2024 10:19:34 AM Interpretation:Normal Performing Lab: Notes/Report: Test performed by [facility] [facility] , [address], [place] [address] Russell Hahn MD, Tile Grinder IA: [id number] WBC 6.9 3.8-11.5 K/uL Red Blood Cell [...] Absolute Immature Granulocyte 0.02 0.00-0.03 K /uL EKG Reviewed date:04/26/2024 10:19:16 AM Interpretation: Performing Lab: Notes/Report: H-INR Reviewed date:03/16/2024 12:21:39 AM Interpretation: Performing [...] SYSTEMIC EMBOLISM SECONDARY TO AMI H-INR Reviewed date:04/26/2024 03:33:44 PM Interpretation: Performing Lab: Notes/Report: POCINRFS 2.7 0.9-1.1 Results sent to: Yael Farooq Pharmacist recommendation for Warfarin therapy is: PATIENT INR 2.7 TODAY VIA FINGERSTICK. RECOMMENDED PATIENT CONTINUE WITH WARFARIN 2.5 MG ON MON/FRI; 5 MG ON SUN/E/TUE/CARMEN/SAT FOR DETAILED INFORMATION-PLEASE REVIEW PROGRESS NOTE IN THE ASSESSMENTS AND ANTICOAGULATION CLINIC SECTION ANTICOAGULATION CLINIC IN PCI/CLINICAL REVIEW INDICATION INR RANGE THERAPY FOR DVT, PE, ATRIAL FIB; 2.0 - 3.0 PROPHYLAXIS FOR VTE THERAPY FOR MECHANICAL HEART 2.5 - 3.5 VALVE; PREVENTION OF SYSTEMIC EMBOLISM SECONDARY TO AMI H-INR Reviewed date:08/23/2024 01:19:52 PM Interpretation: Performing Lab: Notes/Report: POCINRFS 1.5 0.9-1.1 Results sent to: Yael Farooq Pharmacist recommendation for Warfarin therapy is: PATIENT INR 1.5 TODAY VIA FINGERSTICK. RECOMMENDED PATIENT TAKE EXTRA 2.5 MG TODAY AND TOMORROW. THEN RESUME 2.5 MG ON MON/FRI; 5 MG ON SUN/TUE/TUE/CARMEN/SAT. FOR DETAILED INFORMATION-PLEASE REVIEW PROGRESS NOTE IN THE ASSESSMENTS AND ANTICOAGULATION CLINIC SECTION ANTICOAGULATION CLINIC IN PCI/CLINICAL REVIEW INDICATION INR RANGE THERAPY FOR DVT, PE, ATRIAL FIB; 2.0 - 3.0 PROPHYLAXIS FOR VTE THERAPY FOR MECHANICAL HEART 2.5 - 3.5 VALVE; PREVENTION OF SYSTEMIC EMBOLISM SECONDARY TO AMI H-INR Reviewed date:07/05/2024 12:20:13 PM Interpretation: Performing Lab: Notes/Report: POCINRFS 1.8 0.9-1.1 Results sent to: Yael Farooq Pharmacist recommendation for Warfarin therapy is: PATIENT INR 1.8 TODAY VIA FINGERSTICK. RECOMMENDED INCREASING WEEKLY DOSE OF WARFARIN BY 2.5 MG TO WARFARIN 2.5 MG ON MON/FRI; 5 MG ON SUN/TUE/WED/CARMEN/SAT. FOR DETAILED INFORMATION-PLEASE REVIEW PROGRESS NOTE IN [...] 2.5 MG ON MON/FRI; 5 MG ON SUN/TUE/WED/CARMEN/SAT. FOR DETAILED INFORMATION-PLEASE REVIEW PROGRESS NOTE IN THE ASSESSMENTS AND ANTICOAGULATION CLINIC SECTION ANTICOAGULATION CLINIC IN PCI/CLINICAL REVIEW INDICATION INR RANGE THERAPY FOR DVT, PE, ATRIAL FIB; 2.0 - 3.0 PROPHYLAXIS FOR VTE THERAPY FOR MECHANICAL HEART 2.5 - 3.5 VALVE; PREVENTION OF SYSTEMIC EMBOLISM SECONDARY TO AMI H-INR Reviewed date:09/21/2024 01:51:04 PM Interpretation: Performing Lab: Notes/Report: POCINRFS 2.0 0.9-1.1 Results sent to: Yael Farooq Pharmacist recommendation for Warfarin therapy is: PATIENT INR 2.0 TODAY VIA FINGERSTICK. RECOMMENDED PATIENT CONTINUE WITH WARFARIN 2.5 MG ON MON/FRI; 5 MG ON SUN/TUE/WED/CARMEN/SAT. FOR DETAILED INFORMATION-PLEASE REVIEW PROGRESS NOTE IN [...] PREVENTION OF SYSTEMIC EMBOLISM SECONDARY TO AMI Medications Medication SIG (Take, Route, Frequency, Duration) Notes Start Date End Date Status HYDROcodone-Acetamin ophen 5-325 MG 1 tab(s) orally three times a day as needed for 30 days 11/27/2024 Active Sertraline HCl 50 MG Take 1 tablet by mouth once daily for 90 Active ADVAIR 100/50 1 INHALATION BID *Please review for potential replacement for e-prescription and drug interaction check* Active amLODIPine Besylate 5 MG 1 tab(s) orally once a day for 90 days Not-Taking Cartia XT 240 MG 1 capsule Orally Once a day for 30 day(s) Active Warfarin Sodium 5 MG Take 1 tablet by mouth once daily for 90 Active Albuterol Sulfate HFA 108 (90 Base) MCG/ACT 2 puff(s) inhaled every 6 hours for 30 day(s) 10/14/2020 Active predniSONE 20 MG 1 tab(s) orally once a day as directed Not-Taking Multivitamin 1 TAB ONCE A DAY *Please review and pick correct strength-formulat ion from [employer] options. If intended option is not shown, discontinue and re-order from Quick Search* Active metOLazone 2.5 MG 1 tab(s) orally every other day prn for 30 day(s) Not-Taking Fluticasone Propionate 50 MCG/ACT 1 spray(s) in each nostril once a day Active Claritin 10 MG 1 tablet Orally Once a day for 30 day(s) 07/11/2023 Active Levothyroxine Sodium 150 MCG 1 tablet in the morning on an empty stomach Orally Once a day for 30 days 10/31/2024 Active Vitamin D3 25 MCG (1000 UT) 1 capsule Orally Once a day for 30 day(s) Active Allopurinol 100 MG Take 1 tablet by mouth once daily for 90 Active traZODone HCl 150 MG TAKE 1 TABLET BY MOUTH ONCE DAILY AT BEDTIME FOR 90 DAYS for 90 Active Fish Oil 1000 MG 1 capsule Orally once a day Active Immunizations Vaccine Route Administration Date Status Comme nts [id number]-[id number] e pts. IM Intramuscular 03/31/2012 Administered xFlu shot-36 months and older IM Intramuscular 05/13/2011 Administered Tetanus Tdap-Adacel (over 7yrs) IM Intramuscular 08/24/2017 Administered Prevnar (PCV20) IM Intramuscular 06/16/2022 Administered Prevnar (PCV13) IM Intramuscular 09/04/2014 Administered PNEUMOVAX 23 VACCINE IM Intramuscular 09/27/2016 Administe red Fluzone High Dose (65yr and older) IM [...] (65yr and older) IM Intramuscular 04/05/2023 Administered COVID 19 Moderna Unknown 11/03/2020 Administered COVID 19 Moderna Unknown 12/01/2020 Administered COVID 19 Moderna Unknown 06/08/2021 Administered Problems Problem Type SNOMED Code ICD Code Onset Dates Problem Status W/U Status Risk Notes Problem 45387617 Vitamin D deficiency (E55.9) Active confirmed Problem History of DVT (deep vein thrombosis) (197042819) History of DVT (deep vein thrombosis) (Z86.718) Active confirmed Problem 60865698 Essential hypertension (I10) Active confirmed Problem 73225243 Hyperuricemia (E79.0) Active confirmed Problem 242710890 Chronic kidney disease, stage 3 (N18.3) Active confirmed Problem 71660564 Generalized anxiety disorder (F41.1) Active confirmed Problem 85844998 Other chronic pain (G89.29) Active confirmed Problem 144532549 Chronic pain syndrome (G89.4) Active confirmed Problem 869345720 Other secondary kyphosis, 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) Active confirmed Problem 646888295 longterm (current) use of anticoagulants (Z79.01) Active confirmed Problem 624571486 Acquired hypothyroidism (E03.9) Active confirmed Problem Renal insufficiency (984787503) Renal insufficiency (N28.9) Active confirmed Problem Depression (489273227) Depression (F32.9) Active confirmed Problem Allergic rhinitis (93416987) Allergic rhinitis (J30.9) Active confirmed Problem 49838380 Atrial fibrillation, unspecified type (I48.91) Active confirmed Problem Vaginal bleeding (615909027) Vaginal bleeding (N93.9) Active confirmed Problem Obese class II (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) BMI 37.0-37.9, adult (Z68.37) Active confirmed Problem 744747719 Cardiac dysrhythmia, unspecified (I49.9) Active confirmed Problem Interstitial lung disease (317472911) Interstitial lung disease (J84.9) Active confirmed Problem Factor V Leiden mutation (disorder) (525701120) History of factor V Leiden mutation (Z86.2) Active confirmed Problem 51647138 Non-seasonal allergic rhinitis, unspecified allergic rhinitis trigger (J30.89) Active confirmed Problem 363144122 Chronic kidney disease, unspecified CKD stage (N18.9) Active confirmed Problem 881699723 Seasonal allergi c rhinitis, unspecified trigger (J30.2) Active confirmed Problem Abnormal CXR (R93.89) Active confirmed Problem 172380401 Chronic atrial fibrillation (I48.20) Active confirmed Problem 7399192414 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) Active confirmed Problem 68401124 Primary hypertension (I10) Active confirmed Vital Signs Heart Rate 106 /min 10/22/2024 Blood pressure diastolic 70 mm Hg 10/22/2024 Height 00 in 10/22/2024 Blood pressure systolic 110 mm Hg 10/22/2024 Weight 220.0 lbs 10/22/2024 Encounters Encounter Location Date Provider Diagnosis [facility] [address] [place] [id number] 04/23/2024 Domi Fernández Cardiac dysrhythmia, unspecified I49.9 ; Atrial fibrillation, unspecified type I48.91 ; Primary hypertension I10 ; Interstitial lung disease J84.9 ; Renal insufficiency N28.9 ; Acquired hypothyroidism E03.9 ; History of DVT (deep vein thrombosis) Z86.718 ; History of factor V Leiden mutation Z86.2 ; 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20 ; Chronic kidney disease, unspecified CKD stage N18.9 and Chronic pain syndrome G89.4 [facility] [address] [facility] [address] [place], [place] [id number] 12/28/2023 Domi Fernández Other chronic pain G89.29 [facility] [address] [place], [place] [id number] 03/15/2024 Bryan Cornelius Other chronic pain G89.29 [facility] [address] [facility] [address] [place], [place] [id number] 04/26/2024 Domi Fernández Abnormal EKG R94.31 [facility] [address] [place], [place] [id number] 05/23/2024 Domi Fernández Acquired hypothyroid ism E03.9 [facility] [address] [place], [place] [id number] 05/30/2024 Domi Fernández Other chronic pain G89.29 [facility] [address] [facility] [address] [place], [place] [id number] 07/09/2024 Domi Fernández Other chronic pain G89.29 [facility] [address] [place] [id number] 08/13/2024 Domi Fernández Other chronic pain G89.29 [facility] [address] [place], [place] [id number] 09/10/2024 Domi Fernández Other chronic pain G89.29 [facility] [address] [facility] [address] [place], [place] [id number] 10/31/2024 Domi Fernández [facility] [address] [facility] [address] [place], [place] [id number] 11/26/2024 Domi Fernández Chronic pain syndrom e G89.4 Assessments Encounter Date Diagnosis (ICD Code) Assessment Notes Treatment Notes Treatment Clinical Notes Section Notes 12/28/2023 Other chronic pain (ICD-10 - G89.29) 03/15/2024 Other chronic pain (ICD-10 - G89.29) 04/23/2024 Atrial fibrillation, unspecified type (ICD-10 - I48.91) 04/23/2024 Cardiac dysrhythmia, unspecified (ICD-10 - I49.9) 04/26/2024 Abnormal EKG (ICD-10 - R94.31) 05/23/2024 Acquired hypothyroidism (ICD-10 - E03.9) 05/30/2024 Other chronic pain (ICD-10 - G89.29) 07/09/2024 Other chronic pain (ICD-10 - G89.29) 07/23/2024 Chronic kidney disease, stage 3 (ICD-10 - N18.3) 07/23/2024 Atrial fibrillation, unspecified type (ICD-10 - I48.91) 08/13/2024 Other chronic pain (ICD-10 - G89.29) 09/10/2024 Other chronic pain (ICD-10 - G89.29) 11/26/2024 Chronic pain syndrome (ICD-10 - G89.4) 10/22/2024 longterm (current) use of anticoagulants (ICD-10 - Z79.01) 10/22/2024 Acquired hypothyroidism (ICD-10 - E03.9) 10/22/2024 Essential hypertension (ICD-10 - I10) 04/23/2024 Primary hypertension (ICD-10 - I10) 07/23/2024 Chronic atrial fibrillation (ICD-10 - I48.20) 04/23/2024 Interstitial lung disease (ICD-10 - J84.9) 07/23/2024 Chronic kidney disease, unspecified CKD stage (ICD-10 - N18.9) 10/22/2024 Chronic atrial fibrillation (ICD-10 - I48.20) 10/22/2024 Chronic kidney disease, unspecified CKD stage (ICD-10 - N18.9) 04/23/2024 Renal insufficiency (ICD-10 - N28.9) 04/23/2024 Acquired hypothyroidism (ICD-10 - E03.9) 10/22/2024 Chronic pain syndrome (ICD-10 - G89.4) 04/23/2024 History of DVT (deep vein thrombosis) (ICD-10 - Z86.718) 04/23/2024 History of factor V Leiden mutation (ICD-10 - Z86.2) 04/23/2024 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 (ICD-10 - Z79.01) 04/23/2024 Hyperuricemia (ICD-10 - E79.0) 04/23/2024 Other chronic pain (ICD-10 - G89.29) Plan Of Treatment Pending Test Test Name Order Date Cologuard 01/13/2023 Next Appt Details Provider Name:Domi Watters , 12/17/2024 10:45:00 AM, [address] [facility], [address], [place], [place], [id number], Insurance Providers Payer Name Payer Address Payer Phone Subscriber Number Group Number Insured Name Patient Relationship to Insured Coverage Start Date Coverage End Date MEDICARE PART B [address] [address] [id number] KRISTOPHER PAYAN Self - patient is the insured Medications Administered Medication Instructions Date of Administration Dosage Notes celestone 12/04/2007 1 mL Depo- Medrol 40 mg/ml 10/26/2008 1.5 mL Dexamethasone 11/15/2006 1 mL Medical (General) History Medical History History ICD Code HBP Hypothyroidism [...] removal May 20 Hospitalization History Reason Date(Month/Year) [facility] - Hypotension with Hyovolemia, Pneum onia 10/09- [facility] ER - Covid Pneumonia Jun 2020 [facility] ER-pneumonia 07/05-07/16/16 [facility] ER-dehydration, pneumonia 12/28/11 [facility] ER Diverticulitis 12-04-11 hip replacement 2006
[2024-12-14 09:02] LABS: Microscopic, Urine URINE MICROSCOPIC (MICROSCOPIC)
[2024-12-14 09:28] LABS: Hematocrit 40.8 % (37.0-47.0); Hemoglobin 13.5 g/dL (12.2-16.2); Mean Corpuscular HGB Conc 33.1 g/dL (31.8-35.4); Mean Corpuscular Hemoglobin 31.3 pg (27.0-31.2); Mean Corpuscular Volume 94.4 fl (81-99); Nucleated Red Blood Cells # 0 10^3/uL; Nucleated Red Blood Cells % 0 %; Platelet Count 170 K/mm3 (142-424); Red Blood Count 4.32 M/mm3 (4.20-5.40); Red Cell Distribution Width 13.2 % (11.5-17.5); Red Cell Distribution Width-SD 45.8 fL; White Blood Count 8.4 K/mm3 (4.8-10.8)
[2024-12-14 09:35] LABS: Appearance,Urine CLEAR (Clear); Bilirubin,Urine Negative (Negative); Blood, Urine 3+ (Negative); Color,Urine YELLOW (Yellow); Glucose,Urine (UA) Negative (Negative); Ketones,Urine Negative (Negative); Leukocyte Esterase,Urine TRACE (Negative); Nitrate,Urine Negative (Negative); PH,Urine 5.5 (5.0-8.5); Protein,Urine Negative (Negative); Urobilinogen,Urine 0.2 EU/dl (0.2)
[2024-12-14 09:53] LABS: Creatinine,Urine Random 72 mg/dL (Not Estab.)
[2024-12-14 10:22] LABS: Albumin Level 4.1 g/dl (3.5-5.0); Anion Gap 17.8 mEq/L (5-15); Blood Urea Nitrogen 27 mg/dl (7-17); Carbon Dioxide 24 mmol/L (22.0-30.0); Chloride 101 mmol/L (98-107); Estimated Glomerular Filt Rate 27 ml/min (>60); GFR (African American) 33 ML/MIN (>60); Glucose 99 mg/dl (74-100); Phosphorous 3.2 mg/dl (2.5-4.5); Potassium 3.8 mmoL/L (3.5-5.1); Sodium 139 mmol/L (136-145)
[2024-12-14 10:35] LABS: Intact Parathyroid Hormone 36.1 pg/mL (7.5-53.5)
[2024-12-14 10:42] LABS: 25-OH Vitamin D, Total 64.9 ng/mL (30-100)
[2024-12-14 11:04] LABS: Bacteria,Urine 2+ /lpf
== END 2024-12-14 23:59 | disposition home or self-care (01) ==
LOC: LAB 08:53
PROVIDERS: PCP Family Medicine; Visit Provider Nurse Practitioner
DX: N18.32 Chronic kidney disease, stage 3b (principal); M89.9 Disorder of bone, unspecified; E83.9 Disorder of mineral metabolism, unspecified
CPT/HCPCS: 36415; 80069; 81001; 82306; 82523; 82570; 83970; 84080; 84156; 85027; 87086

== ENCOUNTER 2024-12-20 08:41 | Outpatient (CLI) | payer MEDICARE, SELFPAY ==
--- OUTSIDE RECORDS SUMMARY | 2024-07-23 06:45 | XMS_ITS ---
Author Organization [facility] Address [address] [facility] [address] [id number] Care Team Providers Care [employer] Name Role Phone Domi Fernández Primary Care [...] review and pick correct strength-formulat ion from Cortica options. If intended option is not shown, [...] Status Risk Notes Problem Chronic atrial fibrillation (961668707) Chronic atrial fibrillation (I48.20) Active confirmed Problem Chronic kidney disease, unspecified CKD stage (N18.9) Active confirmed Vital Signs Blood pressure systolic 130 mm Hg 07/23/19 25 Blood pressure diastolic 76 mm Hg 025 Heart Rate 63 /min 07/23/2024 Height 00 in 07/23/2024 Weight 225.2 lbs 07/23/2024 Encounters Encounter Location Date Provider Diagnosis [place] [address] [facility] [address] [place] [id number] 07/23/2024 Domi Fernández Atrial fibrillation, unspecified type [...] 3 Months, Reason: Provider Name:Domi Watters er, 02/18/2025 11:00:00 AM, [address] [facility], [address] , [place], [place], [id number], Progress Notes * HILDA PAYANEDOB: [birth year] (79 yo F)Acc No.[id number]:07/23/2024 Progress Notes Patient: KRISTOPHER GONZALES Provider: Domi Fernández M.D. :1945 A ge:78 Y S ex:Female Date:07/23/2024 Address:[address] [place] [phone] Subjective: * Chief Complaints: * 1 . [...] Diagno stic Procedure: h ip replacement 2006, [facility] Diverticulitis 12-04-11, [facility] ER-dehydration, pneumonia 12/28/11, [facility] ER-pneumonia 07/05-07/16/16, [facility] - Covid Pneumonia Jun 2020, [facility] - Hypotension with Hyovolemia, Pneumonia 10/09-. * [...] *Please review and pick correct strength-formulation from Waremakersspan options. If intended option is not shown, [...] G 2211 Complex e/[place], [address] CBC WITH AUTO DIFF, 45041 VENIPUNCT, ROUTINE* * Follow Up: 3 Months * Images: Billing Information: * Visit Code: 16197 Office Visit, Est Pt., Level 4. * Procedure Codes: G2211 Complex e/[place]. [address] CBC WITH AUTO DIFF. 67451 VENIPUNCT, ROUTINE*. * Electronic signature of Domi Fernández MD on 12/20/2024 at 08:56 AM EDT Sign off status: Pending * Provider: Domi Fernández M.D. Date: 0 07/23/2024 Generated for Diannai theo/Anel/eTransmitting on: 0 12/20/2024 08:56 AM EDT History and Physical Notes * HPI (History [...]
--- OUTSIDE RECORDS SUMMARY | 2024-10-22 07:45 | XMS_ITS ---
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 Name Role Phone Domi Fernández Primary Care Provider Allergies Allergen (clinical drug ingredient) Drug/Non Drug Allergy documented on EMR Reaction Allergy Type Onset Date Status Penicillin hives Drug Allergy Active Results Component Value Reference Range Notes P-Comprehensive Metabolic Pa federico (CMP) Reviewed date:10/31/2024 08:09:43 AM Interpretation:gluc 100, bun 28, Cr 1.99, gfr 25 Performing Lab: Notes/Report: Test performed by [facility] [address] [place] [address] , [address], [place] [address] Russell Hahn MD, Equipment Service Technician CLIA: [id number] Sodium 142 135-145 mmol/L Potassium 4.0 3.5-5.3 mmol/L Chloride 102 97-108 mmol/L CO2 26 22-32 mmol/L Glucose 100 65-99 mg/dL BUN 28 8-23 mg/dL Creatinine 1.99 0.50-1.00 mg/dL Calcium 10.3 8.6-10.4 mg/dL eGFR by Creatinine 25 >59 mL/min/1.73m2 Protein 7.2 6.0-8.3 g/dL Albumin 4.1 3.5-5.3 g/dL Alkaline Phosphatase 86 35-121 IU/L ALT (SGPT) 9 <5-47 IU/L AST (SGOT) 17 <5-40 IU/L Bilirubin, Total 0.2 <0.2-1.2 mg/dL A/G Ratio 1.3 1.1-2.5 P-TSH Reviewed date:10/31/2024 08:09:43 AM Interpretation:21.4 Performing Lab: Notes/Report: Test performed by [facility] [address] [place] [address] , [address], [place] [address] Russell Hahn MD, Equipment Service Technician CLIA: [id number] TSH 21.40 0.43-5.25 mU/L REASON FOR VISIT 3 month ckup, Needs labs & mammogram Medications Medication SIG (Take, Route, Frequency, Duration) Notes Start Date End Date Status amLODIPine Besylate 5 MG 1 tab(s) orally once a day; Duration: 90 days Not-Taking Warfarin Sodium 5 MG Take 1 tablet by mouth once daily; Duration: 90 Active predniSONE 20 MG 1 tab(s) orally once a day as directed Not-Taking metOLazone 2.5 MG 1 tab(s) orally every other day prn; Duration: 30 day(s) Not-Taking HYDROcodone-Acetamin ophen 5-325 MG 1 tab(s) orally three times a day as needed; Duration: 30 days 10/22/2024 Active Sertraline HCl 50 MG Take 1 tablet by mouth once daily; Duration: 90 Active Fluticasone Propionate 50 MCG/ACT 1 spray(s) in each nostril once a day Active Levothyroxine Sodium 100 MCG Take 1 tablet by mouth once daily; Duration: 30 Active Allopurinol 100 MG Take 1 tablet by mouth once daily; Duration: 90 Active traZODone HCl 150 MG TAKE 1 TABLET BY MOUTH ONCE DAILY AT BEDTIME FOR 90 DAYS; Duration: 90 Active ADVAIR 100/50 1 INHALATION BID *Please review for potential replacement for e-prescription and drug interaction check* Active Cartia XT 240 MG 1 capsule Orally Once a day; Duration: 30 day(s) Active Albuterol Sulfate HFA 108 (90 Base) MCG/ACT 2 puff(s) inhaled every 6 hours; Duration: 30 day(s) 10/14/2020 Active Multivitamin 1 TAB ONCE A DAY *Please review and pick correct strength-formulat ion from [employer] options. If intended option is not shown, discontinue and re-order from Quick Search* Active Claritin 10 MG 1 tablet Orally Once a day; Duration: 30 day(s) 07/11/2023 Active Vitamin D3 25 MCG (1000 UT) 1 capsule Orally Once a day; Duration: 30 day(s) Active Fish Oil 1000 MG 1 capsule Orally once a day Active Problems Problem Type SNOMED Code ICD Code Onset Dates Problem Status W/U Status Risk Notes Problem Chronic pain syndrome ([id number]) Chronic pain syndrome (G89.4) Active confirmed Vital Signs Blood pressure systolic 110 mm Hg 10/23/19 25 Blood pressure diastolic 70 mm Hg 025 Heart Rate 106 /min 10/22/2024 Height 00 in 10/22/2024 Weight 220.0 lbs 10/22/2024 Encounters Encounter Location Date Provider Diagnosis [facility] [address] [facility] [address] [facility] [address] [place] [id number] 10/22/2024 Domi Fernández Acquired hypothyroid ism E03.9 ; 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 Z79.01 ; Essential hypertension I10 ; Chronic atrial fibrillation I48.20 ; Chronic kidney disease, unspecified CKD stage N18.9 and Chronic pain syndrome G89.4 Assessments Encounter Date Diagnosis (ICD Code) Assessment Notes Treatment Notes Treatment Clinical Notes Section Notes 10/22/2024 Acquired hypothyroidism (ICD-10 - E03.9) 10/22/2024 [facility] (current) use of anticoagulants (ICD-10 - Z79.01) 10/22/2024 Essential hypertension (ICD-10 - I10) 10/22/2024 Chronic atrial fibrillation (ICD-10 - I48.20) 10/22/2024 Chronic kidney disease, unspecified CKD stage (ICD-10 - N18.9) 10/22/2024 Chronic pain syndrome (ICD-10 - G89.4) Plan Of Treatment Medication Medication Name Sig Start Date Stop Date Notes HYDROcodone-Acetaminophen 5- 325 MG 1 tab(s) orally three times a day as needed; Duration: 30 days 10/22/2024 Next Appt Details Follow Up: 2 Months, Reason: Provider Name:Domi Watters er, 02/18/2025 11:00:00 AM, [address] [facility] 36 [facility], [address], [place], [phone], Progress Notes * JAVI PAYANOB: [birth year] (79 yo F)Acc No.[id number]:10/22/2024 Progress Notes Patient: KRISTOPHER GONZALES Provider: Domi Fernádnez M.D. :1945 A ge:79 Y S ex:Female Date:10/22/2024 Address:[address] [place] [address] [id number] Subjective: * Chief Complaints: * 3 month ckupNeeds labs & mammogram * HPI: Bradley britt back: The pt is here for a check up on low back and hip pain. Pt states she is needing a refill for Hydrocodone sent to [facility]. Pt states she would also like to get her Levothyroxine sent for 90 day supply instead of the 30 days. We DID NOT CHECK TSH IN JUNE. Still takes 100mcg. * ROS: D ERMATOLOGY: no R fernando. n o H burt. G ASTROENTEROLOGY: no N ausea. n o V omiting. n o D iarrhea.? U ROLOGY: no D ifficulty urinating. n o B lood in urine. * Medical History: * Surgical History: b ilateral knee replacement 2001left hip replacement 2003tubal ligation hip replacement 2006Gallbladder removed 12/27/11D&C, Dr. Grijalva, polyp removal May 20, 2020 * Hospitalization/Major Diagno stic Procedure: h ip replacement 2006[facility] ER Diverticulitis 12-03- ER-dehydration, pneumonia 12/28/11 ER-pneumonia 07/05-07/16/16[facility] - Covid Pneumonia Jun 2020[facility] - Hypotension with Hyovolemia, Pneumonia 10/09- * Family History: F ather: 72 yrs. [...] New since last visit: none. Occupation: yes. no Past smoking status, Smoking status: Does not smoke, Former Smoker: Yes, Quit smokin. Occup. exposure: none. no Recreational drug use. no Alcohol. Sexually active: no.. no Travel ouside [place]. * Medications: T akingVitamin D3 25 MCG (1000 UT) Capsule 1 capsule Orally Once a dayFish Oil 1000 MG Capsule Delayed Release 1 capsule Orally once a dayCartia XT 240 MG Capsule Extended Release 24 Hour 1 capsule Orally Once a dayADVAIR 100/50 1 INHALATION BID, Notes: *Please review for potential replacement for e-prescription and drug interaction check*Multivitamin 1 TAB ONCE A DAY, Notes: *Please review and pick correct strength-formulation from [employer] options. If intended option is not shown, discontinue and re-order from Quick Search*Albuterol Sulfate HFA 108 (90 Base) MCG/ACT Aerosol Solution 2 puff(s) inhaled every 6 hoursClaritin 10 MG Tablet 1 tablet Orally Once a dayFluticasone Propionate 50 MCG/ACT Suspension 1 spray(s) in each nostril once a dayHYDROcodone-Acetaminophen 5-325 MG Tablet 1 tab(s) orally Two times a day as neededLevothyroxine Sodium 100 MCG Tablet Take 1 tablet by mouth once daily traZODone HCl 150 MG Tablet TAKE 1 TABLET BY MOUTH ONCE DAILY AT BEDTIME FOR 90 DAYS Allopurinol 100 MG Tablet Take 1 tablet by mouth once daily Sertraline HCl 50 MG Tablet Take 1 tablet by mouth once daily Warfarin Sodium 5 MG Tablet Take 1 tablet by mouth once daily Taking Vitamin D3 25 MCG (1000 UT) Capsule 1 capsule Orally Once a dayTaking Fish Oil 1000 MG Capsule Delayed Release 1 capsule Orally once a dayTaking Cartia XT 240 MG Capsule Extended Release 24 Hour 1 capsule Orally Once a dayTaking ADVAIR 100/50 1 INHALATION BID, Notes: *Please review for potential replacement for e-prescription and drug interaction check*Taking Multivitamin 1 TAB ONCE A DAY, Notes: *Please review and pick correct strength-formulation from [employer] options. If intended option is not shown, discontinue and re-order from Quick Search*Taking Albuterol Sulfate HFA 108 (90 Base) MCG/ACT Aerosol Solution 2 puff(s) inhaled every 6 hoursTaking Claritin 10 MG Tablet 1 tablet Orally Once a dayTaking Fluticasone Propionate 50 MCG/ACT Suspension 1 spray(s) in each nostril once a dayTaking HYDROcodone-Acetaminophen 5-325 MG Tablet 1 tab(s) orally Two times a day as neededTaking Levothyroxine Sodium 100 MCG Tablet Take 1 tablet by mouth once daily Taking traZODone HCl 150 MG Tablet TAKE 1 TABLET BY MOUTH ONCE DAILY AT BEDTIME FOR 90 DAYS Taking Allopurinol 100 MG Tablet Take 1 tablet by mouth once daily Taking Sertraline HCl 50 MG Tablet Take 1 tablet by mouth once daily Taking Warfarin Sodium 5 MG Tablet Take 1 tablet by mouth once daily Not-TakingamLODIPine Besylate 5 MG Tablet 1 tab(s) orally once a daymetOLazone 2.5 MG Tablet 1 tab(s) orally every other day prnpredniSONE 20 MG Tablet 1 tab(s) orally once a day as directedMedication List reviewed and reconciled with the patientNot-Taking amLODIPine Besylate 5 MG Tablet 1 tab(s) orally once a dayNot-Taking metOLazone 2.5 MG Tablet 1 tab(s) orally every other day prnNot-Taking predniSONE 20 MG Tablet 1 tab(s) orally once a day as directedMedication List reviewed and reconciled with the patient * Allergies: P enicillin: hivesno[Allergies Verified] Objective: * Vitals: W t:220.0, Temp:97.7, BP:110/70, HR:106, Nurse:THERESA, Ht: 00. * Examination: G eneral [...] leg edema. Assessment: * Assessment: 1. A cquired hypothyroidism - E03.9 (Primary) 2 . L sudarshan term (current) use of anticoagulants - Z79.01 3 . E ssential hypertension - I10 4 . C hronic atrial fibrillation - I48.20 5 . C hronic kidney disease, unspecified CKD stage - N18.9 6 . C hronic pain syndrome - G89.4 Plan: * Treatment: Value Reference Range T SH 21.40 H 0.43-5.25 - mU/L 2.?Essential hypertension?LAB: P-Comprehensive Metabolic Panel (CMP)?gluc 100, bun 28, Cr 1.99, gfr 25* Value Reference Range A /G Ratio 1.3 1.1-2.5 - * A lbumin 4.1 3.5-5.3 - g/dL * A lkaline Phosphatase 86 35-121 - IU/L * A LT (SGPT) 9 <5-47 - IU/L * A ST (SGOT) 17 <5-40 - IU/L * B ilirubin, Total 0.2 <0.2-1.2 - mg/dL * B UN 28 H 8-23 - mg/dL * C alcium 10.3 8.6-10.4 - mg/dL * C hloride 102 97-108 - mmol/L * C O2 26 22-32 - mmol/L * C reatinine 1.99 H 0.50-1.00 - mg/dL * G lucose 100 H 65-99 - mg/dL * P otassium 4.0 3.5-5.3 - mmol/L * S odium 142 135-145 - mmol/L * P rotein 7.2 6.0-8.3 - g/dL * e GFR by Creatinine 25 L >59 - mL/min/1.73m2 3.?Chronic pain syndrome? Refill HYDROcodone-Acetaminophen Tablet, 5-325 MG, 1 tab(s), orally, three times a day as needed, 30 days, 90, Refills 0.?? * Procedure Codes: G 2211 Complex e/m visit add [id number] SYST BP LT 130 MM [id number] DIAST BP < 80 MM HG * Follow Up: 2 Months * Images: Billing Information: * Visit Code: 34290 Office Visit, Est Pt., Level 3. * Procedure Codes: G2211 Complex e/m [place] on. 3074F SYST BP LT 130 MM HG. 3078F DIAST BP < 80 MM HG. * Sign off status: Completed Addendum: * true * Provider: Domi Fernández M.D. Date: 0 10/22/2024 Generated for Sravan venegas/Anel/Yovanismitting on: 0 12/20/2024 08:56 AM EDT History and Physical Notes * Examination Category Sub-Category Detail Notes Category Not [...]
--- OUTSIDE RECORDS SUMMARY | 2024-12-17 06:45 | XMS_ITS ---
Author Organization [facility] Address 1210 [facility] [address] [phone] Care Team Providers Care Gas Mask Assembler Name Role Phone Domi Fernández Primary Care Provider [phone] Allergies Allergen (clinical drug ingredient) Drug/Non Drug Allergy documented on EMR Reaction Allergy Type Onset Date Status Penicillin hives Drug Allergy Active Results Component Value Reference Range Notes Urinalysis - Inhouse (Not ye t reviewed by provider) Interpretation: Performing Lab: Notes/Report: Color/Clarity yellow/clear Leuk Trace Nitrite Neg Urobili 3.2 Protein Neg pH 5.5 Blood 2+ Sp. Gr. 1.015 Ketone Neg Bili Neg Gluc Neg P-Culture, Urine (Not yet re viewed by provider) Interpretation: Performing Lab: Notes/Report: Test performed by [facility] [address] [place] [address] , [facility], [place] [address] Russell Hahn MD, Supervisor Painting Department CLIA: [id number] Specimen Source Urine - Void Culture, Urine See Below Final Report : No Significant Growth P-TSH (Not yet reviewed by ever clark) Interpretation: Performing Lab: Notes/Report: Test performed by [facility] [address] [place], [place] [address] [address], [address], [place] [address] Russell Hahn MD, Supervisor Painting Department CLIA: [id number] TSH 3.79 0.43-5.25 mU/L REASON FOR VISIT [...] review and pick correct strength-formulat ion from [employer] options. 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 :1945 A ge:79 Y S ex:Female Date:12/17/2024 Address:[address] [place] [id number] Subjective: * Chief Complaints: * 1 . 2 months. 2. Needs labs. * HPI: L ower back: The pt [...] Procedure: h ip replacement 2006, [facility] Diverticulitis 12-04-11, [facility]-dehydration, pneumonia 12/28/11, [facility]-pneumonia 07/05-07/16/16, [facility] - Covid Pneumonia Jun 2020, H [...] *Please review and pick correct strength-formulation from [employer] options. If intended option is not shown, [...] Range T SH 3.79 0.43-5.25 - mU/L 2.?Microscopic hematuria? Start Ciprofloxacin HCl Tablet, 500 MG, 1 tablet, Orally, every 12 hrs, 3 day(s), 6.?LAB: P-Culture, Urine (Collection Date & Time - 12/17/2024 11:30 AM)* Value Reference Range C ulture, Urine See Below - * S pecimen Source Urine - Void - 3.?Acute otitis externa of left ear, unspecified [...] while patient in office. * Procedure Codes: 8 1002 Urinalysis, no micro * Follow Up: 2 Months * Images: Billing Information: * Visit Code: 54944 Office Visit, Est Pt., Level 4. * Procedure Codes: 99426 Urinalysis, no micro. * Electronic signature of Domi Fernández MD on 12/20/2024 at 08:56 AM EDT Sign off status: Pending * Provider: Domi Fernández M.D. Date: 0 12/17/2024 Generated for Printi ng/Faxing/eTransmitting on: 0 12/20/2024 08:56 AM EDT History [...]
--- OUTSIDE RECORDS SUMMARY | 2024-12-20 08:56 | XMS_ITS | Clinical Summary ---
Author Organization [facility] Address [address] [place] [address] Care Team Providers Care Men'S Custom Hair Piece Consultant Name Role Phone Fareed Fernández MD Primary Care Provider [phone] Allergies Active Allergy Reactions Criticality Noted Date [...] time each day. 2 Active HYDROcodone-mayte taminophen ([place]) 5-325 MG tablet Take 1 tablet (5 [...] Description 12/21/2024 12:00 PM EDT Office Visit [facility] [address] [place] [phone] Lynn Harrington, JAVA SPRING DEVELOPER [address] [address] Health Maintenance Due Date Last Done Comments [facility]-Bone Density Scan 1945 [facility]-Depression Screening 1945 [facility]-Medicare Annual Wellness (AWV) 1945 [facility]-/Child/Adol SDOH Screenings 1945 [facility]- SDOH Screenings 1964 [facility]-Adult SDOH Screenings 1964 [facility]-Zoster Vaccines (1 of 2) 1996 [facility]-RSV Vaccine: 60+ Years or (1 - 1-dose 75+ series) 2021 [id number] Vaccine (7 - Moderna risk 2023- season) 2024 03/15/2024, 05/03/2023, 06/02/2022, Additional history [...] 5 AM EDT 10/16/2020 2:38 PM EDT Nadir Lopez MD LAB BLOOD ORDERABLES Final Re sult SUNQUEST from Last 3 Months or Most Recently Relevant to Health Maintenance Insurance MEDICARE Member Subscriber Plan / Payer (Ef fective 2011-Present) Name:Aleida Saldivar Member ID:[id number] Relation to Subscriber:Self Name:Aleida Saldivar Subscriber ID:[id number] Payer ID:MEDICARE Group ID:Not on file Type:Medicare Address: [place] [phone] Care Teams Men'S Custom Hair Piece Consultant Relationship Specialty Start Date End Date Fareed Fernández MD [address] [place] [address] PCP - General 11/07/20
--- OUTSIDE RECORDS SUMMARY | 2024-12-20 08:57 | XMS_ITS | Patient Health Record ---
Author Organization [facility] Address [address] [phone] Care Team Providers Care Skirt Clipper Name Role Phone Domi Fernández Primary Care Provider Bryan Cornelius [phone] Allergies Allergen (clinical drug ingredient) Drug/Non Drug [...] - 38 platlet 218 100 - 400 Urinalysis - Inhouse (Not ye t reviewed by provider) Interpretation: Performing Lab: Notes/Report: Color/Clarity yellow/clear Leuk Trace Nitrite Neg Urobili 3.2 Protein Neg pH 5.5 Blood 2+ Sp. Gr. 1.015 Ketone Neg Bili Neg Gluc Neg P-Culture, Urine (Not yet re viewed by provider) Interpretation: Performing Lab: Notes/Report: Test performed by [employer] [facility] , [address], [address] Russell Hahn MD, Cloth Cutting Machine Operator CLIA: [id number] Specimen Source Urine - Void Culture, Urine See Below Final Report : No Significant Growth P-TSH (Not yet reviewed by ever clark) Interpretation: Performing Lab: Notes/Report: Test performed by [employer] [address] [place] [address] , [address], [address] Russell Hahn MD, Cloth Cutting Machine Operator CLIA: [id number] TSH 3.79 0.43-5.25 mU/L P-Comprehensive Metabolic Pa federico (CMP) Reviewed date:04/26/2024 10:19:34 AM Interpretation:co2- 20, bun 33, Cr 2.01, gfr 25 Performing Lab: Notes/Report: Test performed by [employer] [address] [place] [address] , [address], [address] Russell Hahn MD, Cloth Cutting Machine Operator CLIA: [id number] Sodium 142 135-145 mmol/L Potassium 4.3 3.5-5.3 [...] Interpretation:Normal Performing Lab: Notes/Report: Test performed by [employer] [address] [place] [address] , [address], [address] Russell Hahn MD, Cloth Cutting Machine Operator CLIA: [id number] WBC 6.9 3.8-11.5 K/uL Red Blood Cell [...] 0.0-0.1 K/uL Absolute Immature Granulocyte 0.02 0.00-0.03 K/uL P-TSH Reviewed date:04/26/2024 10:19:34 AM Interpretation:Normal Performing Lab: Notes/Report: Test performed by [employer], [address] , [address] , [place] [address] Russell Hahn MD, Cloth Cutting Machine Operator CLIA: [id number] TSH 0.84 0.43-5.25 mU/L EKG Reviewed date:04/26/2024 10:19:16 AM Interpretation: Performing Lab: Notes/Report: H-INR Reviewed date:09/21/2024 01:51:04 PM Interpretation: Performing [...] PREVENTION OF SYSTEMIC EMBOLISM SECONDARY TO AMI P-Comprehensive Metabolic Pa federico (CMP) Reviewed date:10/31/2024 08:09:43 AM Interpretation:gluc 100, bun 28, Cr 1.99, gfr 25 Performing Lab: Notes/Report: Test performed by [employer] [address] [place] [address] , [address], [place] [address] Russell Hahn MD, Cloth Cutting Machine Operator CLIA: [id number] Sodium 142 135-145 mmol/L Potassium 4.0 3.5-5.3 [...] Interpretation:21.4 Performing Lab: Notes/Report: Test performed by [employer] [address] [place] [address] , [address], [place] [address] Russell Hahn MD, Cloth Cutting Machine Operator CLIA: [id number] TSH 21.40 0.43-5.25 mU/L H-INR Reviewed date:12/22/2023 04:32:52 PM Interpretation: Performing [...] 2.5 MG ON MON/FRI; 5 MG ON SUN/TUE/WED/CARMEN/SAT FOR DETAILED INFORMATION-PLEASE REVIEW PROGRESS NOTE IN THE ASSESSMENTS AND ANTICOAGULATION CLINIC SECTION ANTICOAGULATION CLINIC IN PCI/CLINICAL REVIEW INDICATION INR RANGE THERAPY FOR DVT, PE, ATRIAL FIB; 2.0 - 3.0 PROPHYLAXIS FOR VTE THERAPY FOR MECHANICAL HEART 2.5 - 3.5 VALVE; PREVENTION OF SYSTEMIC EMBOLISM SECONDARY TO AMI H-INR Reviewed date:06/07/2024 04:31:39 PM Interpretation: Performing Lab: Notes/Report: POCINRFS 3.3 0.9-1.1 Results sent to: Yael Farooq Pharmacist recommendation for Warfarin therapy is: PATIENT INR 3.3 TODAY VIA FINGERSTICK. RECOMMENDED PATIENT TAKE WARFARIN 2.5 MG X2 DAYS, THEN REDUCED WEEKLY DOSE BY 2.5 MG TO WARFARIN 2.5 MG ON MON/WED/FRI; 5 MG ON SUN/TUE/CARMEN/SAT. FOR DETAILED INFORMATION-PLEASE REVIEW PROGRESS NOTE IN [...] 2.5 MG ON MON/FRI; 5 MG ON SUN/E/TUE/CARMEN/SAT. FOR DETAILED INFORMATION-PLEASE REVIEW PROGRESS NOTE IN [...] AND TOMORROW. THEN RESUME 2.5 MG ON TUE/TUE; 5 MG ON TUE/TUE/TUE/TUE/SAT. FOR DETAILED INFORMATION-PLEASE REVIEW PROGRESS NOTE IN THE ASSESSMENTS AND ANTICOAGULATION CLINIC SECTION ANTICOAGULATION CLINIC IN PCI/CLINICAL REVIEW INDICATION INR RANGE THERAPY FOR DVT, PE, ATRIAL FIB; 2.0 - 3.0 PROPHYLAXIS FOR VTE THERAPY FOR MECHANICAL HEART 2.5 - 3.5 VALVE; PREVENTION OF SYSTEMIC EMBOLISM SECONDARY TO AMI H-INR Reviewed date:11/09/2024 12:45:05 PM Interpretation: Performing [...] IN THE ASSESSMENTS AND ANTICOAGULATION CLINIC SECTION Medications Medication SIG (Take, Route, Frequency, Duration) Notes Start Date End Date Status Hydrocortisone-Aceti c Acid 1-2 % 5 drops into affected ear Otic Three times a day; Duration: 10 days 12/17/2024 Active Fluticasone Propionate 50 MCG/ACT 1 spray(s) in each nostril once a day Active Albuterol Sulfate HFA 108 (90 Base) MCG/ACT 2 puff(s) inhaled every 6 hours; Duration: 30 day(s) 10/14/2020 Active predniSONE 20 MG 1 tab(s) orally once a day as directed Not-Taking Claritin 10 MG 1 tablet Orally Once a day; Duration: 30 day(s) 07/11/2023 Active ADVAIR 100/50 1 INHALATION BID *Please review for potential replacement for e-prescription and drug interaction check* Active amLODIPine Besylate 5 MG 1 tab(s) orally once a day; Duration: 90 days Not-Taking Multivitamin 1 TAB ONCE A DAY *Please review and pick correct strength-formulat ion from Medispan options. If intended option is not shown, discontinue and re-order from Quick Search* Active metOLazone 2.5 MG 1 tab(s) orally every other day prn; Duration: 30 day(s) Not-Taking Fish Oil 1000 MG 1 capsule Orally once a day Active Levothyroxine Sodium 150 MCG 1 tablet in the morning on an empty stomach Orally Once a day; Duration: 30 days 10/31/2024 Active Cartia XT 240 MG 1 capsule Orally Once a day; Duration: 30 day(s) Active HYDROcodone-Acetamin ophen 5-325 MG 1 tab(s) orally three times a day as needed; Duration: 30 days 11/27/2024 Active Sertraline HCl 50 MG Take 1 tablet by mouth once daily; Duration: 90 Active Vitamin D3 25 MCG (1000 UT) 1 capsule Orally Once a day; Duration: 30 day(s) Active Warfarin Sodium 5 MG Take 1 tablet by mouth once daily; Duration: 90 Active traZODone HCl 150 MG TAKE 1 TABLET BY MOUTH ONCE DAILY AT BEDTIME FOR 90 DAYS; Duration: 90 Active Allopurinol 100 MG Take 1 tablet by mouth once daily; Duration: 90 Active Immunizations Vaccine Route Administration Date Status [...] months and older IM Intramuscular 05/13/2011 Administered xFiydrzu-uuhwgzbdc-jlqbkij e pts. IM Intramuscular 03/31/2012 Administered Problems Problem Type SNOMED Code ICD Code Onset Dates Problem Status W/U Status Risk Notes Problem Vitamin D deficiency (97467950) Vitamin D deficiency (E55.9) Active confirmed Problem History of DVT (deep vein thrombosis) (949909587) History of DVT (deep vein thrombosis) (Z86.718) Active confirmed Problem Essential hypertension (53397803) Essential hypertension (I10) Active confirmed Problem Hyperuricemia (79438557) Hyperuricemia (E79.0) Active confirmed Problem Chronic kidney disease stage 3 (disorder) (820862051) Chronic kidney disease, stage 3 (N18.3) Active confirmed Problem Generalized anxiety disorder (37346957) Generalized anxiety disorder (F41.1) Active confirmed Problem Chronic pain (60276931) Other chronic pain (G89.29) Active confirmed Problem Chronic pain syndrome (572535062) Chronic pain syndrome (G89.4) Active confirmed Problem Kyphosis deformity of thoracic spine (171479708) Other secondary kyphosis, 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) Active confirmed Problem Long-term current use of anticoagulant (415725729) 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 (Z79.01) Active confirmed Problem Acquired hypothyroidism (537871896) Acquired hypothyroidism (E03.9) Active confirmed Problem Renal insufficiency (665867927) Renal insufficiency (N28.9) Active confirmed Problem Depression (179534412) Depression (F32.9) Active confirmed Problem Allergic rhinitis (99061097) Allergic rhinitis (J30.9) Active confirmed Problem Atrial fibrillation (08652859) Atrial fibrillation, unspecified type (I48.91) Active confirmed Problem Vaginal bleeding (780889011) Vaginal bleeding (N93.9) Active confirmed Problem 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) BMI 37.0-37.9, adult (Z68.37) Active confirmed Problem Cardiac dysrhythmia (397547003) Cardiac dysrhythmia, unspecified (I49.9) Active confirmed Problem Interstitial lung disease (274931170) Interstitial lung disease (J84.9) Active confirmed Problem Factor V Leiden mutation (disorder) (327660514) History of factor V Leiden mutation (Z86.2) Active confirmed Problem Allergic rhinitis (20615075) Non-seasonal allergic rhinitis, unspecified allergic rhinitis trigger (J30.89) Active confirmed Problem Chronic renal failure syndrome (60656682) Chronic kidney disease, unspecified CKD stage (N18.9) Active confirmed Problem Seasonal allergic rhinitis (278307110) Seasonal allergic rhinitis, unspecified trigger (J30.2) Active confirmed Problem Abnormal CXR (R93.89) Active confirmed Problem Chronic atrial fibrillation (363675214) Chronic atrial fibrillation (I48.20) Active confirmed Problem 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) (4826825016) 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) Active confirmed Problem Primary hypertension (80603516) Primary hypertension (I10) Active confirmed Vital Signs Heart Rate 91 /min 12/17/2024 Blood pressure diastolic 72 mm Hg 12/17/2024 Height 00 in 12/17/2024 Blood pressure systolic 120 mm Hg 12/17/2024 Weight 218.8 lbs 12/17/2024 Encounters Encounter Location Date Provider [facility] [address] [place] [id number] 04/23/2024 Domi Fernández Cardiac dysrhythmia, unspecified I49.9 ; Atrial fibrillation, unspecified type I48.91 ; Primary hypertension I10 ; Interstitial lung disease J84.9 ; Renal insufficiency N28.9 ; Acquired hypothyroidism E03.9 ; History of DVT (deep vein thrombosis) Z86.718 ; History of factor V Leiden mutation Z86.2 ; 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 Z79.01 ; Hyperuricemia E79.0 and Other chronic pain G89.29 [facility] [address] [place] [id number] 07/23/2024 Domi Fernández Atrial fibrillation, unspecified type I48.91 ; Chronic kidney disease, stage 3 N18.3 ; Chronic atrial fibrillation I48.20 and Chronic kidney disease, unspecified CKD stage N18.9 [facility] [address] [facility] [address] [place] [id number] 12/17/2024 Domi Fernández Essential hypertensi on I10 ; 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 Z79.01 ; History of DVT (deep vein thrombosis) Z86.718 ; History of factor V Leiden mutation Z86.2 ; Acquired hypothyroidism E03.9 ; Dysuria R30.0 ; Microscopic hematuria R31.29 and Acute otitis externa of left ear, unspecified type H60.502 [facility] [address] [facility] [address] [place] [id number] 10/22/2024 Domi Fernández Acquired hypothyroid ism E03.9 ; 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 Z79.01 ; Essential hypertension I10 ; Chronic atrial fibrillation I48.20 ; Chronic kidney disease, unspecified CKD stage N18.9 and Chronic pain syndrome G89.4 [facility] [address] [facility] [address] [place] [id number] 12/28/2023 Domi Fernández Other chronic pain G89.29 [facility] [address] [facility] [address] [place] [id number] 03/15/2024 Bryan Cornelius Other chronic pain G89.29 [facility] [address] [facility] [address] [place] [id number] 04/26/2024 Domi Fernández Abnormal EKG R94.31 [facility] [address] [facility] [address] [place] [id number] 05/23/2024 Domi Fernández Acquired hypothyroid ism E03.9 [facility] [address] [facility] [address] [place] [id number] 05/30/2024 Domi Fernández Other chronic pain G89.29 [facility] [address] [facility] [address] [place] [id number] 07/09/2024 Domi Fernández Other chronic pain G89.29 [facility] [address] [facility] [address] [place] [id number] 08/13/2024 Domi Fernández Other chronic pain G89.29 [facility] [address] [place] [id number] 09/10/2024 Domi Fernández Other chronic pain G89.29 [facility] [address] [place] [id number] 10/31/2024 Domi Fernández [facility] [address] [place] [id number] 11/26/2024 Domi Fernández Chronic pain syndrom e G89.4 [facility] [address] [place] [id number] 12/17/2024 Domi Fernández Assessments Encounter Date Diagnosis (ICD Code) Assessment [...] 09/10/2024 Other chronic pain (ICD-10 - G89.29) 10/22/2024 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 (ICD-10 - Z79.01) 10/22/2024 Acquired hypothyroidism (ICD-10 - E03.9) 11/26/2024 Chronic pain syndrome (ICD-10 - G89.4) 12/17/2024 Essential hypertension (ICD-10 - I10) 12/17/2024 detention (current) use of anticoagulants (ICD-10 - Z79.01) 12/17/2024 History of DVT (deep vein thrombosis) (ICD-10 - Z86.718) 07/23/2024 Chronic atrial fibrillation (ICD-10 - I48.20) 04/23/2024 Primary hypertension (ICD-10 - I10) 10/22/2024 Essential hypertension (ICD-10 - I10) 04/23/2024 Interstitial lung disease (ICD-10 - J84.9) 07/23/2024 Chronic kidney disease, unspecified CKD stage (ICD-10 - N18.9) 10/22/2024 Chronic atrial fibrillation (ICD-10 - I48.20) 12/17/2024 History of factor V Leiden mutation (ICD-10 - Z86.2) 12/17/2024 Acquired hypothyroidism (ICD-10 - E03.9) 04/23/2024 Renal insufficiency (ICD-10 - N28.9) 10/22/2024 Chronic kidney disease, unspecified CKD stage (ICD-10 - N18.9) 04/23/2024 Acquired hypothyroidism (ICD-10 - E03.9) 10/22/2024 Chronic pain syndrome (ICD-10 - G89.4) 12/17/2024 Dysuria (ICD-10 - R30.0) 12/17/2024 Microscopic hematuria (ICD-10 - R31.29) 04/23/2024 History of DVT (deep vein thrombosis) (ICD-10 - Z86.718) 12/17/2024 Acute otitis externa of left ear, unspecified type (ICD-10 - H60.502) 04/23/2024 History of factor V Leiden mutation (ICD-10 - Z86.2) 04/23/2024 detention (current) use of anticoagulants (ICD-10 - Z79.01) 04/23/2024 Hyperuricemia (ICD-10 - E79.0) 04/23/2024 Other chronic pain (ICD-10 - G89.29) Plan Of Treatment Pending Test Test Name Order Date Urinalysis - Inhouse 12/17/2024 Cologuard 01/13/2023 P-Culture, Urine 12/17/2024 P-TSH 12/17/2024 Next Appt Details Provider Name:Domi Cobiantyler er, 02/18/2025 11:00:00 AM, [address], [place], [phone], Insurance Providers Payer Name Payer Address Payer Phone Subscriber Number Group Number Insured Name Patient Relationship to Insured Coverage Start Date Coverage End Date MEDICARE PART B [address] [address] [place] [id number] KRISTOPHER PAYAN Self - patient is the [...] removal May 20 Hospitalization History Reason Date(Month/Year) [facility] - Hypotension with Hyovolemia, Pneum onia 10/09- [facility] - Covid Pneumonia Jun [address] [facility] ER-pneumonia 07/05-07/16/[address] [facility] ER-dehydration, pneumonia 12/28/[address] [facility] ER Diverticulitis 12-04-11 hip replacement 2006
[2024-12-20 09:07] LABS: PHA INR Fingerstick 4.1 (0.9-1.1)
[2024-12-20 10:00] LABS: INR 3.25 (0.9-1.1); Prothrombin Time 33.1 seconds (10.1-12.5)
== END 2024-12-20 23:59 | disposition home or self-care (01) ==
LOC: ACC 08:42
PROVIDERS: PCP Physician Assistant; Visit Provider Physician Assistant
DX: D68.51 Activated protein C resistance (principal); Z79.01 Long term (current) use of anticoagulants; Z86.718 Personal history of other venous thrombosis and embolism
CPT/HCPCS: 36415; 85610; 99211; G0463

== ENCOUNTER 2025-01-17 08:36 | Outpatient (CLI) | payer MEDICARE, SELFPAY ==
--- OUTSIDE RECORDS SUMMARY | 2024-07-23 06:45 | XMS_ITS ---
Author Organization [facility] Address [address] [facility] [address] [id number] Care Team Providers Care Pbx Wire Chief Name Role Phone Domi Fernández Primary Care [...] review and pick correct strength-formulat ion from [employer] options. If intended option is not shown, [...] Status Risk Notes Problem Chronic atrial fibrillation (819647843) Chronic atrial fibrillation (I48.20) Active confirmed Problem Chronic kidney disease, unspecified CKD stage (N18.9) Active confirmed Vital Signs Weight 225.2 lbs 07/23/2024 Blood pressure systolic 130 mm Hg 07/23/19 25 Blood pressure diastolic 76 mm Hg 025 Heart Rate 63 /min 07/23/2024 Height 00 in 07/23/2024 Encounters Encounter Location Date Provider Diagnosis [place] [address] [facility] [address] [place] [id number] 07/23/2024 Domi eFrnández Atrial fibrillation, unspecified type I48.91 ; Chronic [...] 02/18/2025 11:00:00 AM, [address] [facility], [address] , [place], [place], [address], Progress Notes * HILDA PAYANEDOB: [birth year] (79 yo F)Acc No.[id number]:07/23/2024 Progress Notes Patient: KRISTOPHER GONZALES Provider: Domi Fernández M.D. :1945 A ge:78 Y S ex:Female Date:07/23/2024 Address:[address] [place] [phone] Subjective: * Chief Complaints: * 1 . [...] Diagno stic Procedure: h ip replacement 2006, [facility] Diverticulitis 12-04-11, [facility] ER-dehydration, pneumonia 12/28/11, [facility] ER-pneumonia 07/05-07/16/16, [facility] - Covid Pneumonia Jun 2020, [facility] - Hypotension with Hyovolemia, Pneumonia 10/09-. [...] *Please review and pick correct strength-formulation from TeleDNAspan options. If intended option is not shown, [...] G 2211 Complex e/[place], [address] CBC WITH AUTO DIFF, 21536 VENIPUNCT, ROUTINE* * Follow Up: 3 Months * Images: Billing Information: * Visit Code: 56296 Office Visit, Est Pt., Level 4. * Procedure Codes: G2211 Complex e/[place]. [address] CBC WITH AUTO DIFF. 14142 VENIPUNCT, ROUTINE*. * Electronic signature of Domi Fernández MD on 01/17/2025 at 08:39 AM EDT Sign off status: Pending * Provider: Domi Fernández M.D. Date: 0 07/23/2024 Generated for Diannai theo/Anel/eTransmitting on: 0 01/17/2025 08:39 AM EDT History and Physical Notes * [...]
--- OUTSIDE RECORDS SUMMARY | 2024-12-17 06:45 | XMS_ITS ---
Author Organization [facility] Address 1210 [facility] [address] [phone] Care Team Providers Care U.S. Revenue Officer Name Role Phone Domi Fernández Primary Care [...] Interpretation:Normal Performing Lab: Notes/Report: Test performed by [employer] [address] [place], [place] [address] [employer] [place] , [address], [place] [address] Russell Hahn MD, Roller Coaster Operator CLIA: [id number] Specimen Source Urine - Void Culture, Urine See Below Final Report : No Significant Growth P-TSH Reviewed date:12/25/2024 03:01:08 PM Interpretation:Normal Performing Lab: Notes/Report: Test performed by [employer] [address] [place], [place] [address] [employer] [place] , [address], [place] [address] Russell Hahn MD, Roller Coaster Operator CLIA: [id number] TSH 3.79 0.43-5.25 mU/L REASON FOR VISIT [...] review and pick correct strength-formulat ion from Single Digits options. 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 :1945 A ge:79 Y S ex:Female Date:12/17/2024 Address:[address] [place] [address], [id number] Subjective: * Chief Complaints: * 1 . [...] Diagno stic Procedure: h ip replacement 2006, [facility] Diverticulitis 12-04-11, [facility]-dehydration, pneumonia 12/28/11, [facility]-pneumonia 07/05-07/16/16, [facility] - Covid Pneumonia Jun [...] *Please review and pick correct strength-formulation from Single Digits options. If intended option is not shown, [...] G 2211 Complex e/[place], [address] Urinalysis, no micro, 1036F TOBACCO NON- USER, G8950 PREHTN/HTN BP DOC INDCD F/U DOC, G8752 MOST RECENT SYSTOLIC BP < 140MM HG, G8754 MOST RECENT DIASTOLIC BP < 90MM HG * Follow Up: 2 Months * Images: Billing Information: * Visit Code: 00311 Office Visit, Est Pt., Level 4. * Procedure Codes: G2211 Complex e/[place]. [address] Urinalysis, no micro. 1036F TOBACCO NON-USER. G8950 PREHTN/HTN BP DOC INDCD F/U DOC. G8752 MOST RECENT SYSTOLIC BP < 140MM HG. G8754 MOST RECENT DIASTOLIC BP < 90MM HG. * Electronic signature of oDmi Fernández MD on 01/17/2025 at 08:38 AM EDT Sign off status: Pending * Provider: Domi Fernández M.D. Date: 0 12/17/2024 Generated for Diannai ng/Faxing/eTransmitting on: 0 01/17/2025 08:38 AM EDT History and Physical Notes * [...]
--- OUTSIDE RECORDS SUMMARY | 2024-12-21 12:00 | XMS_ITS | Encounter Summary ---
Author Organization [facility] Address [address] [place] [address] Care Team Providers Care Motion Graphics Designer Name Role Phone Fareed Fernández MD Primary Care Provider [phone] Reason for Referral * Consultation (Routine) - Authorized Specialty Diagnoses / Procedures Referred By Contac t Referred To Contact Diagnoses Stage 3b chronic kidney disease (CMS/HCC) Lynn Harrington APRN [address] [address] Phone: tel: fax: Referral ID Status Reason Start Date Expiration Date V isits Requested Visits Authorized [id number] Authorized 12/21/2024 06/22/2026 1 1 Reason for [...] Description 12/21/2024 12:00 PM EDT Office Visit [facility] [address] [place] [phone] Lynn Harrington APRN [address] [address] Stage 3b chronic kidney disease [...] Description 07/05/2025 12:40 PM EST Office Visit [facility] [address] [place] [phone] Lynn Harrington APRN [address] [address] Scheduled Orders Name Type Priority [...] documented as of this encounter Care Teams Motion Graphics Designer Relationship Specialty Start Date End Date Fareed Fernández MD [address] [place] [address] PCP - General 11/07/20 documented as of this encounter
--- OUTSIDE RECORDS SUMMARY | 2025-01-17 08:38 | XMS_ITS | Clinical Summary ---
Author Organization [facility] Address [address] [place] [address] Care Team Providers Care Circulation Librarian Name Role Phone Fareed Fernández MD Primary Care Provider [phone] Allergies Active Allergy Reactions Criticality Noted Date [...] time each day. 2 Active HYDROcodone-mayte taminophen ([place]) 5-325 MG tablet Take 1 tablet (5 [...] 30-59 ml/min 01/31/2018 Gout 01/31/2018 Hypertension 12/22/2017 Encounters Date Type Department Care Team Description 12/21/2024 12:00 PM EDT Office Visit [place] [address] [facility] [address] [place] [address] Lynn Harrington APRN Stage 3b chronic kidney disease (CMS/HCC) (Primary Dx); Primary hypertension; Chronic kidney disease-mineral and bone disorder; Benign essential microscopic hematuria 12/21/2024 Travel from Last 3 Months Immunizations Immunization Administration Dates Next Due Influenza, [...] Mass Index 32.99 12/21/2024 12:18 PM EDT Plan of Treatment Upcoming Encounters Date Type Department Care Team (Late st Contact Info) Description 07/05/2025 12:40 PM EST Office Visit [facility] [address] [place] [phone] Lynn Harrington, CINDER BLOCK MAKER [address] [address] Health Maintenance Due Date Last Done Comments [facility]-Bone Density Scan 1945 [facility]-Depression Screening 1945 [facility]-Medicare Annual Wellness (AWV) 1945 [facility]-/Child/Adol SDOH Screenings 1945 [facility]- SDOH Screenings 1964 [facility]-Adult SDOH Screenings 1964 [facility]-Zoster Vaccines (1 of 2) 1996 [facility]-RSV Vaccine: 60+ Years or (1 - 1-dose 75+ series) 2021 [id number] Vaccine (7 - Moderna risk 2023- season) 2024 03/15/2024, 05/03/2023, 06/02/2022, Additional history exists [facility]-Influenza Vaccine (#1) 02/25/202503/15, 03/10/2022, 03/25/2021, Additional history exists [facility]-DTaP,Tdap,and Td Vaccines (2 - Td or Tdap) 08/24/2027 08/24/2017 [facility]-Hepatitis C Screening Completed 10/16/2020 [facility]-Pneumococcal Vaccine: 50+ Years Completed 06/16/2022, 09/27/2016, 09/04/2014 [facility]-Obesity Intervention Completed 12/21/2024, 06/28 HPV Vaccines Aged Out No longer eligi [...] to Health Maintenance Insurance MEDICARE Care Teams Circulation Librarian Relationship Specialty Start Date End Date Fareed Fernández MD [address] [place] [address] PCP - General 11/07/20
--- OUTSIDE RECORDS SUMMARY | 2025-01-17 08:40 | XMS_ITS | Encounter Summary ---
Author Organization [facility] Address [address] [place] [address] Care Team Providers Care Astronomy Instructor Name Role Phone Fareed Fernández MD Primary Care Provider [phone] Encounter Details Date Type Department Care Team (Latest Contact Info) Description 12/21/2024 Travel Social History Tobacco Use Types Packs/Day Years Used Date Smoking Tobacco: Former Smokeless Tobacco: Never Alcohol Use Standard Drinks/Week Comments Yes 0 (1 standard drink = 0.6 oz pure alcohol) Alcoholic Drinks/day: Occasional alcohol use Comments No Sex and Gender Information Value Date Recorded Sex Assigned at Not on file Legal Sex Female 6:52 PM EDT Gender Identity Not on file Sexual Orientation Not on file documented as of this encounter Plan of Treatment Upcoming Encounters Date Type Department Care Team (Late st Contact Info) Description 07/05/2025 12:40 PM EST Office Visit [facility] [address] [place] [address] Lynn Harrington, ADVERTISING PRODUCTION MANAGER [address] [address] documented as of this encounter Visit Diagnoses Not on filedocumented in this encounter Additional Health Concerns Assessment Noted Time A Body Mass Index follow-up plan has been documented for the patient 12/21/2024 12:50 PM EDT documented as of this encounter Care Teams Astronomy Instructor Relationship Specialty Start Date End Date Fareed Fernández MD [address] [place] [address] PCP - General 11/07/20 documented as of this encounter
--- OUTSIDE RECORDS SUMMARY | 2025-01-17 08:40 | XMS_ITS | Patient Health Record ---
Author Organization [facility] Address [address] [place] [id number] Care Team Providers Care Coke Drawer Hand Name Role Phone Domi Fernández Primary Care Provider Bryan Cornelius [phone] Allergies Allergen (clinical drug ingredient) Drug/Non Drug [...] Interpretation:Normal Performing Lab: Notes/Report: Test performed by [facility] [address] [place] [address] , [facility], [place] [address] Russell Hahn MD, [employer] CLIA: [id number] Specimen Source Urine - Void Culture, Urine See Below Final Report : No Significant Growth P-TSH Reviewed date:12/25/2024 03:01:08 PM Interpretation:Normal Performing Lab: Notes/Report: Test performed by [facility] [address] [place], [place] [id number] [employer] [address], [address], [place] [address] Russell Hahn MD, [employer] CLIA: [id number] TSH 3.79 0.43-5.25 mU/L EKG Reviewed date:04/26/2024 10:19:16 AM Interpretation: Performing Lab: Notes/Report: P-TSH Reviewed date:04/26/2024 10:19:34 AM Interpretation:Normal Performing Lab: Notes/Report: Test performed by [facility] [address] [place] [address] , [address], [place] [address] Russell Hahn MD, [employer] CLIA: [id number] TSH 0.84 0.43-5.25 mU/L P-Comprehensive Metabolic Pa federico (CMP) Reviewed date:04/26/2024 10:19:34 AM Interpretation:co2- 20, bun 33, Cr 2.01, gfr 25 Performing Lab: Notes/Report: Test performed by [facility] [address] [place] [address] , [address], [place] [address] Russell Hahn MD, [employer] CLIA: [id number] Sodium 142 135-145 mmol/L Potassium 4.3 3.5-5.3 [...] Interpretation:Normal Performing Lab: Notes/Report: Test performed by [facility] [address] [place] [address] , [place] [address] Russell Hahn MD, [employer] CLIA: [id number] WBC 6.9 3.8-11.5 K/uL Red Blood Cell Count (RBC) 4.54 3.60-5.30 M/mm3 Hemoglobin (Hgb) 13.9 11.5-15.5 gm/dL Hematocrit (HCT) [...] K/uL Absolute Immature Granulocyte 0.02 0.00-0.03 K/uL H-INR Reviewed date:09/21/2024 01:51:04 PM Interpretation: Performing [...] PREVENTION OF SYSTEMIC EMBOLISM SECONDARY TO AMI H-PT/INR Reviewed date:12/20/2024 03:22:12 PM Interpretation: Performing Lab: Notes/Report: PT 33.1 10.1-12.5 seconds INR 3.25 0.9-1.1 INDICATION INR RANGE Therapy for DVT, PE, Atrial Fib, 2.0-3.0 Prophylaxis for VTE. 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 H-INR Reviewed date:12/20/2024 09:16:11 AM Interpretation: Performing Lab: Notes/Report: POCINRFS 4.1 0.9-1.1 Results sent to: Yael Farooq Pharmacist recommendation for Warfarin therapy is: INR TODAY VIA FINGERSTICK IS 4.1. RECOMMEND PATIENT HOLD WARFARIN DOSE TODAY AND THEN DECREASE WEEKLY DOSE TO 2.5MG MO/WE/FR AND 5MG ALL OTHER DAYS. PATIENT WILL F/U IN 4 WEEKS. PATIENT STATED THAT SHE HAS NOT BEEN EATING MUCH THE PAST FEW DAYS DUE TO AN EAR INFECTION, WHICH COULD BE CONTRIBUTING TO SUPRATHERAPEUTIC INR. FOR DETAILED INFORMATION-PLEASE REVIEW PROGRESS NOTE IN [...] AND TOMORROW. THEN RESUME 2.5 MG ON TUE/FRI; 5 MG ON TUE/TUE/TUE/CARMEN/SAT. FOR DETAILED INFORMATION-PLEASE [...] 25 Performing Lab: Notes/Report: Test performed by [facility] [address] [place], [place] [id number] [employer] , [address], [place] [address] Russell Hahn MD, [employer] CLIA: [id number] Sodium 142 135-145 mmol/L Potassium 4.0 3.5-5.3 [...] Interpretation:21.4 Performing Lab: Notes/Report: Test performed by [facility] [address] [place], [place] [id number] [employer] , [address], [place] [address] Russell Hahn MD, [employer] CLIA: [id number] TSH 21.40 0.43-5.25 mU/L H-INR Reviewed date:04/26/2024 03:33:44 PM Interpretation: Performing Lab: Notes/Report: POCINRFS 2.7 0.9-1.1 Results sent to: Yael Farooq Pharmacist recommendation for Warfarin therapy is: PATIENT INR 2.7 TODAY VIA FINGERSTICK. RECOMMENDED PATIENT CONTINUE WITH WARFARIN 2.5 MG ON TUE/TUE; 5 MG ON TUE/TUE/TUE/CARMEN/SAT FOR DETAILED INFORMATION-PLEASE REVIEW PROGRESS NOTE IN [...] 2.5 MG TO WARFARIN 2.5 MG ON TUE/TUE/TUE; 5 MG ON TUE/TUE/CARMEN/SAT. FOR DETAILED INFORMATION-PLEASE REVIEW PROGRESS NOTE IN [...] platlet 218 100 - 400 H-INR Reviewed date:03/16/2024 12:21:39 AM Interpretation: Performing Lab: Notes/Report: POCINRFS 2.9 0.9-1.1 Results sent to: Yael Farooq Pharmacist recommendation for Warfarin therapy is: PATIENT INR 2.9 TODAY VIA FINGERSTICK. RECOMMENDED PATIENT CONTINUE WITH WARFARIN 2.5 MG ON TUE/TUE; 5 MG ON TUE/TUE/TUE/CARMEN/SAT. FOR DETAILED INFORMATION-PLEASE [...] 2.5 MG TO WARFARIN 2.5 MG ON TUE/TUE; 5 MG ON [...] Duration) Notes Start Date End Date Status Allopurinol 100 MG 1 tablet Orally Once a day; Duration: 90 days Active Sertraline HCl 50 MG 1 tablet Orally Once a day; Duration: 90 days Active Warfarin Sodium 5 MG 1 tablet Orally Once a day; Duration: 90 days Active Hydrocortisone-Aceti c Acid 1-2 % 5 drops into affected ear Otic Three times a day; Duration: 10 days 12/17/2024 Active traZODone HCl 150 MG 1 tablet at bedtime Orally Once a day; Duration: 90 days Active Fluticasone Propionate 50 MCG/ACT 1 spray(s) [...] review and pick correct strength-formulat ion from TOTEMS (formerly Nitrogram) options. If intended option is not shown, discontinue and re-order from Quick Search* Active metOLazone 2.5 MG 1 tab(s) orally every other day prn; Duration: 30 day(s) Not-Taking HYDROcodone-Acetamin ophen 5-325 MG 1 tab(s) orally three times a day as needed; Duration: 30 days 01/08/2025 Active Fish Oil 1000 MG 1 capsule [...] Once a day; Duration: 30 day(s) Active Immunizations Vaccine Route Administration Date Status Comme nts [id number]-lyfgorv e pts. IM Intramuscular 03/31/2012 Administered xFlu [...] Status Risk Notes Problem Vitamin D deficiency (03020276) Vitamin D deficiency (E55.9) Active confirmed Problem History of DVT (deep vein thrombosis) (859189461) History of DVT (deep vein thrombosis) (Z86.718) Active confirmed Problem Essential hypertension (89819600) Essential hypertension (I10) Active confirmed Problem Hyperuricemia (04164477) Hyperuricemia (E79.0) Active confirmed Problem Chronic kidney disease stage 3 (disorder) (296487767) Chronic kidney disease, stage 3 (N18.3) Active confirmed Problem Generalized anxiety disorder (17337360) Generalized anxiety disorder (F41.1) Active confirmed Problem Chronic pain (59560624) Other chronic pain (G89.29) Active confirmed Problem Chronic pain syndrome (719282118) Chronic pain syndrome (G89.4) Active confirmed Problem Kyphosis deformity of thoracic spine (419396584) Other secondary kyphosis, 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) Active confirmed Problem Long-term current use of anticoagulant (431735869) assisted (current) use of anticoagulants (Z79.01) Active confirmed Problem Acquired hypothyroidism (133725177) Acquired hypothyroidism (E03.9) Active confirmed Problem Renal insufficiency (938608645) Renal insufficiency (N28.9) Active confirmed Problem Depression (995811769) Depression (F32.9) Active confirmed Problem Allergic rhinitis (23716088) Allergic rhinitis (J30.9) Active confirmed Problem Atrial fibrillation (10472633) Atrial fibrillation, unspecified type (I48.91) Active confirmed Problem Vaginal bleeding (244283421) Vaginal bleeding (N93.9) Active confirmed Problem Obese class II (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) BMI 37.0-37.9, adult (Z68.37) Active confirmed Problem Cardiac dysrhythmia (808807555) Cardiac dysrhythmia, unspecified (I49.9) Active confirmed Problem Interstitial lung disease (622401977) Interstitial lung disease (J84.9) Active confirmed Problem Factor V Leiden mutation (disorder) (037306991) History of factor V Leiden mutation (Z86.2) Active confirmed Problem Allergic rhinitis (71799928) Non-seasonal allergic rhinitis, unspecified allergic rhinitis trigger (J30.89) Active confirmed Problem Chronic renal failure syndrome (44194321) Chronic kidney disease, unspecified CKD stage (N18.9) Active confirmed Problem Seasonal allergic rhinitis (106673408) Seasonal allergic rhinitis, unspecified trigger (J30.2) Active confirmed Problem Abnormal CXR (R93.89) Active confirmed Problem Chronic atrial fibrillation (373649698) Chronic atrial fibrillation (I48.20) Active confirmed Problem 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) (7379455927) 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) Active confirmed Problem Primary hypertension (35573858) Primary hypertension (I10) Active confirmed Vital Signs Heart Rate 91 /min 12/17/2024 Blood pressure diastolic 72 mm Hg 12/17/2024 Height 00 in 12/17/2024 Blood pressure systolic 120 mm Hg 12/17/2024 Weight 218.8 lbs 12/17/2024 Encounters Encounter Location Date Provider [facility] [address] [place] [id number] 04/23/2024 Domi Fernández Cardiac dysrhythmia, unspecified I49.9 ; Atrial fibrillation, unspecified type I48.91 ; Primary hypertension I10 ; Interstitial lung disease J84.9 ; Renal insufficiency N28.9 ; Acquired hypothyroidism E03.9 ; History of DVT (deep vein thrombosis) Z86.718 ; History of factor V Leiden mutation Z86.2 ; assisted (current) use of anticoagulants Z79.01 ; Hyperuricemia E79.0 and Other chronic pain G89.29 [facility] [address] [place] [id number] 07/23/2024 Domi Fernández Atrial fibrillation, unspecified type I48.91 ; Chronic kidney disease, stage 3 N18.3 ; Chronic atrial fibrillation I48.20 and Chronic kidney disease, unspecified CKD stage N18.9 [facility] [address] [place] [id number] 12/17/2024 Domi Fernández Essential hypertensi on I10 ; assisted (current) use of anticoagulants Z79.01 ; History of DVT (deep vein thrombosis) Z86.718 ; History of factor V Leiden mutation Z86.2 ; Acquired hypothyroidism E03.9 ; Dysuria R30.0 ; Microscopic hematuria R31.29 and Acute otitis externa of left ear, unspecified type H60.502 [facility] [address] [place] [id number] 10/22/2024 Domi Fernández Acquired hypothyroid ism E03.9 ; assisted (current) use of anticoagulants Z79.01 ; Essential hypertension I10 ; Chronic atrial fibrillation I48.20 ; Chronic kidney disease, unspecified CKD stage N18.9 and Chronic pain syndrome G89.4 [facility] [address] [place] [id number] 01/07/2025 Domi Fernández [facility] [address] [place] [id number] 03/15/2024 Bryan Cornelius Other chronic pain G89.29 [facility] [address] [place], [place] [id number] 04/26/2024 Domi Fernández Abnormal EKG R94.31 [facility] [address] [place], [place] [id number] 05/23/2024 Domi Fernández Acquired hypothyroid ism E03.9 [facility] [address] [place], [place] [id number] 05/30/2024 Domi Fernández Other chronic pain G89.29 [facility] [address] [place], [place] [id number] 07/09/2024 Domi Fernández Other chronic pain G89.29 [facility] [address] [place], [place] [id number] 08/13/2024 Domi Fernández Other chronic pain G89.29 [facility] [address] [place], [place] [id number] 09/10/2024 Domi Fernández Other chronic pain G89.29 [facility] [address] [place], [place] [id number] 10/31/2024 Domi Fernández [facility] [address] [place], [place] [id number] 11/26/2024 Domi Fernández Chronic pain syndrom e G89.4 [facility] [address] [place], [place] [id number] 12/17/2024 Domi Fernández [facility] [address] [place], [place] [id number] 01/07/2025 Domi Fernández Chronic pain syndrom e G89.4 Assessments Encounter Date Diagnosis (ICD Code) Assessment Notes Treatment Notes Treatment Clinical Notes Section Notes 03/15/2024 Other chronic pain (ICD-10 - [...] Other chronic pain (ICD-10 - G89.29) 10/22/2024 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 (ICD-10 - Z79.01) 10/22/2024 Acquired hypothyroidism (ICD-10 - E03.9) 11/26/2024 Chronic pain syndrome (ICD-10 - G89.4) 12/17/2024 Essential hypertension (ICD-10 - I10) 12/17/2024 assisted (current) use of anticoagulants (ICD-10 - Z79.01) 01/07/2025 Chronic pain syndrome (ICD-10 - G89.4) 12/17/2024 History of DVT (deep vein thrombosis) [...] V Leiden mutation (ICD-10 - Z86.2) 04/23/2024 assisted (current) use of anticoagulants (ICD-10 - Z79.01) 04/23/2024 Hyperuricemia (ICD-10 - E79.0) 04/23/2024 Other chronic pain (ICD-10 - G89.29) Plan Of Treatment Pending Test Test Name Order Date Cologuard 01/13/2023 Next Appt Details Provider Name:Domi Watters er, 02/18/2025 11:00:00 AM, [address] [facility], [address], [place], [place], [id number], Insurance Providers Payer Name Payer Address Payer Phone Subscriber Number Group Number Insured Name Patient Relationship to Insured Coverage Start Date Coverage End Date MEDICARE PART B [address] [id number] [place] [id number] KRISTOPHER PAYAN Self - patient is the [...] removed 12/27/11 D&C, Dr. Grijalva, polyp removal Nov 24, 20 20 Hospitalization History Reason Date(Month/Year) [facility] - Hypotension with Hyovolemia, Pneum onia 10/09- [facility] - Covid Pneumonia Jun 2020 [facility] ER-pneumonia 07/05-07/16/16 [facility] ER-dehydration, pneumonia 12/28/11 [facility] ER Diverticulitis 12-04-11 hip replacement 2006
[2025-01-17 10:18] LABS: INR 4.45 (0.9-1.1); Prothrombin Time 44.2 seconds (10.1-12.5)
[2025-01-17 12:52] LABS: PHA INR Fingerstick 5.1 (0.9-1.1)
== END 2025-01-17 13:11 ==
PROVIDERS: PCP Family Medicine; Visit Provider Physician Assistant
DX: D68.2 Hereditary deficiency of other clotting factors (principal); Z79.01 Long term (current) use of anticoagulants; Z86.718 Personal history of other venous thrombosis and embolism
CPT/HCPCS: 36415; 85610; 99211; G0463

== ENCOUNTER 2025-01-31 08:37 | Outpatient (CLI) | payer MEDICARE, SELFPAY ==
--- OUTSIDE RECORDS SUMMARY | 2024-12-17 06:45 | XMS_ITS ---
Author Organization [facility] Address [address] [facility] [address] [id number] Care Team Providers Care Hammerer Name Role Phone Domi Fernández Primary Care [...] Interpretation:Normal Performing Lab: Notes/Report: Test performed by [email or web address] [address] [place], [place] [address] [place] , [address], [place] [address] Russell Hahn MD, Freight Representative CLIA: [id number] Specimen Source Urine - Void Culture, Urine See Below Final Report : No Significant Growth P-TSH Reviewed date:12/25/2024 03:01:08 PM Interpretation:Normal Performing Lab: Notes/Report: Test performed by [email or web address] [address] [place], [place] [address] [place] , [address], [place] [address] Russell Hahn MD, Freight Representative CLIA: [id number] TSH 3.79 0.43-5.25 mU/L REASON FOR VISIT [...] review and pick correct strength-formulat ion from [employer] options. 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 :1945 A ge:79 Y S ex:Female Date:12/17/2024 Address:[address] [place] [address], [id number] Subjective: * Chief Complaints: * 1 . [...] Diagno stic Procedure: h ip replacement 2006, [facility] Diverticulitis 12-04-11, [facility]-dehydration, pneumonia 12/28/11, [facility]-pneumonia 07/05-07/16/16, [facility] - Covid Pneumonia Jun 2020, H [...] *Please review and pick correct strength-formulation from [employer] options. If intended option is not shown, [...] 1.015 * K etone Neg * B hsaron Neg * G delicia Neg * Mehnaz Wong 12/17/2024 11 :35:16 AM EDT > Provider reviewed results while patient in office. * Procedure Codes: G 2211 Complex e/[place], [address] Urinalysis, no micro, 1036F TOBACCO NON- USER, G8950 PREHTN/HTN BP DOC INDCD F/U DOC, G8752 MOST RECENT SYSTOLIC BP < 140MM HG, G8754 MOST RECENT DIASTOLIC BP < 90MM HG * Follow Up: 2 Months * Images: Billing Information: * Visit Code: 91483 Office Visit, Est Pt., Level 4. * Procedure Codes: G2211 Complex e/[place]. [address] Urinalysis, no micro. 1036F TOBACCO NON-USER. G8950 PREHTN/HTN BP DOC INDCD F/U DOC. G8752 MOST RECENT SYSTOLIC BP < 140MM HG. G8754 MOST RECENT DIASTOLIC BP < 90MM HG. * Electronic signature of Domi Fernández MD on 01/31/2025 at 08:40 AM EDT Sign off status: Pending * Provider: Domi Fernández M.D. Date: 0 12/17/2024 Generated for Diannai ng/Facristig/eTransmitting on: 0 01/31/2025 08:40 AM EDT History and Physical Notes * [...]
--- OUTSIDE RECORDS SUMMARY | 2024-12-21 12:00 | XMS_ITS | Encounter Summary ---
Author Organization [facility] Address [address] [place] [address] Care Team Providers Care Jewelry Casting Model Maker Name Role Phone Fareed Fernández MD Primary Care Provider [phone] Reason for Referral * Consultation (Routine) - Authorized Specialty Diagnoses / Procedures Referred By Contac t Referred To Contact Diagnoses Stage 3b chronic kidney disease (CMS/HCC) Lynn Harrington APRN [address] [address] Phone: tel: fax: Referral ID Status Reason Start Date Expiration Date V isits Requested Visits Authorized [id number] Authorized 12/21/2024 06/22/2026 1 1 Reason for [...] [facility] [address] [place] [phone] Lynn Harrington APRN [address] [address] Stage 3b chronic kidney disease [...] [place] [address] Lynn Harrington APRN [address] [address] Scheduled Orders Name Type Priority [...] documented as of this encounter Care Teams Jewelry Casting Model Maker Relationship Specialty Start Date End Date Fareed Fernández MD [address] [place] [address] PCP - General 11/07/20 documented as of this encounter
--- OUTSIDE RECORDS SUMMARY | 2025-01-07 06:05 | XMS_ITS ---
Author Organization [facility] Address [address] [place], [place] [id number] Care Team Providers Care Burr Mill Operator Name Role Phone Domi Fernández Primary Care Provider REASON FOR VISIT due bone density Encounters Encounter Location Date Provider Diagnosis [facility] [address] [facility] [address] [facility] [address] [place], [place] [id number] 01/07/2025 Domi Fernández Screening for osteoporosis Z13.820 Assessments Encounter Date Diagnosis (ICD Code) Assessment Notes Treatment Notes Treatment Clinical Notes Section Notes 01/07/2025 Screening for osteoporosis (ICD-10 - Z13.820) Plan Of Treatment Pending Test Test Name Order Date Bone density 01/07/2025 Next Appt Details Provider Name:Domi Watters er, 02/18/2025 11:00:00 AM, [address] [facility] [address] [facility], [address], [place], [place], [id number], Progress Notes * ORA DEBCHARLIOB: [birth year] (79 yo F)Acc No.[id number]:01/07/2025 Patient: KRISTOPHER GONZALES :1945 A ge:79 Y S ex:Female Address:[address] [place], [place] [address] [address] Subjective: * Chief Complaints: * D ue bone density * Medical History: * Surgical History: * Hospitalization/Major Diagno stic Procedure: * Medications: Objective: * Vitals: * Physical Examination: Assessment: * Assessment: 1. S creening for osteoporosis - Z13.820 (Primary) Plan: * Treatment: * Procedure Codes: * true * Date: Generated for Sravan venegas/Anel/Luan on: 0 01/31/2025 08:39 AM EDT
--- OUTSIDE RECORDS SUMMARY | 2025-01-31 08:40 | XMS_ITS | Patient Health Record ---
Author Organization [facility] Address [address] [id number] Care Team Providers Care Desk Top Publisher Name Role Phone Domi Fernández Primary Care Provider Bryan Cornelius [phone] Allergies Allergen (clinical drug ingredient) Drug/Non Drug [...] - 38 platlet 218 100 - 400 EKG Reviewed date:04/26/2024 10:19:16 AM Interpretation: Performing Lab: Notes/Report: P-TSH Reviewed date:04/26/2024 10:19:34 AM Interpretation:Normal Performing Lab: Notes/Report: Test performed by [employer] [facility] , [address], [place] [address] Russell Hahn MD, School Counsellor CLIA: [id number] TSH 0.84 0.43-5.25 mU/L P-Comprehensive Metabolic Pa federico (CMP) Reviewed date:04/26/2024 10:19:34 AM Interpretation:co2- 20, bun 33, Cr 2.01, gfr 25 Performing Lab: Notes/Report: Test performed by [facility] [address] [place] [address] , [address], [place] [address] Russell Hahn MD, School Counsellor CLIA: [id number] Sodium 142 135-145 mmol/L Potassium 4.3 3.5-5.3 [...] Interpretation:Normal Performing Lab: Notes/Report: Test performed by [facility] [address] [place] [address] , [address], [place] [address] Russell Hahn MD, School Counsellor CLIA: [id number] WBC 6.9 3.8-11.5 K/uL Red Blood Cell [...] K/uL Absolute Immature Granulocyte 0.02 0.00-0.03 K/uL P-Culture, Urine Reviewed date:12/25/2024 03:01:08 PM Interpretation:Normal Performing Lab: Notes/Report: Test performed by [facility] [address] [place] [address] , [address], [place] [address] Russell Hahn MD, School Counsellor CLIA: [id number] Specimen Source Urine - Void Culture, Urine See Below Final Report : No Significant Growth Urinalysis - Inhouse Reviewed date:12/24/2024 06:30:27 PM Interpretation: Performing Lab: Notes/Report: Color/Clarity yellow/clear Leuk Trace Nitrite Neg Urobili 3.2 Protein Neg pH 5.5 Blood 2+ Sp. Gr. 1.015 Ketone Neg Bili Neg Gluc Neg P-TSH Reviewed date:12/25/2024 03:01:08 PM Interpretation:Normal Performing Lab: Notes/Report: Test performed by [facility] [address] [place] [address] , [address], [place] [id number] Russell Hahn MD, School Counsellor CLIA: [id number] TSH 3.79 0.43-5.25 mU/L P-Comprehensive Metabolic Pa federico (CMP) Reviewed date:10/31/2024 08:09:43 AM Interpretation:gluc 100, bun 28, Cr 1.99, gfr 25 Performing Lab: Notes/Report: Test performed by [facility] [address] [place] [address] , [address], [place] [address] Russell Hahn MD, School Counsellor CLIA: [id number] Sodium 142 135-145 mmol/L Potassium 4.0 3.5-5.3 [...] Interpretation:21.4 Performing Lab: Notes/Report: Test performed by [facility] [address] [place] [address] , [address], [place] [address] Russell Hahn MD, School Counsellor CLIA: [id number] TSH 21.40 0.43-5.25 mU/L H-INR Reviewed date:12/20/2024 09:16:11 AM Interpretation: Performing [...] SYSTEMIC EMBOLISM SECONDARY TO AMI H-INR Reviewed date:01/17/2025 03:47:23 PM Interpretation: Performing Lab: Notes/Report: POCINRFS 5.1 0.9-1.1 Results sent to: Yael Farooq Pharmacist recommendation for Warfarin therapy is: PATIENT INR 5.1 TODAY VIA FINGERSTICK. RECOMMENDED PATIENT HOLD DOSE X2 DAYS, THEN REDUCE WARFARIN DOSE TO 2.5 MG ON SUN/TUE/CARMEN/SAT; 5 MG ON MON/WED/FRI. PATIENT IS CURRENTLY EATING LESS THAN PREVIOUSLY. 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 H-INR Reviewed date:03/16/2024 12:21:39 AM Interpretation: Performing [...] SYSTEMIC EMBOLISM SECONDARY TO AMI H-PT/INR Reviewed date:01/17/2025 03:47:45 PM Interpretation: Performing Lab: Notes/Report: PT 44.2 10.1-12.5 seconds INR 4.45 0.9-1.1 INDICATION INR RANGE Therapy for DVT, PE, Atrial Fib, 2.0-3.0 Prophylaxis for VTE. 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 H-INR Reviewed date:08/23/2024 01:19:52 PM Interpretation: Performing Lab: Notes/Report: POCINRFS 1.5 0.9-1.1 Results sent to: Yael Farooq Pharmacist recommendation for Warfarin therapy is: PATIENT INR 1.5 TODAY VIA FINGERSTICK. RECOMMENDED PATIENT TAKE EXTRA 2.5 MG TODAY AND TOMORROW. THEN RESUME 2.5 MG ON MON/TUE; 5 MG ON TUE/TUE/TUE/CARMEN/SAT. FOR DETAILED INFORMATION-PLEASE [...] 2.5 MG ON MON/WED/TUE; 5 MG ON SUN/TUE/CARMEN/SAT. FOR DETAILED INFORMATION-PLEASE [...] review and pick correct strength-formulat ion from InhibOx options. If intended option is not shown, [...] Vaccine Route Administration Date Status Comme nts tUisutkv-glstlvcve-fyxlbak e pts. IM Intramuscular 03/31/2012 Administered xFlu [...] Status Risk Notes Problem Vitamin D deficiency (30135963) Vitamin D deficiency (E55.9) Active confirmed Problem History of DVT (deep vein thrombosis) (106005061) History of DVT (deep vein thrombosis) (Z86.718) Active confirmed Problem Essential hypertension (10374387) Essential hypertension (I10) Active confirmed Problem Hyperuricemia (09273758) Hyperuricemia (E79.0) Active confirmed Problem Chronic kidney disease stage 3 (disorder) (566650907) Chronic kidney disease, stage 3 (N18.3) Active confirmed Problem Generalized anxiety disorder (24518363) Generalized anxiety disorder (F41.1) Active confirmed Problem Chronic pain (70249309) Other chronic pain (G89.29) Active confirmed Problem Chronic pain syndrome (798490473) Chronic pain syndrome (G89.4) Active confirmed Problem Kyphosis deformity of thoracic spine (612459216) Other secondary kyphosis, 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) Active confirmed Problem Long-term current use of anticoagulant (823314768) senior living (current) use of anticoagulants (Z79.01) Active confirmed Problem Acquired hypothyroidism (179972641) Acquired hypothyroidism (E03.9) Active confirmed Problem Renal insufficiency (249471953) Renal insufficiency (N28.9) Active confirmed Problem Depression (602935224) Depression (F32.9) Active confirmed Problem Allergic rhinitis (03757790) Allergic rhinitis (J30.9) Active confirmed Problem Atrial fibrillation (70527348) Atrial fibrillation, unspecified type (I48.91) Active confirmed Problem Vaginal bleeding (571042986) Vaginal bleeding (N93.9) Active confirmed Problem 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) BMI 37.0-37.9, adult (Z68.37) Active confirmed Problem Cardiac dysrhythmia (623003705) Cardiac dysrhythmia, unspecified (I49.9) Active confirmed Problem Interstitial lung disease (999940075) Interstitial lung disease (J84.9) Active confirmed Problem Factor V Leiden mutation (disorder) (347289029) History of factor V Leiden mutation (Z86.2) Active confirmed Problem Allergic rhinitis (18380168) Non-seasonal allergic rhinitis, unspecified allergic rhinitis trigger (J30.89) Active confirmed Problem Chronic renal failure syndrome (43620779) Chronic kidney disease, unspecified CKD stage (N18.9) Active confirmed Problem Seasonal allergic rhinitis (361481638) Seasonal allergic rhinitis, unspecified trigger (J30.2) Active confirmed Problem Plain X-ray of chest abnormal (finding) (0086470725) Abnormal CXR (R93.89) Active confirmed Problem Chronic atrial fibrillation (233292777) Chronic atrial fibrillation (I48.20) Active confirmed Problem 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) (8035362323) 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) Active confirmed Problem Primary hypertension (97199955) Primary hypertension (I10) Active confirmed Vital Signs Heart Rate 91 /min 12/17/2024 Blood pressure diastolic 72 mm Hg 12/17/2024 Height 00 in 12/17/2024 Blood pressure systolic 120 mm Hg 12/17/2024 Weight 218.8 lbs 12/17/2024 Encounters Encounter Location Date Provider Diagnosis [facility] [address] [place] [id number] 04/23/2024 Domi Fernández Cardiac dysrhythmia, unspecified I49.9 ; Atrial fibrillation, unspecified type I48.91 ; Primary hypertension I10 ; Interstitial lung disease J84.9 ; Renal insufficiency N28.9 ; Acquired hypothyroidism E03.9 ; History of DVT (deep vein thrombosis) Z86.718 ; History of factor V Leiden mutation Z86.2 ; senior living (current) use of anticoagulants Z79.01 ; Hyperuricemia E79.0 and Other chronic pain G89.29 [facility] [address] [facility] [address] [place] [id number] 07/23/2024 Domi Fernández Atrial fibrillation, unspecified type I48.91 ; Chronic kidney disease, stage 3 N18.3 ; Chronic atrial fibrillation I48.20 and Chronic kidney disease, unspecified CKD stage N18.9 [facility] [address] [facility] [address] [place], [place] [id number] 12/17/2024 Domi Fernández Essential hypertensi on I10 ; senior living (current) use of anticoagulants Z79.01 ; History of DVT (deep vein thrombosis) Z86.718 ; History of factor V Leiden mutation Z86.2 ; Acquired hypothyroidism E03.9 ; Dysuria R30.0 ; Microscopic hematuria R31.29 and Acute otitis externa of left ear, unspecified type H60.502 [facility] [address] [facility] [address] [place] [id number] 10/22/2024 Domi Fernández Acquired hypothyroid ism E03.9 ; senior living (current) use of anticoagulants Z79.01 ; Essential hypertension I10 ; Chronic atrial fibrillation I48.20 ; Chronic kidney disease, unspecified CKD stage N18.9 and Chronic pain syndrome G89.4 [facility] [address] [facility] [address] [place] [id number] 03/15/2024 Bryan Cornelius Other chronic pain G89.29 [facility] [address] [facility] [address] [place] [id number] 04/26/2024 Domi Fernández Abnormal EKG R94.31 [facility] [address] [facility] [address] [place] [id number] 05/23/2024 Domi Fernández Acquired hypothyroid ism E03.9 [facility] [address] [facility] [address] [place] [id number] 05/30/2024 Domi Fernández Other chronic pain G89.29 [facility] [address] [facility] [address] [place] [id number] 07/09/2024 Domi Fernández Other chronic pain G89.29 [facility] [address] [facility] [address] [place] [id number] 08/13/2024 Domi Fernández Other chronic pain G89.29 [facility] [address] [facility] [address] [place] [id number] 09/10/2024 Domi Fernández Other chronic pain G89.29 [facility] [address] [place] [id number] 10/31/2024 Domi Fernández [facility] [address] [place] [id number] 11/26/2024 Domi Fernández Chronic pain syndrom e G89.4 [facility] [address] [place] [id number] 12/17/2024 Domi Fernández [facility] [address] [place] [id number] 01/07/2025 Dmoi Fernández Chronic pain syndrom e G89.4 [facility] [address] [place] [id number] 01/07/2025 Domi Fernández Screening for osteoporosis Z13.820 [...] Other chronic pain (ICD-10 - G89.29) 10/22/2024 senior living (current) use of anticoagulants (ICD-10 - Z79.01) 10/22/2024 Acquired hypothyroidism (ICD-10 - E03.9) 11/26/2024 Chronic pain syndrome (ICD-10 - G89.4) 12/17/2024 Essential hypertension (ICD-10 - I10) 12/17/2024 senior living (current) use of anticoagulants (ICD-10 - Z79.01) 01/07/2025 Chronic pain syndrome (ICD-10 - G89.4) 01/07/2025 Screening for osteoporosis (ICD-10 - Z13.820) 07/23/2024 Chronic atrial fibrillation (ICD-10 - I48.20) 12/17/2024 History of DVT (deep vein thrombosis) (ICD-10 - Z86.718) 04/23/2024 Primary hypertension (ICD-10 - I10) 10/22/2024 [...] V Leiden mutation (ICD-10 - Z86.2) 04/23/2024 senior living (current) use of anticoagulants (ICD-10 - Z79.01) 04/23/2024 Hyperuricemia (ICD-10 - E79.0) 04/23/2024 Other chronic pain (ICD-10 - G89.29) Plan Of Treatment Pending Test Test Name Order Date Bone density 01/07/2025 Cologuard 01/13/2023 Next Appt Details Provider Name:Domi Watters er, 02/18/2025 11:00:00 AM, [address], [place], [id number], Insurance Providers Payer Name Payer Address Payer Phone Subscriber Number Group Number Insured Name Patient Relationship to Insured Coverage Start Date Coverage End Date MEDICARE PART B [address] [address] [place] [id number] [phone] [id number] KRISTOPHER PAYAN Self - patient is the [...] removal May 20 Hospitalization History Reason Date(Month/Year) [facility] - Hypotension with Hyovolemia, Pneum onia 10/09- [facility] - Covid Pneumonia Jun [address] [facility] ER-pneumonia 07/05-07/16/[address] [facility] ER-dehydration, pneumonia 12/28/[address] [facility] Diverticulitis 12-04-11 hip replacement 2006
--- OUTSIDE RECORDS SUMMARY | 2025-01-31 08:40 | XMS_ITS | Clinical Summary ---
Author Organization [facility] Address [address] [place] [address] Care Team Providers Care Packaging Coordinator Name Role Phone Fareed Fernández MD Primary Care Provider [phone] Allergies Active Allergy Reactions Criticality Noted Date [...] time each day. 2 Active HYDROcodone-mayte taminophen ([place]) 5-325 MG tablet Take 1 tablet (5 [...] Description 12/21/2024 12:00 PM EDT [facility] [place] [id number] [facility] [address] [place] [address] Lynn Harrington APRN [...] Description 07/05/2025 12:40 PM EST Office Visit [facility] [address] [place] [address] Lynn Harrington, HONEY PROCESSOR [address] [address] Health Maintenance Due Date Last Done Comments [facility]-Bone Density Scan 1946 [facility]-Depression Screening 1946 [facility]-Medicare Annual Wellness (AWV) 1945 [facility]-/Child/Adol SDOH Screenings 1945 [facility]- SDOH Screenings 1964 [facility]-Adult SDOH Screenings 1964 [facility]-Zoster Vaccines (1 of 2) 1996 [facility]-RSV Vaccine: 60+ Years or (1 - 1-dose 75+ series) 2021 [id number]-10 Vaccine (7 - Moderna risk 2023- season) [...] to Health Maintenance Insurance MEDICARE Care Teams Packaging Coordinator Relationship Specialty Start Date End Date Fareed Fernández MD [address] [place] [address] PCP - General 11/07/20
--- OUTSIDE RECORDS SUMMARY | 2025-01-31 08:41 | XMS_ITS | Encounter Summary ---
Author Organization [facility] Address [address] [place] [address] Care Team Providers Care Rotary Lithographic Press Operator Name Role Phone Fareed Fernández MD Primary Care Provider [phone] Encounter Details Date Type Department Care Team [...] Description 07/05/2025 12:40 PM EST Office Visit [facility] [address] [place] [address] Lynn Harrington, ELECTRIC SCREW DRIVER OPERATOR [address] [address] documented as of this encounter Visit Diagnoses Not on filedocumented in this encounter Additional Health Concerns Assessment Noted Time A Body Mass Index follow-up plan has been documented for the patient 12/21/2024 12:50 PM EDT documented as of this encounter Care Teams Rotary Lithographic Press Operator Relationship Specialty Start Date End Date Fareed Fernández MD [address] [place] [address] PCP - General 11/07/20 documented as of this encounter
[2025-01-31 09:12] LABS: PHA INR Fingerstick 2.8 (0.9-1.1)
== END 2025-01-31 09:13 ==
LOC: ACC 08:37
PROVIDERS: PCP Family Medicine; Visit Provider Physician Assistant
DX: D68.51 Activated protein C resistance (principal); Z86.718 Personal history of other venous thrombosis and embolism; Z79.01 Long term (current) use of anticoagulants
CPT/HCPCS: 85610; 99211; G0463

== ENCOUNTER 2025-02-04 08:54 | Outpatient (CLI) | payer MEDICARE, SELFPAY ==
--- OUTSIDE RECORDS SUMMARY | 2024-12-17 06:45 | XMS_ITS ---
Author Organization [facility] Address [address] [facility] [address] [id number] Care Team Providers Care Business Practices Officer Name Role Phone Doim Fernández Primary Care Provider Allergies Allergen (clinical [...] Interpretation:Normal Performing Lab: Notes/Report: Test performed by [employer] [address] [place], [place] [address] [place] , [address], [place] [address] Russell Hahn MD, Slurry Man CLIA: [id number] Specimen Source Urine - Void Culture, Urine See Below Final Report : No Significant Growth P-TSH Reviewed date:12/25/2024 03:01:08 PM Interpretation:Normal Performing Lab: Notes/Report: Test performed by [employer] [address] [place], [place] [address] [place] , [address], [place] [address] Russell Hahn MD, Slurry Man CLIA: [id number] TSH 3.79 0.43-5.25 mU/L REASON FOR VISIT [...] review and pick correct strength-formulat ion from [employer] options. 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 :1945 A ge:79 Y S ex:Female Date:12/17/2024 Address:[address] [place] [address], [id number] Subjective: * Chief Complaints: * 1 . [...] Diagno stic Procedure: h ip replacement 2006, [facility] Diverticulitis 12-04-11, [facility]-dehydration, pneumonia 12/28/11, [facility]-pneumonia 07/05-07/16/16, [facility] - Covid Pneumonia Jun 2020, H [...] *Please review and pick correct strength-formulation from [employer] options. If intended option is not shown, [...] G 2211 Complex e/[place] [address] Urinalysis, no micro, 1036F TOBACCO NON- USER, G8950 PREHTN/HTN BP DOC INDCD F/U DOC, G8752 MOST RECENT SYSTOLIC BP < 140MM HG, G8754 MOST RECENT DIASTOLIC BP < 90MM HG * Follow Up: 2 Months * Images: Billing Information: * Visit Code: 75421 Office Visit, Est Pt., Level 4. * Procedure Codes: G2211 Complex e/[place]. [address] Urinalysis, no micro. 1036F TOBACCO NON-USER. G8950 PREHTN/HTN BP DOC INDCD F/U DOC. G8752 MOST RECENT SYSTOLIC BP < 140MM HG. G8754 MOST RECENT DIASTOLIC BP < 90MM HG. * Electronic signature of Domi Fernández MD on 02/04/2025 at 08:59 AM EDT Sign off status: Pending * Provider: Domi Fernández M.D. Date: 0 12/17/2024 Generated for [employer] ng/Facristig/eTransmitting on: 0 02/04/2025 08:59 AM EDT History and Physical Notes * [...]
--- OUTSIDE RECORDS SUMMARY | 2024-12-21 12:00 | XMS_ITS | Encounter Summary ---
Author Organization [facility] Address [address] [place] [address] Care Team Providers Care Larder Cook Name Role Phone Fareed Fernández MD Primary Care Provider [phone] Reason for Referral * Consultation (Routine) - Authorized Specialty Diagnoses / Procedures Referred By Contac t Referred To Contact Diagnoses Stage 3b chronic kidney disease (CMS/HCC) Lynn Harrington APRN [address] [address] Phone: tel: fax: Referral ID Status Reason Start Date Expiration Date V isits Requested Visits Authorized [id number] Authorized 12/21/2024 06/22/2026 1 1 Reason for Visit * Reason Comments Follow-up Pt is a 79 year old female that presents to the clinic on this date for a follow up for MARIELY. Pt states she is having multiple aches and pain, but none she relates to her kidneys. Encounter Details Date Type Department Care Team (Late st Contact Info) Description 12/21/2024 12:00 PM EDT [facility] [address] [place] [phone] Lynn Harrington APRN [address] [address] Stage 3b chronic kidney disease (CMS/HCC) (Primary Dx); Primary hypertension; Chronic kidney disease-mineral and bone disorder; Benign essential microscopic hematuria Social History Tobacco Use Types Packs/Day Years Used Date Smoking Tobacco: Former Smokeless Tobacco: Never Tobacco Cessation:Counseling Given: Not Answered Alcohol Use Standard Drinks/Week Comments Yes 0 (1 standard drink = 0.6 oz pure alcohol) Alcoholic Drinks/day: Occasional alcohol use Comments No Sex and Gender Information Value Date Recorded Sex Assigned at Not on file Legal Sex Female 6:52 PM EDT Gender Identity Not on file Sexual Orientation Not on file documented as of this encounter Last Filed Vital Signs Vital Sign Reading Time Taken Comments Blood Pressure 120/72 12/21/2024 12:18 PM EDT Pulse 76 12/21/2024 12:18 PM EDT Temperature - - Respiratory Rate 18 12/21/2024 12:18 PM EDT Oxygen Saturation 98% 12/21/2024 12:18 PM EDT Inhaled Oxygen Concentration - - Weight 98.4 kg (217 lb) 12/21/2024 12:18 PM EDT Height 172.7 cm (5' 8 ) 12/21/2024 12:18 PM EDT Body Mass Index 32.99 12/21/2024 12:18 PM EDT documented in this encounter Miscellaneous Notes * Progress Notes - Lynn Harrington APRN - 12/21/2024 12:00 PM EDT SUBJECTIVE Aleida Saldivar is a 79 y.o. female who presents for follow-up. Ms Saldivar here for follow up regarding recent acute kidney injury. Dx with COVID 07/17, admitted for a few days, ongoing respiratory issues since this time; required two courses of antibiotics and steroids, seen by pulmonary, evidence of pulmonary fibrosis but felt sequela of COVID responsible forcurrent symptoms; baseline creatinine about 1.6, declined to 2.9 in 09/14, then during evaluation for worsened respiratory symptoms, found to have creatinine of 8 and severe hypercalcemia, supported with IVF and some resolution of renal function; had taken lisinopril, calcium, and vitamind supplements post hospital stay, some swelling after IVF, breathing appears labored, using 2 liters NC, newly onoxygen since hospital; daughter with support, living together, has home BP, needs pulse ox; she notes good uop, has good appetite, no N/V/D 10/29/20 doing much better, still on oxygen but home sats are good, >90 edema has resolved, only used one dose of lasix? appetite good question about timing of vaccine, will touch base with Dr. Fernández 05/11/21 Feels well, still off multi meds Will discuss BP regimen with Dr. Fernández office On Prolia, every 6 mo, next due 08/18 Off calcium supplements 11/30/21 Tolerating amlodipine Using advair, dyspnea stable No edema Prolia 08/18 BP at home good, typically anxious in clinics 07/20/24 Patient monitored by PCP in interim from this clinic Creatinine relatively stable ~1.6 until April 2024 Patient now with Afib, significant event in 05/20 Now rate controlled per Cardiology Creatinine pk 2.01 05/20, now 1.8 egfr 27 12/21/24 Feeling well. No new concerns noted Creatinine stable at 1.8 OBJECTIVE Vitals: 12/21/24 1218 BP: 120/72 Pulse: 76 Resp: 18 SpO2: 98% PHYSICAL EXAMINATION CONSTITUTIONAL: Conversant, well developed, NAD. EYES: No proptosis or lid-lag. EARS: Normal hearing. RESPIRATORY: Normal respiratory effort. CARDIOVASCULAR: No peripheral edema. EXTREMITIES: No edema. No cyanosis. SKIN: No rash. No lesions. No ulcers. MUSCULOSKELETAL: Normal gait and station. No digital cyanosis. NEURO: Cranial nerves II-XII grossly intact. LAB RESULTS ASSESSMENT/PLAN 1. MARIELY on CKD vs disease progression CKD3b, creatinine Baseline ~1.6 Elevated to 2.01 05/20 (afib rvr), now 1.8 egfr 27 RBC on UA, chronic workup completed and negative 2021 2. HTN 3. Pulmonary fibrosis 4. s/p COVID 2020with sig MARIELY 5. Renal osteodystrophy 6. Afib- rate controlled per Cardiology -- CKD related to vascular disease, MARIELY vs disease progression r/t inadequate circulating BV with Afib. -- amlodipine switched to diltiazem per cardiology, BP slightly elevated from goal today, however patient notes 120s at home. -- on Prolia every six months per PCP since 2019, continue holding and reevaluating bone markers rtc 6mo documented in this encounter Plan of Treatment Upcoming Encounters Date Type Department Care Team (Late st Contact Info) Description 07/05/2025 12:40 PM EST [facility] [address] [place] [phone] Lynn Harrington APRN [address] [address] Scheduled Orders Name Type Priority Associated Diagnoses Orde r Schedule CBC W/O Differential Lab Routine Stage 3b chronic kidney disease (CMS/HCC) Expected: 12/21/2024 (Approximate), Expires: 06/22/2026 Protein, Random, Urine with Creatinine Lab Routine Stage 3b chronic kidney disease (CMS/HCC) Expected: 12/21/2024 (Approximate), Expires: 06/22/2026 Renal Function Panel, Plasma Lab Routine Stage 3b chronic kidney disease (CMS/HCC) Expected: 12/21/2024 (Approximate), Expires: 06/22/2026 PTH Intact Total Lab Routine Stage 3b chronic kidney disease (CMS/HCC) Expected: 12/21/2024 (Approximate), Expires: 06/22/2026 Urinalysis with reflex microscopic (Culture NOT Included) Lab Routine Stage 3b chronic kidney disease (CMS/HCC) Expected: 12/21/2024 (Approximate), Expires: 06/22/2026 Vitamin D 25 Hydroxy Lab Routine Stage 3b chronic kidney disease (CMS/HCC) Expected: 12/21/2024 (Approximate), Expires: 06/22/2026 Scheduled Referrals Name Type Priority Associated Diagnoses Order Schedule Follow Up Nephrology Outpatient Referral Routine Stage 3b chronic kidney disease (CMS/HCC) Expected: 06/22/2025 (Approximate), Expires: 01/20/2026 documented as of this encounter Visit Diagnoses Diagnosis Stage 3b chronic kidney disease (CMS/HCC)- Primary Primary hypertension Unspecified essential hypertension 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
--- OUTSIDE RECORDS SUMMARY | 2025-01-07 06:05 | XMS_ITS ---
Author Organization [facility] Address [address] [place], [place] [id number] Care Team Providers Care Delivery Helper Name Role Phone Domi Fernández Primary Care Provider REASON FOR VISIT due bone density Encounters Encounter Location Date Provider Diagnosis [facility] [address] [facility] [address] [facility] [address] [place], [place] [id number] 01/07/2025 Domi Fernández Screening for osteoporosis Z13.820 Assessments Encounter Date Diagnosis (ICD Code) Assessment Notes Treatment Notes Treatment Clinical Notes Section Notes 01/07/2025 Screening for osteoporosis (ICD-10 - Z13.820) Plan Of Treatment Pending Test Test Name Order Date Bone density 01/07/2025 Next Appt Details Provider Name:Domi Watters er, 02/18/2025 11:00:00 AM, 12[address] [facility] [address] [facility], [address], [place], [place], [id number], Progress Notes * ORA DEBCHARLIOB: 947 (79 yo F)Acc No.[id number]:01/07/2025 Patient: KRISTOPHER GONZALES :1945 A ge:79 Y S ex:Female Address:[address] [place], [place] [address] [address] Subjective: * Chief Complaints: * D ue bone density * Medical History: * Surgical History: * Hospitalization/Major Diagno stic Procedure: * Medications: Objective: * Vitals: * Physical Examination: Assessment: * Assessment: 1. S creening for osteoporosis - Z13.820 (Primary) Plan: * Treatment: * Procedure Codes: * true * Date: Generated for Sravan venegas/Anel/Luan on: 0 02/04/2025 08:58 AM EDT
--- NOTE | 2025-02-04 08:58 | XR_ITS ---
FINAL REPORT CLINICAL HISTORY: SCREENING COMPARISON: None FINDINGS: Using L1-4, the bone mineral density of the spine is 1.079 g/cm2, corresponding to T-score of 0.3, within normal limits. Using left forearm, the bone mineral density of 1/3 is 0.630 g/cm2, corresponding to a T-score of -1.1, compatible with osteopenia. Using the right forearm, the bone mineral density of 1/3 neck is 0.630 g/cm2, corresponding to a T-score of -1.1, compatible with osteopenia. NOTE: T-score: Standard deviation compared with peak bone mass of young adult mean. *Following the recommendations of the International Society of Bone densitometry, classification of hip BMD is based on the lower of two T-scores; total hip or femoral neck. IMPRESSION: Normal bone mineral density of the lumbar spine, with diminished bone mineral density in the bilateral forearms consistent with osteopenia. Reviewed, Interpreted and Dictated by Yariel Erwin MD Transcribed by Danielle Lopez Authenticated and . [facility]
--- OUTSIDE RECORDS SUMMARY | 2025-02-04 08:58 | XMS_ITS | Clinical Summary ---
Author Organization [facility] Address [address] [place] [address] Care Team Providers Care Movie Theater Usher Name Role Phone Fareed Fernández MD Primary Care Provider [phone] Allergies Active Allergy Reactions Criticality Noted Date [...] time each day. 2 Active HYDROcodone-mayte taminophen ([place]) 5-325 MG tablet Take 1 tablet (5 [...] Description 12/21/2024 12:00 PM EDT Office Visit [place] [address] [facility] [address] [place] [address] Lynn Harrington [...] Description 07/05/2025 12:40 PM EST Office Visit [facility] [address] [place] [address] Lynn Harrington, NET DEVELOPER CONSULTANT [address] [address] Health Maintenance Due Date Last Done Comments [facility]-Bone Density Scan 1945 [facility]-Depression Screening 1946 [facility]-Medicare Annual Wellness (AWV) 1945 [facility]-/Child/Adol SDOH Screenings 1946 [facility]- SDOH Screenings 1964 [facility]-Adult SDOH Screenings 1964 [facility]-Zoster Vaccines (1 of 2) 1996 [facility]-RSV Vaccine: 60+ Years or (1 - 1-dose 75+ series) 2021 [id number]-[id number]-35 Vaccine (7 - Moderna risk 2023- season) [...] to Health Maintenance Insurance MEDICARE Care Teams Movie Theater Usher Relationship Specialty Start Date End Date Fareed Fernández MD [address] [place] [address] PCP - General 11/07/20
--- OUTSIDE RECORDS SUMMARY | 2025-02-04 08:59 | XMS_ITS | Encounter Summary ---
Author Organization [facility] Address [address] [place] [address] Care Team Providers Care Application Technician Name Role Phone Fareed Fernández MD Primary Care Provider [phone] Encounter Details Date Type Department Care Team [...] Description 07/05/2025 12:40 PM EST Office Visit [facility] [address] [place] [address] Lynn Harrington, COMMUNITY ORGANIZER [address] [address] documented as of this encounter Visit Diagnoses Not on filedocumented in this encounter Additional Health Concerns Assessment Noted Time A Body Mass Index follow-up plan has been documented for the patient 12/21/2024 12:50 PM EDT documented as of this encounter Care Teams Application Technician Relationship Specialty Start Date End Date Fareed Fernández MD [address] [place] [address] PCP - General 11/07/20 documented as of this encounter
--- OUTSIDE RECORDS SUMMARY | 2025-02-04 08:59 | XMS_ITS | Patient Health Record ---
Author Organization [facility] Address [address] [id number] Care Team Providers Care Personnel Representative Name Role Phone Domi Fernández Primary Care Provider Bryan Cornelius [phone] Allergies Allergen (clinical drug ingredient) Drug/Non Drug Allergy documented on EMR Reaction Allergy Type Onset Date Status Penicillin hives Drug Allergy Active Results Component Value Reference Range Notes P-Comprehensive Metabolic Pa federico (CMP) Reviewed date:10/31/2024 08:09:43 AM Interpretation:gluc 100, bun 28, Cr 1.99, gfr 25 Performing Lab: Notes/Report: Test performed by [employer] [address] [place] [address] , [address], [place] [address] Russell Hahn MD, Stna CLIA: [id number] Sodium 142 135-145 mmol/L Potassium 4.0 3.5-5.3 [...] Interpretation:21.4 Performing Lab: Notes/Report: Test performed by [facility] [address] [place] [address] , [address], [place] [address] Russell Hahn MD, Stna CLIA: [id number] TSH 21.40 0.43-5.25 mU/L P-CBC with Diff plus Absolut e Counts Reviewed date:04/26/2024 10:19:34 AM Interpretation:Normal Performing Lab: Notes/Report: Test performed by [facility] [address] [place] [address] , [address], [place] [address] Russell Hahn MD, Stna CLIA: [id number] WBC 6.9 3.8-11.5 K/uL Red Blood Cell [...] K/uL Absolute Immature Granulocyte 0.02 0.00-0.03 K/uL P-Comprehensive Metabolic Pa federico (CMP) Reviewed date:04/26/2024 10:19:34 AM Interpretation:co2- 20, bun 33, Cr 2.01, gfr 25 Performing Lab: Notes/Report: Test performed by [facility] [address] [place] [address] , [address], [place] [address] Russell Hahn MD, Stna CLIA: [id number] Sodium 142 135-145 mmol/L Potassium 4.3 3.5-5.3 [...] Interpretation:Normal Performing Lab: Notes/Report: Test performed by [facility] [address] [place] [address] , [address], [place] [address] Russell Hahn MD, Stna CLIA: [id number] TSH 0.84 0.43-5.25 mU/L EKG Reviewed date:04/26/2024 10:19:16 AM Interpretation: Performing Lab: Notes/Report: CBC Venipuncture (in house) Reviewed date:07/23/2024 12:07:33 PM Interpretation: Performing Lab: Notes/Report: wbc 5.7 3.5 - 10 lymph 33.4% 15 - 50 mid 6.6% 2 - 15 gran 60.0% 35 - 80 rbc 4.27 3.5 - 5.5 hgb 13.0 11.5 - 16.5 hct 39.6 35 - 55 mcv 92.8 75 - 100 mch 30.6 25 - 35 mchc 33.0 31 - 38 [facility] 218 100 - 400 H-PT/INR Reviewed date:01/17/2025 03:47:45 PM Interpretation: Performing Lab: Notes/Report: PT 44.2 10.1-12.5 seconds INR 4.45 0.9-1.1 INDICATION INR RANGE Therapy for DVT, PE, Atrial Fib, 2.0-3.0 Prophylaxis for VTE. 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 P-TSH Reviewed date:12/25/2024 03:01:08 PM Interpretation:Normal Performing Lab: Notes/Report: Test performed by [facility] [address] [place] [address] , [address], [place] [address] Russell Hahn MD, Stna CLIA: [id number] TSH 3.79 0.43-5.25 mU/L P-Culture, Urine Reviewed date:12/25/2024 03:01:08 PM Interpretation:Normal Performing Lab: Notes/Report: Test performed by [facility] [address] [place] [address] , [address], [place] [address] Russell Hahn MD, Stna CLIA: [id number] Specimen Source Urine - Void Culture, Urine See Below Final Report : No Significant Growth Urinalysis - Inhouse Reviewed date:12/24/2024 06:30:27 PM Interpretation: Performing Lab: Notes/Report: Color/Clarity yellow/clear Leuk Trace Nitrite Neg Urobili 3.2 Protein Neg pH 5.5 Blood 2+ Sp. Gr. 1.015 Ketone Neg Bili Neg Gluc Neg H-INR Reviewed date:04/26/2024 03:33:44 PM Interpretation: Performing Lab: Notes/Report: POCINRFS 2.7 0.9-1.1 Results sent to: Yael Farooq Pharmacist recommendation for Warfarin therapy is: PATIENT INR 2.7 TODAY VIA FINGERSTICK. RECOMMENDED PATIENT CONTINUE WITH WARFARIN 2.5 MG ON MON/FRI; 5 MG ON TUE/TUE/TUE/CARMEN/SAT FOR DETAILED INFORMATION-PLEASE [...] REDUCE WARFARIN DOSE TO 2.5 MG ON TUE/TUE/TUE/TUE; 5 MG ON TUE/TUE/TUE. PATIENT IS CURRENTLY EATING LESS THAN PREVIOUSLY. [...] IN THE ASSESSMENTS AND ANTICOAGULATION CLINIC SECTION H-INR Reviewed date:01/31/2025 10:51:55 AM Interpretation: Performing Lab: Notes/Report: POCINRFS 2.8 0.9-1.1 Results sent to: Yael Farooq Pharmacist recommendation for Warfarin therapy is: INR TODAY VIA FINGERSTICK IS 2.8. RECOMMEND PATIENT CONTINUE CURRENT WEEKLY DOSE OF WARFARIN AT 5MG MO/WE/FR AND 2.5MG ALL OTHER DAYS. PATIENT WILL F/U IN 4 WEEKS. FOR DETAILED INFORMATION-PLEASE REVIEW PROGRESS NOTE [...] 2.5 MG TO WARFARIN 2.5 MG ON MON/TUE/TUE; 5 MG ON TUE/TUE/CARMEN/SAT. FOR DETAILED INFORMATION-PLEASE [...] 2.5 MG TO WARFARIN 2.5 MG ON MON/TUE; 5 MG ON [...] PATIENT CONTINUE WITH WARFARIN 2.5 MG ON MON/TUE; 5 MG ON [...] Once a day; Duration: 90 days Active Levothyroxine Sodium 150 MCG 1 tablet in the morning on an empty stomach Orally Once a day; Duration: 90 days 10/31/2024 Active Sertraline HCl 50 MG 1 tablet [...] review and pick correct strength-formulat ion from [employer] options. If intended option is not shown, [...] months and older IM Intramuscular 05/13/2011 Administered vUwfrybn-zwiyqlyin-wbabtxd e pts. IM Intramuscular 03/31/2012 Administered Problems Problem Type SNOMED Code ICD Code Onset Dates Problem Status W/U Status Risk Notes Problem Vitamin D deficiency (11642757) Vitamin D deficiency (E55.9) Active confirmed Problem History of DVT (deep vein thrombosis) (423041122) History of DVT (deep vein thrombosis) (Z86.718) Active confirmed Problem Essential hypertension (23270831) Essential hypertension (I10) Active confirmed Problem Hyperuricemia (16606446) Hyperuricemia (E79.0) Active confirmed Problem Chronic kidney disease stage 3 (disorder) (565598218) Chronic kidney disease, stage 3 (N18.3) Active confirmed Problem Generalized anxiety disorder (15382280) Generalized anxiety disorder (F41.1) Active confirmed Problem Chronic pain (97620317) Other chronic pain (G89.29) Active confirmed Problem Chronic pain syndrome (289928832) Chronic pain syndrome (G89.4) Active confirmed Problem Kyphosis deformity of thoracic spine (095497393) Other secondary kyphosis, 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) Active confirmed Problem Long-term current use of anticoagulant (696921334) intermediate (current) use of anticoagulants (Z79.01) Active confirmed Problem Acquired hypothyroidism (010193216) Acquired hypothyroidism (E03.9) Active confirmed Problem Renal insufficiency (424990051) Renal insufficiency (N28.9) Active confirmed Problem Depression (412515928) Depression (F32.9) Active confirmed Problem Allergic rhinitis (67802410) Allergic rhinitis (J30.9) Active confirmed Problem Atrial fibrillation (36607334) Atrial fibrillation, unspecified type (I48.91) Active confirmed Problem Vaginal bleeding (396436364) Vaginal bleeding (N93.9) Active confirmed Problem Obese class II (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) BMI 37.0-37.9, adult (Z68.37) Active confirmed Problem Cardiac dysrhythmia (008578910) Cardiac dysrhythmia, unspecified (I49.9) Active confirmed Problem Interstitial lung disease (237484689) Interstitial lung disease (J84.9) Active confirmed Problem Factor V Leiden mutation (disorder) (285101525) History of factor V Leiden mutation (Z86.2) Active confirmed Problem Allergic rhinitis (15809891) Non-seasonal allergic rhinitis, unspecified allergic rhinitis trigger (J30.89) Active confirmed Problem Chronic renal failure syndrome (26176533) Chronic kidney disease, unspecified CKD stage (N18.9) Active confirmed Problem Seasonal allergic rhinitis (101950303) Seasonal allergic rhinitis, unspecified trigger (J30.2) Active confirmed Problem Plain X-ray of chest abnormal (finding) (9946348265) Abnormal CXR (R93.89) Active confirmed Problem Chronic atrial fibrillation (950549567) Chronic atrial fibrillation (I48.20) Active confirmed Problem 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) (5360741182) 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) Active confirmed Problem Primary hypertension (57347894) Primary hypertension (I10) Active confirmed Vital Signs Heart Rate 91 /min 12/17/2024 Blood pressure diastolic 72 mm Hg 12/17/2024 Height 00 in 12/17/2024 Blood pressure systolic 120 mm Hg 12/17/2024 Weight 218.8 lbs 12/17/2024 Encounters Encounter Location Date Provider [facility] [address] [place] [id number] 04/23/2024 Domi Fernández Cardiac dysrhythmia, unspecified I49.9 ; Atrial fibrillation, unspecified type I48.91 ; Primary hypertension I10 ; Interstitial lung disease J84.9 ; Renal insufficiency N28.9 ; Acquired hypothyroidism E03.9 ; History of DVT (deep vein thrombosis) Z86.718 ; History of factor V Leiden mutation Z86.2 ; continuous churn buttermaker (current) use of anticoagulants Z79.01 ; Hyperuricemia E79.0 and Other chronic pain G89.29 [facility] [address] [place] [id number] 07/23/2024 Domi Fernández Atrial fibrillation, unspecified type I48.91 ; Chronic kidney disease, stage 3 N18.3 ; Chronic atrial fibrillation I48.20 and Chronic kidney disease, unspecified CKD stage N18.9 [facility] [address] [facility] [address] [place], [place] [id number] 12/17/2024 Domi Fernández Essential hypertensi on I10 ; continuous churn buttermaker (current) use of anticoagulants Z79.01 ; History of DVT (deep vein thrombosis) Z86.718 ; History of factor V Leiden mutation Z86.2 ; Acquired hypothyroidism E03.9 ; Dysuria R30.0 ; Microscopic hematuria R31.29 and Acute otitis externa of left ear, unspecified type H60.502 [facility] [address] [facility] [address] [place], [place] [id number] 10/22/2024 Domi Fernández Acquired hypothyroid ism E03.9 ; continuous churn buttermaker (current) use of anticoagulants Z79.01 ; Essential hypertension I10 ; Chronic atrial fibrillation I48.20 ; Chronic kidney disease, unspecified CKD stage N18.9 and Chronic pain syndrome G89.4 [facility] [address] [facility] [address] [place], [place] [id number] 03/15/2024 Bryan Cornelius Other chronic pain G89.29 [facility] [address] [facility] [address] [place], [place] [id number] 04/26/2024 Domi Fernández Abnormal EKG R94.31 [facility] [address] [facility] [address] [place], [place] [id number] 05/23/2024 Domi Fernández Acquired hypothyroid ism E03.9 [facility] [address] [facility] [address] [place] [id number] 05/30/2024 Domi Fernández Other chronic pain G89.29 [facility] [address] [facility] [address] [place], [place] [id number] 07/09/2024 Domi Fernández Other chronic pain G89.29 [facility] [address] [facility] [address] [place], [place] [id number] 08/13/2024 Domi Fernández Other chronic pain G89.29 [facility] [address] [facility] [address] [place] [id number] 09/10/2024 Domi Fernández Other chronic pain G89.29 [facility] [address] [place], [place] [id number] 10/31/2024 Domi Fernández [facility] [address] [place], [place] [id number] 11/26/2024 Domi Fernández Chronic pain syndrom e G89.4 [facility] [address] [place], [place] [id number] 12/17/2024 Domi Fernández [facility] [address] [place], [place] [id number] 01/07/2025 Domi Fernández Chronic pain syndrom e G89.4 [facility] [address] [place], [place] [id number] 01/07/2025 Domi Fernández Screening for osteoporosis Z13.820 [facility] [address] [facility] [address] [place], [place] [id number] 01/31/2025 Domi Fernández Assessments Encounter Date Diagnosis (ICD [...] Other chronic pain (ICD-10 - G89.29) 10/22/2024 continuous churn buttermaker (current) use of anticoagulants (ICD-10 - Z79.01) 10/22/2024 Acquired hypothyroidism (ICD-10 - E03.9) 11/26/2024 Chronic pain syndrome (ICD-10 - G89.4) 12/17/2024 Essential hypertension (ICD-10 - I10) 12/17/2024 continuous churn buttermaker (current) use of anticoagulants (ICD-10 - Z79.01) 01/07/2025 Chronic pain syndrome (ICD-10 - G89.4) 01/07/2025 Screening for osteoporosis (ICD-10 - Z13.820) 12/17/2024 History of DVT (deep vein thrombosis) [...] V Leiden mutation (ICD-10 - Z86.2) 04/23/2024 continuous churn buttermaker (current) use of anticoagulants (ICD-10 - Z79.01) 04/23/2024 Hyperuricemia (ICD-10 - E79.0) 04/23/2024 Other chronic pain (ICD-10 - G89.29) Plan Of Treatment Pending Test Test Name Order Date Bone density 01/07/2025 Cologuard 01/13/2023 Next Appt Details Provider Name:Domi Cobiantyler er, 02/18/2025 11:00:00 AM, [address], [place], [id number], Insurance Providers Payer Name Payer Address Payer Phone Subscriber Number Group Number Insured Name Patient Relationship to Insured Coverage Start Date Coverage End Date MEDICARE PART B [address] [address] [place] [phone] [id number] KRISTOPHER PAYAN Self - patient is the [...] removal May 20 Hospitalization History Reason Date(Month/Year) [facility] - Hypotension with Hyovolemia, Pneum onia 10/09- [facility] - Covid Pneumonia Jun 2020 [facility]-pneumonia 07/05-07/16/16 [facility]-dehydration, pneumonia 12/28/11 [facility] Diverticulitis 12-04-11 hip replacement 2006
== END 2025-02-04 23:59 | disposition home or self-care (01) ==
LOC: RAD 08:56
PROVIDERS: PCP Family Medicine; Visit Provider Family Medicine
DX: Z13.820 Encounter for screening for osteoporosis (principal); M85.832 Other specified disorders of bone density and structure, left forearm; M85.831 Other specified disorders of bone density and structure, right forearm
CPT/HCPCS: 77080

== ENCOUNTER 2025-02-28 08:38 | Outpatient (CLI) | payer MEDICARE, SELFPAY ==
--- OUTSIDE RECORDS SUMMARY | 2024-07-23 06:45 | XMS_ITS ---
Author Organization [facility] Address [address] [facility] [address] [id number] Care Team Providers Care Snuff Box Finisher Name Role Phone Domi Fernández Primary Care Provider [phone] Allergies Allergen (clinical drug ingredient) Drug/Non Drug [...] review and pick correct strength-formulat ion from [employer] options. If intended option is not shown, [...] Status Risk Notes Problem Chronic atrial fibrillation (650616735) Chronic atrial fibrillation (I48.20) Active confirmed Problem Chronic renal failure syndrome (44136463) Chronic kidney disease, unspecified CKD stage (N18.9) Active confirmed Vital Signs Weight 225.2 lbs 07/23/2024 Blood pressure systolic 130 mm Hg 07/23/19 25 Blood pressure diastolic 76 mm Hg 025 Heart Rate 63 /min 07/23/2024 Height 00 in 07/23/2024 Encounters Encounter Location Date Provider Diagnosis [facility] [address] [facility] [address] [place], [place] [phone] 07/23/2024 Domi Fernández Atrial fibrillation, unspecified type [...] 06/03/2025 09:45:00 AM, [address] [facility], [address] , [place], [place], [id number], Progress Notes * ORAJAVIOB: 947 (79 yo F)Acc No.[id number]:07/23/2024 Progress Notes Patient: KRISTOPHER GONZALES Provider: Domi Fernández M.D. :1945 A ge:78 Y S ex:Female Date:07/23/2024 Address:[address] [place] [phone] Subjective: * Chief Complaints: * 1 . [...] Diagno stic Procedure: h ip replacement 2006, [facility] Diverticulitis 12-04-11, [facility] ER-dehydration, pneumonia 12/28/11, [facility] ER-pneumonia 07/05-07/16/16, [facility] ER - Covid Pneumonia Jun 2020, [facility] - Hypotension with Hyovolemia, Pneumonia 10/09-. [...] *Please review and pick correct strength-formulation from Oakmonkeyspan options. If intended option is not shown, [...] G 2211 Complex e/[place], [address] CBC WITH AUTO DIFF, 65472 VENIPUNCT, ROUTINE* * Follow Up: 3 Months * Images: Billing Information: * Visit Code: 80567 Office Visit, Est Pt., Level 4. * Procedure Codes: G2211 Complex e/[place]. [address] CBC WITH AUTO DIFF. 32643 VENIPUNCT, ROUTINE*. * Electronic signature of Domi Fernández MD on 02/28/2025 at 08:49 AM EDT Sign off status: Pending * Provider: Domi Fernández M.D. Date: 0 07/23/2024 Generated for Diannai ng/Facristig/eTransmitting on: 0 02/28/2025 08:49 AM EDT History and Physical Notes * [...]
--- OUTSIDE RECORDS SUMMARY | 2024-12-17 06:45 | XMS_ITS ---
Author Organization [facility] Address [address] [facility] [address] [id number] Care Team Providers Care Radiation Oncology Therapist Name Role Phone Domi Fernández Primary Care Provider [phone] Allergies Allergen (clinical drug ingredient) Drug/Non Drug [...] Interpretation:Normal Performing Lab: Notes/Report: Test performed by [facility] [address] [place], [place] [address] [place] , [address], [place] [address] Russell Hahn MD, Circulating Process Inspector CLIA: [id number] Specimen Source Urine - Void Culture, Urine See Below Final Report : No Significant Growth P-TSH Reviewed date:12/25/2024 03:01:08 PM Interpretation:Normal Performing Lab: Notes/Report: Test performed by [facility] [address] [place], [place] [address] [place] , [address], [place] [address] Russell Hahn MD, Circulating Process Inspector CLIA: [id number] TSH 3.79 0.43-5.25 mU/L REASON FOR VISIT [...] review and pick correct strength-formulat ion from [employer] options. 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 :1945 A ge:79 Y S ex:Female Date:12/17/2024 Address:[address] [place] [address], [id number] Subjective: * Chief Complaints: * 1 . [...] Diagno stic Procedure: h ip replacement 2006, [facility] Diverticulitis 12-04-11, [facility]-dehydration, pneumonia 12/28/11, [facility] ER-pneumonia 07/05-07/16/16, [facility] - Covid Pneumonia Jun 2020, H [...] *Please review and pick correct strength-formulation from [employer] options. If intended option is not shown, [...] Temp: 97.9, BP: 120/72, HR: 91, Nurse: THREESA, Ht: 00. * Examination: G eneral Examination: [...] G 2211 Complex e/[place], [address] Urinalysis, no micro, 1036F TOBACCO NON- USER, G8950 PREHTN/HTN BP DOC INDCD F/U DOC, G8752 MOST RECENT SYSTOLIC BP < 140MM HG, G8754 MOST RECENT DIASTOLIC BP < 90MM HG * Follow Up: 2 Months * Images: Billing Information: * Visit Code: 94153 Office Visit, Est Pt., Level 4. * Procedure Codes: G2211 Complex e/[place]. [address] Urinalysis, no micro. 1036F TOBACCO NON-USER. G8950 PREHTN/HTN BP DOC INDCD F/U DOC. G8752 MOST RECENT SYSTOLIC BP < 140MM HG. G8754 MOST RECENT DIASTOLIC BP < 90MM HG. * Electronic signature of Domi Fernández MD on 02/28/2025 at 08:48 AM EDT Sign off status: Pending * Provider: Domi Fernández M.D. Date: 0 12/17/2024 Generated for Diannai ng/Facristig/eTransmitting on: 0 02/28/2025 08:48 AM EDT History and Physical Notes * [...]
--- OUTSIDE RECORDS SUMMARY | 2025-01-07 06:05 | XMS_ITS ---
[facility] [address] [place] [id number] Care Team Providers Care Master Fire Control Technician Name Role Phone Domi Fernández Primary Care Provider Results Component Value Reference Range Notes Bone density Reviewed date:02/06/2025 01:20:22 PM Interpretation:osteopenia Performing Lab: Notes/Report: osteopenia Bone density osteopenia REASON FOR VISIT due bone density Problems Problem Type SNOMED Code ICD Code Onset Dates Problem Status W/U Status Risk Notes Problem Osteopenia (533450295) Osteopenia, unspecified location (M85.80) Active confirmed Encounters Encounter Location Date Provider Diagnosis [facility] [address] [place] [id number] 01/07/2025 Domi Fernández Screening for osteoporosis Z13.820 Assessments Encounter Date Diagnosis (ICD Code) Assessment Notes Treatment Notes Treatment Clinical Notes Section Notes 01/07/2025 Screening for osteoporosis (ICD-10 - Z13.820) Plan Of Treatment Next Appt Details Provider Name:Domi Watters er, 06/03/2025 09:45:00 AM, [address] [facility] [address] [facility], [address], [place], [place], [id number], Progress Notes * JAVI PAYANOB: [birth year] (79 yo F)Acc No.[id number]:01/07/2025 Patient: S KRISTOPHER GRULLON :1945 A ge:79 Y S ex:Female Address:[place] [address] Subjective: * Chief Complaints: * D ue bone density * Medical History: * Surgical History: * Hospitalization/Major Diagno stic Procedure: * Medications: Objective: * Vitals: * Physical Examination: Assessment: * Assessment: 1. S creening for osteoporosis - Z13.820 (Primary) Plan: * Treatment: * Procedure Codes: * true * Date: Generated for Sravan venegas/Anel/Lissetteitting on: 0 02/28/2025 08:48 AM EDT
--- OUTSIDE RECORDS SUMMARY | 2025-02-18 07:00 | XMS_ITS ---
Author Organization [facility] Address [address] [facility] [address] [id number] Care Team Providers Care Quality Assurance Practice Manager Name Role Phone Domi Fernández Primary [...] review and pick correct strength-formulat ion from [employer] options. If intended option is not shown, discontinue and re-order from Quick Search* Active Albuterol Sulfate HFA 108 (90 Base) MCG/ACT 2 puff(s) inhaled every 6 hours; Duration: 30 day(s) 10/14/2020 Active ADVAIR 100/50 1 INHALATION BID *Please review for potential replacement for e-prescription and drug interaction check* Active Vitamin D3 1.25 MG (39068 UT) 1 capsule Orally once weekly; Duration: [...] 02/18/2025 Encounters Encounter Location Date Provider Diagnosis [facility] [address] [phone] 02/18/2025 Domi Fernández Essential hypertensi on I10 [...] Once a day Vitamin D3 1.25 MG (23123 UT) 1 capsule Orally once weekly; Duration: 30 days 02/18/2025 Next Appt Details Follow Up: 3 Months, Reason: Provider Name:Domi Watters er, 06/03/2025 09:45:00 AM, [address], [address], [place], [place], [phone], Progress Notes * HILDA PAYANJASPEROB: [birth year] (79 yo F)Acc No.[id number]:02/18/2025 Progress Notes Patient: KRISTOPHER GONZALES Provider: Domi Fernández M.D. :1945 A ge:79 Y S ex:Female Date:02/18/2025 Address:[address] [place] [id number] Subjective: * Chief Complaints: * 1 . [...] Diagno stic Procedure: h ip replacement 2006, [facility] Diverticulitis 12-04-11, [facility]-dehydration, pneumonia 12/28/11, [facility]-pneumonia 07/05-07/16/16, [facility] - Covid Pneumonia Jun 2020, [facility] - Hypotension with Hyovolemia, Pneumonia [...] *Please review and pick correct strength-formulation from [employer] options. If intended option is not shown, [...] laterality - M85.839 Plan: * Treatment: * Follow Up: 3 Months * Images: Billing Information: * Visit Code: 97315 Office Visit, Est Pt., Level 4. * Procedure Codes: * Electronic signature of Domi Fernández MD on 02/28/2025 at 08:49 AM EDT Sign off status: Pending * Provider: Domi Fernández M.D. Date: 0 02/18/2025 Generated for Diannai theo/Anel/eTransmitting on: 0 02/28/2025 08:49 AM EDT History [...]
--- OUTSIDE RECORDS SUMMARY | 2025-02-28 08:48 | XMS_ITS | Clinical Summary ---
Author Organization [facility] Address [address] [place] [address] Care Team Providers Care All Source Intelligence Technician Name Role Phone Fareed Fernández MD Primary Care Provider Allergies Active Allergy Reactions Criticality Noted Date [...] time each day. 2 Active HYDROcodone-mayte taminophen ([place]) 5-325 MG tablet Take 1 tablet (5 [...] Description 12/21/2024 12:00 PM EDT Office Visit [facility] [address] [place] [phone] Lynn Harrington APRN Stage 3b chronic [...] Description 07/05/2025 12:40 PM EST Office Visit [facility] [address] [place] [phone] Lynn Harrington, [employer] [address] [address] Health Maintenance Due Date Last Done Comments [facility]-Bone Density Scan 1945 [facility]-Depression Screening 1945 [facility]-Medicare Annual Wellness (AWV) 1945 [facility]-/Child/Adol SDOH Screenings 1945 [facility]- SDOH Screenings 1964 [facility]-Adult SDOH Screenings 1963 [facility]-Zoster Vaccines (1 of 2) 1996 [facility]-RSV Vaccine: 60+ Years or (1 - 1-dose 75+ series) 2021 [id number] Vaccine (7 - Moderna risk season) 2024 03/15/2024, 05/03/2023, 06/02/2022, Additional history [...] to Health Maintenance Insurance MEDICARE Care Teams All Source Intelligence Technician Relationship Specialty Start Date End Date Fareed Fernández MD [address] [place] [id number] PCP - General 11/07/20
--- OUTSIDE RECORDS SUMMARY | 2025-02-28 08:49 | XMS_ITS | Patient Health Record ---
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 Role Phone Domi Fernández Primary Care Provider [phone] Bryan Cornelius Unavailable [phone] Arya Mack Unavailable [phone] Allergies Allergen (clinical drug ingredient) Drug/Non Drug [...] Interpretation:Normal Performing Lab: Notes/Report: Test performed by [facility] [address] [place], [place] [address] , [address], [place] [address] Russell Hahn MD, Quality Process Lead CLIA: [id number] Specimen Source Urine - Void Culture, Urine See Below Final Report : No Significant Growth P-TSH Reviewed date:12/25/2024 03:01:08 PM Interpretation:Normal Performing Lab: Notes/Report: Test performed by [facility] [address] [place], [place] [address] [address] , [address], [place] [address] Russell Hahn MD, Quality Process Lead CLIA: [id number] TSH 3.79 0.43-5.25 mU/L Bone density Reviewed date:02/06/2025 01:20:22 PM Interpretation:osteopenia Performing Lab: Notes/Report: osteopenia Bone density osteopenia CBC Venipuncture (in house) Reviewed date:07/23/2024 12:07:33 [...] - 38 platlet 218 100 - 400 H-PT/INR Reviewed date:12/20/2024 03:22:12 PM Interpretation: Performing [...] REDUCE WARFARIN DOSE TO 2.5 MG ON SUN/E/CARMEN/SAT; 5 MG ON TUE/TUE/TUE. PATIENT IS CURRENTLY [...] CONTINUE WEEKLY DOSE OF WARFARIN AT 2.5MG DELROY/TUESDAY AND 5MG ALL OTHER DAYS. PATIENT WILL [...] PREVENTION OF SYSTEMIC EMBOLISM SECONDARY TO AMI P-CBC with Diff plus Absolut e Counts Reviewed date:04/26/2024 10:19:34 AM Interpretation:Normal Performing Lab: Notes/Report: Test performed by [facility], [address] , [address], [place] [address] Russell Hahn MD, Quality Process Lead CLIA: [id number] WBC 6.9 3.8-11.5 K/uL Red Blood Cell [...] 25 Performing Lab: Notes/Report: Test performed by [facility] [address] [place] [address] , [address], [place] [address] Russell Hahn MD, Quality Process Lead CLIA: [id number] Sodium 142 135-145 mmol/L Potassium 4.3 3.5-5.3 [...] Interpretation:Normal Performing Lab: Notes/Report: Test performed by [facility] [address] [place] [address] , [address], [place] [address] Russell Hahn MD, Quality Process Lead CLIA: [id number] TSH 0.84 0.43-5.25 mU/L EKG Reviewed date:04/26/2024 10:19:16 AM Interpretation: Performing Lab: Notes/Report: P-Comprehensive Metabolic Pa federico (CMP) Reviewed date:10/31/2024 08:09:43 AM Interpretation:gluc 100, bun 28, Cr 1.99, gfr 25 Performing Lab: Notes/Report: Test performed by [facility] [address] [place] [address] , [address], [place] [address] Russell Hahn MD, Quality Process Lead CLIA: [id number] Sodium 142 135-145 mmol/L Potassium 4.0 3.5-5.3 [...] Interpretation:21.4 Performing Lab: Notes/Report: Test performed by [facility] [address] [place] [address] , [address], [place] [address] Russell Hahn MD, Quality Process Lead CLIA: [id number] TSH 21.40 0.43-5.25 mU/L H-INR Reviewed date:03/16/2024 12:21:39 AM Interpretation: Performing [...] 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 H-INR Reviewed date:04/26/2024 03:33:44 PM Interpretation: Performing Lab: Notes/Report: POCINRFS 2.7 0.9-1.1 Results sent to: Yael Farooq Pharmacist recommendation for Warfarin therapy is: PATIENT INR 2.7 TODAY VIA FINGERSTICK. RECOMMENDED PATIENT CONTINUE WITH WARFARIN 2.5 MG ON MON/FRI; 5 MG ON SUN/TUE/TUE/CARMEN/SAT FOR DETAILED INFORMATION-PLEASE REVIEW PROGRESS NOTE IN [...] Duration) Notes Start Date End Date Status Cartia XT 240 MG 1 capsule Orally Once a day; Duration: 30 day(s) Active Levothyroxine Sodium 150 MCG 1 tablet in the morning on an empty stomach Orally Once a day; Duration: 90 days 10/31/2024 Active ADVAIR 100/50 1 INHALATION BID *Please review for potential replacement for e-prescription and drug interaction check* Active HYDROcodone-Acetamin ophen 5-325 MG 1 tab(s) orally three times a day as needed; Duration: 30 days 02/14/2025 Active Sertraline HCl 50 MG 1 tablet Orally Once a day; Duration: 90 days Active Fish Oil 1000 MG 1 capsule Orally once a day Active Allopurinol 100 MG 1 tablet Orally [...] a day; Duration: 30 day(s) 07/11/2023 Active predniSONE 20 MG 1 tab(s) orally once a day as directed Not-Taking Fluticasone Propionate 50 MCG/ACT 1 spray(s) in each nostril once a day Active Multivitamin 1 TAB ONCE A DAY *Please review and pick correct strength-formulat ion from [employer] options. If intended option is not shown, discontinue and re-order from Quick Search* Active amLODIPine Besylate 5 MG 1 tab(s) orally once a day; Duration: 90 days Not-Taking Vitamin D3 1.25 MG (56269 UT) 1 capsule Orally once weekly; Duration: 30 days 02/18/2025 Active Albuterol Sulfate HFA 108 (90 Base) MCG/ACT 2 puff(s) inhaled every 6 hours; Duration: 30 day(s) 10/14/2020 Active metOLazone 2.5 MG 1 tab(s) orally every other day prn; Duration: 30 day(s) Not-Taking Immunizations Vaccine Route Administration Date Status Comme [...] months and older IM Intramuscular 05/13/2011 Administered hLqubijw-xqrztopvw-alyuulm e pts. IM Intramuscular 03/31/2012 Administered Problems Problem Type SNOMED Code ICD Code Onset Dates Problem Status W/U Status Risk Notes Problem Vitamin D deficiency (11138777) Vitamin D deficiency (E55.9) Active confirmed Problem History of DVT (deep vein thrombosis) (901408820) History of DVT (deep vein thrombosis) (Z86.718) Active confirmed Problem Essential hypertension (65394606) Essential hypertension (I10) Active confirmed Problem Hyperuricemia (73858230) Hyperuricemia (E79.0) Active confirmed Problem Chronic kidney disease stage 3 (disorder) (041773408) Chronic kidney disease, stage 3 (N18.3) Active confirmed Problem Generalized anxiety disorder (04985720) Generalized anxiety disorder (F41.1) Active confirmed Problem Chronic pain (16811677) Other chronic pain (G89.29) Active confirmed Problem Chronic pain syndrome (846993448) Chronic pain syndrome (G89.4) Active confirmed Problem Kyphosis deformity of thoracic spine (020230540) Other secondary kyphosis, 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) Active confirmed Problem Long-term current use of anticoagulant (945622979) correction (current) use of anticoagulants (Z79.01) Active confirmed Problem Acquired hypothyroidism (832084735) Acquired hypothyroidism (E03.9) Active confirmed Problem Renal insufficiency (311699015) Renal insufficiency (N28.9) Active confirmed Problem Depression (400856827) Depression (F32.9) Active confirmed Problem Allergic rhinitis (14191581) Allergic rhinitis (J30.9) Active confirmed Problem Atrial fibrillation (56795403) Atrial fibrillation, unspecified type (I48.91) Active confirmed Problem Vaginal bleeding (039423733) Vaginal bleeding (N93.9) Active confirmed Problem Obese class II (361991134835228) BMI 37.0-37.9, adult (Z68.37) Active confirmed Problem Cardiac dysrhythmia (651816359) Cardiac dysrhythmia, unspecified (I49.9) Active confirmed Problem Interstitial lung disease (575942049) Interstitial lung disease (J84.9) Active confirmed Problem Factor V Leiden mutation (disorder) (636443421) History of factor V Leiden mutation (Z86.2) Active confirmed Problem Osteopenia (069789511) Osteopenia, unspecified location (M85.80) Active confirmed Problem Allergic rhinitis (75924759) Non-seasonal allergic rhinitis, unspecified allergic rhinitis trigger (J30.89) Active confirmed Problem Chronic renal failure syndrome (22548167) Chronic kidney disease, unspecified CKD stage (N18.9) Active confirmed Problem Seasonal allergic rhinitis (002185678) Seasonal allergic rhinitis, unspecified trigger (J30.2) Active confirmed Problem Plain X-ray of chest abnormal (finding) (5757267084) Abnormal CXR (R93.89) Active confirmed Problem Chronic atrial fibrillation (423922592) Chronic atrial fibrillation (I48.20) Active confirmed Problem 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) (0737501182) 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) Active confirmed Problem Primary hypertension (86713755) Primary hypertension (I10) Active confirmed Vital Signs Heart Rate 96 /min 02/18/2025 Blood pressure diastolic 80 mm Hg 02/18/2025 Height 00 in 02/18/2025 Blood pressure systolic 130 mm Hg 02/18/2025 Weight 215.2 lbs 02/18/2025 Encounters Encounter Location Date Provider Diagnosis [facility] [address] [facility] [address] [place], [place] [id number] 04/23/2024 Domi Fernández Cardiac dysrhythmia, unspecified I49.9 ; Atrial fibrillation, unspecified type I48.91 ; Primary hypertension I10 ; Interstitial lung disease J84.9 ; Renal insufficiency N28.9 ; Acquired hypothyroidism E03.9 ; History of DVT (deep vein thrombosis) Z86.718 ; History of factor V Leiden mutation Z86.2 ; 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.01 ; Hyperuricemia E79.0 and Other chronic pain G89.29 [facility] [address] [place] [id number] 07/23/2024 Domi Fernández Atrial fibrillation, unspecified type I48.91 ; Chronic kidney disease, stage 3 N18.3 ; Chronic atrial fibrillation I48.20 and Chronic kidney disease, unspecified CKD stage N18.9 [facility] [address] [place] [id number] 12/17/2024 Domi Fernández Essential hypertensi on I10 ; 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.01 ; History of DVT (deep vein thrombosis) Z86.718 ; History of factor V Leiden mutation Z86.2 ; Acquired hypothyroidism E03.9 ; Dysuria R30.0 ; Microscopic hematuria R31.29 and Acute otitis externa of left ear, unspecified type H60.502 [facility] [address] [place] [id number] 02/18/2025 Domi Fernández Essential hypertensi on I10 ; History of DVT (deep vein thrombosis) Z86.718 ; History of factor V Leiden mutation Z86.2 ; Acquired hypothyroidism E03.9 ; Hyperuricemia E79.0 ; Chronic kidney disease, stage 3 N18.3 and Osteopenia of forearm, unspecified laterality M85.839 [facility] [address] [place] [id number] 10/22/2024 Domi Fernández Acquired hypothyroid ism E03.9 ; correction (current) use of anticoagulants Z79.01 ; Essential hypertension I10 ; Chronic atrial fibrillation I48.20 ; Chronic kidney disease, unspecified CKD stage N18.9 and Chronic pain syndrome G89.4 [facility] [address] [place] [id number] 03/15/2024 Bryan Cornelius Other chronic pain G89.29 [facility] [address] [place] [id number] 04/26/2024 Domi Fernández Abnormal EKG R94.31 [facility] [address] [place], [place] [id number] 05/23/2024 J Tyler Fernández Acquired hypothyroid ism E03.9 [facility] [address] [place], [place] [id number] 05/30/2024 J Tyler Fernández Other chronic pain G89.29 [facility] [address] [place], [place] [id number] 07/09/2024 J Tyler Fernández Other chronic pain G89.29 [facility] [address] [place], [place] [id number] 08/13/2024 J Tyler Fernández Other chronic pain G89.29 [facility] [address] [place], [place] [id number] 09/10/2024 J Tyler Fernández Other chronic pain G89.29 [facility] [address] [place], [place] [id number] 10/31/2024 J Tyler Pradeep [facility] [address] [place], [place] [id number] 11/26/2024 J Tyler Fernández Chronic pain syndrom e G89.4 [facility] [address] [place], [place] [id number] 12/17/2024 J Tyler Fernández [facility] [address] [place], [place] [id number] 01/07/2025 J Tyler Fernández Chronic pain syndrom e G89.4 [facility] [address] [place], [place] [id number] 01/07/2025 J Tyler Fernández Screening for osteoporosis Z13.820 [facility] [address] [place], [place] [id number] 01/31/2025 J Tyler Fernández [facility] [address] [place], [place] [id number] 02/06/2025 J Tyler Fernández [facility] [address] [place], [place] [id number] 02/11/2025 Arya Walnut Chronic pain syndrom e G89.4 Assessments Encounter [...] Other chronic pain (ICD-10 - G89.29) 10/22/2024 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 (ICD-10 - Z79.01) 10/22/2024 Acquired hypothyroidism (ICD-10 - E03.9) 11/26/2024 Chronic pain syndrome (ICD-10 - G89.4) 12/17/2024 Essential hypertension (ICD-10 - I10) 12/17/2024 correction (current) use of anticoagulants (ICD-10 - Z79.01) 01/07/2025 Chronic pain syndrome (ICD-10 - G89.4) 01/07/2025 Screening for osteoporosis (ICD-10 - Z13.820) 02/11/2025 Chronic pain syndrome (ICD-10 - G89.4) 02/18/2025 History of DVT (deep vein thrombosis) (ICD-10 - Z86.718) 02/18/2025 Essential hypertension (ICD-10 - I10) 12/17/2024 History of DVT (deep vein thrombosis) (ICD-10 - Z86.718) 07/23/2024 Chronic atrial fibrillation (ICD-10 - I48.20) 04/23/2024 Primary hypertension (ICD-10 - I10) 10/22/2024 Essential hypertension (ICD-10 - I10) 02/18/2025 History of factor V Leiden mutation (ICD-10 - Z86.2) 12/17/2024 History of factor V Leiden mutation (ICD-10 - Z86.2) 02/18/2025 Acquired hypothyroidism (ICD-10 - E03.9) 04/23/2024 Interstitial lung disease (ICD-10 - J84.9) 07/23/2024 Chronic kidney disease, unspecified CKD stage (ICD-10 - N18.9) 10/22/2024 Chronic atrial fibrillation (ICD-10 - I48.20) 04/23/2024 Renal insufficiency (ICD-10 - N28.9) 10/22/2024 Chronic kidney disease, unspecified CKD stage (ICD-10 - N18.9) 02/18/2025 Hyperuricemia (ICD-10 - E79.0) 12/17/2024 Acquired hypothyroidism (ICD-10 - E03.9) 04/23/2024 Acquired hypothyroidism (ICD-10 - E03.9) 10/22/2024 Chronic pain syndrome (ICD-10 - G89.4) 12/17/2024 Dysuria (ICD-10 - R30.0) 02/18/2025 Chronic kidney disease, stage 3 (ICD-10 - N18.3) 12/17/2024 Microscopic hematuria (ICD-10 - R31.29) 02/18/2025 Osteopenia of forearm, unspecified laterality (ICD-10 - M85.839) 04/23/2024 History of DVT (deep vein thrombosis) (ICD-10 - Z86.718) 12/17/2024 Acute otitis externa of left ear, unspecified type (ICD-10 - H60.502) 04/23/2024 History of factor V Leiden mutation (ICD-10 - Z86.2) 04/23/2024 correction (current) use of anticoagulants (ICD-10 - Z79.01) 04/23/2024 Hyperuricemia (ICD-10 - E79.0) 04/23/2024 Other chronic pain (ICD-10 - G89.29) Plan Of Treatment Pending Test Test Name Order Date Cologuard 01/13/2023 Next Appt Details Provider Name:Domi Scott Cotyler er, 06/03/2025 09:45:00 AM, [address], [place], [id number], Insurance Providers Payer Name Payer Address Payer Phone Subscriber Number Group Number Insured Name Patient Relationship to Insured Coverage Start Date Coverage End Date MEDICARE PART B [address] [id number] [place] [id number] KRISTOPHER PAYAN Self - patient is the [...] removal May 20 Hospitalization History Reason Date(Month/Year) [facility] - Hypotension with Hyovolemia, Pneum onia 10/09- [facility] - Covid Pneumonia Jun 2020 [facility] ER-pneumonia 07/05-07/16/16 [facility] ER-dehydration, pneumonia 12/28/11 [facility] Diverticulitis 12-04-11 hip replacement 2006
[2025-02-28 09:26] LABS: PHA INR Fingerstick 2.7 (0.9-1.1)
== END 2025-02-28 09:28 ==
LOC: ACC 08:39
PROVIDERS: PCP Physician Assistant; Visit Provider Physician Assistant
DX: D68.2 Hereditary deficiency of other clotting factors (principal); Z79.01 Long term (current) use of anticoagulants; Z86.718 Personal history of other venous thrombosis and embolism
CPT/HCPCS: 85610; 99211; G0463

== ENCOUNTER 2025-04-11 08:48 | Outpatient (CLI) | payer MEDICARE, SELFPAY ==
--- OUTSIDE RECORDS SUMMARY | 2024-07-23 06:45 | XMS_ITS ---
Author Organization [facility] Address [address] [facility] [address] [id number] Care Team Providers Care Rubber Goods Cutter Finisher Name Role Phone Domi Fernández Primary Care [...] review and pick correct strength-formulat ion from [employer] options. If intended option is not shown, [...] Status Risk Notes Problem Chronic atrial fibrillation (691519528) Chronic atrial fibrillation (I48.20) Active confirmed Problem Chronic renal failure syndrome (53303899) Chronic kidney disease, unspecified CKD stage (N18.9) Active confirmed Vital Signs Weight 225.2 lbs 07/23/2024 Blood pressure systolic 130 mm Hg 07/23/19 25 Blood pressure diastolic 76 mm Hg 025 Heart Rate 63 /min 07/23/2024 Height 00 in 07/23/2024 Encounters Encounter Location Date Provider Diagnosis [facility] [address] [facility] [address] [place], [place] [id number] 07/23/2024 Domi Fernández Atrial fibrillation, unspecified type [...] 06/03/2025 09:45:00 AM, [address] [facility], [address] , [place], [place], [phone], Progress Notes * ORAJAVIOB: 947 (79 yo F)Acc No.[id number]:07/23/2024 Progress Notes Patient: KRISTOPHER GONZALSE Provider: Domi Fernández M.D. :1945 A ge:78 Y S ex:Female Date:07/23/2024 Address:[address] [place] [phone] Subjective: * Chief Complaints: * 1 . [...] Procedure: h ip replacement 2006, [facility] Diverticulitis 12-04-11, [facility] ER-dehydration, pneumonia 12/28/11, [facility] ER-pneumonia 07/05-07/16/16, [facility] - Covid Pneumonia Jun 2020, [facility] - Hypotension with Hyovolemia, Pneumonia 10/09-. [...] *Please review and pick correct strength-formulation from Maluubaspan options. If intended option is not shown, [...] G 2211 Complex e/[place], [address] CBC WITH AUTO DIFF, 59010 VENIPUNCT, ROUTINE* * Follow Up: 3 Months * Images: Billing Information: * Visit Code: 06901 Office Visit, Est Pt., Level 4. * Procedure Codes: G2211 Complex e/[place]. [address] CBC WITH AUTO DIFF. 76265 VENIPUNCT, ROUTINE*. * Electronic signature of Domi Fernández MD on 04/11/2025 at 08:56 AM EDT Sign off status: Pending * Provider: Domi Fernández M.D. Date: 0 07/23/2024 Generated for Diannai ng/Facristig/eTransmitting on: 1 08:56 AM EDT History and Physical Notes [...]
--- OUTSIDE RECORDS SUMMARY | 2024-12-17 06:45 | XMS_ITS ---
Author Organization [facility] Address 1210 [facility] [address] [phone] Care Team Providers Care Firer Locomotive Name Role Phone Domi Fernández Primary Care [...] Interpretation:Normal Performing Lab: Notes/Report: Test performed by [facility] [address] [place], [place] [address] [place] , [address], [place] [address] Russell Hahn MD, Manager Supply Chain CLIA: [id number] Specimen Source Urine - Void Culture, Urine See Below Final Report : No Significant Growth P-TSH Reviewed date:12/25/2024 03:01:08 PM Interpretation:Normal Performing Lab: Notes/Report: Test performed by [facility] [address] [place], [place] [address] [place] , [address], [place] [address] Russell Hahn MD, Manager Supply Chain CLIA: [id number] TSH 3.79 0.43-5.25 mU/L REASON FOR VISIT [...] review and pick correct strength-formulat ion from [employer] options. 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 :1945 A ge:79 Y S ex:Female Date:12/17/2024 Address:[address] [place] [address], [id number] Subjective: * Chief Complaints: * 1 . [...] Diagno stic Procedure: h ip replacement 2006, [facility] Diverticulitis 12-04-11, [facility]-dehydration, pneumonia 12/28/11, [facility] ER-pneumonia 07/05-07/16/16, [facility] ER - Covid Pneumonia Jun 2020, H [...] *Please review and pick correct strength-formulation from [employer] options. If intended option is not shown, [...] G 2211 Complex e/[place], [address] Urinalysis, no micro, 1036F TOBACCO NON- USER, G8950 PREHTN/HTN BP DOC INDCD F/U DOC, G8752 MOST RECENT SYSTOLIC BP < 140MM HG, G8754 MOST RECENT DIASTOLIC BP < 90MM HG * Follow Up: 2 Months * Images: Billing Information: * Visit Code: 06088 Office Visit, Est Pt., Level 4. * Procedure Codes: G2211 Complex e/[place]. [address] Urinalysis, no micro. 1036F TOBACCO NON-USER. G8950 PREHTN/HTN BP DOC INDCD F/U DOC. G8752 MOST RECENT SYSTOLIC BP < 140MM HG. G8754 MOST RECENT DIASTOLIC BP < 90MM HG. * Electronic signature of Domi Fernández MD on 04/11/2025 at 08:55 AM EDT Sign off status: Pending * Provider: Domi Fernández M.D. Date: 0 12/17/2024 Generated for Diannai ng/Faxing/eTransmitting on: 1 08:55 AM EDT History and Physical Notes * [...]
--- OUTSIDE RECORDS SUMMARY | 2025-02-18 07:00 | XMS_ITS ---
Author Organization [facility] Address [address] [facility] [address] [phone] Care Team Providers Care Gill Tender Name Role Phone Domi Fernández Primary Care Provider [phone] Allergies Allergen (clinical drug ingredient) Drug/Non Drug [...] review and pick correct strength-formulat ion from [employer] options. If intended option is not shown, discontinue and re-order from Quick Search* Active Albuterol Sulfate HFA 108 (90 Base) MCG/ACT 2 puff(s) inhaled every 6 hours; Duration: 30 day(s) 10/14/2020 Active ADVAIR 100/50 1 INHALATION BID *Please review for potential replacement for e-prescription and drug interaction check* Active Vitamin D3 1.25 MG (78235 UT) 1 capsule Orally once weekly; Duration: 30 days 02/18/2025 Active Cartia XT 240 MG 1 capsule Orally Once a day; Duration: 30 day(s) Active Fish Oil 1000 MG 1 capsule Orally once a day Active Vital Signs Weight 215.2 lbs 02/18/2025 Blood pressure systolic 130 mm Hg 02/19/20 25 Blood pressure diastolic 80 mm Hg 025 Heart Rate 96 /min 02/18/2025 Height 00 in 02/18/2025 Encounters Encounter Location Date Provider Diagnosis [facility] [facility] [address] [id number] 02/18/2025 Domi Fernández Essential hypertensi on I10 [...] Once a day Vitamin D3 1.25 MG (29821 UT) 1 capsule Orally once weekly; Duration: 30 days 02/18/2025 Next Appt Details Follow Up: 3 Months, Reason: Provider Name:Domi Watters er, 06/03/2025 09:45:00 AM, [address], [address], [place], [place], [phone], Progress Notes * HILDA PAYANJASPEROB: [birth year] (79 yo F)Acc No.[id number]:02/18/2025 Progress Notes Patient: KRISTOPHER GONZALES Provider: Domi Fernández M.D. :1945 A ge:79 Y S ex:Female Date:02/18/2025 Address:[address] [place] [phone] Subjective: * Chief Complaints: * 1 . [...] Procedure: h ip replacement 2006, [facility] Diverticulitis 12-04-11, [facility] ER-dehydration, pneumonia 12/28/11, [facility] ER-pneumonia 07/05-07/16/16, [facility] - Covid Pneumonia Jun 2020, [facility] - Hypotension with Hyovolemia, Pneumonia 10/09-. [...] *Please review and pick correct strength-formulation from [employer] options. If intended option is not shown, [...] * Images: Billing Information: * Visit Code: 42623 Office Visit, Est Pt., Level 4. * [...] 02/18/2025 Generated for Sravan venegas/Anel/eTransmitting on: 1 08:55 AM EDT History and [...]
--- OUTSIDE RECORDS SUMMARY | 2025-04-11 08:55 | XMS_ITS | Patient Health Record ---
Author Organization [facility] Address [address] [id number] Care Team Providers Care Diesel Engine Engineer Name Role Phone Domi Fernández Primary Care Provider Arya Mack Unavailable [phone] Allergies Allergen (clinical drug ingredient) Drug/Non Drug Allergy documented on EMR Reaction Allergy Type Onset Date Status Penicillin hives Drug Allergy Active Results Component Value Reference Range Notes H-INR Reviewed date:01/31/2025 10:51:55 AM Interpretation: Performing [...] IN THE ASSESSMENTS AND ANTICOAGULATION CLINIC SECTION H-PT/INR Reviewed date:01/17/2025 03:47:45 PM Interpretation: Performing Lab: Notes/Report: PT 44.2 10.1-12.5 seconds INR 4.45 0.9-1.1 INDICATION INR RANGE Therapy for DVT, PE, Atrial Fib, 2.0-3.0 Prophylaxis for VTE. 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 H-INR Reviewed date:02/28/2025 12:47:01 PM Interpretation: Performing Lab: Notes/Report: POCINRFS 2.7 0.9-1.1 Results sent to: Yael Farooq Pharmacist recommendation for Warfarin therapy is: PATIENT INR 2.7 TODAY VIA FINGERSTICK. RECOMMENDED PATIENT CONTINUE WITH WARFARIN 5 MG ON TUE/TUE/TUE; 2.5 MG ON TUE/TUE/CARMEN/SAT. FOR DETAILED INFORMATION-PLEASE REVIEW [...] - 38 platlet 218 100 - 400 P-CBC with Diff plus Absolut e Counts Reviewed date:04/26/2024 10:19:34 AM Interpretation:Normal Performing Lab: Notes/Report: Test performed by [facility] [address] [place] [address] , [address], [place] [address] Russell Hahn MD, Board Member CLIA: [id number] WBC 6.9 3.8-11.5 K/uL Red Blood Cell [...] 25 Performing Lab: Notes/Report: Test performed by [facility], [address] , [address], [place] [address] Russell Hahn MD, Board Member CLIA: [id number] Sodium 142 135-145 mmol/L Potassium 4.3 3.5-5.3 [...] Interpretation:Normal Performing Lab: Notes/Report: Test performed by [facility] [address] , [address], [place] [address] Russell Hahn MD, Board Member CLIA: [id number] TSH 0.84 0.43-5.25 mU/L EKG Reviewed date:04/26/2024 10:19:16 AM Interpretation: Performing Lab: Notes/Report: Urinalysis - Inhouse Reviewed date:12/24/2024 06:30:27 PM Interpretation: Performing Lab: Notes/Report: Color/Clarity yellow/clear Leuk Trace Nitrite Neg Urobili 3.2 Protein Neg pH 5.5 Blood 2+ Sp. Gr. 1.015 Ketone Neg Bili Neg Gluc Neg P-Culture, Urine Reviewed date:12/25/2024 03:01:08 PM Interpretation:Normal Performing Lab: Notes/Report: Test performed by [facility] [address] , [address], [place] [address] Russell Hahn MD, Board Member CLIA: [id number] Specimen Source Urine - Void Culture, Urine See Below Final Report : No Significant Growth P-TSH Reviewed date:12/25/2024 03:01:08 PM Interpretation:Normal Performing Lab: Notes/Report: Test performed by [facility] [address] [place] [address] , [address], [place] [address] Russell Hahn MD, Board Member CLIA: [id number] TSH 3.79 0.43-5.25 mU/L H-INR Reviewed date:01/17/2025 03:47:23 PM Interpretation: Performing Lab: Notes/Report: POCINRFS 5.1 0.9-1.1 Results sent to: Yael Farooq Pharmacist recommendation for Warfarin therapy is: PATIENT INR 5.1 TODAY VIA FINGERSTICK. RECOMMENDED PATIENT HOLD DOSE X2 DAYS, THEN REDUCE WARFARIN DOSE TO 2.5 MG ON TUE/TUE/CARMEN/SAT; 5 MG ON MON/WED/FRI. PATIENT IS CURRENTLY [...] Interpretation: Performing Lab: Notes/Report: POCINRFS 3.3 0.9-1.1 THERAPY FOR MECHANICAL HEART 2.5 - 3.5 VALVE; PREVENTION OF SYSTEMIC EMBOLISM SECONDARY TO AMI Results sent to: Yael Farooq Pharmacist recommendation for Warfarin therapy is: PATIENT INR 3.3 TODAY VIA FINGERSTICK. RECOMMENDED PATIENT TAKE WARFARIN 2.5 MG X2 DAYS, THEN REDUCED WEEKLY DOSE BY 2.5 MG TO WARFARIN 2.5 MG ON MON/WED/TUE; 5 MG ON TUE/TUE/CARMEN/SAT. FOR DETAILED INFORMATION-PLEASE REVIEW PROGRESS NOTE IN THE ASSESSMENTS AND ANTICOAGULATION CLINIC SECTION ANTICOAGULATION CLINIC IN PCI/CLINICAL REVIEW INDICATION INR RANGE THERAPY FOR DVT, PE, ATRIAL FIB; 2.0 - 3.0 PROPHYLAXIS FOR VTE H-PT/INR Reviewed date:12/20/2024 03:22:12 PM Interpretation: Performing [...] Cr 1.99, gfr 25 Performing Lab: Notes/Report: CLIA: [id number] Russell Hahn MD, Board Member [address] [place] [address] , [address] , [place] [address] Test performed by [facility] Sodium 142 135-145 mmol/L Potassium 4.0 3.5-5.3 [...] Interpretation:21.4 Performing Lab: Notes/Report: Test performed by [facility] [address] [place] [address] , [address] , [place] [address] Russell Hahn MD, Board Member CLIA: [id number] TSH 21.40 0.43-5.25 mU/L Bone density Reviewed date:02/06/2025 01:20:22 PM Interpretation:osteopenia Performing Lab: Notes/Report: osteopenia Bone density osteopenia H-INR Reviewed date:04/26/2024 03:33:44 PM Interpretation: Performing Lab: Notes/Report: POCINRFS 2.7 0.9-1.1 Results sent to: Yael Farooq Pharmacist recommendation for Warfarin therapy is: PATIENT INR 2.7 TODAY VIA FINGERSTICK. RECOMMENDED PATIENT CONTINUE WITH WARFARIN 2.5 MG ON MON/FRI; 5 MG ON TUE/TUE/TUE/TUE/TUE FOR DETAILED INFORMATION-PLEASE REVIEW PROGRESS NOTE IN THE ASSESSMENTS AND ANTICOAGULATION CLINIC SECTION ANTICOAGULATION CLINIC IN PCI/CLINICAL REVIEW INDICATION INR RANGE THERAPY FOR DVT, PE, ATRIAL FIB; 2.0 - 3.0 PROPHYLAXIS FOR VTE THERAPY FOR MECHANICAL HEART 2.5 - 3.5 VALVE; PREVENTION OF SYSTEMIC EMBOLISM SECONDARY TO AMI Medications Medication SIG (Take, Route, Frequency, Duration) Notes Start Date End Date Status traZODone HCl 150 MG 1 tablet at bedtime Orally Once a day; Duration: 90 days Active Cartia XT 240 MG 1 capsule Orally Once a day; Duration: 30 day(s) Active Levothyroxine Sodium 150 MCG 1 tablet in the morning on an empty stomach Orally Once a day; Duration: 90 days 10/31/2024 Active Warfarin Sodium 5 MG Take 1 tablet by mouth once daily; Duration: 90 Active ADVAIR 100/50 1 INHALATION BID *Please review for potential replacement for e-prescription and drug interaction check* Active Fish Oil 1000 MG 1 capsule Orally once a day Active HYDROcodone-Acetamin ophen 5-325 MG 1 tab(s) orally three times a day as needed; Duration: 30 days 03/25/2025 Active Hydrocortisone-Aceti c Acid 1-2 % 5 drops into affected ear Otic Three times a day; Duration: 10 days 12/17/2024 Active Sertraline HCl 50 MG 1 tablet [...] review and pick correct strength-formulat ion from [employer] options. If intended option is not shown, discontinue and re-order from Quick Search* Active amLODIPine Besylate 5 MG 1 tab(s) orally once a day; Duration: 90 days Not-Taking Vitamin D3 1.25 MG (59806 UT) 1 capsule Orally once weekly; Duration: 30 days 02/18/2025 Active Allopurinol 100 MG 1 tablet Orally Once a day; Duration: 90 days Active Albuterol Sulfate HFA 108 (90 Base) MCG/ACT 2 puff(s) inhaled every 6 hours; Duration: 30 day(s) 10/14/2020 Active metOLazone 2.5 MG 1 tab(s) orally every other day prn; Duration: 30 day(s) Not-Taking Immunizations Vaccine Route Administration Date Status Comme nts COVID 19 Moderna Unknown 11/03/2020 Administered COVID 19 Moderna Unknown 06/08/2021 Administered [...] (65yr and older) IM Intramuscular 03/10/2022 Administered PNEUMOVAX 23 VACCINE IM Intramuscular 09/27/2016 Administe red Prevnar (PCV13) IM Intramuscular 09/04/2014 Administered Prevnar (PCV20) IM Intramuscular 06/16/2022 Administered Tetanus Tdap-Adacel (over 7yrs) IM Intramuscular 08/24/2017 Administered dXzjzurs-rhgdbvnpn-jczahdt e pts. IM Intramuscular 03/31/2012 Administered COVID 19 Moderna Unknown 12/01/2020 Administered xFlu shot-36 months and older IM Intramuscular 05/13/2011 Administered Fluzone High Dose (65yr and older) IM Intramuscular 03/25/2021 Administered Fluzone High Dose (65yr and older) IM Intramuscular 03/20/2019 Administered Fluzone High Dose (65yr and older) IM Intramuscular 04/19/2018 Administered Fluzone High Dose (65yr and older) IM Intramuscular 03/15/2014 Administered Fluzone High Dose (65yr and older) IM Intramuscular 04/05/2023 Administered Problems Problem Type SNOMED Code ICD Code Onset Dates Problem Status W/U Status Risk Notes Problem Vitamin D deficiency (27687354) Vitamin D deficiency (E55.9) Active confirmed Problem History of DVT (deep vein thrombosis) (099915915) History of DVT (deep vein thrombosis) (Z86.718) Active confirmed Problem Essential hypertension (41531475) Essential hypertension (I10) Active confirmed Problem Hyperuricemia (20170918) Hyperuricemia (E79.0) Active confirmed Problem Chronic kidney disease stage 3 (disorder) (098841070) Chronic kidney disease, stage 3 (N18.3) Active confirmed Problem Generalized anxiety disorder (30106098) Generalized anxiety disorder (F41.1) Active confirmed Problem Chronic pain (44957850) Other chronic pain (G89.29) Active confirmed Problem Chronic pain syndrome (953207467) Chronic pain syndrome (G89.4) Active confirmed Problem Kyphosis deformity of thoracic spine (423020681) Other secondary kyphosis, 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) Active confirmed Problem Long-term current use of anticoagulant (205219076) MCFP (current) use of anticoagulants (Z79.01) Active confirmed Problem Acquired hypothyroidism (775039471) Acquired hypothyroidism (E03.9) Active confirmed Problem Renal insufficiency (029650790) Renal insufficiency (N28.9) Active confirmed Problem Depression (394870816) Depression (F32.9) Active confirmed Problem Allergic rhinitis (31928297) Allergic rhinitis (J30.9) Active confirmed Problem Atrial fibrillation (03109742) Atrial fibrillation, unspecified type (I48.91) Active confirmed Problem Vaginal bleeding (459194690) Vaginal bleeding (N93.9) Active confirmed Problem Obese class II (989359479064779) BMI 37.0-37.9, adult (Z68.37) Active confirmed Problem Cardiac dysrhythmia (444617773) Cardiac dysrhythmia, unspecified (I49.9) Active confirmed Problem Interstitial lung disease (130777128) Interstitial lung disease (J84.9) Active confirmed Problem Factor V Leiden mutation (disorder) (256044488) History of factor V Leiden mutation (Z86.2) Active confirmed Problem Osteopenia (400545889) Osteopenia, unspecified location (M85.80) Active confirmed Problem Allergic rhinitis (93168748) Non-seasonal allergic rhinitis, unspecified allergic rhinitis trigger (J30.89) Active confirmed Problem Chronic renal failure syndrome (11304062) Chronic kidney disease, unspecified CKD stage (N18.9) Active confirmed Problem Seasonal allergic rhinitis (412527473) Seasonal allergic rhinitis, unspecified trigger (J30.2) Active confirmed Problem Plain X-ray of chest abnormal (finding) (6276132462) Abnormal CXR (R93.89) Active confirmed Problem Chronic atrial fibrillation (422749471) Chronic atrial fibrillation (I48.20) Active confirmed Problem 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) (7596140194) 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) Active confirmed Problem Primary hypertension (28496148) Primary hypertension (I10) Active confirmed Vital Signs Heart Rate 96 /min 02/18/2025 Blood pressure diastolic 80 mm Hg 02/18/2025 Height 00 in 02/18/2025 Blood pressure systolic 130 mm Hg 02/18/2025 Weight 215.2 lbs 02/18/2025 Encounters Encounter Location Date Provider Diagnosis [facility] [address] [facility] [address] [place], [place] [id number] 04/23/2024 Domi Fernández Cardiac dysrhythmia, unspecified I49.9 ; Atrial fibrillation, unspecified type I48.91 ; Primary hypertension I10 ; Interstitial lung disease J84.9 ; Renal insufficiency N28.9 ; Acquired hypothyroidism E03.9 ; History of DVT (deep vein thrombosis) Z86.718 ; History of factor V Leiden mutation Z86.2 ; MCFP (current) use of anticoagulants Z79.01 ; Hyperuricemia E79.0 and Other chronic pain [facility].29 [facility] [address] [facility] [address] [place] [id number] 07/23/2024 Domi Fernández Atrial fibrillation, unspecified type I48.91 ; Chronic kidney disease, stage 3 N18.3 ; Chronic atrial fibrillation I48.20 and Chronic kidney disease, unspecified CKD stage N18.9 [facility] [address] [facility] [address] [place] [id number] 12/17/2024 Domi Fernández Essential hypertensi on I10 ; MCFP (current) use of anticoagulants Z79.01 ; History of DVT (deep vein thrombosis) Z86.718 ; History of factor V Leiden mutation Z86.2 ; Acquired hypothyroidism E03.9 ; Dysuria R30.0 ; Microscopic hematuria R31.29 and Acute otitis externa of left ear, unspecified type H60.502 [facility] [address] [place] [id number] 02/18/2025 Domi Fernández Essential hypertensi on I10 ; History of DVT (deep vein thrombosis) Z86.718 ; History of factor V Leiden mutation Z86.2 ; Acquired hypothyroidism E03.9 ; Hyperuricemia E79.0 ; Chronic kidney disease, stage 3 N18.3 and Osteopenia of forearm, unspecified laterality M85.839 [facility] [address] [facility] [address] [place] [id number] 10/22/2024 Domi Fernández Acquired hypothyroid ism E03.9 ; MCFP (current) use of anticoagulants Z79.01 ; Essential hypertension I10 ; Chronic atrial fibrillation I48.20 ; Chronic kidney disease, unspecified CKD stage N18.9 and Chronic pain syndrome G89.4 [facility] [address] [place] [id number] 04/26/2024 Domi Fernández [facility]normal E[facility] R94.31 [facility] [address] [address] [place] [id number] 05/23/2024 Domi Fernández Acquired hypothyroid ism E03.9 [facility] [address] [place], [place] [id number] 05/30/2024 J Tyler Fernández Other chronic pain G89.29 [facility] [address] [place], [place] [id number] 07/09/2024 J Tyler Pradeep Other chronic pain G89.29 [facility] [address] [place], [place] [id number] 08/13/2024 J Tyler Pradeep Other chronic pain G89.29 [facility] [address] [place], [place] [id number] 09/10/2024 J Tyler Fernández Other chronic pain G89.29 [facility] [address] [place], [place] [id number] 10/31/2024 J Tyler Pradeep [facility] [address] [place], [place] [id number] 11/26/2024 J Tyler Fernández Chronic pain syndrom e G89.4 [facility] [address] [place], [place] [id number] 12/17/2024 J Tyler Pradeep [facility] [address] [place], [place] [id number] 01/07/2025 J Tyler Fernández Chronic pain syndrom e G89.4 [facility] [address] [place], [place] [id number] 01/07/2025 J Tyler Fernández Screening for osteoporosis Z13.820 [facility] [address] [place], [place] [id number] 01/31/2025 J Tyler Fernández [facility] [address] [place], [place] [id number] 02/06/2025 J Tyler Fernández [facility] [address] [place], [place] [id number] 02/11/2025 Arya Ryde Chronic pain syndrom e G89.4 [facility] [address] [place], [place] [id number] 03/25/2025 Arya Ryde Chronic pain syndrom e G89.4 [facility] [address] [facility] [address] [place] [id number] 04/01/2025 Domi Fernández Assessments Encounter Date Diagnosis (ICD Code) Assessment Notes Treatment Notes Treatment Clinical Notes Section Notes 04/23/2024 Atrial fibrillation, unspecified type (ICD-10 - [...] Other chronic pain (ICD-10 - G89.29) 10/22/2024 long term care phlebotomist (current) use of anticoagulants (ICD-10 - Z79.01) 10/22/2024 Acquired hypothyroidism (ICD-10 - E03.9) 11/26/2024 Chronic pain syndrome (ICD-10 - G89.4) 12/17/2024 Essential hypertension (ICD-10 - I10) 12/17/2024 MCFP (current) use of anticoagulants (ICD-10 - Z79.01) 01/07/2025 Chronic pain syndrome (ICD-10 - G89.4) 01/07/2025 Screening for osteoporosis (ICD-10 - Z13.820) 02/11/2025 Chronic pain syndrome (ICD-10 - G89.4) 02/18/2025 History of DVT (deep vein thrombosis) (ICD-10 - Z86.718) 02/18/2025 Essential hypertension (ICD-10 - I10) 03/25/2025 Chronic pain syndrome (ICD-10 - G89.4) 02/18/2025 History of factor V Leiden mutation (ICD-10 - Z86.2) 12/17/2024 History of DVT (deep vein thrombosis) (ICD-10 - Z86.718) 04/23/2024 Primary hypertension (ICD-10 - I10) 07/23/2024 Chronic atrial fibrillation (ICD-10 - I48.20) 10/22/2024 Essential hypertension (ICD-10 - I10) 07/23/2024 Chronic kidney disease, unspecified CKD stage (ICD-10 - N18.9) 04/23/2024 Interstitial lung disease (ICD-10 - J84.9) 12/17/2024 History of factor V Leiden mutation (ICD-10 - Z86.2) 10/22/2024 Chronic atrial fibrillation (ICD-10 - I48.20) 02/18/2025 Acquired hypothyroidism (ICD-10 - E03.9) 12/17/2024 Acquired hypothyroidism (ICD-10 - E03.9) 02/18/2025 Hyperuricemia (ICD-10 - E79.0) 10/22/2024 Chronic kidney disease, unspecified CKD stage [...] V Leiden mutation (ICD-10 - Z86.2) 04/23/2024 MCFP (current) use of anticoagulants (ICD-10 - Z79.01) 04/23/2024 Hyperuricemia (ICD-10 - E79.0) 04/23/2024 Other chronic pain (ICD-10 - G89.29) Plan Of Treatment Pending Test Test Name Order Date Cologuard 01/13/2023 Next Appt Details Provider Name:Domi Watters er, 06/03/2025 09:45:00 AM, [address], [place], [id number], Insurance Providers Payer Name Payer Address Payer Phone Subscriber Number Group Number Insured Name Patient Relationship to Insured Coverage Start Date Coverage End Date MEDICARE PART B [address] [address] [place] [phone] [id number] KRISTOPHER PAYAN Self - patient is the insured Medications Administered Medication Instructions Date of Administration Dosage Notes celestone 12/04/2007 1 mL Dexamethasone 11/15/2006 1 mL Depo- Medrol 40 mg/ml 10/26/2008 1.5 mL Medical (General) History Medical History History [...] removal May 20 Hospitalization History Reason Date(Month/Year) [facility] - Hypotension with Hyovolemia, Pneum onia 10/09- [facility] - Covid Pneumonia Jun 2020 [facility]-pneumonia 07/05-07/16/16 [facility]-dehydration, pneumonia 12/28/11 [facility] Diverticulitis 12-04-11 hip replacement 2006
--- OUTSIDE RECORDS SUMMARY | 2025-04-11 08:55 | XMS_ITS | Clinical Summary ---
Author Organization [facility] Address [address] [place] [address] Care Team Providers Care Traffic Maintenance Officer Name Role Phone Fareed Fernández MD Primary Care Provider [phone] Allergies Active Allergy Reactions Criticality Noted Date [...] time each day. 2 Active HYDROcodone-mayte taminophen ([place]) 5-325 MG tablet Take 1 tablet (5 [...] Active Problems Problem Noted Date Diagnosed Date Hypercalcemia 09/01/2020 CKD (chronic kidney disease) stage 3, GFR 30-59 ml/min 01/31/2018 Gout 01/31/2018 Hypertension 12/22/2017 Resolved Problems Problem Noted Date Diagnosed Date Resolved Date MARIELY (acute kidney injury) 10/16/2020 Immunizations Immunization Administration Dates Next Due Influenza, [...] Office Visit [facility] [address] [place] [id number] Lynn Harrington, LEAF CONDITIONER [address] [address] Health Maintenance Due Date Last Done Comments [facility]-Bone Density Scan 1945 [facility]-Depression Screening 1945 [facility]-Medicare Annual Wellness (AWV) 1945 [facility]-/Child/Adol SDOH Screenings 1945 [facility]- SDOH Screenings 1964 [facility]-Adult SDOH Screenings 1964 [facility]-Zoster Vaccines (1 of 2) 1996 [facility]-RSV Vaccine: 60+ Years or (1 - 1-dose 75+ series) 2021 [id number] Vaccine (7 - Moderna risk 2023- season) 2025 03/15/2024, 05/03/2023, 06/02/2022, Additional history exists [facility]-Influenza [...] MD LAB BLOOD ORDERABLES Final Re sult Performing Organization Address City/State/[facility] Co de Phone Number SUNQUEST from Last 3 Months or Most Recently Relevant to Health Maintenance Insurance MEDICARE Member Subscriber Plan / Payer (Ef fective 2011-Present) Name:Aleida Saldivar Member ID:[id number] Relation to Subscriber:Self Name:Aleida Saldivar Subscriber ID:[id number] Payer ID:MEDICARE Group ID:Not on file Type:Medicare Address: [place] [id number] Care Teams Traffic Maintenance Officer Relationship Specialty Start Date End Date Fareed Fernández MD [address] [place] [address] [facility] - General 11/07/20
[2025-04-11 12:48] LABS: PHA INR Fingerstick 2.9 (0.9-1.1)
== END 2025-04-11 13:25 ==
LOC: ACC 08:49
PROVIDERS: PCP Family Medicine; Visit Provider Physician Assistant
DX: Z79.01 Long term (current) use of anticoagulants (principal); Z86.718 Personal history of other venous thrombosis and embolism
CPT/HCPCS: 85610; 99211; G0463

== ENCOUNTER 2025-05-30 08:39 | Outpatient (CLI) | payer MEDICARE, SELFPAY ==
--- OUTSIDE RECORDS SUMMARY | 2024-04-23 09:45 | XMS_ITS ---
Author Organization Formerly [facility] Address [address] [facility] [address] [id number] Care Team Providers Care Psychiatric Secretary Name Role Phone Domi Fernández Primary Care Provider Allergies Allergen (clinical drug ingredient) Drug/Non Drug Allergy documented on EMR Reaction Allergy Type Onset Date Status Penicillin hives Drug Allergy Active Results Component Value Reference Range Notes P-CBC with Diff plus Absolut e Counts Reviewed date:04/26/2024 10:19:34 AM Interpretation:Normal Performing Lab: Notes/Report: Test performed by [facility], [address] , [address], [place] [address] Russell Hahn MD, Case Checker CLIA: [id number] WBC 6.9 3.8-11.5 K/uL Red Blood Cell Count (RBC) 4.54 3.60-5.30 M/mm 3 Hemoglobin (Hgb) 13.9 11.5-15.5 gm/dL Hematocrit (HCT) 42.4 35.2-46.4 % MCV 93.4 79.0-99.0 fL MCH 30.6 26.9-35.0 pg MCHC 32.8 30.4-34.8 g/dL RDW 45.9 38.6-53.8 fL Platelet Count 173 137-397 K/cumm Neutrophils Automated 59.5 41.0-77.0 % Lymphocytes Automated 29.1 14.0-48.0 % Monocytes Automated 9.2 4.0-13.0 % Eosinophils Automated 1.0 0.0-8.0 % Basophils Automated 0.9 0.0-1.5 % Immature Granulocyte Automated 0.3 0.0-1.0 % Absolute Neutrophil Count 4.1 2.0-8.2 K/uL Absolute Lymphocyte Count 2.0 0.9-3.6 K/uL Absolute Monocyte Count 0.6 0.3-1.0 K/uL Absolute Eosinophil Count 0.1 0.0-0.6 K/uL Absolute Basophil Count 0.1 0.0-0.1 K/uL Absolute Immature Granulocyte 0.02 0.00-0.03 K /uL P-Comprehensive Metabolic Pa federico (CMP) Reviewed date:04/26/2024 10:19:34 AM Interpretation:co2- 20, bun 33, Cr 2.01, gfr 25 Performing Lab: Notes/Report: Test performed by [facility] [address] [place] [address] , [address], [place] [address] Russell Hahn MD, Case Checker CLIA: [id number] Sodium 142 135-145 mmol/L Potassium 4.3 3.5-5.3 mmol/L Chloride 103 97-108 mmol/L CO2 20 22-32 mmol/L Glucose 99 65-99 mg/dL BUN 33 8-23 mg/dL Creatinine 2.01 0.50-1.00 mg/dL Calcium 9.6 8.6-10.4 mg/dL eGFR by Creatinine 25 >59 mL/min/1.73m2 Protein 6.8 6.0-8.3 g/dL Albumin 4.3 3.5-5.3 g/dL Alkaline Phosphatase 61 35-121 IU/L ALT (SGPT) 8 <5-47 IU/L AST (SGOT) 14 <5-40 IU/L Bilirubin, Total 0.3 <0.2-1.2 mg/dL A/G Ratio 1.7 1.1-2.5 P-TSH Reviewed date:04/26/2024 10:19:34 AM Interpretation:Normal Performing Lab: Notes/Report: Test performed by [facility] [address] [place], [place] [address] [place] , [address], [place] [id number] Russell Hahn MD, Case Checker CLIA: [id number] TSH 0.84 0.43-5.25 mU/L EKG Reviewed date:04/26/2024 10:19:16 AM Interpretation: Performing Lab: Notes/Report: Reason For Referral Reason needs appt this week for new onset A-fib Diagnosis 1 Cardiac dysrhythmia, unspecified (I49.9) Referral Organization [facility] Referring Provider First Name Domi Scott Referring Provider Last Name Pradeep Referring Provider Speciality Family Callie ctice Referred Provider Specialty Cardiovascul ar Disease General Notes Rhea Ma 024 8:47:19 AM > faxed to [facility] Cardiology, Rhea Ma 04/24/2024 8:50:25 AM > spoke with Carlee in cardiology; she will be on the lookout for the order and call today, Rhea Ma 04/27/2024 9:21:13 AM > patient has appointment scheduled for 05/15/2024 Referral Priority Routine REASON FOR VISIT checkup, Needs labs, colon cancer screening, & flu vaccine Medications Medication SIG (Take, Route, Frequency, Duration) Notes Start Date End Date Status Albuterol Sulfate HFA 108 (90 Base) MCG/ACT 2 puff(s) inhaled every 6 hours; Duration: 30 day(s) 10/14/2020 Active LORazepam 0.5 MG 1 tab orally 2 times a day as needed; Duration: 30 days 02/10/2023 Active Claritin 10 MG 1 tablet Orally Once a day; Duration: 30 day(s) 07/11/2023 Active Fluticasone Propionate 50 MCG/ACT 1 spray(s) in each nostril once a day Active Prolia 60 MG/ML as directed subcutaneously every 6 months 06/11/2020 Active ADVAIR 100/50 1 INHALATION BID *Please review for potential replacement for e-prescription and drug interaction check* Active Multivitamin 1 TAB ONCE A DAY *Please review and pick correct strength-formula tion from [employer] options. If intended option is not shown, discontinue and re-order from Quick Search* Active Levothyroxine Sodium 125 MCG 1 tab(s) orally once a day; Duration: 90 days Active Zithromax Z-Blane 250 MG 2 pills first day then one daily for 4 days orally as directed; Duration: 5 days 06/10/2021 Not-Taking Mucinex DM 30-600 MG 1 tab(s) orally every 12 hours 06/10/2021 Not-Taking traZODone HCl 150 MG TAKE 1 TABLET BY MOUTH ONCE DAILY AT BEDTIME; Duration: 90 Active Sertraline HCl 50 MG Take 1 tablet by mouth once daily; Duration: 90 days Active metOLazone 2.5 MG 1 tab(s) orally every other day prn; Duration: 30 day(s) Not-Taking predniSONE 20 MG 1 tab(s) orally once a day as directed Not-Taking Benzonatate 100 MG 1 cap(s) orally 3 times a day 05/13/2021 Not-Taking Warfarin Sodium 5 MG Take 1 tablet by mouth once daily; Duration: 90 Active HYDROcodone-Acetami nophen 5-325 MG 1 tab(s) orally Two times a day as needed 04/23/2024 Active Allopurinol 100 MG 1 tab(s) orally once a day; Duration: 90 days Active amLODIPine Besylate 5 MG 1 tab(s) orally once a day; Duration: 90 days Active Problems Problem Type SNOMED Code ICD Code Onset Dates Problem Status W/U Status Risk Notes Problem Atrial fibrillation (42459182) Atrial fibrillation, unspecified type (I48.91) Active confirmed Vital Signs Blood pressure systolic 122 mm Hg 04/23/20 24 Blood pressure diastolic 70 mm Hg 024 Heart Rate 62 /min 04/23/2024 Height 00 in 04/23/2024 Weight 230.6 lbs 04/23/2024 Encounters Encounter Location Date Provider Diagnosis [facility] [facility] [address] [id number] 04/23/2024 Domi Fernández Cardiac dysrhythmia, unspecified I49.9 ; Atrial fibrillation, unspecified type I48.91 ; Primary hypertension I10 ; Interstitial lung disease J84.9 ; Renal insufficiency N28.9 ; Acquired hypothyroidism E03.9 ; History of DVT (deep vein thrombosis) Z86.718 ; History of factor V Leiden mutation Z86.2 ; long term care pharmacist (current) use of anticoagulants Z79.01 ; Hyperuricemia E79.0 and Other chronic pain G89.29 Assessments Encounter Date Diagnosis (ICD Code) Assessment Notes Treatment Notes Treatment Clinical Notes Section Notes 04/23/2024 Cardiac dysrhythmia, unspecified (ICD-10 - I49.9) 04/23/2024 Atrial fibrillation, unspecified type (ICD-10 - I48.91) 04/23/2024 Primary hypertension (ICD-10 - I10) 04/23/2024 Interstitial lung disease (ICD-10 - J84.9) 04/23/2024 Renal insufficiency (ICD-10 - N28.9) 04/23/2024 Acquired hypothyroidism (ICD-10 - E03.9) 04/23/2024 History of DVT (deep vein thrombosis) (ICD-10 - Z86.718) 04/23/2024 History of factor V Leiden mutation (ICD-10 - Z86.2) 04/23/2024 long term care pharmacist (current) use of anticoagulants (ICD-10 - Z79.01) 04/23/2024 Hyperuricemia (ICD-10 - E79.0) 04/23/2024 Other chronic pain (ICD-10 - G89.29) Plan Of Treatment Medication Medication Name Sig Start Date Stop Date Notes Levothyroxine Sodium 125 MCG 1 tab(s) or ally once a day; Duration: 90 days HYDROcodone-Acetaminophen 5- 325 MG 1 tab(s) orally Two times a day as needed 04/23/2024 Allopurinol 100 MG 1 tab(s) orally once a day; Duration: 90 days Referrals Referral Date Details 04/23/2024 04/23/2024, needs ap pt this week for new onset A-fib Next Appt Details Follow Up: 3 Months, Reason: Provider Name:Domi Watters , 06/03/2025 09:45:00 AM, [address] [facility] 36 [facility], [address] , [place], [place], [id number], Progress Notes * JAVI PAYANOB: [birth year] (79 yo F)Acc No.[id number]:04/23/2024 Progress Notes Patient: KRISTOPHER GONZALES Provider: Domi Fernández M.D. :1945 A ge:78 Y S ex:Female Date:04/23/2024 Address:[address] [place], [place] [id number] Subjective: * Chief Complaints: * 1 . Checkup. 2. Needs labs, colon cancer screening, & flu vaccine. * HPI: C ardiology: The pt states she is here today for a check up on Hypertension and Hypothyroidism. Pt states she is needing a refill for Levothyroxine, Allopurinol and Hydrocodone sent to [facility] in [place]. Pt states she gets her INR check with Pharmacy at [facility] and is scheduled to get her next check on . 78 year old female presents with c/o Short of Breath. Denies : Chest Pain. D enies : Dizziness. D enies : Palpitations. We disscussed frequency of visits in terms of controlled substance Rx. * ROS: D ERMATOLOGY: no R fernando. n o H burt. G ASTROENTEROLOGY: no N ausea. n o V omiting. n o D iarrhea.? U ROLOGY: no D ifficulty urinating. n o B lood in urine. * Medical History: H BP, Hypothyroidism, Fibrous SGV, DVT, Anemia, O.A., Gout, Back pain, Anxiety disorder, Leiden F5 disorder, normal mammogram and PAP 04/2012, Covid - Jul 08, 2020 - Covid Pneumonia, Moderna Covid Vaccine x1, Flu and COVID 19 Booster February 2024. * Surgical History: b ilateral knee replacement 2001, left hip replacement 2003, tubal ligation , hip replacement 2006, Gallbladder removed 12/27/11, D&C, Dr. Grijalva, polyp removal May 20, 2020. * Hospitalization/Major Diagno stic Procedure: h ip replacement 2006, [facility] ER Diverticulitis 12-04-11, [facility] ER-dehydration, pneumonia 12/28/11, [facility] ER-pneumonia 07/05-07/16/16, [facility] ER - Covid Pneumonia Jun 2020, [facility] - Hypotension with Hyovolemia, Pneumonia 10/09-. * Family History: F ather: 71 yrs. M other: 69 yrs. P aternal Grand Father: .?Paternal Grand Mother: . M aternal Grand Father: . M aternal Grand Mother: . 2 brother(s) - healthy. 1 son(s) , 1 daughter(s) - healthy. . * Social History: C URRENT TOBACCO USE S moking Status: Patient does NOT smoke. C affeine: yes, frequency:daily. Exercise: yes, some. Home smoke detector use: yes. Marital Status: Single. New since last visit: none. Occupation: yes. Past smoking status: no, Smoking status: Does not smoke, Former Smoker: Yes, Quit smokin. Occup. exposure: none. Recreational drug use: no. Alcohol: no. Sexually active: no.. Travel ouside [place]: no. * Medications: T aking ADVAIR 100/50 1 INHALATION BID , Notes to Pharmacist: *Please review for potential replacement for e-prescription and drug interaction check*, Taking Multivitamin 1 TAB ONCE A DAY , Notes to Pharmacist: *Please review and pick correct strength-formulation from [employer] options. If intended option is not shown, discontinue and re-order from Quick Search*, Taking Albuterol Sulfate HFA 108 (90 Base) MCG/ACT Aerosol Solution 2 puff(s) inhaled every 6 hours , Taking LORazepam 0.5 MG Tablet 1 tab orally 2 times a day as needed , Taking Claritin 10 MG Tablet 1 tablet Orally Once a day , Taking Fluticasone Propionate 50 MCG/ACT Suspension 1 spray(s) in each nostril once a day , Taking Prolia 60 MG/ML Solution Prefilled Syringe as directed subcutaneously every 6 months , Taking Levothyroxine Sodium 125 MCG Tablet 1 tab(s) orally once a day , Taking Allopurinol 100 MG Tablet 1 tab(s) orally once a day , Taking amLODIPine Besylate 5 MG Tablet 1 tab(s) orally once a day , Taking HYDROcodone-Acetaminophen 5-325 MG Tablet 1 tab(s) orally Two times a day as needed , Taking Warfarin Sodium 5 MG Tablet Take 1 tablet by mouth once daily , Taking traZODone HCl 150 MG Tablet TAKE 1 TABLET BY MOUTH ONCE DAILY AT BEDTIME , Taking Sertraline HCl 50 MG Tablet Take 1 tablet by mouth once daily , Not- Taking metOLazone 2.5 MG Tablet 1 tab(s) orally every other day prn , Not-Taking predniSONE 20 MG Tablet 1 tab(s) orally once a day as directed , Not-Taking Benzonatate 100 MG Capsule 1 cap(s) orally 3 times a day , Not-Taking Zithromax Z-Blane 250 MG Tablet 2 pills first day then one daily for 4 days orally as directed , Not-Taking Mucinex DM 30-600 MG Tablet Extended Release 12 Hour 1 tab(s) orally every 12 hours , Medication List reviewed and reconciled with the patient * Allergies: P enicillin: hives. Objective: * Vitals: W t:230.6, Temp:97.8, BP:122/70, HR:62, O2 Sat:98% on RA, Nurse:THERESA, Ht: 00. * Examination: G eneral Examination: General Appearance: N AD, note weight gain. H EENT:?unremarkable. O ral cavity: n o lesions, mucosa moist and WNL, no erythema. N pamella: ?supple, no lymphadenopathy. C hest: n ormal shape and expansion. H eart: i rregular rhythm. L ungs: c lear to auscultation. A bdomen: obese, soft and nontender, no organomegaly or masses. N eurologic Exam: N o change in exam, walks using cane. S kin:?normal, no rash. E xtremities: M inimal leg edema. Assessment: * Assessment: 1. A trial fibrillation, unspecified type - I48.91 (Primary) 2 . C ardiac dysrhythmia, unspecified - I49.9 3 . P rimary hypertension - I10 4 . I nterstitial lung disease - J84.9 5 . R enal insufficiency - N28.9 6 . A cquired hypothyroidism - E03.9 7 . H istory of DVT (deep vein thrombosis) - Z86.718 8 . H istory of factor V Leiden mutation - Z86.2 ? 9 . L sudarshan term (current) use of anticoagulants - Z79.01 1 0. H yperuricemia - E79.0 1 1. O ther chronic pain - G89.29 Plan: * Treatment: ? Referral To:Cardiovascular Disease ?Reason:needs appt this week for new onset A-fib 2.?Renal insufficiency?LAB: P-Comprehensive Metabolic Panel (CMP) (Collection Date & Time - 04/23/2024 03:35 PM)?co2- 20, bun 33, Cr 2.01, gfr 25* Value Reference Range A /G Ratio 1.7 1.1-2.5 - * A lbumin 4.3 3.5-5.3 - g/dL * A lkaline Phosphatase 61 35-121 - IU/L * A LT (SGPT) 8 <5-47 - IU/L * A ST (SGOT) 14 <5-40 - IU/L * B ilirubin, Total 0.3 <0.2-1.2 - mg/dL * B UN 33 H 8-23 - mg/dL * C alcium 9.6 8.6-10.4 - mg/dL * C hloride 103 97-108 - mmol/L * C O2 20 L 22-32 - mmol/L * C reatinine 2.01 H 0.50-1.00 - mg/dL * G lucose 99 65-99 - mg/dL * P otassium 4.3 3.5-5.3 - mmol/L * S odium 142 135-145 - mmol/L * P rotein 6.8 6.0-8.3 - g/dL * e GFR by Creatinine 25 L >59 - mL/min/1.73m2 * Sandra Church 04/26/2024 10:1 9:26 AM >See phone encounter 3.?Acquired hypothyroidism? Refill Levothyroxine Sodium Tablet, 125 MCG, 1 tab(s), orally, once a day, 90 days, 90 Tablet, Refills 0.?LAB: P-TSH (Collection Date & Time - 04/23/2024 03:35 PM)?Normal* Value Reference Range T SH 0.84 0.43-5.25 - mU/L * Sandra Church 04/26/2024 10:1 9:26 AM >See phone encounter 4.?History of factor V Leiden mutation?LAB: P-CBC with Diff plus Absolute Counts (Collection Date & Time - 04/23/2024 03:35 PM)?Normal* Value Reference Range A bsolute Basophil Count 0.1 0.0-0.1 - K/uL * A bsolute Eosinophil Count 0.1 0.0-0.6 - K/uL * A bsolute Immature Granulocyte 0.02 0.00-0.03 - K/uL * A bsolute Lymphocyte Count 2.0 0.9-3.6 - K/uL * A bsolute Monocyte Count 0.6 0.3-1.0 - K/uL * A bsolute Neutrophil Count 4.1 2.0-8.2 - K/uL * B asophils Automated 0.9 0.0-1.5 - % * E osinophils Automated 1.0 0.0-8.0 - % * H ematocrit (HCT) 42.4 35.2-46.4 - % * H emoglobin (Hgb) 13.9 11.5-15.5 - gm/dL * I mmature Granulocyte Automated 0.3 0.0-1.0 - % * L ymphocytes Automated 29.1 14.0-48.0 - % * M CH 30.6 26.9-35.0 - pg * M CHC 32.8 30.4-34.8 - g/dL * M CV 93.4 79.0-99.0 - fL * M onocytes Automated 9.2 4.0-13.0 - % * P latelet Count 173 137-397 - K/cumm * R ed Blood Cell Count (RBC) 4.54 3.60-5.30 - M/ mm3 * R DW 45.9 38.6-53.8 - fL * N eutrophils Automated 59.5 41.0-77.0 - % * W BC 6.9 3.8-11.5 - K/uL * RanjitSandra 04/26/2024 10:1 9:26 AM >See phone encounter 5.?Hyperuricemia? Refill Allopurinol Tablet, 100 MG, 1 tab(s), orally, once a day, 90 days, 90 Tablet, Refills 1. ?6.?Other chronic pain? Refill HYDROcodone-Acetaminophen Tablet, 5-325 MG, 1 tab(s), orally, Two times a day as needed, 60,Refills 0.?? * Procedure Codes: 9 4760 PULSE OX * Follow Up: 3 Months * Images: Billing Information: * Visit Code: 74450 Office Visit, Est Pt., Level 4. * Procedure Codes: 39236 PULSE OX. * Electronic signature of Domi Fernández MD on 05/30/2025 at 08:42 AM EST Sign off status: Pending * Provider: Domi Fernández M.D. Date: Generated for Printi theo/Anel/eTransmitting on: 07/31/2024 08:42 AM EST History and Physical Notes * HPI (History of Present Illness) Category Sub-Category Detail Notes Category Not es Cardiology Short of Breath We disscusse d frequency of visits in terms of controlled substance Rx Chest Pain Palpitations Dizziness Examination Category Sub-Category Detail Notes Category Not es General Examination HEENT: unremarkable Heart: irregular rhythm Lungs: clear to auscultatio n Abdomen: obese, soft and nont gary, no organomegaly or masses Extremities: Minimal leg edema General Appearance: NAD, note weight gai n Skin: normal, no rash Neurologic Exam: No change in exam, w alks using cane Neck: supple, no lymphaden opathy Oral cavity: no lesions, mucosa m oist and WNL, no erythema Chest: normal shape and exp ansion Consultation Request Notes Referral Date Referring Provider Referred Provider Not es 04/23/2024 Domi Fernández , needs appt this week for new onset A-fib
--- OUTSIDE RECORDS SUMMARY | 2024-07-23 05:45 | XMS_ITS ---
Author Organization [facility] Address [address] [facility] [address] [id number] Care Team Providers Care Informix Developer Name Role Phone Domi Fernández Primary Care Provider Allergies Allergen (clinical drug ingredient) Drug/Non Drug Allergy documented on EMR Reaction Allergy Type Onset Date Status Penicillin hives Drug Allergy Active Results Component Value Reference Range Notes CBC Venipuncture (in house) Reviewed date:07/23/2024 12:07:33 PM Interpretation: Performing Lab: Notes/Report: wbc 5.7 3.5 - 10 lymph 33.4% 15 - 50 mid 6.6% 2 - 15 gran 60.0% 35 - 80 rbc 4.27 3.5 - 5.5 hgb 13.0 11.5 - 16.5 hct 39.6 35 - 55 mcv 92.8 75 - 100 mch 30.6 25 - 35 mchc 33.0 31 - 38 platlet 218 100 - 400 REASON FOR VISIT 3 month, Needs labs, colon cancer screening, & flu vaccine Medications Medication SIG (Take, Route, Frequency, Duration) Notes Start Date End Date Status amLODIPine Besylate 5 MG 1 tab(s) orally once a day; Duration: 90 days Not-Taking traZODone HCl 150 MG TAKE 1 TABLET BY MOUTH ONCE DAILY AT BEDTIME; Duration: 90 Active predniSONE 20 MG 1 tab(s) orally once a day as directed Not-Taking metOLazone 2.5 MG 1 tab(s) orally every other day prn; Duration: 30 day(s) Not-Taking Warfarin Sodium 5 MG Take 1 tablet by mouth once daily; Duration: 90 2.5 Mon and Fri.5 mg aod Active Allopurinol 100 MG 1 tab(s) orally once a day; Duration: 90 days Active Sertraline HCl 50 MG Take 1 tablet by mouth once daily; Duration: 90 days Active HYDROcodone-Acetamin ophen 5-325 MG 1 tab(s) orally Two times a day as needed 07/09/2024 Active Levothyroxine Sodium 100 MCG 1 tab(s) Orally once a day; Duration: 30 day(s) Active Fluticasone Propionate 50 MCG/ACT 1 spray(s) in each nostril once a day Active Multivitamin 1 TAB ONCE A DAY *Please review and pick correct strength-formulat ion from XillianTV options. If intended option is not shown, discontinue and re-order from Quick Search* Active ADVAIR 100/50 1 INHALATION BID *Please review for potential replacement for e-prescription and drug interaction check* Active Claritin 10 MG 1 tablet Orally Once a day; Duration: 30 day(s) 07/11/2023 Active Albuterol Sulfate HFA 108 (90 Base) MCG/ACT 2 puff(s) inhaled every 6 hours; Duration: 30 day(s) 10/14/2020 Active Vitamin D3 25 MCG (1000 UT) 1 capsule Orally Once a day; Duration: 30 day(s) Active Cartia XT 240 MG 1 capsule Orally Once a day; Duration: 30 day(s) Active Fish Oil 1000 MG 1 capsule Orally once a day Active Problems Problem Type SNOMED Code ICD Code Onset Dates Problem Status W/U Status Risk Notes Problem Chronic atrial fibrillation (612590370) Chronic atrial fibrillation (I48.20) Active confirmed Problem Chronic renal failure syndrome (94866266) Chronic kidney disease, unspecified CKD stage (N18.9) Active confirmed Vital Signs Blood pressure systolic 130 mm Hg 07/23/19 25 Blood pressure diastolic 76 mm Hg 025 Heart Rate 63 /min 07/23/2024 Height 00 in 07/23/2024 Weight 225.2 lbs 07/23/2024 Encounters Encounter Location Date Provider Diagnosis [facility] [address] [facility] [address] [place], [place] [id number] 07/23/2024 Domi Fernández Atrial fibrillation, unspecified type I48.91 ; Chronic kidney disease, stage 3 N18.3 ; Chronic atrial fibrillation I48.20 and Chronic kidney disease, unspecified CKD stage N18.9 Assessments Encounter Date Diagnosis (ICD Code) Assessment Notes Treatment Notes Treatment Clinical Notes Section Notes 07/23/2024 Atrial fibrillation, unspecified type (ICD-10 - I48.91) 07/23/2024 Chronic kidney disease, stage 3 (ICD-10 - N18.3) 07/23/2024 Chronic atrial fibrillation (ICD-10 - I48.20) 07/23/2024 Chronic kidney disease, unspecified CKD stage (ICD-10 - N18.9) Plan Of Treatment Medication Medication Name Sig Start Date Stop Date Notes Prolia 60 MG/ML as directed subcutaneously every 6 months 06/11/2020 Next Appt Details Follow Up: 3 Months, Reason: Provider Name:Domi Watters er, 06/03/2025 09:45:00 AM, [address] [facility], [address] , [place], [place], [id number], Progress Notes * ORAJAVIOB: 947 (79 yo F)Acc No.[id number]:07/23/2024 Progress Notes Patient: KRISTOPHER GONZALES Provider: Domi Fernández M.D. :1945 A ge:78 Y S ex:Female Date:07/23/2024 Address:[address] [place] [phone] Subjective: * Chief Complaints: * 1 . 3 month. 2. Needs labs, colon cancer screening, & flu vaccine. * HPI: E ndocrinology: The pt is here today for a check up on Hypothyroidism. Pt states she saw Nephrology on Tuesday and they want her to discuss whether she should continue on Prolia injections. (Prolia can cause hypocalcemia in patients with CKD). Pt is fasting. E NT/respiratory: The pt states she is having a lot of sinus drainage and it is sometimes dark in color. c/o post nasal drainage. Denies : sore throat. D enies : cough. D enies : Fever.? C ardiology: See notes from Cardiology. Remains in atrial fibrillation. Has follow-up in August. * ROS: D ERMATOLOGY: no R fernando. [...] Diagno stic Procedure: h ip replacement 2006, [facility] Diverticulitis 12-04-11, [facility] ER-dehydration, pneumonia 12/28/11, [facility] ER-pneumonia 07/05-07/16/16, [facility] - Covid Pneumonia Jun 2020, [facility] - Hypotension with Hyovolemia, Pneumonia 10/09-. [...] ouside US: no. * Medications: T aking Vitamin D3 25 MCG (1000 UT) Capsule 1 capsule Orally Once a day , Taking Fish Oil 1000 MG Capsule Delayed Release 1 capsule Orally once a day , Taking Cartia XT 240 MG Capsule Extended Release 24 Hour 1 capsule Orally Once a day , Taking ADVAIR 100/50 1 INHALATION BID , Notes to Pharmacist: *Please review for potential replacement for e-prescription and drug interaction check*, Taking Multivitamin 1 TAB ONCE A DAY , Notes to Pharmacist: *Please review and pick correct strength-formulation from Nirvahaspan options. If intended option is not shown, discontinue and re-order from Quick Search*, Taking Albuterol Sulfate HFA 108 (90 Base) MCG/ACT Aerosol Solution 2 puff(s) inhaled every 6 hours , Taking Claritin 10 MG Tablet 1 tablet Orally Once a day , Taking Fluticasone Propionate 50 MCG/ACT Suspension 1 spray(s) in each nostril once a day , Taking Prolia 60 MG/ML Solution Prefilled Syringe as directed subcutaneously every 6 months , Taking Warfarin Sodium 5 MG Tablet Take 1 tablet by mouth once daily , Notes to Pharmacist: 2.5 Mon and Fri.5 mg aod, Taking Sertraline HCl 50 MG Tablet Take 1 tablet by mouth once daily , Taking Allopurinol 100 MG Tablet 1 tab(s) orally once a day , Taking Levothyroxine Sodium 100 MCG Tablet 1 tab(s) Orally once a day , Taking HYDROcodone- Acetaminophen 5-325 MG Tablet 1 tab(s) orally Two times a day as needed , Taking traZODone HCl 150 MG Tablet TAKE 1 TABLET BY MOUTH ONCE DAILY AT BEDTIME , Not-Taking amLODIPine Besylate 5 MG Tablet 1 tab(s) orally once a day , Not-Taking metOLazone 2.5 MG Tablet 1 tab(s) orally every other day prn , Not-Taking predniSONE 20 MG Tablet 1 tab(s) orally once a day as directed , Medication List reviewed and reconciled with the patient * Allergies: P enicillin: hives. Objective: * Vitals: W t:225.2, Temp:97.8, BP:130/76, HR:63, Nurse:THERESA, Ht: 00. * Examination: G eneral Examination: General Appearance: N AD, note weight loss over past year (was 260#). H EENT: u nremarkable. O ral cavity: n o lesions, mucosa moist and WNL, no erythema. N pamella: s upple, no lymphadenopathy. C hest: n ormal shape and expansion. H eart: i rregular rhythm, rate 96. L ungs: c lear to auscultation. A bdomen:? obese, soft and nontender, no organomegaly or masses. N eurologic Exam: N o change in exam, walks using cane. S kin: n ormal, no rash. E xtremities: M inimal leg edema. Assessment: * Assessment: 1. A trial fibrillation, unspecified type - I48.91 (Primary) 2 . C hronic kidney disease, stage 3 - N18.3 3 . C hronic atrial fibrillation - I48.20 ? 4 . C hronic kidney disease, unspecified CKD stage - N18.9 Plan: * Treatment: Value Reference Range w bc 5.7 3.5 - 10 * l ymph 33.4% 15 - 50 * m id 6.6% 2 - 15 * g ran 60.0% 35 - 80 * r bc 4.27 3.5 - 5.5 * h gb 13.0 11.5 - 16.5 * h ct 39.6 35 - 55 * m cv 92.8 75 - 100 * m ch 30.6 25 - 35 * m chc 33.0 31 - 38 * p latlet 218 100 - 400 * Mehnaz Wong 07/23/2024 11: 17:33 AM > , Provider reviewed results while patient in office. 2.?Chronic kidney disease, stage 3? Stop Prolia Solution Prefilled Syringe, 60 MG/ML, as directed, subcutaneously, every 6 months.?? * Procedure Codes: G 2211 Complex e/[place], [address] CBC WITH AUTO DIFF, 09924 VENIPUNCT, ROUTINE* * Follow Up: 3 Months * Images: Billing Information: * Visit Code: 51512 Office Visit, Est Pt., Level 4. * Procedure Codes: G2211 Complex e/[place]. [address] CBC WITH AUTO DIFF. 52939 VENIPUNCT, ROUTINE*. * Electronic signature of Domi Fernández MD on 05/30/2025 at 08:43 AM EST Sign off status: Pending * Provider: Domi Fernández M.D. Date: 0 07/23/2024 Generated for Diannai ng/Melyssag/eTransmitting on: 07/31/2024 08:43 AM EST History and Physical Notes * HPI (History of Present Illness) Category Sub-Category Detail Notes Category Not es ENT/respiratory sore throat cough Fever post nasal drainage Examination Category Sub-Category Detail Notes Category Not es General Examination HEENT: unremarkable Heart: irregular rhythm, ra te 96 Lungs: clear to auscultatio n Abdomen: obese, soft and nont gary, no organomegaly or masses Extremities: Minimal leg edema General Appearance: NAD, note weight los s over past year (was 260#) Skin: normal, no rash Neurologic Exam: No change in exam, w alks using cane Neck: supple, no lymphaden opathy Oral cavity: no lesions, mucosa m oist and WNL, no erythema Chest: normal shape and exp ansion
--- OUTSIDE RECORDS SUMMARY | 2024-12-17 05:45 | XMS_ITS ---
Author Organization [facility] Address 1210 [facility] [place] [address] [id number] Care Team Providers Care Croze Cutter Helper Name Role Phone Domi Fernández Primary Care Provider Allergies Allergen (clinical drug ingredient) Drug/Non Drug Allergy documented on EMR Reaction Allergy Type Onset Date Status Penicillin hives Drug Allergy Active Results Component Value Reference Range Notes Urinalysis - Inhouse Reviewed date:12/24/2024 06:30:27 PM Interpretation: Performing Lab: Notes/Report: Color/Clarity yellow/clear Leuk Trace Nitrite Neg Urobili 3.2 Protein Neg pH 5.5 Blood 2+ Sp. Gr. 1.015 Ketone Neg Bili Neg Gluc Neg P-Culture, Urine Reviewed date:12/25/2024 03:01:08 PM Interpretation:Normal Performing Lab: Notes/Report: Test performed by [facility] [address] [place], [place] [address] , [address], [place] [address] Russell Hahn MD, Graphic Editor CLIA: [id number] Specimen Source Urine - Void Culture, Urine See Below Final Report : No Significant Growth P-TSH Reviewed date:12/25/2024 03:01:08 PM Interpretation:Normal Performing Lab: Notes/Report: Test performed by [facility] [address] [place], [place] [address] , [address], [place] [address] Russell Hahn MD, Graphic Editor CLIA: [id number] TSH 3.79 0.43-5.25 mU/L REASON FOR VISIT 2 months, Needs labs Medications Medication SIG (Take, Route, Frequency, Duration) Notes Start Date End Date Status predniSONE 20 MG 1 tab(s) orally once a day as directed Not-Taking amLODIPine Besylate 5 MG 1 tab(s) orally once a day; Duration: 90 days Not-Taking metOLazone 2.5 MG 1 tab(s) orally every other day prn; Duration: 30 day(s) Not-Taking Levothyroxine Sodium 150 MCG 1 tablet in the morning on an empty stomach Orally Once a day; Duration: 30 days 10/31/2024 Active HYDROcodone-Acetamin ophen 5-325 MG 1 tab(s) orally three times a day as needed; Duration: 30 days 11/27/2024 Active Fluticasone Propionate 50 MCG/ACT 1 spray(s) in each nostril once a day Active Sertraline HCl 50 MG Take 1 tablet by mouth once daily; Duration: 90 Active Warfarin Sodium 5 MG Take 1 tablet by mouth once daily; Duration: 90 Active traZODone HCl 150 MG TAKE 1 TABLET BY MOUTH ONCE DAILY AT BEDTIME FOR 90 DAYS; Duration: 90 Active Allopurinol 100 MG Take 1 tablet by mouth once daily; Duration: 90 Active Albuterol Sulfate HFA 108 (90 Base) MCG/ACT 2 puff(s) inhaled every 6 hours; Duration: 30 day(s) 10/14/2020 Active Claritin 10 MG 1 tablet Orally Once a day; Duration: 30 day(s) 07/11/2023 Active ADVAIR 100/50 1 INHALATION BID *Please review for potential replacement for e-prescription and drug interaction check* Active Multivitamin 1 TAB ONCE A DAY *Please review and pick correct strength-formulat ion from [employer] options. If intended option is not shown, discontinue and re-order from Quick Search* Active Hydrocortisone-Aceti c Acid 1-2 % 5 drops into affected ear Otic Three times a day; Duration: 10 days 12/17/2024 Active Ciprofloxacin HCl 500 MG 1 tablet Orally every 12 hrs; Duration: 3 day(s) 12/17/2024 Active Fish Oil 1000 MG 1 capsule Orally once a day Active Cartia XT 240 MG 1 capsule Orally Once a day; Duration: 30 day(s) Active Vitamin D3 25 MCG (1000 UT) 1 capsule Orally Once a day; Duration: 30 day(s) Active Vital Signs Blood pressure systolic 120 mm Hg 06/23/20 25 Blood pressure diastolic 72 mm Hg 025 Heart Rate 91 /min 12/17/2024 Height 00 in 12/17/2024 Weight 218.8 lbs 12/17/2024 Encounters Encounter Location Date Provider Diagnosis [facility] [address] [facility] [address] [place] [id number] 12/17/2024 Domi Fernández Essential hypertensi on I10 ; 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 ; History of DVT (deep vein thrombosis) Z86.718 ; History of factor V Leiden mutation Z86.2 ; Acquired hypothyroidism E03.9 ; Dysuria R30.0 ; Microscopic hematuria R31.29 and Acute otitis externa of left ear, unspecified type H60.502 Assessments Encounter Date Diagnosis (ICD Code) Assessment Notes Treatment Notes Treatment Clinical Notes Section Notes 12/17/2024 Essential hypertension (ICD-10 - I10) 12/17/2024 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) 12/17/2024 History of DVT (deep vein thrombosis) (ICD-10 - Z86.718) 12/17/2024 History of factor V Leiden mutation (ICD-10 - Z86.2) 12/17/2024 Acquired hypothyroidism (ICD-10 - E03.9) 12/17/2024 Dysuria (ICD-10 - R30.0) 12/17/2024 Microscopic hematuria (ICD-10 - R31.29) 12/17/2024 Acute otitis externa of left ear, unspecified type (ICD-10 - H60.502) Plan Of Treatment Medication Medication Name Sig Start Date Stop Date Notes Hydrocortisone-Acetic Acid 1-2 % 5 drops into affected ear Otic Three times a day; Duration: 10 days 12/17/2024 Ciprofloxacin HCl 500 MG 1 tablet Orally every 12 hrs; Duration: 3 day(s) 12/17/2024 Next Appt Details Follow Up: 2 Months, Reason: Provider Name:Domi Watters er, 06/03/2025 09:45:00 AM, [address], [address], [place], [id number], Progress Notes * JAVI PAYANOB: [birth year] (79 yo F)Acc No.[id number]:12/17/2024 Progress Notes Patient: KRISTOPHER GONZALES Provider: Domi Fernández M.D. :1945 A ge:79 Y S ex:Female Date:12/17/2024 Address:[address] [place] [address], [id number] Subjective: * Chief Complaints: * 1 . 2 months. 2. Needs labs. * HPI: L balwinder back: The pt is here for a check up on chronic low back pain. Pt she is having pain in the left ear. Pt states she is also having burning with urination. Pt states she had labs and urine for Nephrology last week it showed a lot of blood in her urine. Pt is scheduled to follow up with Nephrology on Tuesday. C onstitutional: 12/14 lab showed BUN=27, creat=1.8, GFR=27. * ROS: D ERMATOLOGY: no R fernando. [...] Diagno stic Procedure: h ip replacement 2006, [facility] Diverticulitis 12-04-11, [facility]-dehydration, pneumonia 12/28/11, [facility]-pneumonia 07/05-07/16/16, [facility] - Covid Pneumonia Jun 2020, H - Hypotension with Hyovolemia, Pneumonia 10/09-. * [...] *Please review and pick correct strength-formulation from [employer] options. If intended option is not shown, discontinue and re-order from Quick Search*, Taking Albuterol Sulfate HFA 108 (90 Base) MCG/ACT Aerosol Solution 2 puff(s) inhaled every 6 hours , Taking Claritin 10 MG Tablet 1 tablet Orally Once a day , Taking Fluticasone Propionate 50 MCG/ACT Suspension 1 spray(s) in each nostril once a day , Taking traZODone HCl 150 MG Tablet TAKE 1 TABLET BY MOUTH ONCE DAILY AT BEDTIME FOR 90 DAYS , Taking Allopurinol 100 MG Tablet Take 1 tablet by mouth once daily , Taking Sertraline HCl 50 MG Tablet Take 1 tablet by mouth once daily , Taking Warfarin Sodium 5 MG Tablet Take 1 tablet by mouth once daily , Taking Levothyroxine Sodium 150 MCG Tablet 1 tablet in the morning on an empty stomach Orally Once a day , Taking HYDROcodone-Acetaminophen 5-325 MG Tablet 1 tab(s) orally three times a day as needed , Not-Taking amLODIPine Besylate 5 MG Tablet 1 tab(s) orally once a day , Not-Taking metOLazone 2.5 MG Tablet 1 tab(s) orally every other day prn , Not-Taking predniSONE 20 MG Tablet 1 tab(s) orally once a day as directed , Medication List reviewed and reconciled with the patient * Allergies: P enicillin: hives. Objective: * Vitals: W t: 218.8, Temp: 97.9, BP: 120/72, HR: 91, Nurse: THERESA, Ht: 00. * Examination: G eneral Examination: General Appearance: N AD, note weight loss over past year (was 260#). H EENT: m ucoid drainage left canal, tenderness, mild erythema of canal. O ral cavity: n o lesions, mucosa [...] inimal leg edema. Assessment: * Assessment: 1. E ssential hypertension - I10 (Primary) 2 . L sudarshan term (current) use of anticoagulants - Z79.01 3 . H istory of DVT (deep vein thrombosis) - Z86.718? 4. H istory of factor V Leiden mutation - Z86.2 5 . A cquired hypothyroidism - E03.9 6 . D ysuria - R30.0 7 . M icroscopic hematuria - R31.29 8 . A cute otitis externa of left ear, unspecified type - H60.502 Plan: * Treatment: Value Reference Range T SH 3.79 0.43-5.25 - mU/L * Mehnaz Wong 12/25/2024 03: 00:57 PM EDT > Patient informed of normal results. 2.?Microscopic hematuria? Start Ciprofloxacin HCl Tablet, 500 MG, 1 tablet, Orally, every 12 hrs, 3 day(s), 6.?LAB: P-Culture, Urine (Collection Date & Time - 12/17/2024 11:30 AM)?Normal * Value Reference Range C ulture, Urine See Below - * S pecimen Source Urine - Void - * Mehnaz Wong 12/25/2024 03: 00:57 PM EDT > Patient informed of normal results. 3.?Acute otitis externa of left ear, unspecified type? Start Hydrocortisone-Acetic Acid Solution, 1-2 %, 5 drops into affected ear, Otic, Three times a day, 10 days, 10 Milliliter, Refills 1.?? * Labs: * L ab: Urinalysis - Inhouse (Collection Date & Time - 12/17/2024) Value Reference Range C olor/Clarity yellow/clear * L euk Trace * N itrite Neg * U robili 3.2 * P rotein Neg * p H 5.5 * B lood 2+ * S p. Gr. 1.015 * K etone Neg * B sharon Neg * G delicia Neg * Mehnaz Wong 12/17/2024 11 :35:16 AM EDT > Provider reviewed results while patient in office. * Procedure Codes: G 2211 Complex e/[place], [address] Urinalysis, no micro, 1036F TOBACCO NON- USER, G8950 PREHTN/HTN BP DOC INDCD F/U DOC, G8752 MOST RECENT SYSTOLIC BP < 140MM HG, G8754 MOST RECENT DIASTOLIC BP < 90MM HG * Follow Up: 2 Months * Images: Billing Information: * Visit Code: 56063 Office Visit, Est Pt., Level 4. * Procedure Codes: G2211 Complex e/[place]. [address] Urinalysis, no micro. 1036F TOBACCO NON-USER. G8950 PREHTN/HTN BP DOC INDCD F/U DOC. G8752 MOST RECENT SYSTOLIC BP < 140MM HG. G8754 MOST RECENT DIASTOLIC BP < 90MM HG. * Electronic signature of Domi Fernández MD on 05/30/2025 at 08:43 AM EST Sign off status: Pending * Provider: Domi Fernández M.D. Date: 0 12/17/2024 Generated for Printi ng/Faxing/eTransmitting on: 1 07/31/2024 08:43 AM EST History and Physical Notes * HPI (History of Present Illness) Category Sub-Category Detail Notes Category Not es Constitutional 12/14 lab show ed BUN=27, creat=1.8, GFR=27 Examination Category Sub-Category Detail Notes Category Not es General Examination HEENT: mucoid drain age left canal, tenderness, mild erythema of canal Heart: irregular rhythm, ra te 96 Lungs: [...]
--- OUTSIDE RECORDS SUMMARY | 2025-02-18 06:00 | XMS_ITS ---
Author Organization [facility] Address [address] [facility] [address] [id number] Care Team Providers Care Director Patient Accounting Name Role Phone Domi Fernández Primary Care Provider Allergies Allergen (clinical drug ingredient) Drug/Non Drug Allergy documented on EMR Reaction Allergy Type Onset Date Status Penicillin hives Drug Allergy Active REASON FOR VISIT 2 months, Needs labs [...] a day; Duration: 90 days 10/31/2024 Active HYDROcodone-Acetamin ophen 5-325 MG 1 tab(s) orally three times a day as needed; Duration: 30 days 02/14/2025 Active Warfarin Sodium 5 MG 1 tablet [...] Once a day; Duration: 90 days Active Allopurinol 100 MG 1 tablet Orally Once a day; Duration: 90 days Active Claritin 10 MG 1 tablet Orally Once a day; Duration: 30 day(s) 07/11/2023 Active Fluticasone Propionate 50 MCG/ACT 1 spray(s) in each nostril once a day Active Multivitamin 1 TAB ONCE A DAY *Please review and pick correct strength-formulat ion from [employer] options. If intended option is not shown, discontinue and re-order from [employer]* Active Albuterol Sulfate HFA 108 (90 Base) MCG/ACT 2 puff(s) inhaled every 6 hours; Duration: 30 day(s) 10/14/2020 Active ADVAIR 100/50 1 INHALATION BID *Please review for potential replacement for e-prescription and drug interaction check* Active Vitamin D3 1.25 MG (38600 UT) 1 capsule Orally once weekly; Duration: 30 days 02/18/2025 Active Cartia XT 240 MG 1 capsule Orally Once a day; Duration: 30 day(s) Active Fish Oil 1000 MG 1 capsule Orally once a day Active Vital Signs Blood pressure systolic 130 mm Hg 02/19/20 Blood pressure diastolic 80 mm Hg 025 Heart Rate 96 /min 02/18/2025 Height 00 in 02/18/2025 Weight 215.2 lbs 02/18/2025 Encounters Encounter Location Date Provider Diagnosis [facility] [address] [id number] 02/18/2025 Domi Fernández Essential hypertensi on I10 ; History of DVT (deep vein thrombosis) Z86.718 ; History of factor V Leiden mutation Z86.2 ; Acquired hypothyroidism E03.9 ; Hyperuricemia E79.0 ; Chronic kidney disease, stage 3 N18.3 and Osteopenia of forearm, unspecified laterality M85.839 Assessments Encounter Date Diagnosis (ICD Code) Assessment Notes Treatment Notes Treatment Clinical Notes Section Notes 02/18/2025 Essential hypertension (ICD-10 - I10) 02/18/2025 History of DVT (deep vein thrombosis) (ICD-10 - Z86.718) 02/18/2025 History of factor V Leiden mutation (ICD-10 - Z86.2) 02/18/2025 Acquired hypothyroidism (ICD-10 - E03.9) 02/18/2025 Hyperuricemia (ICD-10 - E79.0) 02/18/2025 Chronic kidney disease, stage 3 (ICD-10 - N18.3) 02/18/2025 Osteopenia of forearm, unspecified laterality (ICD-10 - M85.839) Plan Of Treatment Medication Medication Name Sig Start Date Stop Date Notes Vitamin D3 25 MCG (1000 UT) 1 capsule Orally Once a day Vitamin D3 1.25 MG (28723 UT) 1 capsule Orally once weekly; Duration: 30 days 02/18/2025 Next Appt Details Follow Up: 3 Months, Reason: Provider Name:Domi Watters er, 06/03/2025 09:45:00 AM, [address], [address], [place], [place], [phone], Progress Notes * HILDA PAYANJASPEROB: 9[birth year] (79 yo F)Acc No.[id number]:02/18/2025 Progress Notes Patient: KRISTOPHER GONZALES Provider: Domi Fernández M.D. :1945 A ge:79 Y S ex:Female Date:02/18/2025 Address:[address] [place] [phone] Subjective: * Chief Complaints: * 1 . 2 months. 2. Needs labs. * HPI: H PI: 79 year old female presents with c/o Patient is here today for?Pt is here today for a 2 month check up. Pt sts she is doing well and has no concerns at this time. * ROS: D ERMATOLOGY: no R fernando. [...] Diagno stic Procedure: h ip replacement 2006, [facility] Diverticulitis 12-04-11, [facility] ER-dehydration, pneumonia 12/28/11, [facility] ER-pneumonia 07/05-07/16/16, [facility] - Covid Pneumonia Jun 2020, [facility] - Hypotension with Hyovolemia, Pneumonia [...] *Please review and pick correct strength-formulation from [employer] options. If intended option is not shown, discontinue and re-order from Quick Search*, Taking Albuterol Sulfate HFA 108 (90 Base) MCG/ACT Aerosol Solution 2 puff(s) inhaled every 6 hours , Taking Claritin 10 MG Tablet 1 tablet Orally Once a day , Taking Fluticasone Propionate 50 MCG/ACT Suspension 1 spray(s) in each nostril once a day , Taking Hydrocortisone-Acetic Acid 1-2 % Solution 5 drops into affected ear Otic Three times a day , Taking traZODone HCl 150 MG Tablet 1 tablet at bedtime Orally Once a day , Taking Warfarin Sodium 5 MG Tablet 1 tablet Orally Once a day , Taking Sertraline HCl 50 MG Tablet 1 tablet Orally Once a day , Taking Allopurinol 100 MG Tablet 1 tablet Orally Once a day , Taking Levothyroxine Sodium 150 MCG Tablet [...] enicillin: hives. Objective: * Vitals: W t: 215.2, Temp: 97.7, BP: 130/80, HR: 96, Nurse: jacoby, Ht: 00. * Examination: G eneral Examination: [...] ssential hypertension - I10 (Primary) 2 . H istory of DVT (deep vein thrombosis) - Z86.718 3 . H istory of factor V Leiden mutation - Z86.2 4 . A cquired hypothyroidism - E03.9 5 . H yperuricemia - E79.0 & #160; 6 . C hronic kidney disease, stage 3 - N18.3 7 . O steopenia of forearm, unspecified laterality - M85.839 Plan: * Treatment: * Procedure Codes: G 2211 Complex e/m visit add on, G8950 PREHTN/HTN BP DOC INDCD F/U DOC, G8752 MOST RECENT SYSTOLIC BP < 140MM HG, G8754 MOST RECENT DIASTOLIC BP < 90MM HG, 1036F TOBACCO NON-USER * Follow Up: 3 Months * Images: Billing Information: * Visit Code: 31530 Office Visit, Est Pt., Level 4. * Procedure Codes: G2211 Complex e/m visit add on. G8950 PREHTN/HTN BP DOC INDCD F/U DOC. G8752 MOST RECENT SYSTOLIC BP < 140MM HG. G8754 MOST RECENT DIASTOLIC BP < 90MM HG. 1036F TOBACCO NON-USER. * Electronic signature of Domi Fernández MD on 05/30/2025 at 08:42 AM EST Sign off status: Pending * Provider: Domi Fernández M.D. Date: 0 02/18/2025 Generated for Sravan venegas/Anel/eTransmitting on: 1 07/31/2024 08:42 AM EST History and Physical Notes * HPI (History of Present Illness) Category Sub-Category Detail Notes Category Not es HPI Patient is here today for Pt is here today for a 2 month check up. Pt sts she is doing well and has no concerns at this time Examination Category Sub-Category Detail Notes Category Not [...]
--- OUTSIDE RECORDS SUMMARY | 2025-05-30 08:42 | XMS_ITS | Clinical Summary ---
Author Organization [facility] Address [address] [place] [address] Care Team Providers Care Oil Lease Buyer Name Role Phone Fareed Fernández MD Primary Care Provider [phone] Allergies Active Allergy Reactions Criticality Noted Date [...] time each day. 2 Active HYDROcodone-mayte taminophen ([place]) 5-325 MG tablet Take 1 tablet (5 [...] Description 07/05/2025 12:40 PM EST Office Visit [facility] [address] [place] [phone] Lynn Harrington, GEAR LAPPING MACHINE OPERATOR [address] [address] Health Maintenance Due Date Last Done Comments [facility]-Bone Density Scan 1946 [facility]-Depression Screening 1946 [facility]-Medicare Annual Wellness (AWV) 1945 [facility]-/Child/Adol SDOH Screenings 1946 [facility]- SDOH Screenings 1964 [facility]-Adult SDOH Screenings 1964 [facility]-Zoster Vaccines (1 of 2) 1996 [facility]-RSV Vaccine: 60+ Years or (1 - 1-dose 75+ series) 2021 [id number] Vaccine (2024- season) 2025 03/15/2024, 05/03/2023, 06/02/2022, Additional history [...] Payer (Ef fective 2011-Present) Name:Aleida Saldivar Member ID:[id number] Relation to Subscriber:Self Name:Aleida Saldivar Subscriber ID:[id number] Payer ID:MEDICARE Group ID:Not on file Type:Medicare Address: [address] Care Teams Oil Lease Buyer Relationship Specialty Start Date End Date Fareed Fernández MD [address] [place], [place] [address] [facility] - General 11/07/20
--- OUTSIDE RECORDS SUMMARY | 2025-05-30 08:42 | XMS_ITS | Patient Health Record ---
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 Name Role Phone Domi Fernández Primary Care Provider Arya Mack Unavailable [phone] Allergies Allergen (clinical drug ingredient) Drug/Non Drug [...] Interpretation:Normal Performing Lab: Notes/Report: Test performed by [facility] [address] [place], [place] [address] [place] , [address], [place] [address] Russell Hahn MD, Paralegal Legal Secretary CLIA: [id number] Specimen Source Urine - Void Culture, Urine See Below Final Report : No Significant Growth P-TSH Reviewed date:12/25/2024 03:01:08 PM Interpretation:Normal Performing Lab: Notes/Report: Test performed by [facility] [address] [place], [place] [address] [address], [address], [place] [address] Russell Hahn MD, Paralegal Legal Secretary CLIA: [id number] TSH 3.79 0.43-5.25 mU/L P-Comprehensive Metabolic Pa federico (CMP) Reviewed date:10/31/2024 08:09:43 AM Interpretation:gluc 100, bun 28, Cr 1.99, gfr 25 Performing Lab: Notes/Report: Test performed by [facility] [address] , [address], [place] [address] Russell Hahn MD, Paralegal Legal Secretary CLIA: [id number] Sodium 142 135-145 mmol/L Potassium 4.0 3.5-5.3 [...] Interpretation:21.4 Performing Lab: Notes/Report: Test performed by [facility] [address] [place] [address] 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 H-INR Reviewed date:01/17/2025 03:47:23 PM Interpretation: Performing [...] SYSTEMIC EMBOLISM SECONDARY TO AMI H-INR Reviewed date:01/31/2025 10:51:55 AM Interpretation: Performing [...] SYSTEMIC EMBOLISM SECONDARY TO AMI H-INR Reviewed date:02/28/2025 12:47:01 PM Interpretation: Performing [...] 2.5 MG ON TUE/TUE/TUE; 5 MG ON SUN/TUE/CARMEN/SAT. FOR DETAILED INFORMATION-PLEASE REVIEW PROGRESS NOTE IN THE ASSESSMENTS AND ANTICOAGULATION CLINIC SECTION ANTICOAGULATION CLINIC IN PCI/CLINICAL REVIEW INDICATION INR RANGE THERAPY FOR DVT, PE, ATRIAL FIB; 2.0 - 3.0 PROPHYLAXIS FOR VTE H-INR Reviewed date:08/23/2024 01:19:52 PM Interpretation: Performing [...] SYSTEMIC EMBOLISM SECONDARY TO AMI H-INR Reviewed date:04/11/2025 05:08:59 PM Interpretation: Performing Lab: Notes/Report: POCINRFS 2.9 0.9-1.1 Results sent to: Yael Farooq Pharmacist recommendation for Warfarin therapy is: PATIENT INR 2.9 TODAY VIA FINGERSTICK. RECOMMENDED PATIENT CONTINUE WITH WARFARIN 5 MG ON MON/WED/FRI; 2.5 MG ON TUE/TUE/CARMEN/SAT. FOR DETAILED INFORMATION-PLEASE [...] - 38 platlet 218 100 - 400 Medications Medication SIG (Take, Route, Frequency, Duration) [...] a day as needed; Duration: 30 days 04/24/2025 Active Hydrocortisone-Aceti c Acid 1-2 % 5 [...] review and pick correct strength-formulat ion from [employer] options. If intended option is not shown, discontinue and re-order from Quick Search* Active amLODIPine Besylate 5 MG 1 tab(s) orally once a day; Duration: 90 days Not-Taking Vitamin D3 1.25 MG (78267 UT) 1 capsule Orally once weekly; Duration: [...] months and older IM Intramuscular 05/13/2011 Administered uHcortbs-xbuqsfrbo-qlchatr e pts. IM Intramuscular 03/31/2012 Administered Problems Problem Type SNOMED Code ICD Code Onset Dates Problem Status W/U Status Risk Notes Problem Vitamin D deficiency (39887637) Vitamin D deficiency (E55.9) Active confirmed Problem History of DVT (deep vein thrombosis) (538393431) History of DVT (deep vein thrombosis) (Z86.718) Active confirmed Problem Essential hypertension (05450850) Essential hypertension (I10) Active confirmed Problem Hyperuricemia (19355952) Hyperuricemia (E79.0) Active confirmed Problem Chronic kidney disease stage 3 (disorder) (486173910) Chronic kidney disease, stage 3 (N18.3) Active confirmed Problem Generalized anxiety disorder (58939523) Generalized anxiety disorder (F41.1) Active confirmed Problem Chronic pain (32510381) Other chronic pain (G89.29) Active confirmed Problem Chronic pain syndrome (376287159) Chronic pain syndrome (G89.4) Active confirmed Problem Kyphosis deformity of thoracic spine (003568126) Other secondary kyphosis, 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) Active confirmed Problem Long-term current use of anticoagulant (381707314) 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 (Z79.01) Active confirmed Problem Acquired hypothyroidism (129091664) Acquired hypothyroidism (E03.9) Active confirmed Problem Renal insufficiency (973756874) Renal insufficiency (N28.9) Active confirmed Problem Depression (229356143) Depression (F32.9) Active confirmed Problem Allergic rhinitis (41350039) Allergic rhinitis (J30.9) Active confirmed Problem Atrial fibrillation (19413529) Atrial fibrillation, unspecified type (I48.91) Active confirmed Problem Vaginal bleeding (884899352) Vaginal bleeding (N93.9) Active confirmed Problem Obese class II (753166997735438) BMI 37.0-37.9, adult (Z68.37) Active confirmed Problem Cardiac dysrhythmia (103905386) Cardiac dysrhythmia, unspecified (I49.9) Active confirmed Problem Interstitial lung disease (489160231) Interstitial lung disease (J84.9) Active confirmed Problem Factor V Leiden mutation (disorder) (860739616) History of factor V Leiden mutation (Z86.2) Active confirmed Problem Osteopenia (701556987) Osteopenia, unspecified location (M85.80) Active confirmed Problem Allergic rhinitis (21234003) Non-seasonal allergic rhinitis, unspecified allergic rhinitis trigger (J30.89) Active confirmed Problem Chronic renal failure syndrome (22292988) Chronic kidney disease, unspecified CKD stage (N18.9) Active confirmed Problem Seasonal allergic rhinitis (982600328) Seasonal allergic rhinitis, unspecified trigger (J30.2) Active confirmed Problem Plain X-ray of chest abnormal (finding) (1084002939) Abnormal CXR (R93.89) Active confirmed Problem Chronic atrial fibrillation (844912034) Chronic atrial fibrillation (I48.20) Active confirmed Problem 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) (7434729800) 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) Active confirmed Problem Primary hypertension (23537766) Primary hypertension (I10) Active confirmed Vital Signs Heart Rate 96 /min 02/18/2025 Blood pressure diastolic 80 mm Hg 02/18/2025 Height 00 in 02/18/2025 Blood pressure systolic 130 mm Hg 02/18/2025 Weight 215.2 lbs 02/18/2025 Encounters Encounter Location Date Provider Diagnosis [facility] [address] [place] [id number] 07/23/2024 Domi Fernández Atrial fibrillation, unspecified type I48.91 ; Chronic kidney disease, stage 3 N18.3 ; Chronic atrial fibrillation I48.20 and Chronic kidney disease, unspecified CKD stage N18.9 [facility] [address] [id number] 12/17/2024 Domi Fernández Essential hypertensi on I10 ; [facility] (current) use of anticoagulants Z79.01 ; History of DVT (deep vein thrombosis) Z86.718 ; History of factor V Leiden mutation Z86.2 ; Acquired hypothyroidism E03.9 ; Dysuria R30.0 ; Microscopic hematuria R31.29 and Acute otitis externa of left ear, unspecified type H60.502 [facility] [address] [id number] 02/18/2025 Domi Fernández Essential hypertensi on I10 ; History of DVT (deep vein thrombosis) Z86.718 ; History of factor V Leiden mutation Z86.2 ; Acquired hypothyroidism E03.9 ; Hyperuricemia E79.0 ; Chronic kidney disease, stage 3 N18.3 and Osteopenia of forearm, unspecified laterality M85.839 [facility] [address] [place] [id number] 10/22/2024 Domi Fernández Acquired hypothyroid ism E03.9 ; [facility] (current) use of anticoagulants Z79.01 ; Essential hypertension I10 ; Chronic atrial fibrillation I48.20 ; Chronic kidney disease, unspecified CKD stage N18.9 and Chronic pain syndrome G89.[address] [id number] 05/30/2024 J Tyler Fernández Other chronic pain G89.29 [facility] [address] [place], [place] [id number] 07/09/2024 J Tyler Fernández Other chronic pain G89.29 [facility] [address] [place], [place] [id number] 08/13/2024 J Tyler Pradeep Other chronic pain G89.29 [facility] [address] [place], [place] [id number] 09/10/2024 J Tyler Fernández Other chronic pain G89.29 [facility] [address] [place], [place] [id number] 10/31/2024 J Tyler Pradeep [facility] [address] [place], [place] [id number] 11/26/2024 J Tyler Fernández Chronic pain syndrom e G89.4 [facility] [address] [place], [place] [id number] 12/17/2024 J Tyler Fernández [facility] [address] [place], [place] [id number] 01/07/2025 J Tyler Fernández Chronic pain syndrom e G89.4 [facility] [address] [place], [place] [id number] 01/07/2025 J Tyler Fernández Screening for osteoporosis Z13.820 [facility] [address] [place], [place] [id number] 01/31/2025 J Tyler Fernández [facility] [address] [place], [place] [id number] 02/06/2025 J Tyler Fernández [facility] [address] [place], [place] [id number] 02/11/2025 Arya Grandin Chronic pain syndrom e G89.4 [facility] [address] [place], [place] [id number] 03/25/2025 Arya Grandin Chronic pain syndrom e G89.4 [facility] [address] [place], [place] [id number] 04/01/2025 Domi Fernández [facility] [address] [place] [id number] 04/24/2025 Arya Mack Chronic pain syndrom e G89.4 Assessments Encounter Date Diagnosis (ICD Code) Assessment Notes Treatment Notes Treatment Clinical Notes Section Notes 05/30/2024 Other chronic pain (ICD-10 - G89.29) 07/09/2024 Other chronic pain (ICD-10 - G89.29) 07/23/2024 Chronic kidney disease, stage 3 (ICD-10 - N18.3) 07/23/2024 Atrial fibrillation, unspecified type (ICD-10 - I48.91) 08/13/2024 Other chronic pain (ICD-10 - G89.29) 09/10/2024 Other chronic pain (ICD-10 - G89.29) 10/22/2024 [facility] (current) use of anticoagulants (ICD-10 - Z79.01) 10/22/2024 Acquired hypothyroidism (ICD-10 - E03.9) 11/26/2024 Chronic pain syndrome (ICD-10 - G89.4) 12/17/2024 Essential hypertension (ICD-10 - I10) 12/17/2024 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 (ICD-10 - Z79.01) 01/07/2025 Chronic pain syndrome (ICD-10 - G89.4) 01/07/2025 Screening for osteoporosis (ICD-10 - Z13.820) 02/11/2025 Chronic pain syndrome (ICD-10 - G89.4) 02/18/2025 History of DVT (deep vein thrombosis) (ICD-10 - Z86.718) 02/18/2025 Essential hypertension (ICD-10 - I10) 03/25/2025 Chronic pain syndrome (ICD-10 - G89.4) 04/24/2025 Chronic pain syndrome (ICD-10 - G89.4) 02/18/2025 [...] Z86.2) 02/18/2025 Acquired hypothyroidism (ICD-10 - E03.9) 10/22/2024 Chronic kidney disease, unspecified CKD stage (ICD-10 - N18.9) 02/18/2025 Hyperuricemia (ICD-10 - E79.0) 12/17/2024 Acquired hypothyroidism (ICD-10 - E03.9) 10/22/2024 Chronic pain syndrome (ICD-10 - G89.4) 12/17/2024 Dysuria (ICD-10 - R30.0) 02/18/2025 Chronic kidney disease, stage 3 (ICD-10 - N18.3) 12/17/2024 Microscopic hematuria (ICD-10 - R31.29) 02/18/2025 Osteopenia of forearm, unspecified laterality (ICD-10 - M85.839) 12/17/2024 Acute otitis externa of left ear, unspecified type (ICD-10 - H60.502) Plan Of Treatment Pending Test Test Name Order Date Cologuard 01/13/2023 Next Appt Details Provider Name:Domi Scott Duong , 06/03/2025 09:45:00 AM, [address] [facility], [address], [place], [place], [id number], Insurance Providers Payer Name Payer Address Payer Phone Subscriber Number Group Number Insured Name Patient Relationship to Insured Coverage Start Date Coverage End Date MEDICARE PART B [place] [id number] [place] [id number] [phone] [id number] KRISTOPHER PAYAN Self - patient is the [...] removal May 20 Hospitalization History Reason Date(Month/Year) [facility] - Hypotension with Hyovolemia, Pneum onia 10/09- [facility] - Covid Pneumonia Jun 2020 [facility] ER-pneumonia 07/05-07/16/16 [facility] ER-dehydration, pneumonia 12/28/11 [facility] ER Diverticulitis 12-04-11 hip replacement 2006
[2025-05-30 09:03] LABS: PHA INR Fingerstick 2.2 (0.9-1.1)
== END 2025-05-30 09:04 ==
LOC: ACC 08:41
PROVIDERS: PCP Family Medicine; Visit Provider Physician Assistant
DX: Z79.01 Long term (current) use of anticoagulants (principal); Z86.718 Personal history of other venous thrombosis and embolism
CPT/HCPCS: 85610; 99211; G0463